=== PATIENT | female | born 1955 | race Caucasian/White ===

== ENCOUNTER 2016-05-15 14:48 | Inpatient (IN) | payer MEDICARE, OTHER ==
[2016-05-15] MEDS: IPRATROPIUM-ALBUTEROL 3 ML NEB INHALATION SCH ×2 (19:14→23:58)
[2016-05-15 19:48] LABS: Basophils # (A) 0.1 k/uL (0-0.2); Basophils % (A) 1 %; CH 28.3; CHCM 32.3; Eosinophils # (A) 0.2 k/uL (0-0.7); Eosinophils % (A) 2 %; HCT 46.6 % (34.0-46.0); HDW 2.41; HGB 15.1 gm/dL (11.4-16.0); Luc # (Auto) 0.16; Luc % (Auto) 2; Lymphocytes # (A) 2.5 k/uL (1.0-4.8); Lymphocytes % (A) 25 %; MCH 28.7 pg (25.0-35.0); MCHC 32.5 g/dL (31.0-37.0); MCV 88.4 fL (80.0-100.0); Mean Platelet Volume 7.7; Monocytes # (A) 0.4 k/uL (0-1.0); Monocytes % (A) 4 %; Neutrophils # (A) 6.9 k/uL (1.3-7.7); Neutrophils % (A) 67 %; RBC 5.28 m/uL (3.80-5.40); RDW 13.5 % (11.5-15.5); WBC 10.2 k/uL (3.8-10.6)
--- NOTE | 2016-05-15 19:48 | XR ---
EXAMINATION TYPE: XR chest 2V DATE OF EXAM: 05/15/2016 7:43 PM COMPARISON: 12/14/2015 HISTORY: Cough and short of breath TECHNIQUE: Frontal and lateral views of the chest are obtained. FINDINGS: There is no heart failure. Coarsening of interstitial markings and more on the right side. There is a mild patchy nodular infiltrate in the right upper lobe. There is no pleural effusion. The re are no hilar masses. Thoracic aorta is atheromatous. There are small calcified granulomata at the pulmonary rosie. IMPRESSION: There is a mild nodular infiltrate in the right lung mainly in the right upper lobe that is increased compared to last exam and could relate to old granulomatous disease. No heart failure.
[2016-05-15] MEDS: HYDROcodone/APAP 5-325MG 1 EACH TAB PO PRN (19:55)
[2016-05-15] MEDS: SENNOSIDES-DOCUSATE SODIUM 1 EACH TAB PO PRN (19:55)
[2016-05-15] MEDS: guaiFENesin-Coden 100-10MG/5ML 10 ML CUP PO SCH (19:56)
[2016-05-15] MEDS: DULoxetine HCL 30 MG CAPSULE.DR PO SCH (19:56)
[2016-05-15] MEDS: BENZONATATE 100 MG CAP PO PRN (19:56)
[2016-05-15] MEDS: methylPREDNISolone SOD SUCCI 125 MG/2 ML VIAL IV SCH (19:57)
[2016-05-15] MEDS: RIFAMPIN 300 MG CAP PO SCH (19:57)
[2016-05-15 20:03] LABS: ALT 22 U/L (9-52); AST 24 U/L (14-36); Alkaline Phosphatase 73 U/L (38-126); Anion Gap 9 mmol/L; Blood Urea Nitrogen 15 mg/dL (7-17); Calcium 9.3 mg/dL (8.4-10.2); Carbon Dioxide 29 mmol/L (22-30); Chloride 103 mmol/L (98-107); Glucose 99 mg/dL (74-99); Non-African American GFR(MDRD) >60 (>60 ml/min/1.73 sqM); Potassium 4.5 mmol/L (3.5-5.1); Sodium 141 mmol/L (137-145); Total Bilirubin 0.7 mg/dL (0.2-1.3); Total Protein 6.6 g/dL (6.3-8.2)
[2016-05-15] MEDS: MELATONIN 5 MG TABLET PO SCH (21:24)
[2016-05-15] MEDS: ALPRAZolam 0.25 MG TAB PO SCH (21:24)
[2016-05-15] MEDS: BACLOFEN 10 MG TAB PO SCH (21:24)
[2016-05-16] MEDS: methylPREDNISolone SOD SUCCI 125 MG/2 ML VIAL IV SCH ×5 (00:39→23:45)
[2016-05-16] MEDS: IPRATROPIUM-ALBUTEROL 3 ML NEB INHALATION SCH ×5 (03:47→20:08)
[2016-05-16] MEDS: BENZONATATE 100 MG CAP PO PRN ×3 (04:01→20:32)
[2016-05-16] MEDS: IBUPROFEN 600 MG TAB PO PRN ×2 (04:02→17:12)
[2016-05-16] MEDS: PROMETHAZ-COD 6.25-10 MG/5 ML 5 ML CUP PO SCH (08:05)
[2016-05-16 08:06] LABS: Basophils % (A) 0 %; CH 28.3; CHCM 31.8; Eosinophils % (A) 0 %; HCT 46.3 % (34.0-46.0); HDW 2.43; HGB 14.8 gm/dL (11.4-16.0); Luc # (Auto) 0.06; Luc % (Auto) 1; Lymphocytes % (A) 15 %; MCH 28.6 pg (25.0-35.0); MCHC 31.9 g/dL (31.0-37.0); MCV 89.5 fL (80.0-100.0); Mean Platelet Volume 7.9; Monocytes # (A) 0.1 k/uL (0-1.0); Monocytes % (A) 2 %; Neutrophils # (A) 5.4 k/uL (1.3-7.7); Neutrophils % (A) 83 %; RBC 5.17 m/uL (3.80-5.40); RDW 13.5 % (11.5-15.5); WBC 6.6 k/uL (3.8-10.6); WBC (Perox) 6.78
[2016-05-16] MEDS: NICOTINE 21MG/24HR PATCH TRANSDERM SCH (08:15)
[2016-05-16] MEDS: BACLOFEN 10 MG TAB PO SCH ×3 (08:15→20:32)
[2016-05-16] MEDS: DULoxetine HCL 30 MG CAPSULE.DR PO SCH ×2 (08:15→20:31)
[2016-05-16] MEDS: MULTIVITAMINS, THERA 1 EACH TAB PO SCH (08:16)
[2016-05-16] MEDS: ASPIRIN 81 MG CHEW PO SCH (08:16)
[2016-05-16] MEDS: CLARITHROMYCIN 500 MG TAB PO SCH (08:16)
[2016-05-16] MEDS: PANTOPRAZOLE 40 MG TABLET PO SCH (08:16)
[2016-05-16] MEDS: RIFAMPIN 300 MG CAP PO SCH ×2 (08:17→20:31)
[2016-05-16] MEDS: ASCORBIC ACID 500 MG TAB PO SCH (08:18)
[2016-05-16 08:19] LABS: ALT 16 U/L (9-52); AST 23 U/L (14-36); Alkaline Phosphatase 72 U/L (38-126); Anion Gap 16 mmol/L; Blood Urea Nitrogen 16 mg/dL (7-17); Calcium 9.4 mg/dL (8.4-10.2); Carbon Dioxide 21 mmol/L (22-30); Chloride 105 mmol/L (98-107); Glucose 206 mg/dL (74-99); Non-African American GFR(MDRD) >60 (>60 ml/min/1.73 sqM); Potassium 4.3 mmol/L (3.5-5.1); Sodium 142 mmol/L (137-145); Total Bilirubin 0.7 mg/dL (0.2-1.3); Total Protein 6.6 g/dL (6.3-8.2)
[2016-05-16] MEDS: ALPRAZolam 0.25 MG TAB PO SCH ×3 (08:23→20:32)
[2016-05-16] MEDS ORDERED: NON-FORMULARY DRUG (Omega-3 Fatty Acids/Fish Oil [Fish Oil 1,000 Mg Softgel] 1 CAP) PO SCH (09:00)
--- NOTE | 2016-05-16 10:10 | CONS ---
DATE OF CONSULTATION: DATE OF SERVICE: 05/15/2016 Ms. Miriam Esparza is seen, evaluation and examined. REASON FOR CONSULTATION: Cough, congestion, shortness of breath of 2 weeks' duration. HISTORY OF PRESENTING ILLNESS: Ms. Miriam Esparza is a 60-year-old female who was seen and evaluated, examined on the fifth floor. This patient has a history of ongoing cough, congestion and wheezing started about 2 weeks ago. Her son has strep throat infection. Her also coming down with respiratory process and eventually she developed respiratory symptoms as well. With those problems, she presented into the emergency department and has been admitted. Her prior chest x-ray revealed some nodular prominence in the right upper lobe. I was asked to evaluate this patient further in that regard as well. Past medical history is significant for chronic persistent asthma, severe COPD. Patient has been on MAC infection therapy from [facility]. Current medications while in the hospital include Tylenol with Codeine, DuoNeb unit dose updraft 4 times a day, Xanax as needed, vitamin C, aspirin, Tessalon Perles, Rocephin, clarithromycin, Cymbalta, guaifenesin, ibuprofen, melatonin, Solu-Medrol 60 q.6 hourly, multivitamin, Protonix, rifampin and Senna. PAST SURGICAL HISTORY: Otherwise unremarkable and noncontributory. REVIEW OF SYSTEMS: Otherwise unremarkable and noncontributory. On examination, her most recent vitals include blood pressure is 110/60, respiratory rate 15, pulse 86, temperature 97, saturating 90% on room air. HEENT EXAMINATION: Atraumatic, normocephalic. Pharynx is clear. NECK: Supple without lymphadenopathy, jugular venous distention or carotid bruit. LUNGS: Bilateral good air entry without any significant rales, rhonchi or rub. HEART: Regular rate and rhythm. S1 and S2 audible. ABDOMEN: Soft. No rebound or rigidity. EXTREMITIES: +1 peripheral pulses. NEUROLOGICAL EXAMINATION: Otherwise, awake and alert. No focal neurological deficit. IMPRESSION: 1. Acute chronic obstructive pulmonary disease exacerbation. 2. Purulent tracheobronchitis. 3. History of Mycobacterium avium complex infection and history of prior gram-negative pneumonia. 4. Severe chronic obstructive pulmonary disease, emphysema. 5. Generalized anxiety disorder. Plan and recommendation is to continue current therapy. Continue steroids, antibiotics. Will send sputum for culture. Follow clinical course closely. Further recommendations pending. Plan of care as per clinical response of the patient.
[2016-05-16] MEDS: ONDANSETRON 4 MG TAB PO PRN ×2 (10:17→21:23)
[2016-05-16 11:20] LABS: Glucose,Whole Blood 182 mg/dL (75-99)
[2016-05-16 12:11] LABS: Hemoglobin A1C 5.4 % (4.2-6.1)
[2016-05-16] MEDS: INSULIN LISPRO (humaLOG) 300 UNIT/3 ML VIAL SQ SCH ×3 (12:14→21:23)
[2016-05-16] MEDS: HYDROcodone/APAP 5-325MG 1 EACH TAB PO PRN (14:16)
[2016-05-16 17:19] LABS: Glucose,Whole Blood 148 mg/dL (75-99)
--- NOTE | 2016-05-16 17:47 | P.HPIM ---
History of Present Illness H&P Date: 05/16/16 Chief Complaint: Shortness of breath and cough Patient is a 60-year-old female well known to my practice who was admitted to [facility] medical floor due to cough and worsening shortness of breath for the last 2 weeks patient was having significant wheezing and difficulty was ambulating and taking care of her daily needs due to shortness of breath she was admitted to medical floor preliminary diagnosis was acute tracheobronchitis and acute exacerbation of chronic obstructive pulmonary disease she was started on IV antibiotic and IV steroids and inhaled bronchodilators pulmonary consultation was requested patient is well known to Dr. Tristan.. Patient has a known history of MAC infection Review of Systems Respiratory: Reports congestion, Reports cough, Reports dyspnea Past Medical History Past Medical History: Asthma, COPD, Fibromyalgia, GERD/Reflux, Hyperlipidemia, Osteoarthritis (OA), Pneumonia, Respiratory Disorder Additional Past Medical History / Comment(s): Chronic neck pain"herniated discs ", arthitis, osteoporosis, fibrocystic breast disease, cataracts, "MAC" tx by dr [place]. History of Any Multi-Drug Resistant Organisms: None Reported Additional Past Surgical History / Comment(s): multiple breast surgeries(needle aspiration bx), tubal ligation, right foot surgery 40 years ago to removed a foreign object, bronchosocpy, inj in neck. Past Anesthesia/Blood Transfusion Reactions: No Reported Reaction Additional Past Anesthesia/Blood Transfusion Reaction / Comment(s): clausterphobia Past Psychological History: Anxiety, Bipolar, Depression, Panic Disorder Additional Psychological History / Comment(s): has depression but denies any thoughts of wanting to harm self. pt lives at home(divided house-sons live on other side).only has i step in the home pt lives with spouse, 2 dogs, 2 cats, 1 bird. is independant, no outside dervice. pt drives. Smoking Status: Current every day smoker Past Alcohol Use History: None Reported Past Drug Use History: None Reported - Past Family History Mother Family Medical History: Cancer Additional Family Medical History / Comment(s): brain, breast cancer Father Family Medical History: Congestive Heart Failure (CHF), CVA/TIA, Renal Disease Medications and Allergies Home Medications Medication Instructions Recorded Confirmed Type ALPRAZolam [Xanax] 0.25 mg PO TID 12/10/15 05/15/16 History Albuterol Inhaler [Ventolin Hfa 1 - 2 puff INHALATION RT-Q6H PRN 12/10/15 History Inhaler] Albuterol Nebulized [Ventolin 2.5 mg INHALATION RT-QID 12/10/15 05/15/16 History Nebulized] Aspirin EC [Ecotrin Low Dose] 81 mg PO DAILY 12/10/15 05/15/16 History Baclofen [Lioresal] 10 mg PO TID 12/10/15 05/15/16 History Benzonatate [Tessalon Perles] 100 mg PO TID PRN 12/10/15 05/15/16 History Clarithromycin [Biaxin] 500 mg PO DAILY 12/10/15 05/15/16 History DULoxetine HCL [Cymbalta] 30 mg PO BID 12/10/15 05/15/16 History Ethambutol [Myambutol] 1,200 mg PO DAILY 12/10/15 05/15/16 History HYDROcodone/APAP 5-325MG [[place] 1 tab PO Q12H PRN 12/10/15 05/15/16 History 5-325] Ibuprofen [Motrin] 600 mg PO Q8HR PRN 12/10/15 05/15/16 History Melatonin 10 mg PO HS 12/10/15 05/15/16 History Multivitamins, Thera [Multivitamin] 1 tab PO DAILY 12/10/15 05/15/16 History Nicotine 21Mg/24Hr Patch [Habitrol] 1 patch TRANSDERM DAILY 12/10/15 05/15/16 History Omeprazole [PriLOSEC] 20 mg PO AC-BID 12/10/15 05/15/16 History Ondansetron [Zofran] 4 mg PO Q8HR PRN 12/10/15 05/15/16 History Promethazine HCl/Codeine 10 ml PO QAM 12/10/15 05/15/16 History [Prometh-Codein 6.25-10 mg/5 ml] Rifampin [Rifadin] 300 mg PO BID 12/10/15 05/15/16 History Sennosides/Docusate Sodium 1 tab PO DAILY PRN 12/10/15 05/15/16 History [Jana-Colace Tablet] guaiFENesin/CODEINE PHOSPHATE 10 ml PO HS 12/10/15 05/15/16 History [Cheratussin AC Syrup] Ascorbic Acid [Vitamin C] 500 mg PO DAILY 05/15/16 05/15/16 History [place]-3 Fatty Acids/Fish Oil [Fish 1 cap PO DAILY 05/15/16 05/15/16 History Oil 1,000 mg Softgel] Allergies Allergy/AdvReac Type Severity Reaction Status Date / Time Iodinated Contrast Media - Allergy Rash/Hives Verified 05/15/16 18:16 Oral and [Iodinated Contrast Media - IV Dye] iodine Allergy Rash/Hives Verified 05/15/16 18:16 shellfish derived Allergy Rash/Hives Verified 05/15/16 18:16 venom-honey bee Allergy Anaphylaxis Verified 05/15/16 18:17 [bee venom (honey bee)] Physical Exam Vitals: Vital Signs Temp Pulse Pulse Resp BP Pulse Ox 05/16/16 16:51 96 05/16/16 16:41 96 05/16/16 16:00 15 05/16/16 15:00 98.1 F 101 H 16 119/57 90 L 05/16/16 12:40 88 05/16/16 12:30 92 05/16/16 09:57 88 05/16/16 09:41 88 05/16/16 07:00 97.5 F L 86 15 111/61 90 L 05/16/16 03:59 80 05/16/16 03:47 76 05/16/16 00:09 88 05/16/16 00:00 83 18 05/15/16 23:59 92 05/15/16 22:18 98.4 F 83 17 129/65 94 L 05/15/16 19:24 84 05/15/16 19:14 84 Intake and Output 05/16/16 05/16/16 05/16/16 06:59 14:59 22:59 Intake Total 540 100 Balance 540 100 Intake: Intake, IV Titration 100 Amount cefTRIAXone 1,000 mg In 100 Sodium Chloride 0.9% 50 ml @ 100 mls/hr IVPB Q24HR [facility] Rx#:[id number] Oral 540 Other: # Voids 1 In general patient is alert and oriented 3 in no apparent distress HEENT head normocephalic and atraumatic Neck is supple no JVD no goiter no lymphadenopathy Chest exam reveals a few scattered crackles no wheezing Cardiac exam reveals regular heart sounds S1 and S2 no gallops no murmurs Abdomen is soft nontender no organomegaly with normal bowel sounds Extremity exam reveals no edema no cyanosis or clubbing Results CBC & Chem 7: 05/16/16 07:23 05/16/16 07:23 Labs: Abnormal Lab Results - Last 24 Hours (Table) 05/15/16 05/16/16 05/16/16 Range/Units 19:19 07:23 07:23 Hct 46.6 H 46.3 H (34.0-46.0) % Carbon Dioxide 21 L (22-30) mmol/L Glucose 206 H (74-99) mg/dL POC Glucose (mg/dL) (75-99) mg/dL 05/16/16 05/16/16 Range/Units 11:18 17:18 Hct (34.0-46.0) % Carbon Dioxide (22-30) mmol/L Glucose (74-99) mg/dL POC Glucose (mg/dL) 182 H 148 H (75-99) mg/dL Thrombosis Risk Factor Assmnt - Choose All That Apply Any of the Below Risk Factors Present?: Yes Each Factor Represents 1 point: Abnormal pulmonary function (COPD), Age 41-60 years Other Risk Factors: No Other congenital or acquired thrombophilia - If yes, enter type in comment: No Thrombosis Risk Factor Assessment Total Risk Factor Score: 2 Thrombosis Risk Factor Assessment Level: Low Risk Assessment and Plan Plan: #1 acute exacerbation of chronic obstructive pulmonary disease, patient was started on IV Solu-Medrol and inhaled bronchodilators #2 acute tracheobronchitis, patient started on IV Rocephin, sputum culture were requested #3 history of Mycobacterium Aviane complex infection patient has been maintained on Biaxin and rifampin and Ethambutol however she has not been taking medications regularly because she could not afford them, Will consult nursing home social worker to assess if she qualified for any help #4 anxiety disorder #5 gastroesophageal reflux disease maintained on Protonix #6 for DVT prophylaxis we will use Lovenox subcu once daily Medication and labs were reviewed please see orders will follow in a.m.
[2016-05-16] MEDS: ENOXAPARIN 40 MG/0.4 ML SYRINGE SQ SCH (18:12)
[2016-05-16 19:58] LABS: Glucose,Whole Blood 210 mg/dL (75-99)
[2016-05-16] MEDS: MELATONIN 5 MG TABLET PO SCH (20:31)
[2016-05-16] MEDS: guaiFENesin-Coden 100-10MG/5ML 10 ML CUP PO SCH (20:31)
[2016-05-17] MEDS: IPRATROPIUM-ALBUTEROL 3 ML NEB INHALATION SCH ×6 (00:25→20:47)
[2016-05-17] MEDS: methylPREDNISolone SOD SUCCI 125 MG/2 ML VIAL IV SCH ×3 (05:58→17:25)
[2016-05-17 07:25] LABS: Glucose,Whole Blood 162 mg/dL (75-99)
[2016-05-17] MEDS: HYDROcodone/APAP 5-325MG 1 EACH TAB PO PRN (07:50)
[2016-05-17] MEDS: NICOTINE 21MG/24HR PATCH TRANSDERM SCH (07:53)
[2016-05-17] MEDS: INSULIN LISPRO (humaLOG) 300 UNIT/3 ML VIAL SQ SCH ×4 (07:53→21:25)
[2016-05-17] MEDS: ASPIRIN 81 MG CHEW PO SCH (07:54)
[2016-05-17] MEDS: BACLOFEN 10 MG TAB PO SCH ×3 (07:54→21:25)
[2016-05-17] MEDS: DULoxetine HCL 30 MG CAPSULE.DR PO SCH ×2 (07:55→20:11)
[2016-05-17] MEDS: ENOXAPARIN 40 MG/0.4 ML SYRINGE SQ SCH (07:55)
[2016-05-17] MEDS: CLARITHROMYCIN 500 MG TAB PO SCH (07:55)
[2016-05-17] MEDS: RIFAMPIN 300 MG CAP PO SCH ×2 (07:56→20:11)
[2016-05-17] MEDS: PANTOPRAZOLE 40 MG TABLET PO SCH (07:56)
[2016-05-17] MEDS: PROMETHAZ-COD 6.25-10 MG/5 ML 5 ML CUP PO SCH (08:03)
[2016-05-17] MEDS: ALPRAZolam 0.25 MG TAB PO SCH ×3 (08:04→21:25)
[2016-05-17 09:15] LABS: Basophils % (A) 0 %; CHCM 32.3; Eosinophils % (A) 0 %; HCT 42.5 % (34.0-46.0); HDW 2.52; HGB 13.8 gm/dL (11.4-16.0); Luc % (Auto) 1; Lymphocytes # (A) 1.5 k/uL (1.0-4.8); Lymphocytes % (A) 8 %; MCH 28.3 pg (25.0-35.0); MCHC 32.4 g/dL (31.0-37.0); MCV 87.3 fL (80.0-100.0); Mean Platelet Volume 8.2; Monocytes # (A) 0.6 k/uL (0-1.0); Monocytes % (A) 3 %; Neutrophils # (A) 16.6 k/uL (1.3-7.7); Neutrophils % (A) 88 %; RBC 4.87 m/uL (3.80-5.40); RDW 13.7 % (11.5-15.5); WBC 18.8 k/uL (3.8-10.6); WBC (Perox) 19.42
[2016-05-17 09:24] LABS: ALT 25 U/L (9-52); AST 18 U/L (14-36); Alkaline Phosphatase 69 U/L (38-126); Anion Gap 11 mmol/L; Blood Urea Nitrogen 23 mg/dL (7-17); Calcium 9.3 mg/dL (8.4-10.2); Carbon Dioxide 24 mmol/L (22-30); Chloride 105 mmol/L (98-107); Glucose 137 mg/dL (74-99); Non-African American GFR(MDRD) >60 (>60 ml/min/1.73 sqM); Potassium 4.2 mmol/L (3.5-5.1); Sodium 140 mmol/L (137-145); Total Bilirubin 0.5 mg/dL (0.2-1.3); Total Protein 6.2 g/dL (6.3-8.2)
--- NOTE | 2016-05-17 10:42 | P.PN ---
Subjective Patient is being evaluated and examined today on the sixth floor. Patient came into the emergency room with a history of ongoing cough congestion and wheezing that started about 2 weeks ago. She has been living in close living quarters with family that have strep throat and respiratory illnesses at this time. Her chest x-ray revealed some nodular prominence on the right upper lobe. This patient has a history for chronic persistent asthma and severe COPD. The patient also is being seen at the [facility] for a Mycobacterium avium complex infection. Currently the patient is resting up in bed on 2 L of oxygen. She does complain of a cough and has some yellow-green sputum cultures are pending. Objective - Vital Signs Vital signs: Vital Signs Temp 97.7 F 05/17/16 07:00 Pulse 88 05/17/16 07:40 Resp 16 05/17/16 07:00 BP 99/56 05/17/16 07:00 Pulse Ox 94 L 05/17/16 07:27 Intake & Output 05/16/16 05/17/16 05/17/16 18:59 06:59 18:59 Intake Total 100 300 Balance 100 300 Intake: Intake, IV Titration 100 Amount cefTRIAXone 1,000 mg In 100 Sodium Chloride 0.9% 50 ml @ 100 mls/hr IVPB Q24HR [facility] Rx#:[id number] Oral 300 Other: Voiding Method Toilet # Voids 1 - Exam GENERAL EXAM: Alert, active, comfortable in no apparent distress. HEAD: Normocephalic. EYES: Normal reaction of pupils, equal size. NOSE: Clear with pink turbinates. THROAT: No erythema or exudates. NECK: No masses, no JVD. CHEST: No chest wall deformity. LUNGS: Equal air entry, with some expiratory wheezes noted CVS: S1 and S2 normal with no audible mumurs, regular rhythm. ABDOMEN: No hepatosplenomegaly, normal bowel sounds, no guarding or rigidity. EXTREMITIES: No edema noted, pedal pulses palpable. SKIN: No rashes CENTRAL NERVOUS SYSTEM: No focal deficits, tone is normal in all 4 extremities. - Labs CBC & Chem 7: 05/17/16 08:32 05/17/16 08:32 Labs: Abnormal Lab Results - Last 24 Hours (Table) 05/16/16 05/16/16 05/16/16 Range/Units 11:18 17:18 19:55 WBC (3.8-10.6) k/uL Neutrophils # (1.3-7.7) k/uL BUN (7-17) mg/dL Glucose (74-99) mg/dL POC Glucose (mg/dL) 182 H 148 H 210 H (75-99) mg/dL Total Protein (6.3-8.2) g/dL 05/17/16 05/17/16 05/17/16 Range/Units 07:23 08:32 08:32 WBC 18.8 H (3.8-10.6) k/uL Neutrophils # 16.6 H (1.3-7.7) k/uL BUN 23 H (7-17) mg/dL Glucose 137 H (74-99) mg/dL POC Glucose (mg/dL) 162 H (75-99) mg/dL Total Protein 6.2 L (6.3-8.2) g/dL Assessment and Plan Plan: Assessment: Acute chronic obstructive pulmonary disease exacerbation Purulent tracheobronchitis History of Mycobacterium avium complex infection and history of prior gram- negative pneumonia Severe chronic obstructive pulmonary disease and emphysema Generalized anxiety disorder Plan We will continue to keep the patient on the current therapy, continue with her steroids, breathing treatments, and antibiotics sputum culture is pending. We will continue to monitor the patient's labs and adjust treatment as clinically necessary.
[2016-05-17 11:46] LABS: Glucose,Whole Blood 123 mg/dL (75-99)
[2016-05-17] MEDS: IBUPROFEN 600 MG TAB PO PRN (12:53)
[2016-05-17] MEDS: ASCORBIC ACID 500 MG TAB PO SCH (12:54)
[2016-05-17] MEDS: MULTIVITAMINS, THERA 1 EACH TAB PO SCH (12:55)
[2016-05-17 17:07] LABS: Glucose,Whole Blood 141 mg/dL (75-99)
--- NOTE | 2016-05-17 18:09 | P.PN ---
Subjective Principal diagnosis: Acute Exacerbation of chronic obstructive pulmonary disease Patient is a 60-year-old female with known history of chronic obstructive pulmonary disease, and history of MAC infection of the lungs, who was admitted to [facility] due to cough and worsening shortness of breath she had evidence of acute purulent bronchitis and acute exacerbation of chronic obstructive pulmonary disease. She was started on IV antibiotic and IV steroids pulmonary consultation was requested. She reports minimal improvement since yesterday Objective - Vital Signs Vital signs: Vital Signs Temp 97.6 F 05/17/16 15:00 Pulse 88 05/17/16 16:18 Resp 16 05/17/16 15:00 BP 129/77 05/17/16 15:00 Pulse Ox 95 05/17/16 15:00 Intake & Output 05/16/16 05/17/16 05/17/16 18:59 06:59 18:59 Intake Total 100 300 360 Balance 100 300 360 Intake: Intake, IV Titration 100 Amount cefTRIAXone 1,000 mg In 100 Sodium Chloride 0.9% 50 ml @ 100 mls/hr IVPB Q24HR [facility] Rx#:[id number] Oral 300 360 Other: Voiding Method Toilet Toilet # Voids 1 - Exam In general patient is alert and oriented 3 in no apparent distress HEENT head normocephalic and atraumatic Neck is supple no JVD no goiter no lymphadenopathy Chest exam reveals diffuse crackles bilaterally with wheezing Cardiac exam reveals regular heart sounds no murmurs Abdomen is soft nontender no organomegaly Extremity exam reveals no edema - Labs CBC & Chem 7: 05/17/16 08:32 05/17/16 08:32 Labs: Abnormal Lab Results - Last 24 Hours (Table) 05/16/16 05/17/16 05/17/16 Range/Units 19:55 07:23 08:32 WBC 18.8 H (3.8-10.6) k/uL Neutrophils # 16.6 H (1.3-7.7) k/uL BUN (7-17) mg/dL Glucose (74-99) mg/dL POC Glucose (mg/dL) 210 H 162 H (75-99) mg/dL Total Protein (6.3-8.2) g/dL 05/17/16 05/17/16 05/17/16 Range/Units 08:32 11:43 17:05 WBC (3.8-10.6) k/uL Neutrophils # (1.3-7.7) k/uL BUN 23 H (7-17) mg/dL Glucose 137 H (74-99) mg/dL POC Glucose (mg/dL) 123 H 141 H (75-99) mg/dL Total Protein 6.2 L (6.3-8.2) g/dL Microbiology - Last 24 Hours (Table) 05/17/16 07:55 Gram Stain - Preliminary Sputum Sputum Culture - Preliminary Assessment and Plan Plan: #1 acute exacerbation of chronic obstructive pulmonary disease, patient was started on IV Solu-Medrol and inhaled bronchodilators #2 acute tracheobronchitis, patient started on IV Rocephin, sputum culture were requested #3 history of Mycobacterium Aviane complex infection patient has been maintained on Biaxin and rifampin and Ethambutol however she has not been taking medications regularly because she could not afford them, Will consult social welfare clerk to assess if she qualified for any help #4 anxiety disorder #5 gastroesophageal reflux disease maintained on Protonix #6 for DVT prophylaxis we will use Lovenox subcu once daily Patient is having minimal improvement continue was current management will discuss case with Dr. Tristan home health care social worker
[2016-05-17] MEDS: BENZONATATE 100 MG CAP PO PRN (18:16)
[2016-05-17] MEDS: ETHAMBUTOL 1200 MG PO SCH (19:36)
[2016-05-17] MEDS: guaiFENesin-Coden 100-10MG/5ML 10 ML CUP PO SCH (20:11)
[2016-05-17] MEDS: MELATONIN 5 MG TABLET PO SCH (20:11)
[2016-05-17 21:09] LABS: Glucose,Whole Blood 143 mg/dL (75-99)
[2016-05-18] MEDS: IPRATROPIUM-ALBUTEROL 3 ML NEB INHALATION SCH ×7 (00:40→20:03)
[2016-05-18] MEDS: methylPREDNISolone SOD SUCCI 125 MG/2 ML VIAL IV SCH ×4 (06:03→18:04)
[2016-05-18 07:47] LABS: Glucose,Whole Blood 121 mg/dL (75-99)
[2016-05-18] MEDS: INSULIN LISPRO (humaLOG) 300 UNIT/3 ML VIAL SQ SCH ×4 (08:02→20:59)
[2016-05-18] MEDS: HYDROcodone/APAP 5-325MG 1 EACH TAB PO PRN (08:02)
[2016-05-18] MEDS: NICOTINE 21MG/24HR PATCH TRANSDERM SCH (08:02)
[2016-05-18] MEDS: ALPRAZolam 0.25 MG TAB PO SCH ×2 (08:03→18:02)
[2016-05-18] MEDS: IBUPROFEN 600 MG TAB PO PRN ×2 (08:03→20:59)
[2016-05-18] MEDS: BACLOFEN 10 MG TAB PO SCH ×3 (08:04→22:11)
[2016-05-18] MEDS: ASPIRIN 81 MG CHEW PO SCH (08:04)
[2016-05-18] MEDS: CLARITHROMYCIN 500 MG TAB PO SCH (08:05)
[2016-05-18] MEDS: DULoxetine HCL 30 MG CAPSULE.DR PO SCH ×2 (08:05→20:58)
[2016-05-18] MEDS: RIFAMPIN 300 MG CAP PO SCH ×2 (08:06→20:58)
[2016-05-18] MEDS: ENOXAPARIN 40 MG/0.4 ML SYRINGE SQ SCH (08:06)
[2016-05-18] MEDS: PROMETHAZ-COD 6.25-10 MG/5 ML 5 ML CUP PO SCH (08:06)
[2016-05-18] MEDS: PANTOPRAZOLE 40 MG TABLET PO SCH (08:06)
[2016-05-18] MEDS: BENZONATATE 100 MG CAP PO PRN ×2 (10:04→20:59)
[2016-05-18] MEDS: SENNOSIDES-DOCUSATE SODIUM 1 EACH TAB PO PRN (10:08)
--- NOTE | 2016-05-18 10:50 | P.PN ---
Subjective Patient is being evaluated and examined today on the sixth floor. Patient came into the emergency room with a history of ongoing cough congestion and wheezing that started about 2 weeks ago. She has been living in close living quarters with family that have strep throat and respiratory illnesses at this time. Her chest x-ray revealed some nodular prominence on the right upper lobe. This patient has a history for chronic persistent asthma and severe COPD. The patient also is being seen at the [facility] for a Mycobacterium avium complex infection. Currently the patient is resting up in bed on 2 L of oxygen. She does complain of a cough and has some yellow-green sputum, nasal turbinates are inflamed she has had some scant nosebleeding. She feels extremely congested Objective - Vital Signs Vital signs: Vital Signs Temp 98.4 F 05/18/16 07:00 Pulse 92 05/18/16 08:04 Resp 16 05/18/16 07:00 BP 133/73 05/18/16 07:00 Pulse Ox 93 L 05/18/16 07:54 Intake & Output 05/17/16 05/18/16 05/18/16 18:59 06:59 18:59 Intake Total 360 300 Balance 360 300 Intake: Oral 360 300 Other: Voiding Method Toilet Toilet # Voids 3 1 - Exam GENERAL EXAM: Alert, active, comfortable in no apparent distress. HEAD: Normocephalic. EYES: Normal reaction of pupils, equal size. NOSE: Clear with inflamed red to pink turbinates. THROAT: Some erythema and clear exudates. NECK: No masses, no JVD. CHEST: No chest wall deformity. LUNGS: Lungs are noted to have inspiratory and expiratory wheezes as well as some rhonchi. Bases diminished CVS: S1 and S2 normal with no audible mumurs, regular rhythm. ABDOMEN: No hepatosplenomegaly, normal bowel sounds, no guarding or rigidity. EXTREMITIES: No edema noted, pedal pulses palpable. SKIN: No rashes CENTRAL NERVOUS SYSTEM: No focal deficits, tone is normal in all 4 extremities. - Labs CBC & Chem 7: 05/17/16 08:32 05/17/16 08:32 Labs: Abnormal Lab Results - Last 24 Hours (Table) 05/17/16 05/17/16 05/17/16 Range/Units 11:43 17:05 21:07 POC Glucose (mg/dL) 123 H 141 H 143 H (75-99) mg/dL 05/18/16 Range/Units 07:45 POC Glucose (mg/dL) 121 H (75-99) mg/dL Microbiology - Last 24 Hours (Table) 05/17/16 07:55 Gram Stain - Preliminary Sputum Sputum Culture - Preliminary Assessment and Plan Plan: Assessment: Acute chronic obstructive pulmonary disease exacerbation Purulent tracheobronchitis History of Mycobacterium avium complex infection and history of prior gram- negative pneumonia Severe chronic obstructive pulmonary disease and emphysema Generalized anxiety disorder Plan We will continue to keep the patient on the current therapy, continue with her steroids, breathing treatments, and antibiotics, sputum culture is pending. We will order Flonase nasal spray and Singulair to help with her congestion. Repeat chest x-ray today. We will continue to monitor the patient's labs and adjust treatment as clinically necessary.
[2016-05-18] MEDS ORDERED: LACTULOSE 20 GM/30 ML CUP PO ONE (11:15)
--- NOTE | 2016-05-18 11:46 | XR ---
EXAMINATION TYPE: XR chest 2V DATE OF EXAM: 05/18/2016 11:42 AM COMPARISON: 05/15/2016 HISTORY: Shortness of breath TECHNIQUE: Frontal and lateral views of the chest are obtained. FINDINGS: Scattered senescent parenchymal changes noted. Hyperinflation compatible with COPD. No evidence for infiltrate. No evidence for atelectasis. Multiple scattered nodules persist within th e upper lobes primarily. Heart size is stable. Mediastinal structures are stable and grossly unremarkable. No evidence for hilar prominence. Degenerative changes dorsal spine. IMPRESSION: 1. No evidence for acute pulmonary disease. Multiple scattered pulmonary nodules.
[2016-05-18 11:47] LABS: Glucose,Whole Blood 119 mg/dL (75-99)
[2016-05-18] MEDS: ASCORBIC ACID 500 MG TAB PO SCH (11:59)
[2016-05-18] MEDS: MULTIVITAMINS, THERA 1 EACH TAB PO SCH (11:59)
--- NOTE | 2016-05-18 13:11 | P.PN ---
Subjective Acute Exacerbation of chronic obstructive pulmonary disease Patient is a 60-year-old female with known history of chronic obstructive pulmonary disease, and history of MAC infection of the lungs, who was admitted to [facility] due to cough and worsening shortness of breath she had evidence of acute purulent bronchitis and acute exacerbation of chronic obstructive pulmonary disease. Patient is reporting still having some shortness of breath and wheezing. Troponins service has ordered a repeat chest x-ray. She is complaining of constipation. Last bowel movement 4 days ago. Denies any abdominal pain. She is passing gas. No nausea or vomiting. No difficulty urinating. Objective - Vital Signs Vital signs: Vital Signs Temp 98.4 F 05/18/16 07:00 Pulse 90 05/18/16 11:26 Resp 16 05/18/16 08:00 BP 133/73 05/18/16 07:00 Pulse Ox 93 L 05/18/16 07:54 Intake & Output 05/17/16 05/18/16 05/18/16 18:59 06:59 18:59 Intake Total 360 300 Balance 360 300 Intake: Oral 360 300 Other: Voiding Method Toilet Toilet Toilet # Voids 3 1 1 - Exam Head normocephalic Neck supple Lungs wheezing bilaterally Heart regular rate and rhythm S1-S2, no rub or gallop Abdomen is soft nontender nondistended positive bowel sounds no hepatosplenomegaly Extremities no edema Neuro alert and orientated to 3 - Labs CBC & Chem 7: 05/17/16 08:32 05/17/16 08:32 Labs: Abnormal Lab Results - Last 24 Hours (Table) 05/17/16 05/17/16 05/18/16 Range/Units 17:05 21:07 07:45 POC Glucose (mg/dL) 141 H 143 H 121 H (75-99) mg/dL 05/18/16 Range/Units 11:46 POC Glucose (mg/dL) 119 H (75-99) mg/dL Microbiology - Last 24 Hours (Table) 05/17/16 07:55 Gram Stain - Preliminary Sputum Sputum Culture - Preliminary Assessment and Plan Plan: #1 acute exacerbation of chronic obstructive pulmonary disease, patient was started on IV Solu-Medrol and inhaled bronchodilators. Awaiting repeat chest x- ray #2 acute tracheobronchitis, patient started on IV Rocephin, sputum culture pending #3 history of Mycobacterium Aviane complex infection patient has been maintained on Biaxin and rifampin and Ethambutol however she has not been taking medications regularly because she could not afford them, Will consult social insurance adviser to assess if she qualified for any help #4 anxiety disorder #5 gastroesophageal reflux disease maintained on Protonix #6 for DVT prophylaxis we will use Lovenox subcu once daily #7 constipation: We'll give Colace and lactulose. Continue to monitor.
[2016-05-18 17:22] LABS: Glucose,Whole Blood 156 mg/dL (75-99)
[2016-05-18] MEDS ORDERED: IPRATROPIUM-ALBUTEROL 3 ML NEB INHALATION PRN (18:44)
[2016-05-18 20:29] LABS: Glucose,Whole Blood 154 mg/dL (75-99)
[2016-05-18] MEDS: MELATONIN 5 MG TABLET PO SCH (20:58)
[2016-05-18] MEDS: MONTELUKAST 10 MG TAB PO SCH (20:58)
[2016-05-18] MEDS: guaiFENesin-Coden 100-10MG/5ML 10 ML CUP PO SCH (20:58)
[2016-05-18] MEDS: DOCUSATE 100 MG CAP PO SCH (20:58)
[2016-05-19] MEDS: methylPREDNISolone SOD SUCCI 125 MG/2 ML VIAL IV SCH ×3 (00:07→12:40)
[2016-05-19] MEDS: ALPRAZolam 0.25 MG TAB PO SCH ×4 (00:10→22:34)
[2016-05-19 07:41] LABS: Glucose,Whole Blood 116 mg/dL (75-99)
[2016-05-19] MEDS: INSULIN LISPRO (humaLOG) 300 UNIT/3 ML VIAL SQ SCH ×4 (07:51→21:42)
[2016-05-19] MEDS: NICOTINE 21MG/24HR PATCH TRANSDERM SCH (08:00)
[2016-05-19] MEDS: ENOXAPARIN 40 MG/0.4 ML SYRINGE SQ SCH (08:01)
[2016-05-19] MEDS: ASPIRIN 81 MG CHEW PO SCH (08:02)
[2016-05-19] MEDS: DULoxetine HCL 30 MG CAPSULE.DR PO SCH ×2 (08:02→21:41)
[2016-05-19] MEDS: BACLOFEN 10 MG TAB PO SCH ×3 (08:02→22:34)
[2016-05-19] MEDS: DOCUSATE 100 MG CAP PO SCH ×2 (08:02→21:41)
[2016-05-19] MEDS: CLARITHROMYCIN 500 MG TAB PO SCH (08:02)
[2016-05-19] MEDS: PROMETHAZ-COD 6.25-10 MG/5 ML 5 ML CUP PO SCH (08:03)
[2016-05-19] MEDS: PANTOPRAZOLE 40 MG TABLET PO SCH (08:03)
[2016-05-19] MEDS: RIFAMPIN 300 MG CAP PO SCH ×2 (08:03→21:41)
[2016-05-19] MEDS: IBUPROFEN 600 MG TAB PO PRN (08:03)
--- NOTE | 2016-05-19 08:06 | P.PN ---
Subjective Patient is being evaluated and examined today on the sixth floor. Patient came into the emergency room with a history of ongoing cough congestion and wheezing that started about 2 weeks ago. She has been living in close living quarters with family that have strep throat and respiratory illnesses at this time. Her chest x-ray revealed some nodular prominence on the right upper lobe. This patient has a history for chronic persistent asthma and severe COPD. The patient also is being seen at the [facility] for a Mycobacterium avium complex infection. Currently the patient is resting up in bed on 2 L of oxygen. She does complain of a cough and has some yellow-green sputum, nasal turbinates are inflamed she has had some no further nosebleeds since yesterday. She feels her congestion has improved somewhat. Objective - Vital Signs Vital signs: Vital Signs Temp 97.7 F 05/18/16 22:00 Pulse 97 05/18/16 22:00 Resp 17 05/18/16 22:00 BP 129/73 05/18/16 22:00 Pulse Ox 92 L 05/18/16 22:00 Intake & Output 05/18/16 05/19/16 05/19/16 18:59 06:59 18:59 Intake Total 360 600 Balance 360 600 Intake: Oral 360 600 Other: Voiding Method Toilet Toilet # Voids 2 - Exam GENERAL EXAM: Alert, active, comfortable in no apparent distress. HEAD: Normocephalic. EYES: Normal reaction of pupils, equal size. NOSE: Clear with inflamed red to pink turbinates. THROAT: Some erythema and clear exudates. NECK: No masses, no JVD. CHEST: No chest wall deformity. LUNGS: Lungs are noted to have inspiratory and expiratory wheezes as well as some rhonchi. Bases diminished CVS: S1 and S2 normal with no audible mumurs, regular rhythm. ABDOMEN: No hepatosplenomegaly, normal bowel sounds, no guarding or rigidity. EXTREMITIES: No edema noted, pedal pulses palpable. SKIN: No rashes CENTRAL NERVOUS SYSTEM: No focal deficits, tone is normal in all 4 extremities. 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 Continue with the Flonase and Singulair as it's helping with her congestion. Repeat chest x-ray today. We will continue to monitor the patient's labs and adjust treatment as clinically necessary.
[2016-05-19] MEDS ORDERED: FLUTICASONE 50MCG/SPRAY NASAL 16GM EA NOSTRIL SCH (09:00)
[2016-05-19] MEDS: IPRATROPIUM-ALBUTEROL 3 ML NEB INHALATION SCH ×4 (09:13→18:57)
[2016-05-19] MEDS: HYDROcodone/APAP 5-325MG 1 EACH TAB PO PRN ×2 (09:21→20:34)
[2016-05-19 11:50] LABS: Glucose,Whole Blood 139 mg/dL (75-99)
[2016-05-19] MEDS: ASCORBIC ACID 500 MG TAB PO SCH (12:40)
[2016-05-19] MEDS: MULTIVITAMINS, THERA 1 EACH TAB PO SCH (12:41)
[2016-05-19] MEDS ORDERED: SODIUM CHLORIDE 0.65% NASAL SPRAY 44 ML BTL NASAL PRN (14:11)
[2016-05-19] MEDS ORDERED: Magnesium Replacement Protocol 1 EACH MISC MISCELLANE PRN (14:41)
[2016-05-19] MEDS ORDERED: Potassium Replacement Protocol 1 EACH MISC MISCELLANE PRN (14:41)
--- NOTE | 2016-05-19 14:42 | P.PN ---
Subjective Patient is feeling better today. No wheezing. Objective - Vital Signs Vital signs: Vital Signs Temp 97.7 F 05/19/16 07:00 Pulse 92 05/19/16 09:27 Resp 16 05/19/16 08:00 BP 135/80 05/19/16 07:00 Pulse Ox 94 L 05/19/16 07:00 Intake & Output 05/18/16 05/19/16 05/19/16 18:59 06:59 18:59 Intake Total 360 600 360 Balance 360 600 360 Intake: Oral 360 600 360 Other: Voiding Method Toilet Toilet Toilet # Voids 2 - Exam General: The patient is awake and alert, in no distress Eye: there is normal conjunctiva bilaterally. Neck: The neck is supple, there is no JVD. Cardiovascular: Normal S1-S2, no S3-S4, no murmurs. Respiratory: Lungs clear to auscultation bilaterally Gastrointestinal: Abdomen is soft, nontender Musculoskeletal: There is no pedal edema. Neurological:. Speech is normal. Skin: Skin is warm and dry - Labs CBC & Chem 7: 05/17/16 08:32 05/17/16 08:32 Labs: Abnormal Lab Results - Last 24 Hours (Table) 05/18/16 05/18/16 05/19/16 Range/Units 17:20 20:22 07:38 POC Glucose (mg/dL) 156 H 154 H 116 H (75-99) mg/dL 05/19/16 Range/Units 11:49 POC Glucose (mg/dL) 139 H (75-99) mg/dL Assessment and Plan Plan: #1 acute exacerbation of chronic obstructive pulmonary disease, patient was started on IV Solu-Medrol and inhaled bronchodilators. #2 acute tracheobronchitis, patient started on IV Rocephin, sputum culture pending #3 history of Mycobacterium Aviane complex infection patient has been maintained on Biaxin and rifampin and Ethambutol however she has not been taking medications regularly because she could not afford them, Will consult professor of social work to assess if she qualified for any help #4 anxiety disorder #5 gastroesophageal reflux disease maintained on Protonix #6 for DVT prophylaxis we will use Lovenox subcu once daily #7 constipation: We'll give Colace and lactulose. Continue to monitor. Wean off IV Solu-Medrol. Anticipate discharge home within the next day or 2.
[2016-05-19] MEDS: FLUTICASONE 50MCG/SPRAY NASAL 16GM EA NOSTRIL PRN (16:57)
[2016-05-19 17:22] LABS: Glucose,Whole Blood 126 mg/dL (75-99)
[2016-05-19 20:25] LABS: Glucose,Whole Blood 148 mg/dL (75-99)
[2016-05-19] MEDS: MONTELUKAST 10 MG TAB PO SCH (21:41)
[2016-05-19] MEDS: guaiFENesin-Coden 100-10MG/5ML 10 ML CUP PO SCH (21:41)
[2016-05-19] MEDS: MELATONIN 5 MG TABLET PO SCH (21:41)
[2016-05-19] MEDS: methylPREDNISolone SOD SUCCI 40 MG/ML 1 ML VIAL IV SCH (21:42)
[2016-05-20] MEDS: IBUPROFEN 600 MG TAB PO PRN ×2 (04:54→19:48)
[2016-05-20 07:25] LABS: Basophils % (A) 0 %; CH 28.4; CHCM 32.3; Eosinophils % (A) 0 %; HCT 42.3 % (34.0-46.0); HDW 2.57; HGB 13.5 gm/dL (11.4-16.0); Luc % (Auto) 2; Lymphocytes % (A) 25 %; MCH 28.2 pg (25.0-35.0); MCHC 31.9 g/dL (31.0-37.0); MCV 88.5 fL (80.0-100.0); Mean Platelet Volume 7.7; Monocytes # (A) 0.6 k/uL (0-1.0); Monocytes % (A) 5 %; Neutrophils % (A) 68 %; RBC 4.78 m/uL (3.80-5.40); RDW 13.9 % (11.5-15.5); WBC 11.8 k/uL (3.8-10.6); WBC (Perox) 12.42
[2016-05-20 07:36] LABS: Anion Gap 7 mmol/L; Blood Urea Nitrogen 22 mg/dL (7-17); Calcium 9.1 mg/dL (8.4-10.2); Carbon Dioxide 31 mmol/L (22-30); Chloride 102 mmol/L (98-107); Glucose 95 mg/dL (74-99); Magnesium 2.3 mg/dL (1.6-2.3); Non-African American GFR(MDRD) >60 (>60 ml/min/1.73 sqM); Potassium 4.9 mmol/L (3.5-5.1); Sodium 140 mmol/L (137-145)
[2016-05-20] MEDS: IPRATROPIUM-ALBUTEROL 3 ML NEB INHALATION SCH ×4 (07:58→20:12)
[2016-05-20] MEDS: ALPRAZolam 0.25 MG TAB PO SCH ×3 (08:17→21:17)
[2016-05-20] MEDS: INSULIN LISPRO (humaLOG) 300 UNIT/3 ML VIAL SQ SCH ×4 (08:17→21:08)
[2016-05-20 08:18] LABS: Glucose,Whole Blood 79 mg/dL (75-99)
[2016-05-20] MEDS: RIFAMPIN 300 MG CAP PO SCH ×2 (08:18→21:16)
[2016-05-20] MEDS: PANTOPRAZOLE 40 MG TABLET PO SCH (08:18)
[2016-05-20] MEDS: NICOTINE 21MG/24HR PATCH TRANSDERM SCH (08:18)
[2016-05-20] MEDS: PROMETHAZ-COD 6.25-10 MG/5 ML 5 ML CUP PO SCH (08:18)
[2016-05-20] MEDS: ASPIRIN 81 MG CHEW PO SCH (08:23)
[2016-05-20] MEDS: CLARITHROMYCIN 500 MG TAB PO SCH (08:23)
[2016-05-20] MEDS: BACLOFEN 10 MG TAB PO SCH ×3 (08:23→21:17)
[2016-05-20] MEDS: DOCUSATE 100 MG CAP PO SCH ×2 (08:24→21:16)
[2016-05-20] MEDS: DULoxetine HCL 30 MG CAPSULE.DR PO SCH ×2 (08:24→21:16)
[2016-05-20] MEDS: ENOXAPARIN 40 MG/0.4 ML SYRINGE SQ SCH (08:24)
--- NOTE | 2016-05-20 10:19 | P.PN ---
Subjective Patient is being evaluated and examined today on the sixth floor. Patient came into the emergency room with a history of ongoing cough congestion and wheezing that started about 2 weeks ago. She has been living in close living quarters with family that have strep throat and respiratory illnesses at this time. Her chest x-ray revealed some nodular prominence on the right upper lobe. This patient has a history for chronic persistent asthma and severe COPD. The patient also is being seen at the [facility] for a Mycobacterium avium complex infection. Currently the patient is resting up in bed on 2 L of oxygen. She does complain of some wheezing however decreased, and states the congestion is getting better, no further nosebleeds. Objective - Vital Signs Vital signs: Vital Signs Temp 97.3 F L 05/20/16 08:19 Pulse 59 L 05/20/16 08:19 Resp 18 05/20/16 08:19 BP 126/57 05/20/16 08:19 Pulse Ox 91 L 05/20/16 08:19 Intake & Output 05/19/16 05/20/16 05/20/16 18:59 06:59 18:59 Intake Total 720 650 Balance 720 650 Intake: Oral 720 650 Other: Voiding Method Toilet Toilet Toilet # Voids 2 1 - Exam GENERAL EXAM: Alert, active, comfortable in no apparent distress. HEAD: Normocephalic. EYES: Normal reaction of pupils, equal size. NOSE: Clear with inflamed red to pink turbinates. THROAT: Some erythema and clear exudates. NECK: No masses, no JVD. CHEST: No chest wall deformity. LUNGS: Lungs are noted to have inspiratory and expiratory wheezes. Bases diminished CVS: S1 and S2 normal with no audible mumurs, regular rhythm. ABDOMEN: No hepatosplenomegaly, normal bowel sounds, no guarding or rigidity. EXTREMITIES: No edema noted, pedal pulses palpable. SKIN: No rashes CENTRAL NERVOUS SYSTEM: No focal deficits, tone is normal in all 4 extremities. - Labs CBC & Chem 7: 05/20/16 06:53 05/20/16 06:53 Labs: Abnormal Lab Results - Last 24 Hours (Table) 05/19/16 05/19/16 05/19/16 Range/Units 11:49 17:20 20:21 WBC (3.8-10.6) k/uL Neutrophils # (1.3-7.7) k/uL Carbon Dioxide (22-30) mmol/L BUN (7-17) mg/dL POC Glucose (mg/dL) 139 H 126 H 148 H (75-99) mg/dL 05/20/16 05/20/16 Range/Units 06:53 06:53 WBC 11.8 H (3.8-10.6) k/uL Neutrophils # 8.0 H (1.3-7.7) k/uL Carbon Dioxide 31 H (22-30) mmol/L BUN 22 H (7-17) mg/dL POC Glucose (mg/dL) (75-99) mg/dL Assessment and Plan Plan: Assessment: Acute chronic obstructive pulmonary disease exacerbation Purulent tracheobronchitis History of Mycobacterium avium complex infection and history of prior gram- negative pneumonia 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 Continue with breathing treatments, and antibiotics. Continue with the nasal spray and Singulair as it's helping with her congestion We will continue to monitor the patient's labs and adjust treatment as clinically necessary. Patient could be discharged in the near future.
[2016-05-20] MEDS: methylPREDNISolone SOD SUCCI 40 MG/ML 1 ML VIAL IV SCH ×2 (10:34→21:53)
[2016-05-20 11:44] LABS: Glucose,Whole Blood 98 mg/dL (75-99)
[2016-05-20] MEDS: HYDROcodone/APAP 5-325MG 1 EACH TAB PO PRN (12:18)
[2016-05-20] MEDS: ASCORBIC ACID 500 MG TAB PO SCH (12:19)
[2016-05-20] MEDS: MULTIVITAMINS, THERA 1 EACH TAB PO SCH (12:19)
[2016-05-20] MEDS: SENNOSIDES-DOCUSATE SODIUM 1 EACH TAB PO PRN (12:23)
[2016-05-20] MEDS ORDERED: LACTULOSE 20 GM/30 ML CUP PO STA (12:35)
--- NOTE | 2016-05-20 13:21 | P.PN ---
Subjective Patient is feeling better today. She is complaining of constipation. She continues to have wheezing and shortness of breath. Objective - Vital Signs Vital signs: Vital Signs Temp 97.3 F L 05/20/16 08:19 Pulse 90 05/20/16 11:29 Resp 18 05/20/16 08:19 BP 126/57 05/20/16 08:19 Pulse Ox 91 L 05/20/16 08:19 Intake & Output 05/19/16 05/20/16 05/20/16 18:59 06:59 18:59 Intake Total 720 650 Balance 720 650 Intake: Oral 720 650 Other: Voiding Method Toilet Toilet Toilet # Voids 2 1 - Exam General: The patient is awake and alert, in no distress Eye: there is normal conjunctiva bilaterally. Neck: The neck is supple, there is no JVD. Cardiovascular: Normal S1-S2, no S3-S4, no murmurs. Respiratory: Lungs are diminished with end-expiratory wheezing Gastrointestinal: Abdomen is soft, nontender Musculoskeletal: There is no pedal edema. Neurological:. Speech is normal. Skin: Skin is warm and dry - Labs CBC & Chem 7: 05/20/16 06:53 05/20/16 06:53 Labs: Abnormal Lab Results - Last 24 Hours (Table) 05/19/16 05/19/16 05/20/16 Range/Units 17:20 20:21 06:53 WBC 11.8 H (3.8-10.6) k/uL Neutrophils # 8.0 H (1.3-7.7) k/uL Carbon Dioxide (22-30) mmol/L BUN (7-17) mg/dL POC Glucose (mg/dL) 126 H 148 H (75-99) mg/dL 05/20/16 Range/Units 06:53 WBC (3.8-10.6) k/uL Neutrophils # (1.3-7.7) k/uL Carbon Dioxide 31 H (22-30) mmol/L BUN 22 H (7-17) mg/dL POC Glucose (mg/dL) (75-99) mg/dL Assessment and Plan Plan: #1 acute exacerbation of chronic obstructive pulmonary disease, patient was started on IV Solu-Medrol and inhaled bronchodilators. #2 acute tracheobronchitis, patient started on IV Rocephin, sputum culture pending #3 history of Mycobacterium Aviane complex infection patient has been maintained on Biaxin and rifampin and Ethambutol however she has not been taking medications regularly because she could not afford them, Will consult social science analyst to assess if she qualified for any help #4 anxiety disorder #5 gastroesophageal reflux disease maintained on Protonix #6 for DVT prophylaxis we will use Lovenox subcu once daily #7 constipation: Will give 1 dose of lactulose a day. Patient continues to have diminished air movement and expiratory wheezing. Continue current regimen. Encouraged ambulation.
[2016-05-20 17:32] LABS: Glucose,Whole Blood 99 mg/dL (75-99)
[2016-05-20] MEDS: BENZONATATE 100 MG CAP PO PRN (20:28)
[2016-05-20 20:59] LABS: Glucose,Whole Blood 90 mg/dL (75-99)
[2016-05-20] MEDS: guaiFENesin-Coden 100-10MG/5ML 10 ML CUP PO SCH (21:14)
[2016-05-20] MEDS: MELATONIN 5 MG TABLET PO SCH (21:15)
[2016-05-20] MEDS: MONTELUKAST 10 MG TAB PO SCH (21:16)
[2016-05-21] MEDS: HYDROcodone/APAP 5-325MG 1 EACH TAB PO PRN ×2 (03:47→17:10)
[2016-05-21] MEDS: IPRATROPIUM-ALBUTEROL 3 ML NEB INHALATION SCH ×4 (07:21→20:37)
[2016-05-21 07:26] LABS: Glucose,Whole Blood 111 mg/dL (75-99)
[2016-05-21] MEDS: NICOTINE 21MG/24HR PATCH TRANSDERM SCH (07:37)
[2016-05-21] MEDS: ALPRAZolam 0.25 MG TAB PO SCH ×3 (07:38→21:30)
[2016-05-21] MEDS: INSULIN LISPRO (humaLOG) 300 UNIT/3 ML VIAL SQ SCH ×4 (07:38→21:32)
[2016-05-21] MEDS: DOCUSATE 100 MG CAP PO SCH ×2 (07:39→21:31)
[2016-05-21] MEDS: CLARITHROMYCIN 500 MG TAB PO SCH (07:39)
[2016-05-21] MEDS: methylPREDNISolone SOD SUCCI 40 MG/ML 1 ML VIAL IV SCH ×2 (07:39→21:32)
[2016-05-21] MEDS: BACLOFEN 10 MG TAB PO SCH ×3 (07:39→21:33)
[2016-05-21] MEDS: DULoxetine HCL 30 MG CAPSULE.DR PO SCH ×2 (07:40→21:33)
[2016-05-21] MEDS: ENOXAPARIN 40 MG/0.4 ML SYRINGE SQ SCH (07:40)
[2016-05-21] MEDS: ASPIRIN 81 MG CHEW PO SCH (07:41)
[2016-05-21] MEDS: PANTOPRAZOLE 40 MG TABLET PO SCH (07:41)
[2016-05-21] MEDS: RIFAMPIN 300 MG CAP PO SCH ×2 (07:42→21:31)
[2016-05-21] MEDS: PROMETHAZ-COD 6.25-10 MG/5 ML 5 ML CUP PO SCH (07:42)
[2016-05-21] MEDS: SENNOSIDES-DOCUSATE SODIUM 1 EACH TAB PO PRN (07:47)
[2016-05-21 08:03] LABS: Basophils # (A) 0.1 k/uL (0-0.2); Basophils % (A) 0 %; CH 28.1; CHCM 32.1; Eosinophils # (A) 0.1 k/uL (0-0.7); Eosinophils % (A) 1 %; HCT 44.1 % (34.0-46.0); HDW 2.45; HGB 14.1 gm/dL (11.4-16.0); Luc # (Auto) 0.16; Luc % (Auto) 1; Lymphocytes # (A) 2.6 k/uL (1.0-4.8); Lymphocytes % (A) 22 %; MCH 28.2 pg (25.0-35.0); MCV 88.2 fL (80.0-100.0); Mean Platelet Volume 7.9; Monocytes # (A) 0.6 k/uL (0-1.0); Monocytes % (A) 5 %; Neutrophils % (A) 70 %; RDW 13.9 % (11.5-15.5); WBC 11.4 k/uL (3.8-10.6); WBC (Perox) 11.54
[2016-05-21 08:37] LABS: Anion Gap 9 mmol/L; Blood Urea Nitrogen 23 mg/dL (7-17); Calcium 8.9 mg/dL (8.4-10.2); Carbon Dioxide 28 mmol/L (22-30); Chloride 103 mmol/L (98-107); Glucose 99 mg/dL (74-99); Magnesium 2.4 mg/dL (1.6-2.3); Non-African American GFR(MDRD) >60 (>60 ml/min/1.73 sqM); Sodium 140 mmol/L (137-145)
--- NOTE | 2016-05-21 10:42 | P.PN ---
Subjective Patient is being evaluated and examined today on the sixth floor. Patient came into the emergency room with a history of ongoing cough congestion and wheezing that started about 2 weeks ago. She has been living in close living quarters with family that have strep throat and respiratory illnesses at this time. Her chest x-ray revealed some nodular prominence on the right upper lobe. This patient has a history for chronic persistent asthma and severe COPD. The patient also is being seen at the [facility] for a Mycobacterium avium complex infection. Currently the patient is resting up in bed on 2 L of oxygen. She denies any further nosebleeds, states her congestion is better as well as her breathing. Patient states she feels like she is close to her baseline breathing, and feels she could go home today. Objective - Vital Signs Vital signs: Vital Signs Temp 97.9 F 05/21/16 07:00 Pulse 68 05/21/16 07:30 Resp 16 05/21/16 07:00 BP 109/66 05/21/16 07:00 Pulse Ox 97 05/21/16 07:21 Intake & Output 05/20/16 05/21/16 05/21/16 18:59 06:59 18:59 Intake Total 500 Balance 500 Intake: Oral 500 Other: Voiding Method Toilet Toilet # Voids 2 1 - Exam GENERAL EXAM: Alert, active, comfortable in no apparent distress. HEAD: Normocephalic. EYES: Normal reaction of pupils, equal size. NOSE: Clear with inflamed red to pink turbinates. THROAT: Some erythema and clear exudates. NECK: No masses, no JVD. CHEST: No chest wall deformity. LUNGS: Lungs are noted to have expiratory wheezes. Bases diminished CVS: S1 and S2 normal with no audible mumurs, regular rhythm. ABDOMEN: No hepatosplenomegaly, normal bowel sounds, no guarding or rigidity. EXTREMITIES: No edema noted, pedal pulses palpable. SKIN: No rashes CENTRAL NERVOUS SYSTEM: No focal deficits, tone is normal in all 4 extremities. 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 Continue with breathing treatments, and antibiotics. Continue with the nasal spray and Singulair as it's helping with her congestion We will continue to monitor the patient's labs and adjust treatment as clinically necessary. Patient could be cleared from a pulmonary standpoint to be discharged today, we will have patient follow-up in our office within one week.
[2016-05-21] MEDS: IBUPROFEN 600 MG TAB PO PRN ×2 (11:02→20:15)
[2016-05-21] MEDS: MULTIVITAMINS, THERA 1 EACH TAB PO SCH (11:05)
[2016-05-21] MEDS: ASCORBIC ACID 500 MG TAB PO SCH (11:05)
[2016-05-21 12:05] LABS: Glucose,Whole Blood 75 mg/dL (75-99)
--- NOTE | 2016-05-21 14:00 | P.PN ---
Subjective Acute Exacerbation of chronic obstructive pulmonary disease Patient is a 60-year-old female with known history of chronic obstructive pulmonary disease, and history of MAC infection of the lungs, who was admitted to [facility] due to cough and worsening shortness of breath she had evidence of acute purulent bronchitis and acute exacerbation of chronic obstructive pulmonary disease. Patient had a small bowel movement yesterday. Denies abdominal pain. Does admit to some cramping. Is passing gas. Denies any chest pain. Still having a congested cough with some shortness of breath. She doesn't feel ready for discharge yet. Objective - Vital Signs Vital signs: Vital Signs Temp 97.9 F 05/21/16 07:00 Pulse 68 05/21/16 11:16 Resp 16 05/21/16 07:00 BP 109/66 05/21/16 07:00 Pulse Ox 93 L 05/21/16 11:55 Intake & Output 05/20/16 05/21/16 05/21/16 18:59 06:59 18:59 Intake Total 500 Balance 500 Intake: Oral 500 Other: Voiding Method Toilet Toilet # Voids 2 1 - Exam Head normocephalic Neck supple Lungs improvement in air movement. Still some mild expiratory wheeze Heart regular rate and rhythm S1-S2, no rub or gallop Abdomen is soft nontender nondistended positive bowel sounds no hepatosplenomegaly Extremities no edema Neuro alert and orientated to 3 - Labs CBC & Chem 7: 05/21/16 07:27 05/21/16 07:27 Labs: Abnormal Lab Results - Last 24 Hours (Table) 05/21/16 05/21/16 05/21/16 Range/Units 07:09 07:27 07:27 WBC 11.4 H (3.8-10.6) k/uL Neutrophils # 8.0 H (1.3-7.7) k/uL BUN 23 H (7-17) mg/dL POC Glucose (mg/dL) 111 H (75-99) mg/dL Magnesium 2.4 H (1.6-2.3) mg/dL Assessment and Plan Plan: #1 acute exacerbation of chronic obstructive pulmonary disease, patient was started on IV Solu-Medrol and inhaled bronchodilators. #2 acute tracheobronchitis, patient started on IV Rocephin #3 history of Mycobacterium Aviane complex infection patient has been maintained on Biaxin and rifampin and Ethambutol however she has not been taking medications regularly because she could not afford them, Will consult clinical social work therapist to assess if she qualified for any help #4 generalized anxiety disorder #5 gastroesophageal reflux disease maintained on Protonix #6 for DVT prophylaxis we will use Lovenox subcu once daily #7 constipation: Had small bowel movement with Colace and a couple doses of lactulose. We'll also add MiraLAX to her regimen Patient will be evaluated for home oxygen. She does not feel ready for discharge yet. Still having some shortness of breath and congested cough. Anticipate discharge within the next 1-2 days
[2016-05-21] MEDS: POLYETHYLENE GLYCOL 3350 17 GM POWD.PACK PO SCH (14:40)
[2016-05-21 17:15] LABS: Glucose,Whole Blood 94 mg/dL (75-99)
[2016-05-21 21:13] LABS: Glucose,Whole Blood 116 mg/dL (75-99)
[2016-05-21] MEDS: guaiFENesin-Coden 100-10MG/5ML 10 ML CUP PO SCH (21:30)
[2016-05-21] MEDS: MONTELUKAST 10 MG TAB PO SCH (21:32)
[2016-05-21] MEDS: MELATONIN 5 MG TABLET PO SCH (21:32)
[2016-05-22] MEDS: SENNOSIDES-DOCUSATE SODIUM 1 EACH TAB PO PRN ×2 (00:14→20:12)
[2016-05-22 07:15] LABS: Glucose,Whole Blood 81 mg/dL (75-99)
[2016-05-22 07:25] LABS: Basophils % (A) 0 %; CH 27.9; CHCM 31.6; Eosinophils # (A) 0.2 k/uL (0-0.7); Eosinophils % (A) 2 %; HDW 2.31; HGB 14.3 gm/dL (11.4-16.0); Luc # (Auto) 0.14; Luc % (Auto) 1; Lymphocytes # (A) 2.9 k/uL (1.0-4.8); Lymphocytes % (A) 27 %; MCH 27.6 pg (25.0-35.0); MCHC 31.1 g/dL (31.0-37.0); MCV 88.7 fL (80.0-100.0); Mean Platelet Volume 6.8; Monocytes # (A) 0.5 k/uL (0-1.0); Monocytes % (A) 4 %; Neutrophils % (A) 65 %; RBC 5.19 m/uL (3.80-5.40); RDW 13.9 % (11.5-15.5); WBC 10.7 k/uL (3.8-10.6); WBC (Perox) 10.86
[2016-05-22] MEDS: IPRATROPIUM-ALBUTEROL 3 ML NEB INHALATION SCH ×4 (07:31→20:01)
[2016-05-22 07:43] LABS: Anion Gap 8 mmol/L; Blood Urea Nitrogen 26 mg/dL (7-17); Calcium 9.2 mg/dL (8.4-10.2); Carbon Dioxide 31 mmol/L (22-30); Chloride 101 mmol/L (98-107); Glucose 91 mg/dL (74-99); Magnesium 2.4 mg/dL (1.6-2.3); Non-African American GFR(MDRD) 55 (>60 ml/min/1.73 sqM); Potassium 4.7 mmol/L (3.5-5.1); Sodium 140 mmol/L (137-145)
[2016-05-22] MEDS: ALPRAZolam 0.25 MG TAB PO SCH ×3 (08:35→22:00)
[2016-05-22] MEDS: NICOTINE 21MG/24HR PATCH TRANSDERM SCH (08:35)
[2016-05-22] MEDS: INSULIN LISPRO (humaLOG) 300 UNIT/3 ML VIAL SQ SCH ×4 (08:35→21:40)
[2016-05-22] MEDS: BACLOFEN 10 MG TAB PO SCH ×3 (08:36→22:00)
[2016-05-22] MEDS: ASPIRIN 81 MG CHEW PO SCH (08:36)
[2016-05-22] MEDS: CLARITHROMYCIN 500 MG TAB PO SCH (08:36)
[2016-05-22] MEDS: ENOXAPARIN 40 MG/0.4 ML SYRINGE SQ SCH (08:37)
[2016-05-22] MEDS: DULoxetine HCL 30 MG CAPSULE.DR PO SCH ×2 (08:37→20:09)
[2016-05-22] MEDS: DOCUSATE 100 MG CAP PO SCH ×2 (08:37→20:10)
[2016-05-22] MEDS: PROMETHAZ-COD 6.25-10 MG/5 ML 5 ML CUP PO SCH (08:38)
[2016-05-22] MEDS: PANTOPRAZOLE 40 MG TABLET PO SCH (08:38)
[2016-05-22] MEDS: RIFAMPIN 300 MG CAP PO SCH ×2 (08:38→20:09)
[2016-05-22] MEDS: methylPREDNISolone SOD SUCCI 40 MG/ML 1 ML VIAL IV SCH ×2 (08:38→20:09)
[2016-05-22] MEDS: POLYETHYLENE GLYCOL 3350 17 GM POWD.PACK PO SCH (08:38)
--- NOTE | 2016-05-22 11:12 | P.PN ---
Subjective Patient is being evaluated and examined today on the sixth floor. Patient came into the emergency room with a history of ongoing cough congestion and wheezing that started about 2 weeks ago. She has been living in close living quarters with family that have strep throat and respiratory illnesses at this time. Her chest x-ray revealed some nodular prominence on the right upper lobe. This patient has a history for chronic persistent asthma and severe COPD. The patient also is being seen at the [facility] for a Mycobacterium avium complex infection. Currently the patient is resting up in bed on room air She denies any further nosebleeds, states her congestion is better as well as her breathing, she has been using her incentive spirometer and pulling volumes of 500. Patient initially felt like she could be discharged yesterday, however she stated she got extremely nervous about discharge and decided she wasn't ready. Objective - Vital Signs Vital signs: Vital Signs Temp 97.6 F 05/22/16 07:00 Pulse 59 L 05/22/16 08:00 Resp 16 05/22/16 08:00 BP 114/65 05/22/16 07:00 Pulse Ox 94 L 05/22/16 07:31 Intake & Output 05/21/16 05/22/16 05/22/16 18:59 06:59 18:59 Intake Total 222 222 Balance 222 222 Intake: Oral 222 222 Other: Voiding Method Toilet Toilet Toilet # Voids 2 2 - Exam GENERAL EXAM: Alert, active, comfortable in no apparent distress. HEAD: Normocephalic. EYES: Normal reaction of pupils, equal size. NOSE: Clear with inflamed red to pink turbinates. THROAT: Some erythema and clear exudates. NECK: No masses, no JVD. CHEST: No chest wall deformity. LUNGS: Lungs are noted to have expiratory wheezes. Bases diminished CVS: S1 and S2 normal with no audible mumurs, regular rhythm. ABDOMEN: No hepatosplenomegaly, normal bowel sounds, no guarding or rigidity. EXTREMITIES: No edema noted, pedal pulses palpable. SKIN: No rashes CENTRAL NERVOUS SYSTEM: No focal deficits, tone is normal in all 4 extremities. 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 Continue with breathing treatments, and antibiotics. Continue with the nasal spray and Singulair as it's helping with her congestion We will continue to monitor the patient's labs and adjust treatment as clinically necessary. Patient could be cleared from a pulmonary standpoint to be discharged today, we will have patient follow-up in our office within one week.
[2016-05-22 11:21] VITALS: BMI 24.0
[2016-05-22] MEDS ORDERED: LACTULOSE 20 GM/30 ML CUP PO STA (11:35)
[2016-05-22 12:05] LABS: Glucose,Whole Blood 80 mg/dL (75-99)
--- NOTE | 2016-05-22 12:28 | XR ---
EXAMINATION TYPE: XR abdomen 1V DATE OF EXAM: 05/22/2016 12:19 PM CLINICAL HISTORY: Constipation for days. Possible bowel obstruction. Pain. TECHNIQUE: 2 supine KUB images of the abdomen are obtained. COMPARISON: None. FINDINGS: There is some paucity of small bowel gas. Visualized gas is noted in nondistended small bow el loops Gas and fecal material is seen in non-distended colon. Moderate fecal material is somewhat p rominent throughout right and left and transverse colon. Some vascular calcification and phleboliths are seen in the pelvis. Visualized osseous structures are intact. IMPRESSION: Overall nonspecific favor nonobstructive bowel gas pattern. Moderate proximal to mid colonic fecal st asis noted up to sigmoid colonic origin.
[2016-05-22] MEDS: ASCORBIC ACID 500 MG TAB PO SCH (12:56)
[2016-05-22] MEDS: MULTIVITAMINS, THERA 1 EACH TAB PO SCH (12:56)
--- NOTE | 2016-05-22 16:28 | P.PN ---
Subjective Patient is complaining of constipation today. She did not have a bowel movement for the past couple of days. Her abdomen is soft but slightly distended. Objective - Vital Signs Vital signs: Vital Signs Temp 97.9 F 05/22/16 15:00 Pulse 88 05/22/16 15:38 Resp 16 05/22/16 15:00 BP 122/74 05/22/16 15:00 Pulse Ox 92 L 05/22/16 15:00 Intake & Output 05/21/16 05/22/16 05/22/16 18:59 06:59 18:59 Intake Total 222 222 Balance 222 222 Weight 63.503 kg Intake: Oral 222 222 Other: Voiding Method Toilet Toilet Toilet # Voids 2 2 2 - Exam General: The patient is awake and alert, in no distress Eye: there is normal conjunctiva bilaterally. Neck: The neck is supple, there is no JVD. Cardiovascular: Normal S1-S2, no S3-S4, no murmurs. Respiratory: Lungs are diminished with end-expiratory wheezing Gastrointestinal: Abdomen is soft, nontender Musculoskeletal: There is no pedal edema. Neurological:. Speech is normal. Skin: Skin is warm and dry - Labs CBC & Chem 7: 05/22/16 06:48 05/22/16 06:48 Labs: Abnormal Lab Results - Last 24 Hours (Table) 05/21/16 05/22/16 05/22/16 Range/Units 21:02 06:48 06:48 WBC 10.7 H (3.8-10.6) k/uL Carbon Dioxide 31 H (22-30) mmol/L BUN 26 H (7-17) mg/dL POC Glucose (mg/dL) 116 H (75-99) mg/dL Magnesium 2.4 H (1.6-2.3) mg/dL Assessment and Plan Plan: #1 acute exacerbation of chronic obstructive pulmonary disease, patient was started on IV Solu-Medrol and inhaled bronchodilators. #2 acute tracheobronchitis, patient started on IV Rocephin. Today last day of antibiotics 7/7 days #3 history of Mycobacterium Aviane complex infection patient has been maintained on Biaxin and rifampin and Ethambutol however she has not been taking medications regularly because she could not afford them, Will consult social worker clinical to assess if she qualified for any help #4 generalized anxiety disorder #5 gastroesophageal reflux disease maintained on Protonix #6 for DVT prophylaxis we will use Lovenox subcu once daily #7 constipation: Abdominal x-ray showed nonspecific nonobstructive bowel gas pattern. Some proximal fecal stasis noted. Patient bowel regimen was adjusted. She will also receive an enema today. Anticipate discharge home tomorrow.
[2016-05-22 17:13] LABS: Glucose,Whole Blood 96 mg/dL (75-99)
[2016-05-22] MEDS: guaiFENesin-Coden 100-10MG/5ML 10 ML CUP PO SCH (20:08)
[2016-05-22] MEDS: MELATONIN 5 MG TABLET PO SCH (20:09)
[2016-05-22] MEDS: MONTELUKAST 10 MG TAB PO SCH (20:10)
[2016-05-22 20:58] LABS: Glucose,Whole Blood 127 mg/dL (75-99)
[2016-05-23] MEDS: IBUPROFEN 600 MG TAB PO PRN ×2 (01:30→12:30)
[2016-05-23] MEDS: IPRATROPIUM-ALBUTEROL 3 ML NEB INHALATION SCH ×4 (07:08→20:29)
[2016-05-23 07:11] LABS: Glucose,Whole Blood 71 mg/dL (75-99)
[2016-05-23 08:02] LABS: Basophils # (A) 0.1 k/uL (0-0.2); Basophils % (A) 0 %; CHCM 32.2; Eosinophils # (A) 0.2 k/uL (0-0.7); Eosinophils % (A) 2 %; HCT 45.2 % (34.0-46.0); HDW 2.32; HGB 14.9 gm/dL (11.4-16.0); Luc # (Auto) 0.15; Luc % (Auto) 1; Lymphocytes # (A) 3.4 k/uL (1.0-4.8); Lymphocytes % (A) 27 %; MCV 87.7 fL (80.0-100.0); Mean Platelet Volume 7.8; Monocytes # (A) 0.5 k/uL (0-1.0); Monocytes % (A) 4 %; Neutrophils # (A) 8.1 k/uL (1.3-7.7); Neutrophils % (A) 66 %; RBC 5.16 m/uL (3.80-5.40); RDW 13.9 % (11.5-15.5); WBC 12.3 k/uL (3.8-10.6)
[2016-05-23 08:20] LABS: Anion Gap 9 mmol/L; Blood Urea Nitrogen 27 mg/dL (7-17); Calcium 9.5 mg/dL (8.4-10.2); Carbon Dioxide 30 mmol/L (22-30); Chloride 101 mmol/L (98-107); Glucose 70 mg/dL (74-99); Magnesium 2.4 mg/dL (1.6-2.3); Non-African American GFR(MDRD) >60 (>60 ml/min/1.73 sqM); Potassium 4.8 mmol/L (3.5-5.1); Sodium 140 mmol/L (137-145)
[2016-05-23] MEDS: INSULIN LISPRO (humaLOG) 300 UNIT/3 ML VIAL SQ SCH ×4 (09:20→20:25)
[2016-05-23] MEDS: NICOTINE 21MG/24HR PATCH TRANSDERM SCH (09:23)
[2016-05-23] MEDS: ENOXAPARIN 40 MG/0.4 ML SYRINGE SQ SCH ×2 (09:24→09:29)
[2016-05-23] MEDS: DOCUSATE 100 MG CAP PO SCH ×2 (09:24→20:24)
[2016-05-23] MEDS: BACLOFEN 10 MG TAB PO SCH ×3 (09:24→22:32)
[2016-05-23] MEDS: DULoxetine HCL 30 MG CAPSULE.DR PO SCH ×2 (09:25→20:24)
[2016-05-23] MEDS: ASPIRIN 81 MG CHEW PO SCH (09:25)
[2016-05-23] MEDS: CLARITHROMYCIN 500 MG TAB PO SCH (09:25)
[2016-05-23] MEDS: FLUTICASONE 50MCG/SPRAY NASAL 16GM EA NOSTRIL PRN (09:25)
[2016-05-23] MEDS: PANTOPRAZOLE 40 MG TABLET PO SCH (09:26)
[2016-05-23] MEDS: methylPREDNISolone SOD SUCCI 40 MG/ML 1 ML VIAL IV SCH ×2 (09:26→20:25)
[2016-05-23] MEDS: RIFAMPIN 300 MG CAP PO SCH ×2 (09:26→20:24)
[2016-05-23] MEDS: POLYETHYLENE GLYCOL 3350 17 GM POWD.PACK PO SCH (09:26)
[2016-05-23] MEDS: PROMETHAZ-COD 6.25-10 MG/5 ML 5 ML CUP PO SCH (09:27)
[2016-05-23] MEDS: ALPRAZolam 0.25 MG TAB PO SCH ×3 (09:33→22:32)
[2016-05-23 11:43] LABS: Glucose,Whole Blood 104 mg/dL (75-99)
[2016-05-23] MEDS: MULTIVITAMINS, THERA 1 EACH TAB PO SCH (12:23)
[2016-05-23] MEDS: ASCORBIC ACID 500 MG TAB PO SCH (12:23)
--- NOTE | 2016-05-23 13:57 | P.PN ---
Subjective Patient is being evaluated and examined today on the sixth floor. Patient came into the emergency room with a history of ongoing cough congestion and wheezing that started about 2 weeks ago. She has been living in close living quarters with family that have strep throat and respiratory illnesses at this time. Her chest x-ray revealed some nodular prominence on the right upper lobe. This patient has a history for chronic persistent asthma and severe COPD. The patient also is being seen at the [facility] for a Mycobacterium avium complex infection. Currently the patient is resting up in bed on room air She denies any further nosebleeds, states her congestion is better as well as her breathing, she has been using her incentive spirometer and pulling volumes of 500. She is on room air. The patient complains of some constipation, abdominal x-ray has been negative, she did have some small bowel movements after an enema yesterday. Objective - Vital Signs Vital signs: Vital Signs Temp 97.8 F 05/23/16 07:00 Pulse 80 05/23/16 07:20 Resp 17 05/23/16 07:00 BP 109/64 05/23/16 07:00 Pulse Ox 92 L 05/23/16 07:00 Intake & Output 05/22/16 05/23/16 05/23/16 18:59 06:59 18:59 Intake Total 222 708 Balance 222 708 Weight 63.503 kg Intake: Oral 222 708 Other: Voiding Method Toilet Toilet Toilet # Voids 2 - Exam GENERAL EXAM: Alert, active, comfortable in no apparent distress. HEAD: Normocephalic. EYES: Normal reaction of pupils, equal size. NOSE: Clear with inflamed red to pink turbinates. THROAT: Some erythema and clear exudates. NECK: No masses, no JVD. CHEST: No chest wall deformity. LUNGS: Lungs are noted to have expiratory wheezes. Bases diminished CVS: S1 and S2 normal with no audible mumurs, regular rhythm. ABDOMEN: No hepatosplenomegaly, normal bowel sounds, no guarding or rigidity. EXTREMITIES: No edema noted, pedal pulses palpable. SKIN: No rashes CENTRAL NERVOUS SYSTEM: No focal deficits, tone is normal in all 4 extremities. - Labs CBC & Chem 7: 05/23/16 07:26 05/23/16 07:26 Labs: Abnormal Lab Results - Last 24 Hours (Table) 05/22/16 05/23/16 05/23/16 Range/Units 20:51 07:09 07:26 WBC 12.3 H (3.8-10.6) k/uL Neutrophils # 8.1 H (1.3-7.7) k/uL BUN (7-17) mg/dL Glucose (74-99) mg/dL POC Glucose (mg/dL) 127 H 71 L (75-99) mg/dL Magnesium (1.6-2.3) mg/dL 05/23/16 Range/Units 07:26 WBC (3.8-10.6) k/uL Neutrophils # (1.3-7.7) k/uL BUN 27 H (7-17) mg/dL Glucose 70 L (74-99) mg/dL POC Glucose (mg/dL) (75-99) mg/dL Magnesium 2.4 H (1.6-2.3) mg/dL Assessment and Plan Plan: Assessment: Acute chronic obstructive pulmonary disease exacerbation Purulent tracheobronchitis History of Mycobacterium avium complex infection and history of prior gram- negative pneumonia 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 Continue with breathing treatments, and antibiotics. Continue with the nasal spray and Singulair as it's helping with her congestion We will continue to monitor the patient's labs and adjust treatment as clinically necessary. Discharge was held yesterday due to constipation, and abdominal discomfort. X-rays have been negative, she had small bowel movement yesterday after an enema. Patient could be cleared from a pulmonary standpoint to be discharged today, we will have patient follow-up in our office within one week.
[2016-05-23 17:19] LABS: Glucose,Whole Blood 125 mg/dL (75-99)
[2016-05-23] MEDS: SENNOSIDES-DOCUSATE SODIUM 1 EACH TAB PO PRN (18:25)
[2016-05-23] MEDS ORDERED: MAGNESIUM HYDROXIDE 2,400 MG/10 ML CUP PO PRN (19:09)
[2016-05-23] MEDS ORDERED: LACTULOSE 20 GM/30 ML CUP PO ONE (19:09)
--- NOTE | 2016-05-23 19:09 | P.PN ---
Subjective Principal diagnosis: Acute Exacerbation of chronic obstructive pulmonary disease Patient is a 60-year-old female with known history of chronic obstructive pulmonary disease, and history of MAC infection of the lungs, who was admitted to [facility] due to cough and worsening shortness of breath she had evidence of acute purulent bronchitis and acute exacerbation of chronic obstructive pulmonary disease. She was started on IV antibiotic and IV steroids pulmonary consultation was requested. Patient is also complaining of constipation was abdominal discomfort and abdominal distention, she received an enema yesterday without a bowel movement. Objective - Vital Signs Vital signs: Vital Signs Temp 97.7 F 05/23/16 15:00 Pulse 88 05/23/16 16:27 Resp 16 05/23/16 15:00 BP 110/69 05/23/16 15:00 Pulse Ox 92 L 05/23/16 15:00 Intake & Output 05/23/16 05/23/16 05/24/16 06:59 18:59 06:59 Intake Total 708 50 Balance 708 50 Weight 63.503 kg Intake: Intake, IV Titration 50 Amount cefTRIAXone 1,000 mg In 50 Sodium Chloride 0.9% 50 ml @ 100 mls/hr IVPB Q24HR [facility] Rx#:[id number] Oral 708 Other: Voiding Method Toilet Toilet # Voids 1 - Exam In general patient is alert and oriented 3 in no apparent distress HEENT head normocephalic and atraumatic Neck is supple no JVD no goiter no lymphadenopathy Chest exam reveals diffuse crackles bilaterally with wheezing Cardiac exam reveals regular heart sounds no murmurs Abdomen is soft nontender no organomegaly Extremity exam reveals no edema - Labs CBC & Chem 7: 05/23/16 07:26 05/23/16 07:26 Labs: Abnormal Lab Results - Last 24 Hours (Table) 05/22/16 05/23/16 05/23/16 Range/Units 20:51 07:09 07:26 WBC 12.3 H (3.8-10.6) k/uL Neutrophils # 8.1 H (1.3-7.7) k/uL BUN (7-17) mg/dL Glucose (74-99) mg/dL POC Glucose (mg/dL) 127 H 71 L (75-99) mg/dL Magnesium (1.6-2.3) mg/dL 05/23/16 05/23/16 05/23/16 Range/Units 07:26 11:39 17:17 WBC (3.8-10.6) k/uL Neutrophils # (1.3-7.7) k/uL BUN 27 H (7-17) mg/dL Glucose 70 L (74-99) mg/dL POC Glucose (mg/dL) 104 H 125 H (75-99) mg/dL Magnesium 2.4 H (1.6-2.3) mg/dL Assessment and Plan Plan: #1 acute exacerbation of chronic obstructive pulmonary disease, patient was started on IV Solu-Medrol and inhaled bronchodilators #2 acute tracheobronchitis, patient started on IV Rocephin, sputum culture were requested #3 history of Mycobacterium Aviane complex infection patient has been maintained on Biaxin and rifampin and Ethambutol however she has not been taking medications regularly because she could not afford them, Will consult social service manager to assess if she qualified for any help #4 anxiety disorder #5 gastroesophageal reflux disease maintained on Protonix #6 for DVT prophylaxis we will use Lovenox subcu once daily #7 constipation with abdominal discomfort and distention patient given lactulose today Will follow in a.m. Patient is having minimal improvement continue was current management will discuss case with Dr. Tristan transfusion nurse,, possible discharge to home tomorrow
[2016-05-23 20:13] LABS: Glucose,Whole Blood 102 mg/dL (75-99)
[2016-05-23] MEDS: MELATONIN 5 MG TABLET PO SCH (20:24)
[2016-05-23] MEDS: guaiFENesin-Coden 100-10MG/5ML 10 ML CUP PO SCH (20:25)
[2016-05-23] MEDS: MONTELUKAST 10 MG TAB PO SCH (20:25)
[2016-05-24] MEDS: IBUPROFEN 600 MG TAB PO PRN (03:29)
[2016-05-24 07:20] LABS: Glucose,Whole Blood 75 mg/dL (75-99)
[2016-05-24 07:26] LABS: Basophils % (A) 0 %; CHCM 31.5; Eosinophils # (A) 0.1 k/uL (0-0.7); Eosinophils % (A) 1 %; HCT 45.2 % (34.0-46.0); HDW 2.24; HGB 13.8 gm/dL (11.4-16.0); Luc # (Auto) 0.16; Luc % (Auto) 2; Lymphocytes # (A) 3.2 k/uL (1.0-4.8); Lymphocytes % (A) 31 %; MCH 27.3 pg (25.0-35.0); MCHC 30.5 g/dL (31.0-37.0); MCV 89.6 fL (80.0-100.0); Mean Platelet Volume 6.8; Monocytes # (A) 0.5 k/uL (0-1.0); Monocytes % (A) 4 %; Neutrophils # (A) 6.5 k/uL (1.3-7.7); Neutrophils % (A) 62 %; RBC 5.05 m/uL (3.80-5.40); RDW 14.1 % (11.5-15.5); WBC 10.5 k/uL (3.8-10.6); WBC (Perox) 10.86
[2016-05-24] MEDS: IPRATROPIUM-ALBUTEROL 3 ML NEB INHALATION SCH ×4 (07:31→19:43)
[2016-05-24 07:38] LABS: ALT 53 U/L (9-52); AST 25 U/L (14-36); Alkaline Phosphatase 47 U/L (38-126); Anion Gap 7 mmol/L; Blood Urea Nitrogen 20 mg/dL (7-17); Calcium 9.1 mg/dL (8.4-10.2); Carbon Dioxide 30 mmol/L (22-30); Chloride 104 mmol/L (98-107); Glucose 81 mg/dL (74-99); Magnesium 2.3 mg/dL (1.6-2.3); Non-African American GFR(MDRD) >60 (>60 ml/min/1.73 sqM); Potassium 4.8 mmol/L (3.5-5.1); Sodium 141 mmol/L (137-145); Total Bilirubin 0.6 mg/dL (0.2-1.3); Total Protein 5.5 g/dL (6.3-8.2)
[2016-05-24] MEDS: INSULIN LISPRO (humaLOG) 300 UNIT/3 ML VIAL SQ SCH ×4 (08:56→21:09)
[2016-05-24] MEDS: ALPRAZolam 0.25 MG TAB PO SCH ×3 (08:57→21:16)
[2016-05-24] MEDS: NICOTINE 21MG/24HR PATCH TRANSDERM SCH (08:57)
[2016-05-24] MEDS: RIFAMPIN 300 MG CAP PO SCH ×2 (09:01→21:08)
[2016-05-24] MEDS: DOCUSATE 100 MG CAP PO SCH ×2 (09:01→17:08)
[2016-05-24] MEDS: BACLOFEN 10 MG TAB PO SCH ×3 (09:01→21:08)
[2016-05-24] MEDS: CLARITHROMYCIN 500 MG TAB PO SCH (09:01)
[2016-05-24] MEDS: ENOXAPARIN 40 MG/0.4 ML SYRINGE SQ SCH ×2 (09:02→09:10)
[2016-05-24] MEDS: methylPREDNISolone SOD SUCCI 40 MG/ML 1 ML VIAL IV SCH ×2 (09:03→21:09)
[2016-05-24] MEDS: ASPIRIN 81 MG CHEW PO SCH (09:03)
[2016-05-24] MEDS: PANTOPRAZOLE 40 MG TABLET PO SCH (09:03)
[2016-05-24] MEDS: DULoxetine HCL 30 MG CAPSULE.DR PO SCH ×2 (09:03→21:08)
[2016-05-24] MEDS: PROMETHAZ-COD 6.25-10 MG/5 ML 5 ML CUP PO SCH (09:04)
[2016-05-24] MEDS: POLYETHYLENE GLYCOL 3350 17 GM POWD.PACK PO SCH (09:04)
--- NOTE | 2016-05-24 11:14 | P.PN ---
Subjective Patient is being evaluated and examined today on the sixth floor. Patient came into the emergency room with a history of ongoing cough congestion and wheezing that started about 2 weeks ago. She has been living in close living quarters with family that have strep throat and respiratory illnesses at this time. Her chest x-ray revealed some nodular prominence on the right upper lobe. This patient has a history for chronic persistent asthma and severe COPD. The patient also is being seen at the [facility] for a Mycobacterium avium complex infection. Currently the patient is resting up in bed. She denies any further nosebleeds, states her congestion is better as well as her breathing, she has been using her incentive spirometer and pulling volumes of 500. She is on room air. The patient complains of continued constipation, abdominal x-ray has been negative, she did have some small bowel movements after an enema 2 days ago. Plan is to give her another enema today and possibly with added lactulose. Objective - Vital Signs Vital signs: Vital Signs Temp 97.9 F 05/24/16 07:00 Pulse 92 05/24/16 07:41 Resp 16 05/24/16 07:00 BP 114/55 05/24/16 07:00 Pulse Ox 95 05/24/16 07:00 Intake & Output 05/23/16 05/24/16 05/24/16 18:59 06:59 18:59 Intake Total 50 500 Balance 50 500 Weight 63.503 kg 63.503 kg Intake: Intake, IV Titration 50 Amount cefTRIAXone 1,000 mg In 50 Sodium Chloride 0.9% 50 ml @ 100 mls/hr IVPB Q24HR [facility] Rx#:[id number] Oral 500 Other: Voiding Method Toilet Toilet Toilet # Voids 1 1 1 - Exam GENERAL EXAM: Alert, active, comfortable in no apparent distress. HEAD: Normocephalic. EYES: Normal reaction of pupils, equal size. NOSE: Clear with inflamed red to pink turbinates. THROAT: Some erythema and clear exudates. NECK: No masses, no JVD. CHEST: No chest wall deformity. LUNGS: Lungs are noted to have faint expiratory wheezes. Bases diminished CVS: S1 and S2 normal with no audible mumurs, regular rhythm. ABDOMEN: No hepatosplenomegaly, normal bowel sounds, no guarding or rigidity. EXTREMITIES: No edema noted, pedal pulses palpable. SKIN: No rashes CENTRAL NERVOUS SYSTEM: No focal deficits, tone is normal in all 4 extremities. - Labs CBC & Chem 7: 05/24/16 07:09 05/24/16 07:09 Labs: Abnormal Lab Results - Last 24 Hours (Table) 05/23/16 05/23/16 05/23/16 Range/Units 11:39 17:17 20:12 MCHC (31.0-37.0) g/dL BUN (7-17) mg/dL POC Glucose (mg/dL) 104 H 125 H 102 H (75-99) mg/dL ALT (9-52) U/L Total Protein (6.3-8.2) g/dL Albumin (3.5-5.0) g/dL 05/24/16 05/24/16 Range/Units 07:09 07:09 MCHC 30.5 L (31.0-37.0) g/dL BUN 20 H (7-17) mg/dL POC Glucose (mg/dL) (75-99) mg/dL ALT 53 H (9-52) U/L Total Protein 5.5 L (6.3-8.2) g/dL Albumin 3.2 L (3.5-5.0) g/dL Assessment and Plan Plan: Assessment: Acute chronic obstructive pulmonary disease exacerbation Purulent tracheobronchitis History of Mycobacterium avium complex infection and history of prior gram- negative pneumonia 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 Continue with breathing treatments, and antibiotics. Continue with the nasal spray and Singulair as it's helping with her congestion We will continue to monitor the patient's labs and adjust treatment as clinically necessary. Discharge was held yesterday due to constipation, and abdominal discomfort, which continues today. Abdominal X-rays have been negative. Plan is to give the patient another enema and lactulose today.
[2016-05-24 12:00] LABS: Glucose,Whole Blood 92 mg/dL (75-99)
[2016-05-24] MEDS: MULTIVITAMINS, THERA 1 EACH TAB PO SCH (12:35)
[2016-05-24] MEDS: ASCORBIC ACID 500 MG TAB PO SCH (12:35)
--- NOTE | 2016-05-24 15:33 | P.PN ---
Subjective Acute Exacerbation of chronic obstructive pulmonary disease Patient is a 60-year-old female with known history of chronic obstructive pulmonary disease, and history of MAC infection of the lungs, who was admitted to [facility] due to cough and worsening shortness of breath she had evidence of acute purulent bronchitis and acute exacerbation of chronic obstructive pulmonary disease. Patient still complaining of constipation and abdominal cramping with some mild distention. She is passing gas. She had a small BM on Saturday Objective - Vital Signs Vital signs: Vital Signs Temp 97.9 F 05/24/16 07:00 Pulse 80 05/24/16 11:06 Resp 16 05/24/16 07:00 BP 114/55 05/24/16 07:00 Pulse Ox 95 05/24/16 07:00 Intake & Output 05/23/16 05/24/16 05/24/16 18:59 06:59 18:59 Intake Total 50 500 Balance 50 500 Weight 63.503 kg 63.503 kg Intake: Intake, IV Titration 50 Amount cefTRIAXone 1,000 mg In 50 Sodium Chloride 0.9% 50 ml @ 100 mls/hr IVPB Q24HR [facility] Rx#:[id number] Oral 500 Other: Voiding Method Toilet Toilet Toilet # Voids 1 1 1 - Exam Head normocephalic Neck supple Lungs improvement in air movement. Still some mild expiratory wheeze Heart regular rate and rhythm S1-S2, no rub or gallop Abdomen is soft mild tenderness with palpation. Positive bowel sounds. Extremities no edema Neuro alert and orientated to 3 - Labs CBC & Chem 7: 05/24/16 07:09 05/24/16 07:09 Labs: Abnormal Lab Results - Last 24 Hours (Table) 05/23/16 05/23/16 05/24/16 Range/Units 17:17 20:12 07:09 MCHC 30.5 L (31.0-37.0) g/dL BUN (7-17) mg/dL POC Glucose (mg/dL) 125 H 102 H (75-99) mg/dL ALT (9-52) U/L Total Protein (6.3-8.2) g/dL Albumin (3.5-5.0) g/dL 05/24/16 Range/Units 07:09 MCHC (31.0-37.0) g/dL BUN 20 H (7-17) mg/dL POC Glucose (mg/dL) (75-99) mg/dL ALT 53 H (9-52) U/L Total Protein 5.5 L (6.3-8.2) g/dL Albumin 3.2 L (3.5-5.0) g/dL Assessment and Plan Plan: #1 acute exacerbation of chronic obstructive pulmonary disease, patient was started on IV Solu-Medrol and inhaled bronchodilators. #2 acute tracheobronchitis, patient started on IV Rocephin #3 history of Mycobacterium Aviane complex infection patient has been maintained on Biaxin and rifampin and Ethambutol however she has not been taking medications regularly because she could not afford them, Will consult social media content manager to assess if she qualified for any help #4 generalized anxiety disorder #5 gastroesophageal reflux disease maintained on Protonix #6 for DVT prophylaxis we will use Lovenox subcu once daily #7 constipation: We'll give patient another soapsuds enema
[2016-05-24 17:04] LABS: Glucose,Whole Blood 72 mg/dL (75-99)
[2016-05-24 20:25] LABS: Glucose,Whole Blood 106 mg/dL (75-99)
[2016-05-24] MEDS: guaiFENesin-Coden 100-10MG/5ML 10 ML CUP PO SCH (21:08)
[2016-05-24] MEDS: MELATONIN 5 MG TABLET PO SCH (21:08)
[2016-05-24] MEDS: MONTELUKAST 10 MG TAB PO SCH (21:08)
[2016-05-25] MEDS: IBUPROFEN 600 MG TAB PO PRN (04:03)
[2016-05-25 07:34] LABS: Glucose,Whole Blood 79 mg/dL (75-99)
[2016-05-25 07:51] VITALS: BP 105/58; RESP 16; TEMP 97.4
[2016-05-25] MEDS: IPRATROPIUM-ALBUTEROL 3 ML NEB INHALATION SCH ×3 (08:33→14:57)
[2016-05-25] MEDS: INSULIN LISPRO (humaLOG) 300 UNIT/3 ML VIAL SQ SCH ×2 (08:43→12:46)
[2016-05-25] MEDS: NICOTINE 21MG/24HR PATCH TRANSDERM SCH (08:50)
[2016-05-25] MEDS: methylPREDNISolone SOD SUCCI 40 MG/ML 1 ML VIAL IV SCH (08:50)
[2016-05-25] MEDS: DOCUSATE 100 MG CAP PO SCH (08:51)
[2016-05-25] MEDS: POLYETHYLENE GLYCOL 3350 17 GM POWD.PACK PO SCH (08:51)
[2016-05-25] MEDS: MULTIVITAMINS, THERA 1 EACH TAB PO SCH (08:51)
[2016-05-25] MEDS: RIFAMPIN 300 MG CAP PO SCH (08:51)
[2016-05-25] MEDS: CLARITHROMYCIN 500 MG TAB PO SCH (08:51)
[2016-05-25] MEDS: ASCORBIC ACID 500 MG TAB PO SCH (08:51)
[2016-05-25] MEDS: DULoxetine HCL 30 MG CAPSULE.DR PO SCH (08:51)
[2016-05-25] MEDS: ASPIRIN 81 MG CHEW PO SCH (08:52)
[2016-05-25] MEDS: ALPRAZolam 0.25 MG TAB PO SCH ×2 (08:52→16:37)
[2016-05-25] MEDS: PANTOPRAZOLE 40 MG TABLET PO SCH (08:52)
[2016-05-25] MEDS: BACLOFEN 10 MG TAB PO SCH ×2 (08:52→16:37)
[2016-05-25] MEDS: ENOXAPARIN 40 MG/0.4 ML SYRINGE SQ SCH (08:57)
[2016-05-25] MEDS: PROMETHAZ-COD 6.25-10 MG/5 ML 5 ML CUP PO SCH (08:57)
[2016-05-25 10:06] VITALS: PULSE 86
[2016-05-25 11:54] LABS: Glucose,Whole Blood 112 mg/dL (75-99)
--- NOTE | 2016-05-25 12:31 | P.PN ---
Subjective Patient is being evaluated and examined today on the sixth floor. Patient came into the emergency room with a history of ongoing cough congestion and wheezing that started about 2 weeks ago. She has been living in close living quarters with family that have strep throat and respiratory illnesses at this time. Her chest x-ray revealed some nodular prominence on the right upper lobe. This patient has a history for chronic persistent asthma and severe COPD. The patient also is being seen at the [facility] for a Mycobacterium avium complex infection. Currently the patient is resting up in bed. She denies any further nosebleeds, states her congestion is better as well as her breathing, she has been using her incentive spirometer and pulling volumes of 500. She is on room air. The patient was able to have a bowel movement yesterday and is passing flatus. Her discharge was held the past few days pending a bowel movement. Objective - Vital Signs Vital signs: Vital Signs Temp 97.4 F L 05/25/16 07:00 Pulse 86 05/25/16 12:06 Resp 16 05/25/16 08:00 BP 105/58 05/25/16 07:00 Pulse Ox 92 L 05/25/16 08:33 Intake & Output 05/24/16 05/25/16 05/25/16 18:59 06:59 18:59 Intake Total 50 360 Balance 50 360 Weight 63.503 kg Intake: Intake, IV Titration 50 Amount cefTRIAXone 1,000 mg In 50 Sodium Chloride 0.9% 50 ml @ 100 mls/hr IVPB Q24HR [facility] Rx#:[id number] Oral 360 Other: Voiding Method Toilet Toilet Toilet # Voids 1 1 1 # Bowel Movements 1 1 - Exam GENERAL EXAM: Alert, active, comfortable in no apparent distress. HEAD: Normocephalic. EYES: Normal reaction of pupils, equal size. NOSE: Clear with inflamed red to pink turbinates. THROAT: Some erythema and clear exudates. NECK: No masses, no JVD. CHEST: No chest wall deformity. LUNGS: Lungs are noted to have faint expiratory wheezes. Bases diminished CVS: S1 and S2 normal with no audible mumurs, regular rhythm. ABDOMEN: No hepatosplenomegaly, normal bowel sounds, no guarding or rigidity. EXTREMITIES: No edema noted, pedal pulses palpable. SKIN: No rashes CENTRAL NERVOUS SYSTEM: No focal deficits, tone is normal in all 4 extremities. 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 We will continue to keep the patient on the current therapy. Continue with breathing treatments, and antibiotics. Continue with the nasal spray and Singulair as it' s helping with her congestion. We will follow-up with the patient in the outpatient setting within 1 week of discharge.
--- NOTE | 2016-05-25 13:34 | P.DS ---
Providers Date of admission: 05/15/16 16:37 Expected date of discharge: 05/25/16 Attending physician: Dionna Curran Consults: 05/15/16 19:04 Consult Physician Routine Consulting Provider: Paulo Tristan Consult Reason/Comments: bronchitis, history of MAC patient known to him Do you want consulting provider notified?: Yes Primary care physician: Dionna Bina [facility] Course: discharge diagnosis #1 acute exacerbation of chronic obstructive pulmonary disease, patient was started on IV Solu-Medrol and inhaled bronchodilators. #2 acute tracheobronchitis, patient started on IV Rocephin. Patient completed antibiotic treatment during her hospitalization #3 history of Mycobacterium Aviane complex infection patient has been maintained on Biaxin and rifampin and Ethambutol however she has not been taking medications regularly because she could not afford them, Will consult nursing home social worker to assess if she qualified for any help #4 generalized anxiety disorder #5 gastroesophageal reflux disease maintained on Protonix #6 for DVT prophylaxis we will use Lovenox subcu once daily #7 constipation: Patient was able to have a bowel movement movement. She'll resume her home bowel regimen. Which includes stool softener and the Metamucil Hospital course Patient is a 60-year-old female with known history of chronic obstructive pulmonary disease, and history of MAC infection of the lungs, who was admitted to [facility] due to cough and worsening shortness of breath she had evidence of acute purulent bronchitis and acute exacerbation of chronic obstructive pulmonary disease. patient was followed by pulmonary service. Her breathing symptoms did show improvement. They had cleared her for discharge couple a days ago. She'll continue prednisone taper first OPD exacerbation. And she completed antibiotic treatment for her bronchitis during her hospitalization. Discharge was held last 2 days due to constipation. Patient had multiple soapsuds enemas and lactulose. She was able to have a small bowel movement yesterday. Constipation has shown improvement. And she'll continue with her bowel regimen that she takes at home. Patient is eating and no abdominal pain. She is stable for discharge home. Please refer to chart for any further details. Patient Condition at Discharge: Stable Plan - Discharge Summary New Discharge Prescriptions: Clarithromycin [Biaxin] 500 mg PO DAILY #30 tab Ethambutol [Myambutol] 1,200 mg PO DAILY #30 tab Montelukast [Singulair] 10 mg PO HS #30 tab Rifampin [Rifadin] 300 mg PO BID #60 cap Discharge Medication List ALPRAZolam [Xanax] 0.25 mg PO TID 12/10/15 [History] Albuterol Inhaler [Ventolin Hfa Inhaler] 1 - 2 puff INHALATION RT-Q6H PRN [History] Albuterol Nebulized [Ventolin Nebulized] 2.5 mg INHALATION RT-QID 12/10/15 [ History] Aspirin EC [Ecotrin Low Dose] 81 mg PO DAILY 12/10/15 [History] Baclofen [Lioresal] 10 mg PO TID 12/10/15 [History] Benzonatate [Tessalon Perles] 100 mg PO TID PRN 12/10/15 [History] DULoxetine HCL [Cymbalta] 30 mg PO BID 12/10/15 [History] HYDROcodone/APAP 5-325MG [[place] 5-325] 1 tab PO Q12H PRN 12/10/15 [History] Ibuprofen [Motrin] 600 mg PO Q8HR PRN 12/10/15 [History] Melatonin 10 mg PO HS 12/10/15 [History] Multivitamins, Thera [Multivitamin] 1 tab PO DAILY 12/10/15 [History] Nicotine 21Mg/24Hr Patch [Habitrol] 1 patch TRANSDERM DAILY 12/10/15 [History] Omeprazole [PriLOSEC] 20 mg PO AC-BID 12/10/15 [History] Ondansetron [Zofran] 4 mg PO Q8HR PRN 12/10/15 [History] Promethazine HCl/Codeine [Prometh-Codein 6.25-10 mg/5 ml] 10 ml PO QAM 12/10/15 [History] Sennosides/Docusate Sodium [Jana-Colace Tablet] 1 tab PO DAILY PRN 12/10/15 [ History] guaiFENesin/CODEINE PHOSPHATE [Cheratussin AC Syrup] 10 ml PO HS 12/10/15 [ History] Ascorbic Acid [Vitamin C] 500 mg PO DAILY 05/15/16 [History] [place]-3 Fatty Acids/Fish Oil [Fish Oil 1,000 mg Softgel] 1 cap PO DAILY [History] Clarithromycin [Biaxin] 500 mg PO DAILY #30 tab 05/25/16 [Rx] Ethambutol [Myambutol] 1,200 mg PO DAILY #30 tab 05/25/16 [Rx] Montelukast [Singulair] 10 mg PO HS #30 tab 05/25/16 [Rx] Rifampin [Rifadin] 300 mg PO BID #60 cap 05/25/16 [Rx] Follow up Appointment(s)/Referral(s): Paulo Tristan MD [STAFF PHYSICIAN] - 1 Week Dionna Curran MD [Primary Care Provider] - 1 Week Activity/Diet/Wound Care/Special Instructions: Diet: regular Activity: as tolerated Discharge Disposition: HOME SELF-CARE
[2016-05-25] MEDS: BENZONATATE 100 MG CAP PO PRN (16:42)
[2016-05-25] MEDS: guaiFENesin-Coden 100-10MG/5ML 10 ML CUP PO SCH (17:00)
== END 2016-05-25 17:12 | disposition home or self-care (01) | DRG 191 ==
LOC: 5MS5E 16:37
PROVIDERS: ADMIT Internal Medicine; ATTEND Internal Medicine
DX: J44.0 Chronic obstructive pulmonary disease with (acute) lower respiratory infection (principal); E87.1 Hypo-osmolality and hyponatremia; E78.5 Hyperlipidemia, unspecified; J20.9 Acute bronchitis, unspecified; J45.909 Unspecified asthma, uncomplicated; J44.1 Chronic obstructive pulmonary disease with (acute) exacerbation; E86.0 Dehydration; F17.200 Nicotine dependence, unspecified, uncomplicated; F32.9 Major depressive disorder, single episode, unspecified; F41.0 Panic disorder [episodic paroxysmal anxiety]; F41.1 Generalized anxiety disorder; Z79.82 Long term (current) use of aspirin; Z79.899 Other long term (current) drug therapy; K21.9 Gastro-esophageal reflux disease without esophagitis; K59.00 Constipation, unspecified; M79.7 Fibromyalgia; M81.0 Age-related osteoporosis without current pathological fracture; Z80.3 Family history of malignant neoplasm of breast; Z82.49 Family history of ischemic heart disease and other diseases of the circulatory system; Z91.041 Radiographic dye allergy status; Z91.013 Allergy to seafood
CPT/HCPCS: 71020; 74000; 80048; 80053; 83036; 83735; 85025; 87070; 87205; 94640; 94760

== ENCOUNTER → 2016-12-20 | Outpatient (CLI) | payer MEDICARE, OTHER ==
--- NOTE | 2016-12-21 07:11 | XR ---
EXAMINATION TYPE: XR chest 2V DATE OF EXAM: 12/20/2016 COMPARISON: 05/18/2016 HISTORY: Shortness of breath TECHNIQUE: Frontal and lateral views of the chest are obtained. FINDINGS: Scattered senescent parenchymal changes noted. Hyperinflation compatible with COPD. No evidence for infiltrate. No evidence for atelectasis. Scattered pulmonary nodules again noted. Heart size is stable. Mediastinal structures are stable and grossly unremarkable. No evidence for hilar prominence. Degenerative changes dorsal spine. IMPRESSION: 1. No evidence for acute pulmonary disease. Nonspecific Scattered pulmonary nodules.
== END | disposition home or self-care (01) ==
LOC: RADXRMAIN 15:54
PROVIDERS: ATTEND Internal Medicine
DX: R91.8 Other nonspecific abnormal finding of lung field (principal); R06.02 Shortness of breath; R05 Cough
CPT/HCPCS: 71020

== ENCOUNTER 2017-03-15 13:48 | Emergency (ER) | payer MEDICARE ==
[2017-03-15] MEDS ORDERED: MORPHINE SULFATE 5 MG/ML SYRINGE IVP STA (14:16)
[2017-03-15] MEDS ORDERED: SODIUM CHLORIDE 0.9% 1,000 ML IV ONE (14:16)
[2017-03-15] MEDS ORDERED: ONDANSETRON 4 MG/2 ML VIAL IVP STA (14:16)
--- NOTE | 2017-03-15 14:20 | ED ---
Abdominal Pain HPI - General Chief Complaint: Abdominal Pain Stated Complaint: Abd pain Time Seen by Provider: 03/15/17 14:09 Source: patient Mode of arrival: ambulatory Limitations: no limitations - History of Present Illness Initial Comments: This is a 61-year-old female with a history of COPD who presents emergency department for right flank and right lower quadrant pain. She states it started in the right lower back about 1 week ago. Over the last 3 days she noticed some pain in the right lower quadrant. She does have some associated nausea however states that she is chronically nauseated because of the medications that she takes. She states that she has not noticed any constipation or diarrhea. No dysuria or gross hematuria. She states that she went to her primary doctor today who did a urinalysis and showed blood in it. She was directed emergency department for fear of appendicitis. The patient denies any fevers or chills. Has not had any pain like this previously. No other acute complaints at this time. - Related Data Home Medications Medication Instructions Recorded Confirmed ALPRAZolam [Xanax] 0.25 mg PO TID 12/10/15 03/15/17 Albuterol Inhaler [Ventolin Hfa 1 - 2 puff INHALATION RT-Q6H PRN 12/10/15 Inhaler] Albuterol Nebulized [Ventolin 2.5 mg INHALATION RT-QID 12/10/15 03/15/17 Nebulized] Aspirin EC [Ecotrin Low Dose] 81 mg PO DAILY 12/10/15 03/15/17 Baclofen [Lioresal] 10 mg PO TID 12/10/15 03/15/17 Benzonatate [Tessalon Perles] 100 mg PO TID PRN 12/10/15 03/15/17 DULoxetine HCL [Cymbalta] 30 mg PO BID 12/10/15 03/15/17 Ibuprofen [Motrin] 600 mg PO Q8HR PRN 12/10/15 03/15/17 Melatonin 10 mg PO HS 12/10/15 03/15/17 Multivitamins, Thera [Multivitamin 1 tab PO DAILY 12/10/15 03/15/17 (formulary)] Omeprazole [PriLOSEC] 20 mg PO AC-BID 12/10/15 03/15/17 Ascorbic Acid [Vitamin C] 500 mg PO DAILY 05/15/16 03/15/17 [place]-3 Fatty Acids/Fish Oil [Fish 1 cap PO DAILY 05/15/16 03/15/17 Oil 1,000 mg Softgel] Ethambutol [Myambutol] 400 mg PO DAILY 03/15/17 03/15/17 Previous Rx's Medication Instructions Recorded Clarithromycin [Biaxin] 500 mg PO DAILY #30 tab 05/25/16 Montelukast [Singulair] 10 mg PO HS #30 tab 05/25/16 Rifampin [Rifadin] 300 mg PO BID #60 cap 05/25/16 Tamsulosin HCl [Flomax] 0.4 mg PO DAILY #14 cap 03/15/17 oxyCODONE HCL/ACETAMINOPHEN 1 tab PO Q6HR PRN #10 tab 03/15/17 [Percocet 5-325 mg] Allergies Allergy/AdvReac Type Severity Reaction Status Date / Time Iodinated Contrast- Oral and Allergy Rash/Hives Verified 03/15/17 14:28 IV Dye [Iodinated Contrast Media - IV Dye] iodine Allergy Rash/Hives Verified 03/15/17 14:28 shellfish derived Allergy Rash/Hives Verified 03/15/17 14:28 venom-honey bee Allergy Anaphylaxis Verified 03/15/17 14:28 [bee venom (honey bee)] Review of Systems ROS Statement: Those systems with pertinent positive or pertinent negative responses have been documented in the HPI. ROS Other: All systems not noted in ROS Statement are negative. Past Medical History Past Medical History: Asthma, COPD, Fibromyalgia, GERD/Reflux, Hyperlipidemia, Osteoarthritis (OA), Pneumonia, Respiratory Disorder Additional Past Medical History / Comment(s): Chronic neck pain"herniated discs ", arthitis, osteoporosis, fibrocystic breast disease, cataracts, "MAC" tx by dr [place]. History of Any Multi-Drug Resistant Organisms: None Reported Additional Past Surgical History / Comment(s): multiple breast surgeries(needle aspiration bx), tubal ligation, right foot surgery 40 years ago to removed a foreign object, bronchosocpy, inj in neck. Past Anesthesia/Blood Transfusion Reactions: No Reported Reaction Additional Past Anesthesia/Blood Transfusion Reaction / Comment(s): clausterphobia Past Psychological History: Anxiety, Bipolar, Depression, Panic Disorder Smoking Status: Current every day smoker Past Alcohol Use History: None Reported Past Drug Use History: None Reported - Past Family History Mother Family Medical History: Cancer Additional Family Medical History / Comment(s): brain, breast cancer Father Family Medical History: Congestive Heart Failure (CHF), CVA/TIA, Renal Disease General Exam - General Exam Comments Initial Comments: Constitutional: Awake alert Appears comfortable Head: Normocephalic atraumatic Eyes: no conjunctival injection No scleral icterus EOMI Neck: No JVD Supple Heart: Regular rate rhythm normal S1-S2 no murmurs Lungs: Clear to auscultation bilaterally No wheezing No rales Abdomen: Soft nondistended harness in the right lower quadrant without rebound or guarding Extremities: Non edematous DP pulses intact Radial pulses intact there is some tenderness in the right lower lumbar paraspinal musculature Neuro: A&Ox3 No focal neurologic deficits Psych: Appropriate mood and affect Limitations: no limitations Course Vital Signs 03/15/17 03/15/17 03/15/17 13:57 16:07 16:53 Temperature 97.6 F 97.8 F 97.5 F L Pulse Rate 88 62 65 Respiratory 18 16 16 Rate Blood Pressure 138/69 141/61 141/65 O2 Sat by Pulse 98 97 96 Oximetry Medical Decision Making - Medical Decision Making Is a 61-year-old female who presents emergency department for right flank plain. The CT did show evidence of what appears to be a ureteral stone on the right. This is just with her pain and symptoms. She does have some blood in her urine as well. Patient was given Percocet for THAT she is chronically on [place]. She is also given Flomax and neurology follow-up with. Told to return emergency Department should worsening or changing symptoms. All questions were answered. - Lab Data Result diagrams: 03/15/17 14:46 03/15/17 14:46 Lab Results 03/15/17 03/15/17 03/15/17 Range/Units 14:46 14:46 14:46 WBC 9.3 (3.8-10.6) k/uL RBC 5.64 H (3.80-5.40) m/uL Hgb 15.8 (11.4-16.0) gm/dL Hct 48.5 H (34.0-46.0) % MCV 86.0 (80.0-100.0) fL MCH 28.1 (25.0-35.0) pg MCHC 32.6 (31.0-37.0) g/dL RDW 14.5 (11.5-15.5) % Plt Count 194 (150-450) k/uL Neutrophils % 72 % Lymphocytes % 20 % Monocytes % 5 % Eosinophils % 2 % Basophils % 0 % Neutrophils # 6.7 (1.3-7.7) k/uL Lymphocytes # 1.8 (1.0-4.8) k/uL Monocytes # 0.5 (0-1.0) k/uL Eosinophils # 0.2 (0-0.7) k/uL Basophils # 0.0 (0-0.2) k/uL PT (9.0-12.0) sec INR (<1.2) APTT (22.0-30.0) sec Sodium 140 (137-145) mmol/L Potassium 4.4 (3.5-5.1) mmol/L Chloride 104 (98-107) mmol/L Carbon Dioxide 28 (22-30) mmol/L Anion Gap 8 mmol/L BUN 15 (7-17) mg/dL Creatinine 0.90 (0.52-1.04) mg/dL Est GFR (MDRD) Af Amer >60 (>60 ml/min/1.73 sqM) Est GFR (MDRD) Non-Af >60 (>60 ml/min/1.73 sqM) Glucose 89 (74-99) mg/dL Plasma Lactic Acid Jose 0.8 (0.7-2.0) mmol/L Calcium 9.7 (8.4-10.2) mg/dL Total Bilirubin 0.4 (0.2-1.3) mg/dL AST 23 (14-36) U/L ALT 36 (9-52) U/L Alkaline Phosphatase 64 (38-126) U/L Total Protein 6.5 (6.3-8.2) g/dL Albumin 4.0 (3.5-5.0) g/dL Lipase 205 (23-300) U/L Urine Color Urine Appearance (Clear) Urine pH (5.0-8.0) Ur Specific [place] (1.001-1.035) Urine Protein (Negative) Urine Glucose (UA) (Negative) Urine Ketones (Negative) Urine Blood (Negative) Urine Nitrite (Negative) Urine Bilirubin (Negative) Urine Urobilinogen (<2.0) mg/dL Ur Leukocyte Esterase (Negative) Urine RBC (0-5) /hpf Urine WBC (0-5) /hpf Ur Squamous Epith Cells (0-4) /hpf Amorphous Sediment (None) /hpf Urine Bacteria (None) /hpf Urine Mucus (None) /hpf 03/15/17 03/15/17 Range/Units 14:46 14:46 WBC (3.8-10.6) k/uL RBC (3.80-5.40) m/uL Hgb (11.4-16.0) gm/dL Hct (34.0-46.0) % MCV (80.0-100.0) fL MCH (25.0-35.0) pg MCHC (31.0-37.0) g/dL RDW (11.5-15.5) % Plt Count (150-450) k/uL Neutrophils % % Lymphocytes % % Monocytes % % Eosinophils % % Basophils % % Neutrophils # (1.3-7.7) k/uL Lymphocytes # (1.0-4.8) k/uL Monocytes # (0-1.0) k/uL Eosinophils # (0-0.7) k/uL Basophils # (0-0.2) k/uL PT 9.9 (9.0-12.0) sec INR 1.0 (<1.2) APTT 22.2 (22.0-30.0) sec Sodium (137-145) mmol/L Potassium (3.5-5.1) mmol/L Chloride (98-107) mmol/L Carbon Dioxide (22-30) mmol/L Anion Gap mmol/L BUN (7-17) mg/dL Creatinine (0.52-1.04) mg/dL Est GFR (MDRD) Af Amer (>60 ml/min/1.73 sqM) Est GFR (MDRD) Non-Af (>60 ml/min/1.73 sqM) Glucose (74-99) mg/dL Plasma Lactic Acid Jose (0.7-2.0) mmol/L Calcium (8.4-10.2) mg/dL Total Bilirubin (0.2-1.3) mg/dL AST (14-36) U/L ALT (9-52) U/L Alkaline Phosphatase (38-126) U/L Total Protein (6.3-8.2) g/dL Albumin (3.5-5.0) g/dL Lipase (23-300) U/L Urine Color Dark Yellow Urine Appearance Clear (Clear) Urine pH 6.0 (5.0-8.0) Ur Specific [place] 1.021 (1.001-1.035) Urine Protein Trace H (Negative) Urine Glucose (UA) Negative (Negative) Urine Ketones Negative (Negative) Urine Blood Small H (Negative) Urine Nitrite Negative (Negative) Urine Bilirubin Negative (Negative) Urine Urobilinogen 2.0 (<2.0) mg/dL Ur Leukocyte Esterase Moderate H (Negative) Urine RBC 24 H (0-5) /hpf Urine WBC 8 H (0-5) /hpf Ur Squamous Epith Cells 10 H (0-4) /hpf Amorphous Sediment Occasional H (None) /hpf Urine Bacteria Occasional H (None) /hpf Urine Mucus Occasional H (None) /hpf Disposition Clinical Impression: Ureterolithiasis Disposition: HOME SELF-CARE Condition: Stable Instructions: Kidney Stones (ED) Prescriptions: oxyCODONE HCL/ACETAMINOPHEN [Percocet 5-325 mg] 1 tab PO Q6HR PRN #10 tab PRN Reason: Pain Tamsulosin HCl [Flomax] 0.4 mg PO DAILY #14 cap Referrals: Dionna Curran MD [Primary Care Provider] - 1-2 days Deangelo Medina MD [STAFF PHYSICIAN] - 1-2 days
[2017-03-15 14:58] LABS: Basophils % (A) 0 %; Eosinophils # (A) 0.2 k/uL (0-0.7); Eosinophils % (A) 2 %; HCT 48.5 % (34.0-46.0); HGB 15.8 gm/dL (11.4-16.0); Lymphocytes # (A) 1.8 k/uL (1.0-4.8); Lymphocytes % (A) 20 %; MCH 28.1 pg (25.0-35.0); MCHC 32.6 g/dL (31.0-37.0); Monocytes # (A) 0.5 k/uL (0-1.0); Monocytes % (A) 5 %; Neutrophils # (A) 6.7 k/uL (1.3-7.7); Neutrophils % (A) 72 %; Platelet Count 194 k/uL (150-450); RBC 5.64 m/uL (3.80-5.40); RDW 14.5 % (11.5-15.5); WBC 9.3 k/uL (3.8-10.6)
[2017-03-15 15:06] LABS: Partial Thromboplastin Time 22.2 sec (22.0-30.0); Prothrombin Time 9.9 sec (9.0-12.0)
[2017-03-15 15:09] LABS: ALT 36 U/L (9-52); AST 23 U/L (14-36); Alkaline Phosphatase 64 U/L (38-126); Amorphous Sediment,Urine Occasional /hpf; Anion Gap 8 mmol/L; Appearance,Urine Clear (Clear); Bacteria,Urine Occasional /hpf; Bilirubin,Urine Negative (Negative); Blood Urea Nitrogen 15 mg/dL (7-17); Blood,Urine Small (Negative); Calcium 9.7 mg/dL (8.4-10.2); Carbon Dioxide 28 mmol/L (22-30); Chloride 104 mmol/L (98-107); Color,Urine Dark Yellow; Glucose 89 mg/dL (74-99); Glucose,Urine (UA) Negative (Negative); Ketones,Urine Negative (Negative); Leukocyte Esterase,Urine Moderate (Negative); Lipase 205 U/L (23-300); Mucus,Urine Occasional /hpf; Nitrite,Urine Negative (Negative); Potassium 4.4 mmol/L (3.5-5.1); Protein,Urine Trace (Negative); RBC,Urine 24 /hpf (0-5); Sodium 140 mmol/L (137-145); Specific Gravity,Urine 1.021 (1.001-1.035); Squamous Epithelial Cell,Urine 10 /hpf (0-4); Total Bilirubin 0.4 mg/dL (0.2-1.3); Total Protein 6.5 g/dL (6.3-8.2); WBC,Urine 8 /hpf (0-5)
--- NOTE | 2017-03-15 15:29 | CT ---
EXAMINATION TYPE: CT abdomen pelvis wo con DATE OF EXAM: 03/15/2017 COMPARISON: NONE HISTORY: Right lower quadrant and right flank pain x [address] DLP: 624.00 mGycm Automated exposure control for dose reduction was used. TECHNIQUE: Helical acquisition of images from the lung bases through the pelvis. FINDINGS: Lack of contrast could compromise sensitivity. There is no pericardial effusion. Calcificat ion present at the level of the distal esophagus to the right of midline shows a nonaggressive appear ance and measures 1 cm in greatest dimension likely a calcified node. LUNG BASES: No significant abnormality is appreciated. AORTA: No significant abnormality is appreciataed. LIVER/GB: No significant abnormality is appreciated. PANCREAS: No significant abnormality is seen. SPLEEN: No significant abnormality is seen. ADRENALS: No significant abnormality is seen. KIDNEYS: Right kidney is malrotated. No evident renal calcifications bilaterally. Distal right ureter is not well seen. There are phleboliths in the pelvis. REPRODUCTIVE ORGANS: No significant abnormality is seen. URINARY BLADDER: There is a mildly thickened wall possibly due to lack of distention, correlate to e xclude cystitis. BOWEL: No evident bowel obstruction. There is retained fecal debris present throughout the distribut ion of the colon. The appendix is normal. FREE AIR: No Free Air is visible. ASCITES: None visible. PELVIC ADENOPATHY: None visualized. RETROPERITONEAL ADENOPATHY: No Retroperitoneal Adenopathy visible. OSSEOUS STRUCTURES: Facet arthropathy changes are noted at the lower lumbar spine. Degenerative disc change present at L5-S1. IMPRESSION: NONCONTRAST EXAM. MALROTATED RIGHT KIDNEY. DIFFICULT TO EXCLUDE URETERAL CALCULUS ON THE BASIS OF THI S EXAM DESCRIBED. THERE IS NO HYDRONEPHROSIS. CORRELATE FOR POSSIBLE FECAL STASIS. FOLLOW-UP IN DICATED.
[2017-03-15] MEDS ORDERED: KETOROLAC 30 MG/ML 1 ML VIAL IVP STA (15:49)
[2017-03-15] MEDS ORDERED: HYDROmorphone 1 MG/ML 1 ML SYRINGE IVP STA (15:49)
[2017-03-15 16:08] VITALS: RESP 16
[2017-03-15 16:54] VITALS: BP 141/65; PULSE 65; TEMP 97.5
== END 2017-03-15 17:00 | disposition home or self-care (01) ==
LOC: EC 13:48
DX: N20.1 Calculus of ureter (principal); K21.9 Gastro-esophageal reflux disease without esophagitis; J44.9 Chronic obstructive pulmonary disease, unspecified; M19.90 Unspecified osteoarthritis, unspecified site; F41.0 Panic disorder [episodic paroxysmal anxiety]; F32.9 Major depressive disorder, single episode, unspecified; F17.200 Nicotine dependence, unspecified, uncomplicated; Z79.51 Long term (current) use of inhaled steroids; Z79.82 Long term (current) use of aspirin; Z79.899 Other long term (current) drug therapy; Z91.013 Allergy to seafood; Z91.030 Bee allergy status; Z91.041 Radiographic dye allergy status; Z91.048 Other nonmedicinal substance allergy status; Z84.1 Family history of disorders of kidney and ureter
CPT/HCPCS: 36415; 80053; 83605; 83690; 85025; 85610; 85730; 81001; 74176; 99284; 96374; 96375 ×3; 96361 ×2; J2405; J1885; J1170; J2274

== ENCOUNTER 2017-04-28 12:26 | Inpatient (IN) | payer MEDICARE ==
[2017-04-28] MEDS ORDERED: IPRATROPIUM-ALBUTEROL 3 ML NEB INHALATION STA (12:48)
[2017-04-28] MEDS ORDERED: SODIUM CHLORIDE 0.9% 1,000 ML IV STA (12:48)
[2017-04-28] MEDS ORDERED: methylPREDNISolone SOD SUCCI 125 MG/2 ML VIAL IV STA (12:48)
[2017-04-28] MEDS ORDERED: ONDANSETRON 4 MG/2 ML VIAL IVP STA (13:03)
--- NOTE | 2017-04-28 13:03 | ED ---
General Adult HPI - General Source: patient, RN notes reviewed Mode of arrival: ambulatory Limitations: no limitations <Apollo Carolina - Last Filed: 04/28/17 14:39> <Olegario Givens - Last Filed: 04/28/17 14:57> - General Chief complaint: Shortness of Breath Stated complaint: Chest Congestion/Headache Time Seen by Provider: 04/28/17 12:39 - History of Present Illness Initial comments: This a 61-year-old female presents emergency Department chief complaint cough, chest congestion, shortness breath, nausea vomiting diarrhea. Patient states symptoms have been present for 1 week. Patient states that her granddaughter lives with her was tested positive for influenza. She states her has some her symptoms. Patient states that her cough is mostly dry but occasionally productive. She states that she does have some underlying lung disease and she is a daily smoker. She does admit to increased shortness breath , wheezing. Patient states she's had fevers at home has occasionally taken Tylenol. Patient states that she has not vomited or had an episode of diarrhea today though she still nauseated. Denies any specific abdominal pain. Patient states she's been doing breathing treatments at home with some relief or shortness of breath. (Apollo Carolina) - Related Data Home Medications Medication Instructions Recorded Confirmed Albuterol Inhaler [Ventolin Hfa 1 - 2 puff INHALATION RT-Q6H PRN 12/10/15 Inhaler] Albuterol Nebulized [Ventolin 2.5 mg INHALATION RT-QID 12/10/15 04/28/17 Nebulized] Aspirin EC [Ecotrin Low Dose] 81 mg PO DAILY 12/10/15 04/28/17 Baclofen [Lioresal] 10 mg PO TID 12/10/15 04/28/17 Benzonatate [Tessalon Perles] 100 mg PO TID PRN 12/10/15 04/28/17 DULoxetine HCL [Cymbalta] 30 mg PO BID 12/10/15 04/28/17 Ibuprofen [Motrin] 600 mg PO Q8HR PRN 12/10/15 04/28/17 Multivitamins, Thera [Multivitamin 1 tab PO DAILY 12/10/15 04/28/17 (formulary)] Omeprazole [PriLOSEC] 20 mg PO AC-BID 12/10/15 04/28/17 Ascorbic Acid [Vitamin C] 500 mg PO DAILY 05/15/16 04/28/17 [place]-3 Fatty Acids/Fish Oil [Fish 1 cap PO DAILY 05/15/16 04/28/17 Oil 1,000 mg Softgel] Ethambutol [Myambutol] 1,200 mg PO DAILY 03/15/17 04/28/17 Calcium Polycarbophil [F[place]] 625 mg PO DAILY 04/28/17 04/28/17 Docusate [Colace] 100 mg PO BID PRN 04/28/17 04/28/17 HYDROcodone/APAP 10-325MG [[place] 1 tab PO BID 04/28/17 04/28/17 10-325] Previous Rx's Medication Instructions Recorded Clarithromycin [Biaxin] 500 mg PO DAILY #30 tab 05/25/16 Rifampin [Rifadin] 300 mg PO BID #60 cap 05/25/16 Allergies Allergy/AdvReac Type Severity Reaction Status Date / Time Iodinated Contrast- Oral and Allergy Rash/Hives Verified 04/28/17 14:06 IV Dye [Iodinated Contrast Media - IV Dye] iodine Allergy Rash/Hives Verified 04/28/17 14:06 shellfish derived Allergy Rash/Hives Verified 04/28/17 14:06 venom-honey bee Allergy Anaphylaxis Verified 04/28/17 14:06 [bee venom (honey bee)] Review of Systems ROS Other: All systems not noted in ROS Statement are negative. <Apollo Carolina - Last Filed: 04/28/17 14:39> ROS Other: All systems not noted in ROS Statement are negative. <Olegario Givens - Last Filed: 04/28/17 14:57> ROS Statement: Those systems with pertinent positive or pertinent negative responses have been documented in the HPI. Past Medical History Past Medical History: Asthma, COPD, Fibromyalgia, GERD/Reflux, Hyperlipidemia, Osteoarthritis (OA), Pneumonia, Respiratory Disorder Additional Past Medical History / Comment(s): Chronic neck pain"herniated discs ", arthitis, osteoporosis, fibrocystic breast disease, cataracts, "MAC" tx by dr [place]. History of Any Multi-Drug Resistant Organisms: None Reported Additional Past Surgical History / Comment(s): multiple breast surgeries(needle aspiration bx), tubal ligation, right foot surgery 40 years ago to removed a foreign object, bronchosocpy, inj in neck. Past Anesthesia/Blood Transfusion Reactions: No Reported Reaction Additional Past Anesthesia/Blood Transfusion Reaction / Comment(s): clausterphobia Past Psychological History: Anxiety, Bipolar, Depression, Panic Disorder Smoking Status: Current every day smoker Past Alcohol Use History: None Reported Past Drug Use History: None Reported - Past Family History Mother Family Medical History: Cancer Additional Family Medical History / Comment(s): brain, breast cancer Father Family Medical History: Congestive Heart Failure (CHF), CVA/TIA, Renal Disease <Apollo Carolina - Last Filed: 04/28/17 14:39> General Exam Limitations: no limitations General appearance: alert, in no apparent distress Head exam: Present: atraumatic, normocephalic, normal inspection Eye exam: Present: normal appearance, PERRL, EOMI. Absent: scleral icterus, conjunctival injection, periorbital swelling ENT exam: Present: normal exam, normal oropharynx, mucous membranes moist, TM's normal bilaterally, normal external ear exam Neck exam: Present: normal inspection, full ROM. Absent: tenderness, meningismus, lymphadenopathy Respiratory exam: Present: respiratory distress (Mild), wheezes. Absent: normal lung sounds bilaterally, rales, rhonchi, stridor Cardiovascular Exam: Present: regular rate, normal rhythm, normal heart sounds. Absent: systolic murmur, diastolic murmur, rubs, gallop, clicks GI/Abdominal exam: Present: soft, normal bowel sounds. Absent: distended, tenderness, guarding, rebound, rigid Neurological exam: Present: alert, oriented X3, CN II-XII intact Skin exam: Present: warm, dry, intact, normal color. Absent: rash <Apollo Carolina - Last Filed: 04/28/17 14:39> Course <Apollo Carolina - Last Filed: 04/28/17 14:39> <Olegario Givens - Last Filed: 04/28/17 14:57> Vital Signs 04/28/17 04/28/17 04/28/17 12:31 13:20 13:36 Temperature 98.8 F Pulse Rate 95 98 96 Respiratory 22 Rate Blood Pressure 124/66 O2 Sat by Pulse 91 L Oximetry 04/28/17 14:45 Temperature 100.5 F H Pulse Rate 96 Respiratory 20 Rate Blood Pressure 165/72 O2 Sat by Pulse 95 Oximetry - Reevaluation(s) Reevaluation #1: 04/28/17 14:57 Patient reevaluated by myself, Dr. Givens. Patient resting comfortably in bed. Lung sounds are coarse with wheezing. Case was discussed in detail with Dr. Curran who is familiar with this patient and will admit. Consult for Dr. Tristan was previously seen the patient. Tamiflu will be started. (Olegario Givens) EKG Findings - EKG Comments: EKG Findings:: EKG performed at 13:11 normal sinus rhythm with a rate of 88 HI 144 QRS 76 QT/QTC 362/417 <Apollo Carolina - Last Filed: 04/28/17 14:39> Medical Decision Making - Lab Data Result diagrams: 04/28/17 13:20 04/28/17 13:20 <Apollo Carolina - Last Filed: 04/28/17 14:39> - Lab Data Result diagrams: 04/28/17 13:20 04/28/17 13:20 <Olegario Givens - Last Filed: 04/28/17 14:57> - Medical Decision Making 61-year-old female presented for cough congestion shortness of breath and multiple other symptoms. Patient is influenza B-positive. She is out of the range for treatment for Tamiflu. Patient had no improvement after double DuoNeb treatment. Patient also given IV steroids. Patient be admitted for further IV steroids, DuoNeb treatments for her COPD. Patient be admitted to Dr. Miller (Apollo Carolina) - Lab Data Lab Results 04/28/17 04/28/17 04/28/17 Range/Units 13:20 13:20 13:20 WBC 9.0 (3.8-10.6) k/uL RBC 5.38 (3.80-5.40) m/uL Hgb 14.8 (11.4-16.0) gm/dL Hct 47.6 H (34.0-46.0) % MCV 88.4 (80.0-100.0) fL MCH 27.6 (25.0-35.0) pg MCHC 31.2 (31.0-37.0) g/dL RDW 13.4 (11.5-15.5) % Plt Count 175 (150-450) k/uL Neutrophils % 67 % Lymphocytes % 25 % Monocytes % 5 % Eosinophils % 2 % Basophils % 0 % Neutrophils # 6.1 (1.3-7.7) k/uL Lymphocytes # 2.3 (1.0-4.8) k/uL Monocytes # 0.4 (0-1.0) k/uL Eosinophils # 0.2 (0-0.7) k/uL Basophils # 0.0 (0-0.2) k/uL PT (9.0-12.0) sec INR (<1.2) APTT (22.0-30.0) sec Sodium 141 (137-145) mmol/L Potassium 4.4 (3.5-5.1) mmol/L Chloride 105 (98-107) mmol/L Carbon Dioxide 27 (22-30) mmol/L Anion Gap 9 mmol/L BUN 10 (7-17) mg/dL Creatinine 0.70 (0.52-1.04) mg/dL Est GFR (MDRD) Af Amer >60 (>60 ml/min/1.73 sqM) Est GFR (MDRD) Non-Af >60 (>60 ml/min/1.73 sqM) Glucose 81 (74-99) mg/dL Plasma Lactic Acid Jose (0.7-2.0) mmol/L Calcium 9.2 (8.4-10.2) mg/dL Magnesium 2.0 (1.6-2.3) mg/dL Total Bilirubin 0.8 (0.2-1.3) mg/dL AST 25 (14-36) U/L ALT 34 (9-52) U/L Alkaline Phosphatase 74 (38-126) U/L Total Creatine Kinase 93 (30-135) U/L CK-MB (CK-2) 0.5 (0.0-2.4) ng/mL CK-MB (CK-2) Rel Index 0.5 Troponin I <0.012 (0.000-0.034) ng/mL Total Protein 6.1 L (6.3-8.2) g/dL Albumin 3.6 (3.5-5.0) g/dL Lipase 112 (23-300) U/L Influenza Type A RNA (Not Detectd) Influenza Type B (PCR) (Not Detectd) 04/28/17 04/28/17 04/28/17 Range/Units 13:20 13:20 13:55 WBC (3.8-10.6) k/uL RBC (3.80-5.40) m/uL Hgb (11.4-16.0) gm/dL Hct (34.0-46.0) % MCV (80.0-100.0) fL MCH (25.0-35.0) pg MCHC (31.0-37.0) g/dL RDW (11.5-15.5) % Plt Count (150-450) k/uL Neutrophils % % Lymphocytes % % Monocytes % % Eosinophils % % Basophils % % Neutrophils # (1.3-7.7) k/uL Lymphocytes # (1.0-4.8) k/uL Monocytes # (0-1.0) k/uL Eosinophils # (0-0.7) k/uL Basophils # (0-0.2) k/uL PT 9.9 (9.0-12.0) sec INR 1.0 (<1.2) APTT 22.5 (22.0-30.0) sec Sodium (137-145) mmol/L Potassium (3.5-5.1) mmol/L Chloride (98-107) mmol/L Carbon Dioxide (22-30) mmol/L Anion Gap mmol/L BUN (7-17) mg/dL Creatinine (0.52-1.04) mg/dL Est GFR (MDRD) Af Amer (>60 ml/min/1.73 sqM) Est GFR (MDRD) Non-Af (>60 ml/min/1.73 sqM) Glucose (74-99) mg/dL Plasma Lactic Acid Jose 0.9 (0.7-2.0) mmol/L Calcium (8.4-10.2) mg/dL Magnesium (1.6-2.3) mg/dL Total Bilirubin (0.2-1.3) mg/dL AST (14-36) U/L ALT (9-52) U/L Alkaline Phosphatase (38-126) U/L Total Creatine Kinase (30-135) U/L CK-MB (CK-2) (0.0-2.4) ng/mL CK-MB (CK-2) Rel Index Troponin I (0.000-0.034) ng/mL Total Protein (6.3-8.2) g/dL Albumin (3.5-5.0) g/dL Lipase (23-300) U/L Influenza Type A RNA Not Detected (Not Detectd) Influenza Type B (PCR) Detected H (Not Detectd) Disposition <Apollo Carolina - Last Filed: 04/28/17 14:39> <Olegario Givens - Last Filed: 04/28/17 14:57> Clinical Impression: COPD exacerbation, Influenza B Disposition: ADMITTED IP TO THIS HOSP Condition: Fair Referrals: Dionna Curran MD [Primary Care Provider] - 1-2 days
[2017-04-28 13:33] LABS: Basophils % (A) 0 %; Eosinophils # (A) 0.2 k/uL (0-0.7); Eosinophils % (A) 2 %; HCT 47.6 % (34.0-46.0); HGB 14.8 gm/dL (11.4-16.0); Lymphocytes # (A) 2.3 k/uL (1.0-4.8); Lymphocytes % (A) 25 %; MCH 27.6 pg (25.0-35.0); MCHC 31.2 g/dL (31.0-37.0); MCV 88.4 fL (80.0-100.0); Mean Platelet Volume 7.5; Monocytes # (A) 0.4 k/uL (0-1.0); Monocytes % (A) 5 %; Neutrophils # (A) 6.1 k/uL (1.3-7.7); Neutrophils % (A) 67 %; Platelet Count 175 k/uL (150-450); RBC 5.38 m/uL (3.80-5.40); RDW 13.4 % (11.5-15.5)
[2017-04-28 13:45] LABS: Partial Thromboplastin Time 22.5 sec (22.0-30.0); Prothrombin Time 9.9 sec (9.0-12.0)
[2017-04-28 13:47] LABS: ALT 34 U/L (9-52); AST 25 U/L (14-36); Albumin 3.6 g/dL (3.5-5.0); Alkaline Phosphatase 74 U/L (38-126); Anion Gap 9 mmol/L; Blood Urea Nitrogen 10 mg/dL (7-17); Calcium 9.2 mg/dL (8.4-10.2); Carbon Dioxide 27 mmol/L (22-30); Chloride 105 mmol/L (98-107); Glucose 81 mg/dL (74-99); Lipase 112 U/L (23-300); Potassium 4.4 mmol/L (3.5-5.1); Sodium 141 mmol/L (137-145); Total Bilirubin 0.8 mg/dL (0.2-1.3); Total Protein 6.1 g/dL (6.3-8.2)
[2017-04-28 14:00] LABS: Creatine Kinase 93 U/L (30-135)
[2017-04-28 14:11] LABS: Creatine Kinase MB 0.5 ng/mL (0.0-2.4); Troponin I <0.012 ng/mL (0.000-0.034)
--- NOTE | 2017-04-28 14:25 | XR ---
EXAMINATION TYPE: XR chest 2V DATE OF EXAM: 04/28/2017 COMPARISON: 12/20/2016, 12/07/2015, CT chest 12/10/2015 INDICATION: Difficulty breathing history of lung infection cough congestion TECHNIQUE: Frontal and lateral views of the chest are obtained. FINDINGS: The heart size is normal. The pulmonary vasculature is normal. There are patchy densities within the right upper lung field. This appears to be chronic present 2016.. No suspicious focal consolidation is evident. IMPRESSION: 1. No acute pulmonary process. Findings of an present previously. 2. Nodular densities appear better visualize from 2016 chest x-ray, consider reevaluation with CT.
[2017-04-28] MEDS ORDERED: IPRATROPIUM-ALBUTEROL 3 ML NEB INHALATION PRN (14:41)
[2017-04-28] MEDS ORDERED: ALBUTEROL NEBULIZED 2.5 MG/3 ML INHALATION PRN (14:42)
[2017-04-28] MEDS ORDERED: ACETAMINOPHEN TAB 325 MG TAB PO STA (14:44)
[2017-04-28] MEDS ORDERED: OSELTAMIVIR 75 MG CAP PO STA (14:57)
[2017-04-28 16:25] VITALS: BMI 23.6
[2017-04-28] MEDS ORDERED: DOCUSATE 100 MG CAP PO PRN (17:23)
[2017-04-28] MEDS: SODIUM CHLORIDE 0.9% 1,000 ML IV SCH (18:44)
[2017-04-28] MEDS: methylPREDNISolone SOD SUCCI 125 MG/2 ML VIAL IV SCH (18:45)
[2017-04-28] MEDS: guaiFENesin-Coden 100-10MG/5ML 10 ML CUP PO PRN (19:08)
[2017-04-28] MEDS: IPRATROPIUM-ALBUTEROL 3 ML NEB INHALATION SCH (20:18)
[2017-04-28] MEDS: RIFAMPIN 300 MG CAP PO SCH (20:55)
[2017-04-28] MEDS: NICOTINE 21MG/24HR PATCH TRANSDERM SCH (20:55)
[2017-04-28] MEDS: DULoxetine HCL 30 MG CAPSULE.DR PO SCH (20:55)
[2017-04-28] MEDS: OSELTAMIVIR 75 MG CAP PO SCH (20:55)
[2017-04-28] MEDS: BACLOFEN 10 MG TAB PO SCH (20:55)
[2017-04-28] MEDS: BENZONATATE 100 MG CAP PO PRN (21:48)
[2017-04-28] MEDS: MELATONIN 5 MG TABLET PO SCH (21:48)
[2017-04-28] MEDS: DOCUSATE 100 MG CAP PO SCH (21:48)
[2017-04-29] MEDS: IBUPROFEN 600 MG TAB PO PRN ×4 (00:24→23:13)
[2017-04-29] MEDS: methylPREDNISolone SOD SUCCI 125 MG/2 ML VIAL IV SCH ×5 (00:24→23:07)
[2017-04-29] MEDS: PANTOPRAZOLE 40 MG TABLET PO SCH (07:25)
[2017-04-29] MEDS: HYDROcodone/APAP 10-325MG 1 EACH TAB PO PRN (07:33)
[2017-04-29] MEDS: DULoxetine HCL 30 MG CAPSULE.DR PO SCH ×2 (08:35→20:46)
[2017-04-29] MEDS: OSELTAMIVIR 75 MG CAP PO SCH ×2 (08:35→20:47)
[2017-04-29] MEDS: CALCIUM POLYCARBOPHIL 625 MG TAB PO SCH (08:35)
[2017-04-29] MEDS: NICOTINE 21MG/24HR PATCH TRANSDERM SCH (08:35)
[2017-04-29] MEDS: RIFAMPIN 300 MG CAP PO SCH ×2 (08:35→20:47)
[2017-04-29] MEDS: ASPIRIN 81 MG PO SCH (08:35)
[2017-04-29] MEDS: ASCORBIC ACID 500 MG TAB PO SCH (08:35)
[2017-04-29] MEDS: DOCUSATE 100 MG CAP PO SCH ×2 (08:35→20:46)
[2017-04-29] MEDS: BACLOFEN 10 MG TAB PO SCH ×3 (08:35→20:47)
[2017-04-29] MEDS ORDERED: ONDANSETRON 4 MG/2 ML VIAL IVP PRN (08:41)
[2017-04-29] MEDS ORDERED: ETHAMBUTOL 1200 MG PO SCH (09:00)
[2017-04-29] MEDS: IPRATROPIUM-ALBUTEROL 3 ML NEB INHALATION SCH ×4 (09:41→20:55)
[2017-04-29] MEDS: CLARITHROMYCIN 500 MG TAB PO SCH (10:15)
[2017-04-29] MEDS: NON-FORMULARY DRUG (Omega-3 Fatty Acids/Fish Oil [Fish Oil 1,000 Mg Softgel] 1 CAP) PO SCH (10:56)
--- NOTE | 2017-04-29 10:58 | P.HPIM ---
History of Present Illness H&P Date: 04/29/17 Chief Complaint: Cough and shortness of breath This is a 61-year-old female with a known past medical history of COPD, nicotine dependence, Mycobacterium nevaeh complex infection, hyperlipidemia, fibromyalgia and osteoarthritis. Patient presents to the emergency room with complaints of cough and chest congestion shortness of breath, nausea, muscle aches and fever. Patient also reports having one episode of vomiting and a couple episodes of diarrhea. The vomiting diarrhea has now resolved. It is been over 24 hours since her last episode of vomiting and diarrhea. Her symptoms have been present for about one week. Her cough was initially productive and is now nonproductive. Complains of some pleuritic chest pain. Reports that her urine is feeling hotter than usual. Also reports that she'll start to urinate and then if she continue seeing they're more irritable past. She did report some burning with urination a week ago. Urinalysis has been ordered. Patient was found to be in 1 to be positive and started on Tamiflu. Also started on IV steroids for COPD exacerbation and nebulizer treatments. Pulmonary service consulted. Temperature is high the 100.5. Chest x-ray shows no acute changes but does show nodular densities appear better visualize from 2016 chest x-ray. Review of Systems Please refer to HPI otherwise unremarkable Past Medical History Past Medical History: Asthma, COPD, Fibromyalgia, GERD/Reflux, Hyperlipidemia, Osteoarthritis (OA), Pneumonia, Respiratory Disorder Additional Past Medical History / Comment(s): Chronic neck pain"herniated discs ", arthitis, osteoporosis, fibrocystic breast disease, cataracts, "MAC" tx by dr [place]. History of Any Multi-Drug Resistant Organisms: None Reported Additional Past Surgical History / Comment(s): multiple breast surgeries(needle aspiration bx), tubal ligation, right foot surgery 40 years ago to removed a foreign object, bronchosocpy, inj in neck. Past Anesthesia/Blood Transfusion Reactions: No Reported Reaction Additional Past Anesthesia/Blood Transfusion Reaction / Comment(s): clausterphobia Past Psychological History: Anxiety, Bipolar, Depression, Panic Disorder Smoking Status: Current every day smoker Past Alcohol Use History: None Reported Past Drug Use History: None Reported - Past Family History Mother Family Medical History: Cancer Additional Family Medical History / Comment(s): brain, breast cancer Father Family Medical History: Congestive Heart Failure (CHF), CVA/TIA, Renal Disease Medications and Allergies Home Medications Medication Instructions Recorded Confirmed Type Albuterol Inhaler [Ventolin Hfa 1 - 2 puff INHALATION RT-Q6H PRN 12/10/15 History Inhaler] Albuterol Nebulized [Ventolin 2.5 mg INHALATION RT-QID 12/10/15 04/28/17 History Nebulized] Aspirin EC [Ecotrin Low Dose] 81 mg PO DAILY 12/10/15 04/28/17 History Baclofen [Lioresal] 10 mg PO TID 12/10/15 04/28/17 History Benzonatate [Tessalon Perles] 100 mg PO TID PRN 12/10/15 04/28/17 History DULoxetine HCL [Cymbalta] 30 mg PO BID 12/10/15 04/28/17 History Ibuprofen [Motrin] 600 mg PO Q8HR PRN 12/10/15 04/28/17 History Multivitamins, Thera [Multivitamin 1 tab PO DAILY 12/10/15 04/28/17 History (formulary)] Omeprazole [PriLOSEC] 20 mg PO AC-BID 12/10/15 04/28/17 History Ascorbic Acid [Vitamin C] 500 mg PO DAILY 05/15/16 04/28/17 History [place]-3 Fatty Acids/Fish Oil [Fish 1 cap PO DAILY 05/15/16 04/28/17 History Oil 1,000 mg Softgel] Clarithromycin [Biaxin] 500 mg PO DAILY #30 tab 05/25/16 04/28/17 Rx Rifampin [Rifadin] 300 mg PO BID #60 cap 05/25/16 04/28/17 Rx Ethambutol [Myambutol] 1,200 mg PO DAILY 03/15/17 04/28/17 History Calcium Polycarbophil [Fibercon] 625 mg PO DAILY 04/28/17 04/28/17 History Docusate [Colace] 100 mg PO BID PRN 04/28/17 04/28/17 History HYDROcodone/APAP 10-325MG [[place] 1 tab PO BID 04/28/17 04/28/17 History 10-325] Melatonin 10 mg PO 04/28/17 History Allergies Allergy/AdvReac Type Severity Reaction Status Date / Time Iodinated Contrast- Oral and Allergy Rash/Hives Verified 04/28/17 16:17 IV Dye [Iodinated Contrast Media - IV Dye] shellfish derived Allergy Rash/Hives Verified 04/28/17 16:17 venom-honey bee Allergy Anaphylaxis Verified 04/28/17 16:17 [bee venom (honey bee)] Physical Exam Vitals: Vital Signs Temp Pulse Pulse Resp BP BP Pulse Ox 04/29/17 09:52 88 04/29/17 09:36 80 95 04/29/17 08:00 97.9 F 55 L 17 115/73 95 04/28/17 23:00 97.5 F L 75 20 123/74 97 04/28/17 20:25 78 04/28/17 20:18 88 04/28/17 15:50 99 F 83 20 113/66 94 L 04/28/17 14:45 100.5 F H 96 20 165/72 95 04/28/17 13:36 96 04/28/17 13:20 98 04/28/17 12:31 98.8 F 95 22 124/66 91 L Intake and Output 04/28/17 04/29/17 04/29/17 22:59 06:59 14:59 Intake Total 600 Balance 600 Intake: Oral 600 Other: # Voids 2 Weight 62.596 kg Head normocephalic Neck supple Lungs diminished bilaterally Heart regular rate and rhythm S1-S2, no rub or gallop Abdomen is soft nontender nondistended positive bowel sounds no hepatosplenomegaly Extremities no edema Neuro alert and orientated to 3 Results CBC & Chem 7: 04/28/17 13:20 04/28/17 13:20 Labs: Abnormal Lab Results - Last 24 Hours (Table) 04/28/17 04/28/17 04/28/17 Range/Units 13:20 13:20 13:55 Hct 47.6 H (34.0-46.0) % Total Protein 6.1 L (6.3-8.2) g/dL Influenza Type B (PCR) Detected H (Not Detectd) Thrombosis Risk Factor Assmnt - Choose All That Apply Any of the Below Risk Factors Present?: Yes Each Factor Represents 1 point: Abnormal pulmonary function (COPD) Other Risk Factors: Yes Each Risk Factor Represents 2 Points: Age 61-74 years Thrombosis Risk Factor Assessment Total Risk Factor Score: 3 Thrombosis Risk Factor Assessment Level: Moderate Risk Assessment and Plan Assessment: 1. Influenza B+ patient started on Tamiflu 2. Acute COPD exacerbation: Continue IV Solu-Medrol and bronchodilators. Pulmonary service consulted. Chest x-ray shows no evidence of pneumonia 3. Vomiting and diarrhea now resolved. 4. Nausea and Zofran added 5. History of Mycobacterium nevaeh complex infection: Maintained on Rifadin, Ethambutol, Biaxin 6. Nicotine dependence: Discussed smoking cessation. Continue nicotine patch 7. History of fibromyalgia 8. Depression continue Cymbalta GI prophylaxis Protonix and DVT prophylaxis Lovenox Time with Patient: Greater than 30 (Greater than 50% of the total time spent in counseling and coordination of care.I performed an examination of the patient and discussed their management with the physician Wedding Day Coordinator. I have reviewed the Physician Wedding Day Coordinator's notes and agree with the documented findings and plan of care)
[2017-04-29] MEDS: MULTIVITAMINS, THERA 1 EACH TAB PO SCH (12:04)
[2017-04-29 12:11] LABS: Glucose,Whole Blood 122 mg/dL (75-99)
[2017-04-29] MEDS: SODIUM CHLORIDE 0.9% 1,000 ML IV SCH ×2 (14:29→20:48)
[2017-04-29 15:44] LABS: Hemoglobin A1C 5.6 % (4.0-6.0)
[2017-04-29] MEDS: INSULIN ASPART 100 UNIT/ML 1 ML 10 ML VIAL SQ SCH ×3 (16:23→20:44)
[2017-04-29 16:44] LABS: Appearance,Urine Clear (Clear); Bilirubin,Urine Negative (Negative); Blood,Urine Negative (Negative); Color,Urine Dark Yellow; Glucose,Urine (UA) Negative (Negative); Ketones,Urine Negative (Negative); Leukocyte Esterase,Urine Negative (Negative); Nitrite,Urine Negative (Negative); Protein,Urine Negative (Negative); Specific Gravity,Urine 1.012 (1.001-1.035); Urobilinogen,Urine <2.0 mg/dL (<2.0)
[2017-04-29 17:13] LABS: Glucose,Whole Blood 178 mg/dL (75-99)
[2017-04-29] MEDS: guaiFENesin-Coden 100-10MG/5ML 10 ML CUP PO PRN ×2 (18:27→23:07)
--- NOTE | 2017-04-29 20:32 | P.CNPUL ---
History of Present Illness Consult date: 04/29/17 Reason for consult: dyspnea, cough, COPD, pneumonia Chief complaint: Cough shortness of breath with generalized weakness and malaise for 1 week History of present illness: Patient seen eval reexamined well-known to me for a extensive Mycobacterium avium complex infection she gets the follow-up at in [facility], known past medical history of COPD, nicotine dependence, Mycobacterium nevaeh complex infection, hyperlipidemia, fibromyalgia and osteoarthritis. Patient presents to the emergency room with complaints of cough and chest congestion shortness of breath, nausea, muscle aches and fever. Patient also reports having one episode of vomiting and a couple episodes of diarrhea. The vomiting diarrhea has now resolved. It is been over 24 hours since her last episode of vomiting and diarrhea. Her symptoms have been present for about one week. Her cough was initially productive and is now nonproductive. Complains of some pleuritic chest pain. Reports that her urine is feeling hotter than usual. Also reports that she'll start to urinate and then if she continue seeing they're more irritable past. She did report some burning with urination a week ago. Urinalysis has been ordered. Patient was found to be in 1 to be positive and started on Tamiflu. Also started on IV steroids for COPD exacerbation and nebulizer treatments. I was, consulted. Temperature is high the 100.5. Chest x-ray shows no acute changes but does show bilateral nodular densities appear better visualize from 2016 chest x-ray. Review of Systems All systems: negative Past Medical History Past Medical History: Asthma, COPD, Fibromyalgia, GERD/Reflux, Hyperlipidemia, Osteoarthritis (OA), Pneumonia, Respiratory Disorder Additional Past Medical History / Comment(s): Chronic neck pain"herniated discs ", arthitis, osteoporosis, fibrocystic breast disease, cataracts, "MAC" tx by dr [place]. History of Any Multi-Drug Resistant Organisms: None Reported Additional Past Surgical History / Comment(s): multiple breast surgeries(needle aspiration bx), tubal ligation, right foot surgery 40 years ago to removed a foreign object, bronchosocpy, inj in neck. Past Anesthesia/Blood Transfusion Reactions: No Reported Reaction Additional Past Anesthesia/Blood Transfusion Reaction / Comment(s): clausterphobia Past Psychological History: Anxiety, Bipolar, Depression, Panic Disorder Smoking Status: Current every day smoker Past Alcohol Use History: None Reported Past Drug Use History: None Reported - Past Family History Mother Family Medical History: Cancer Additional Family Medical History / Comment(s): brain, breast cancer Father Family Medical History: Congestive Heart Failure (CHF), CVA/TIA, Renal Disease Medications and Allergies Home Medications Medication Instructions Recorded Confirmed Type Albuterol Inhaler [Ventolin Hfa 1 - 2 puff INHALATION RT-Q6H PRN 12/10/15 History Inhaler] Albuterol Nebulized [Ventolin 2.5 mg INHALATION RT-QID 12/10/15 04/28/17 History Nebulized] Aspirin EC [Ecotrin Low Dose] 81 mg PO DAILY 12/10/15 04/28/17 History Baclofen [Lioresal] 10 mg PO TID 12/10/15 04/28/17 History Benzonatate [Tessalon Perles] 100 mg PO TID PRN 12/10/15 04/28/17 History DULoxetine HCL [Cymbalta] 30 mg PO BID 12/10/15 04/28/17 History Ibuprofen [Motrin] 600 mg PO Q8HR PRN 12/10/15 04/28/17 History Multivitamins, Thera [Multivitamin 1 tab PO DAILY 12/10/15 04/28/17 History (formulary)] Omeprazole [PriLOSEC] 20 mg PO AC-BID 12/10/15 04/28/17 History Ascorbic Acid [Vitamin C] 500 mg PO DAILY 05/15/16 04/28/17 History [place]-3 Fatty Acids/Fish Oil [Fish 1 cap PO DAILY 05/15/16 04/28/17 History Oil 1,000 mg Softgel] Clarithromycin [Biaxin] 500 mg PO DAILY #30 tab 05/25/16 04/28/17 Rx Rifampin [Rifadin] 300 mg PO BID #60 cap 05/25/16 04/28/17 Rx Ethambutol [Myambutol] 1,200 mg PO DAILY 03/15/17 04/28/17 History Calcium Polycarbophil [Fibercon] 625 mg PO DAILY 04/28/17 04/28/17 History Docusate [Colace] 100 mg PO BID PRN 04/28/17 04/28/17 History HYDROcodone/APAP 10-325MG [[place] 1 tab PO BID 04/28/17 04/28/17 History 10-325] Melatonin 10 mg PO 04/28/17 History Allergies Allergy/AdvReac Type Severity Reaction Status Date / Time Iodinated Contrast- Oral and Allergy Rash/Hives Verified 04/28/17 16:17 IV Dye [Iodinated Contrast Media - IV Dye] shellfish derived Allergy Rash/Hives Verified 04/28/17 16:17 venom-honey bee Allergy Anaphylaxis Verified 04/28/17 16:17 [bee venom (honey bee)] Physical Exam Vitals: Vital Signs Temp Pulse Pulse Resp BP Pulse Ox 04/29/17 17:16 90 04/29/17 17:00 90 93 L 04/29/17 16:11 79 20 119/68 93 L 04/29/17 13:41 88 04/29/17 13:28 80 04/29/17 09:52 88 04/29/17 09:36 80 95 04/29/17 08:00 97.9 F 55 L 17 115/73 95 04/28/17 23:00 97.5 F L 75 20 123/74 97 04/28/17 20:25 78 Intake and Output 04/29/17 04/29/17 04/29/17 06:59 14:59 22:59 Intake Total 560 Balance 560 Intake: Oral 560 Other: # Voids 2 Limitations: no limitations General appearance: alert, in mild to moderate respiratory distress with conversation Head exam: Present: atraumatic, normocephalic, normal inspection Eye exam: Present: normal appearance, PERRL, EOMI. Absent: scleral icterus, conjunctival injection, periorbital swelling ENT exam: Present: normal exam, normal oropharynx, mucous membranes moist, TM's normal bilaterally, normal external ear exam Neck exam: Present: normal inspection, full ROM. Absent: tenderness, meningismus, lymphadenopathy Respiratory exam: Present: respiratory distress (Mild), wheezes. Absent: normal lung sounds bilaterally, rales, rhonchi, stridor Cardiovascular Exam: Present: regular rate, normal rhythm, normal heart sounds. Absent: systolic murmur, diastolic murmur, rubs, gallop, clicks GI/Abdominal exam: Present: soft, normal bowel sounds. Absent: distended, tenderness, guarding, rebound, rigid Neurological exam: Present: alert, oriented X3, CN II-XII intact Skin exam: Present: warm, dry, intact, normal color. Absent: rash Results - Laboratory Findings CBC and BMP: 04/28/17 13:20 04/28/17 13:20 PT/INR, D-dimer PT 9.9 sec (9.0-12.0) 04/28/17 13:20 INR 1.0 (<1.2) 04/28/17 13:20 Abnormal lab findings: Abnormal Labs 04/28/17 04/28/17 04/28/17 13:20 13:20 13:55 Hct 47.6 H POC Glucose (mg/dL) Total Protein 6.1 L Influenza Type B (PCR) Detected H 04/29/17 04/29/17 11:47 17:07 Hct POC Glucose (mg/dL) 122 H 178 H Total Protein Influenza Type B (PCR) - Diagnostic Findings Chest x-ray: report reviewed, image reviewed (Bilateral reticulonodular densities seen and noted consistent with history of MAC present since 2015) Additional studies: EKG revealed normal sinus rhythm Assessment and Plan Assessment: Acute on chronic hypoxic respirator failure Influenza B pneumonia Possible secondary bacterial pneumonia less likely but cannot be excluded, Mycobacterium avium complex patient is on therapy with Rifadin, Ethambutol, Biaxin Severe COPD emphysema Fibromyalgia depression Extensive history of smoking and nicotine use Plan: Continue IV steroids breathing treatments and therapy for MAC infection Continue gentle hydration continue home medication send a sputum for culture and repeat chest x-ray noted blood cultures no growth so far will follow closely further recommendations pending Time with Patient: Greater than 30
[2017-04-29] MEDS: MELATONIN 5 MG TABLET PO SCH (20:46)
[2017-04-29 20:54] LABS: Glucose,Whole Blood 141 mg/dL (75-99)
[2017-04-30] MEDS: methylPREDNISolone SOD SUCCI 125 MG/2 ML VIAL IV SCH ×4 (06:19→23:26)
[2017-04-30] MEDS: PANTOPRAZOLE 40 MG TABLET PO SCH (06:20)
[2017-04-30] MEDS: INSULIN ASPART 100 UNIT/ML 1 ML 10 ML VIAL SQ SCH ×4 (06:32→20:36)
[2017-04-30 06:37] LABS: Glucose,Whole Blood 128 mg/dL (75-99)
[2017-04-30 07:20] LABS: Basophils % (A) 0 %; Eosinophils % (A) 0 %; HCT 41.5 % (34.0-46.0); HGB 12.6 gm/dL (11.4-16.0); Lymphocytes # (A) 1.6 k/uL (1.0-4.8); Lymphocytes % (A) 14 %; MCH 27.2 pg (25.0-35.0); MCHC 30.5 g/dL (31.0-37.0); MCV 89.3 fL (80.0-100.0); Mean Platelet Volume 7.4; Monocytes # (A) 0.5 k/uL (0-1.0); Monocytes % (A) 4 %; Neutrophils % (A) 81 %; Platelet Count 220 k/uL (150-450); RBC 4.64 m/uL (3.80-5.40); RDW 13.5 % (11.5-15.5); WBC 11.2 k/uL (3.8-10.6)
[2017-04-30 07:42] LABS: ALT 26 U/L (9-52); AST 17 U/L (14-36); Albumin 2.9 g/dL (3.5-5.0); Alkaline Phosphatase 56 U/L (38-126); Anion Gap 9 mmol/L; Blood Urea Nitrogen 16 mg/dL (7-17); Calcium 8.9 mg/dL (8.4-10.2); Carbon Dioxide 24 mmol/L (22-30); Chloride 109 mmol/L (98-107); Glucose 124 mg/dL (74-99); Potassium 4.5 mmol/L (3.5-5.1); Sodium 142 mmol/L (137-145); Total Bilirubin 0.2 mg/dL (0.2-1.3); Total Protein 5.2 g/dL (6.3-8.2)
[2017-04-30] MEDS: IPRATROPIUM-ALBUTEROL 3 ML NEB INHALATION SCH ×4 (08:11→21:12)
[2017-04-30] MEDS: DULoxetine HCL 30 MG CAPSULE.DR PO SCH ×2 (09:02→20:37)
[2017-04-30] MEDS: ENOXAPARIN 40 MG/0.4 ML SYRINGE SQ SCH (09:02)
[2017-04-30] MEDS: BACLOFEN 10 MG TAB PO SCH ×3 (09:02→20:37)
[2017-04-30] MEDS: guaiFENesin-Coden 100-10MG/5ML 10 ML CUP PO PRN ×2 (09:02→20:36)
[2017-04-30] MEDS: HYDROcodone/APAP 10-325MG 1 EACH TAB PO PRN (09:02)
[2017-04-30] MEDS: OSELTAMIVIR 75 MG CAP PO SCH ×2 (09:02→20:37)
[2017-04-30] MEDS: CLARITHROMYCIN 500 MG TAB PO SCH (09:02)
[2017-04-30] MEDS: ASPIRIN 81 MG PO SCH (09:02)
[2017-04-30] MEDS: DOCUSATE 100 MG CAP PO SCH ×2 (09:02→20:37)
[2017-04-30] MEDS: RIFAMPIN 300 MG CAP PO SCH ×2 (09:02→20:37)
[2017-04-30] MEDS: CALCIUM POLYCARBOPHIL 625 MG TAB PO SCH (09:02)
[2017-04-30] MEDS: ASCORBIC ACID 500 MG TAB PO SCH (09:02)
[2017-04-30] MEDS: NICOTINE 21MG/24HR PATCH TRANSDERM SCH (09:03)
[2017-04-30] MEDS: NON-FORMULARY DRUG (Omega-3 Fatty Acids/Fish Oil [Fish Oil 1,000 Mg Softgel] 1 CAP) PO SCH (09:03)
[2017-04-30] MEDS: ETHAMBUTOL 1200 MG PO SCH (09:03)
--- NOTE | 2017-04-30 09:52 | XR ---
EXAMINATION TYPE: XR chest 2V DATE OF EXAM: 04/30/2017 COMPARISON: Chest x-ray from [address] chest December 10, 2015. HISTORY: Prolonged cough. TECHNIQUE: Frontal and lateral views of the chest are obtained. FINDINGS: There is chronic emphysematous change with scattered areas of nodularity and nodular infil trate redemonstrated more prominent in the upper lungs. There is patchy bibasilar atelectasis The car diac silhouette size is within normal limits. The osseous structures are intact. IMPRESSION: Chronic changes with persistent upper lung nodularity and nodular infiltrate and scatter ed areas of atelectasis and/or scarring all redemonstrated. Difficult to exclude acute infectious pro cess. Correlate clinically especially with history of persistent bilateral nodularity.
--- NOTE | 2017-04-30 10:54 | P.PN ---
Subjective Progress Note Date: 04/30/17 This is a 61-year-old female with a known past medical history of COPD, nicotine dependence, Mycobacterium nevaeh complex infection, hyperlipidemia, fibromyalgia and osteoarthritis. Patient presents to the emergency room with complaints of cough and chest congestion shortness of breath, nausea, muscle aches and fever. Patient also reports having one episode of vomiting and a couple episodes of diarrhea. The vomiting diarrhea has now resolved. It is been over 24 hours since her last episode of vomiting and diarrhea. Her symptoms have been present for about one week. Her cough was initially productive and is now nonproductive. Complains of some pleuritic chest pain. Reports that her urine is feeling hotter than usual. Also reports that she'll start to urinate and then if she continue seeing they're more irritable past. She did report some burning with urination a week ago. Urinalysis has been ordered. Patient was found to be in 1 to be positive and started on Tamiflu. Also started on IV steroids for COPD exacerbation and nebulizer treatments. Pulmonary service consulted. Temperature is high the 100.5. Chest x-ray shows no acute changes but does show nodular densities appear better visualize from 2016 chest x-ray. Patient's granddaughter was diagnosed with the flu. Patient had been taking care of her. 04/30/2017 patient more wheezy and short of breath today. Still has a harsh cough. Pulmonary service following. She is being treated for the flu and is on IV steroids and Tamiflu. Patient denies chest pain. She denies nausea or vomiting. Reports bowel movements. Denies difficulty urinating. Chest x-ray ordered. Results show chronic changes with persistent upper lung nodularity and nodular infiltrate and scattered areas of atelectasis and/or scarring demonstrated. Difficult to exclude acute infectious process. Objective - Vital Signs Vital signs: Vital Signs Temp 97.0 F L 04/30/17 08:05 Pulse 80 04/30/17 08:21 Resp 17 04/30/17 08:05 BP 133/70 04/30/17 08:05 Pulse Ox 97 04/30/17 08:05 Intake & Output 04/29/17 04/30/17 04/30/17 18:59 06:59 18:59 Intake Total 560 1640 Balance 560 1640 Intake: Oral 560 1640 Other: # Voids 2 - Exam Head normocephalic Neck supple Lungs wheezing bilaterally with coarse breath sounds Heart regular rate and rhythm S1-S2, no rub or gallop Abdomen is soft nontender nondistended positive bowel sounds no hepatosplenomegaly Extremities no edema Neuro alert and orientated to 3 - Labs CBC & Chem 7: 04/30/17 06:54 04/30/17 06:54 Labs: Abnormal Lab Results - Last 24 Hours (Table) 04/29/17 04/29/17 04/29/17 Range/Units 11:47 17:07 20:39 WBC (3.8-10.6) k/uL MCHC (31.0-37.0) g/dL Neutrophils # (1.3-7.7) k/uL Chloride (98-107) mmol/L Glucose (74-99) mg/dL POC Glucose (mg/dL) 122 H 178 H 141 H (75-99) mg/dL Total Protein (6.3-8.2) g/dL Albumin (3.5-5.0) g/dL 04/30/17 04/30/17 04/30/17 Range/Units 06:18 06:54 06:54 WBC 11.2 H (3.8-10.6) k/uL MCHC 30.5 L (31.0-37.0) g/dL Neutrophils # 9.0 H (1.3-7.7) k/uL Chloride 109 H (98-107) mmol/L Glucose 124 H (74-99) mg/dL POC Glucose (mg/dL) 128 H (75-99) mg/dL Total Protein 5.2 L (6.3-8.2) g/dL Albumin 2.9 L (3.5-5.0) g/dL Microbiology - Last 24 Hours (Table) 04/29/17 15:50 Urine Culture - Preliminary Urine,Clean Catch 04/28/17 13:20 Blood Culture - Preliminary Blood No Growth after 24 hours Assessment and Plan Assessment: 1. Influenza B+ patient started on Tamiflu 2. Acute COPD exacerbation: Continue IV Solu-Medrol and bronchodilators. Pulmonary following 3. Vomiting and diarrhea now resolved. 4. Nausea and Zofran added 5. History of Mycobacterium nevaeh complex infection: Maintained on Rifadin, Ethambutol, Biaxin 6. Nicotine dependence: Discussed smoking cessation. Continue nicotine patch 7. History of fibromyalgia 8. Depression continue Cymbalta 9. Possible developing pneumonia: Will await further pulmonary recommendations 10. Acute hypoxic respiratory failure: Patient had a desaturation in her oxygen level through the night and required to be placed on 2 L nasal cannula. Likely secondary to patient's COPD exacerbation and flu GI prophylaxis Protonix and DVT prophylaxis Lovenox
[2017-04-30] MEDS: SODIUM CHLORIDE 0.9% 1,000 ML IV SCH (12:25)
[2017-04-30] MEDS: MULTIVITAMINS, THERA 1 EACH TAB PO SCH (12:29)
[2017-04-30 12:35] LABS: Glucose,Whole Blood 113 mg/dL (75-99)
[2017-04-30] MEDS ORDERED: LACTULOSE 20 GM/30 ML CUP PO ONE (15:05)
[2017-04-30 17:57] LABS: Glucose,Whole Blood 151 mg/dL (75-99)
--- NOTE | 2017-04-30 18:35 | P.PN ---
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, lens a bee pneumonia, severe COPD emphysema 04/30/2017, patient seen brandee examined during the rounds is still short of breath but however CVAT is slightly better patient is being treated with maintenance of therapy for Mycobacterium avium complex infection breathing treatments steroids, labs reviewed medications reviewed as well Patient seen brandee reexamined well-known to me for a extensive Mycobacterium avium complex infection she gets the follow-up at in [facility], known past medical history of COPD, nicotine dependence, Mycobacterium nevaeh complex infection, hyperlipidemia, fibromyalgia and osteoarthritis. Patient presents to the emergency room with complaints of cough and chest congestion shortness of breath, nausea, muscle aches and fever. Patient also reports having one episode of vomiting and a couple episodes of diarrhea. The vomiting diarrhea has now resolved. It is been over 24 hours since her last episode of vomiting and diarrhea. Her symptoms have been present for about one week. Her cough was initially productive and is now nonproductive. Complains of some pleuritic chest pain. Reports that her urine is feeling hotter than usual. Also reports that she'll start to urinate and then if she continue seeing they're more irritable past. She did report some burning with urination a week ago. Urinalysis has been ordered. Patient was found to be in 1 to be positive and started on Tamiflu. Also started on IV steroids for COPD exacerbation and nebulizer treatments. I was, consulted. Temperature is high the 100.5. Chest x-ray shows no acute changes but does show bilateral nodular densities appear better visualize from 2016 chest x-ray. Objective - Vital Signs Vital signs: Vital Signs Temp 98.3 F 04/30/17 16:00 Pulse 84 04/30/17 16:50 Resp 16 04/30/17 16:00 BP 126/70 04/30/17 16:00 Pulse Ox 95 04/30/17 16:00 Intake & Output 04/29/17 04/30/17 04/30/17 18:59 06:59 18:59 Intake Total 560 1640 480 Balance 560 1640 480 Intake: Oral 560 1640 480 Other: # Voids 2 2 - Exam Limitations: no limitations General appearance: alert, in mild to moderate respiratory distress with conversation Head exam: Present: atraumatic, normocephalic, normal inspection Eye exam: Present: normal appearance, PERRL, EOMI. Absent: scleral icterus, conjunctival injection, periorbital swelling ENT exam: Present: normal exam, normal oropharynx, mucous membranes moist, TM's normal bilaterally, normal external ear exam Neck exam: Present: normal inspection, full ROM. Absent: tenderness, meningismus, lymphadenopathy Respiratory exam: Present: respiratory distress (Mild), wheezes. Absent: normal lung sounds bilaterally, rales, rhonchi, stridor Cardiovascular Exam: Present: regular rate, normal rhythm, normal heart sounds. Absent: systolic murmur, diastolic murmur, rubs, gallop, clicks GI/Abdominal exam: Present: soft, normal bowel sounds. Absent: distended, tenderness, guarding, rebound, rigid Neurological exam: Present: alert, oriented X3, CN II-XII intact Skin exam: Present: warm, dry, intact, normal color. Absent: rash - Labs CBC & Chem 7: 04/30/17 06:54 04/30/17 06:54 Labs: Abnormal Lab Results - Last 24 Hours (Table) 04/29/17 04/30/17 04/30/17 Range/Units 20:39 06:18 06:54 WBC 11.2 H (3.8-10.6) k/uL MCHC 30.5 L (31.0-37.0) g/dL Neutrophils # 9.0 H (1.3-7.7) k/uL Chloride (98-107) mmol/L Glucose (74-99) mg/dL POC Glucose (mg/dL) 141 H 128 H (75-99) mg/dL Total Protein (6.3-8.2) g/dL Albumin (3.5-5.0) g/dL 04/30/17 04/30/17 04/30/17 Range/Units 06:54 12:12 17:53 WBC (3.8-10.6) k/uL MCHC (31.0-37.0) g/dL Neutrophils # (1.3-7.7) k/uL Chloride 109 H (98-107) mmol/L Glucose 124 H (74-99) mg/dL POC Glucose (mg/dL) 113 H 151 H (75-99) mg/dL Total Protein 5.2 L (6.3-8.2) g/dL Albumin 2.9 L (3.5-5.0) g/dL Microbiology - Last 24 Hours (Table) 04/28/17 13:20 Blood Culture - Preliminary Blood No Growth after 48 hours 04/29/17 15:50 Urine Culture - Preliminary Urine,Clean Catch Assessment and Plan Assessment: Acute on chronic hypoxic respirator failure Bilateral radicular nodular infiltrate chronic in nature related to Mycobacterium avium complex infection Acute Influenza B pneumonia Possible secondary bacterial pneumonia less likely but cannot be excluded, Mycobacterium avium complex patient is on therapy with Rifadin, Ethambutol, Biaxin Severe COPD emphysema Fibromyalgia depression Extensive history of smoking and nicotine use Plan: Continue IV steroids breathing treatments and therapy for MAC infection Continue gentle hydration continue home medication send a sputum for culture and repeat chest x-ray findings reviewed and noted blood cultures no growth so far will follow closely further recommendations pending Time with Patient: Greater than 30
[2017-04-30] MEDS: MELATONIN 5 MG TABLET PO SCH (20:37)
[2017-04-30 20:42] LABS: Glucose,Whole Blood 143 mg/dL (75-99)
[2017-05-01] MEDS: guaiFENesin-Coden 100-10MG/5ML 10 ML CUP PO PRN ×2 (04:50→21:21)
[2017-05-01] MEDS: IBUPROFEN 600 MG TAB PO PRN ×2 (05:29→17:40)
[2017-05-01] MEDS: PANTOPRAZOLE 40 MG TABLET PO SCH (06:29)
[2017-05-01] MEDS: methylPREDNISolone SOD SUCCI 125 MG/2 ML VIAL IV SCH ×3 (06:29→18:44)
[2017-05-01 06:31] LABS: Glucose,Whole Blood 106 mg/dL (75-99)
[2017-05-01] MEDS: INSULIN ASPART 100 UNIT/ML 1 ML 10 ML VIAL SQ SCH ×3 (06:31→21:07)
[2017-05-01 06:46] LABS: Basophils % (A) 0 %; Eosinophils % (A) 0 %; HCT 41.1 % (34.0-46.0); HGB 12.7 gm/dL (11.4-16.0); Lymphocytes # (A) 1.5 k/uL (1.0-4.8); Lymphocytes % (A) 16 %; MCH 27.2 pg (25.0-35.0); MCHC 30.8 g/dL (31.0-37.0); MCV 88.4 fL (80.0-100.0); Mean Platelet Volume 7.2; Monocytes # (A) 0.4 k/uL (0-1.0); Monocytes % (A) 4 %; Neutrophils # (A) 7.5 k/uL (1.3-7.7); Neutrophils % (A) 79 %; Platelet Count 237 k/uL (150-450); RBC 4.65 m/uL (3.80-5.40); RDW 13.6 % (11.5-15.5); WBC 9.5 k/uL (3.8-10.6)
[2017-05-01 07:01] LABS: ALT 38 U/L (9-52); AST 24 U/L (14-36); Alkaline Phosphatase 56 U/L (38-126); Anion Gap 7 mmol/L; Blood Urea Nitrogen 12 mg/dL (7-17); Calcium 9.1 mg/dL (8.4-10.2); Carbon Dioxide 28 mmol/L (22-30); Chloride 107 mmol/L (98-107); Glucose 118 mg/dL (74-99); Potassium 4.4 mmol/L (3.5-5.1); Sodium 142 mmol/L (137-145); Total Bilirubin 0.2 mg/dL (0.2-1.3); Total Protein 5.2 g/dL (6.3-8.2)
[2017-05-01] MEDS: IPRATROPIUM-ALBUTEROL 3 ML NEB INHALATION SCH ×4 (08:17→19:30)
[2017-05-01] MEDS: NICOTINE 21MG/24HR PATCH TRANSDERM SCH (09:22)
[2017-05-01] MEDS: ASCORBIC ACID 500 MG TAB PO SCH (09:22)
[2017-05-01] MEDS: ENOXAPARIN 40 MG/0.4 ML SYRINGE SQ SCH (09:22)
[2017-05-01] MEDS: ASPIRIN 81 MG PO SCH (09:22)
[2017-05-01] MEDS: BACLOFEN 10 MG TAB PO SCH ×3 (09:22→21:09)
[2017-05-01] MEDS: ETHAMBUTOL 1200 MG PO SCH (09:23)
[2017-05-01] MEDS: CLARITHROMYCIN 500 MG TAB PO SCH (09:23)
[2017-05-01] MEDS: DULoxetine HCL 30 MG CAPSULE.DR PO SCH ×2 (09:23→21:10)
[2017-05-01] MEDS: CALCIUM POLYCARBOPHIL 625 MG TAB PO SCH (09:23)
[2017-05-01] MEDS: DOCUSATE 100 MG CAP PO SCH ×2 (09:23→21:09)
[2017-05-01] MEDS: OSELTAMIVIR 75 MG CAP PO SCH ×2 (09:24→21:09)
[2017-05-01] MEDS: RIFAMPIN 300 MG CAP PO SCH ×2 (09:24→21:10)
[2017-05-01] MEDS: SODIUM CHLORIDE 0.9% 1,000 ML IV SCH (11:01)
[2017-05-01] MEDS: NON-FORMULARY DRUG (Omega-3 Fatty Acids/Fish Oil [Fish Oil 1,000 Mg Softgel] 1 CAP) PO SCH (11:22)
--- NOTE | 2017-05-01 11:38 | P.PN ---
Subjective Progress Note Date: 05/01/17 This is a 61-year-old female with a known past medical history of COPD, nicotine dependence, Mycobacterium nevaeh complex infection, hyperlipidemia, fibromyalgia and osteoarthritis. Patient presents to the emergency room with complaints of cough and chest congestion shortness of breath, nausea, muscle aches and fever. Patient also reports having one episode of vomiting and a couple episodes of diarrhea. The vomiting diarrhea has now resolved. It is been over 24 hours since her last episode of vomiting and diarrhea. Her symptoms have been present for about one week. Her cough was initially productive and is now nonproductive. Complains of some pleuritic chest pain. Reports that her urine is feeling hotter than usual. Also reports that she'll start to urinate and then if she continue seeing they're more irritable past. She did report some burning with urination a week ago. Urinalysis has been ordered. Patient was found to be in 1 to be positive and started on Tamiflu. Also started on IV steroids for COPD exacerbation and nebulizer treatments. Pulmonary service consulted. Temperature is high the 100.5. Chest x-ray shows no acute changes but does show nodular densities appear better visualize from 2016 chest x-ray. Patient's granddaughter was diagnosed with the flu. Patient had been taking care of her. 04/30/2017 patient more wheezy and short of breath today. Still has a harsh cough. Pulmonary service following. She is being treated for the flu and is on IV steroids and Tamiflu. Patient denies chest pain. She denies nausea or vomiting. Reports bowel movements. Denies difficulty urinating. Chest x-ray ordered. Results show chronic changes with persistent upper lung nodularity and nodular infiltrate and scattered areas of atelectasis and/or scarring demonstrated. Difficult to exclude acute infectious process. On 05/01/2017 patient is alert and oriented 3 still complaining of severe cough complaining of chest tightness wheezing and shortness of breath with any activity she is maintained on IV steroids and Tamiflu she was evaluated by pulmonary Dr. Tristan patient is well known to his service she has known history of chronic Mycobacterium avium complex infection Objective - Vital Signs Vital signs: Vital Signs Temp 98 F 05/01/17 08:05 Pulse 69 05/01/17 08:05 Resp 17 05/01/17 08:05 BP 143/77 05/01/17 08:05 Pulse Ox 97 05/01/17 08:05 Intake & Output 04/30/17 05/01/17 05/01/17 18:59 06:59 18:59 Intake Total 480 720 Balance 480 720 Intake: Oral 480 720 Other: # Voids 2 2 - Exam Head normocephalic and atraumatic Neck supple no JVD no goiter no lymphadenopathy Lungs wheezing bilaterally with coarse breath sounds Heart regular rate and rhythm S1-S2, no rub or gallop Abdomen is soft nontender nondistended positive bowel sounds no hepatosplenomegaly Extremities no edema no cyanosis or clubbing Neuro alert and orientated to 3 - Labs CBC & Chem 7: 05/01/17 06:04 05/01/17 06:04 Labs: Abnormal Lab Results - Last 24 Hours (Table) 04/30/17 04/30/17 04/30/17 Range/Units 12:12 17:53 20:30 MCHC (31.0-37.0) g/dL Glucose (74-99) mg/dL POC Glucose (mg/dL) 113 H 151 H 143 H (75-99) mg/dL Total Protein (6.3-8.2) g/dL Albumin (3.5-5.0) g/dL 05/01/17 05/01/17 05/01/17 Range/Units 06:04 06:04 06:28 MCHC 30.8 L (31.0-37.0) g/dL Glucose 118 H (74-99) mg/dL POC Glucose (mg/dL) 106 H (75-99) mg/dL Total Protein 5.2 L (6.3-8.2) g/dL Albumin 3.0 L (3.5-5.0) g/dL Microbiology - Last 24 Hours (Table) 04/29/17 15:50 Urine Culture - Final Urine,Clean Catch 04/28/17 13:20 Blood Culture - Preliminary Blood No Growth after 48 hours Assessment and Plan Plan: 1. Influenza B+ patient started on Tamiflu 2. Acute COPD exacerbation: Continue IV Solu-Medrol and bronchodilators. Pulmonary following 3. Vomiting and diarrhea now resolved. 4. Nausea and Zofran added 5. History of Mycobacterium nevaeh complex infection: Maintained on Rifadin, Ethambutol, Biaxin 6. Nicotine dependence: Discussed smoking cessation. Continue nicotine patch 7. History of fibromyalgia 8. Depression continue Cymbalta 9. Possible developing pneumonia: Will await further pulmonary recommendations 10. Acute hypoxic respiratory failure: Patient had a desaturation in her oxygen level through the night and required to be placed on 2 L nasal cannula. Likely secondary to patient's COPD exacerbation and flu GI prophylaxis Protonix and DVT prophylaxis Lovenox At this time will continue with current management patient is improving gradually
[2017-05-01 11:59] LABS: Glucose,Whole Blood 137 mg/dL (75-99)
[2017-05-01] MEDS: HYDROcodone/APAP 10-325MG 1 EACH TAB PO PRN (12:35)
[2017-05-01] MEDS: MULTIVITAMINS, THERA 1 EACH TAB PO SCH (12:35)
--- NOTE | 2017-05-01 13:44 | P.PN ---
Subjective Progress Note Date: 05/01/17 Principal diagnosis: Acute on chronic hypoxic respiratory failure, bilateral radicular nodular infiltrate and pulmonary fibrosis related to chronic Mycobacterium avium complex infection, lens a bee pneumonia, severe COPD emphysema 05/01/2017, patient seen and evaluated examined from Estrace standpoint doing well cuff congestion shortness of breath and wheezing still there but severity slightly better patient is not producing any significant sputum chest x-ray performed reviewed and compared with prior x-ray continued to have significant radicular nodular appearance, no new active infiltrate identified, patient is complaining of constipation for which lactulose has been initiated patient will get another dose later on today 04/30/2017, patient seen evrodrigue examined during the rounds is still short of breath but however CVAT is slightly better patient is being treated with maintenance of therapy for Mycobacterium avium complex infection breathing treatments steroids, labs reviewed medications reviewed as well Patient seen brandee reexamined well-known to me for a extensive Mycobacterium avium complex infection she gets the follow-up at in [facility], known past medical history of COPD, nicotine dependence, Mycobacterium nevaeh complex infection, hyperlipidemia, fibromyalgia and osteoarthritis. Patient presents to the emergency room with complaints of cough and chest congestion shortness of breath, nausea, muscle aches and fever. Patient also reports having one episode of vomiting and a couple episodes of diarrhea. The vomiting diarrhea has now resolved. It is been over 24 hours since her last episode of vomiting and diarrhea. Her symptoms have been present for about one week. Her cough was initially productive and is now nonproductive. Complains of some pleuritic chest pain. Reports that her urine is feeling hotter than usual. Also reports that she'll start to urinate and then if she continue seeing they're more irritable past. She did report some burning with urination a week ago. Urinalysis has been ordered. Patient was found to be in 1 to be positive and started on Tamiflu. Also started on IV steroids for COPD exacerbation and nebulizer treatments. I was, consulted. Temperature is high the 100.5. Chest x-ray shows no acute changes but does show bilateral nodular densities appear better visualize from 2016 chest x-ray. Objective - Vital Signs Vital signs: Vital Signs Temp 97.8 F 05/01/17 11:37 Pulse 70 05/01/17 11:37 Resp 20 05/01/17 11:37 BP 138/75 05/01/17 11:37 Pulse Ox 95 05/01/17 11:37 Intake & Output 04/30/17 05/01/17 05/01/17 18:59 06:59 18:59 Intake Total 480 720 Balance 480 720 Intake: Oral 480 720 Other: # Voids 2 2 - Exam Limitations: no limitations General appearance: alert, in mild to moderate respiratory distress with conversation Head exam: Present: atraumatic, normocephalic, normal inspection Eye exam: Present: normal appearance, PERRL, EOMI. Absent: scleral icterus, conjunctival injection, periorbital swelling ENT exam: Present: normal exam, normal oropharynx, mucous membranes moist, TM's normal bilaterally, normal external ear exam Neck exam: Present: normal inspection, full ROM. Absent: tenderness, meningismus, lymphadenopathy Respiratory exam: Present: respiratory distress (Mild), wheezes. Absent: normal lung sounds bilaterally, rales, rhonchi, stridor Cardiovascular Exam: Present: regular rate, normal rhythm, normal heart sounds. Absent: systolic murmur, diastolic murmur, rubs, gallop, clicks GI/Abdominal exam: Present: soft, normal bowel sounds. Absent: distended, tenderness, guarding, rebound, rigid Neurological exam: Present: alert, oriented X3, CN II-XII intact Skin exam: Present: warm, dry, intact, normal color. Absent: rash - Labs CBC & Chem 7: 05/01/17 06:04 05/01/17 06:04 Labs: Abnormal Lab Results - Last 24 Hours (Table) 04/30/17 04/30/17 05/01/17 Range/Units 17:53 20:30 06:04 MCHC 30.8 L (31.0-37.0) g/dL Glucose (74-99) mg/dL POC Glucose (mg/dL) 151 H 143 H (75-99) mg/dL Total Protein (6.3-8.2) g/dL Albumin (3.5-5.0) g/dL 05/01/17 05/01/17 05/01/17 Range/Units 06:04 06:28 11:40 MCHC (31.0-37.0) g/dL Glucose 118 H (74-99) mg/dL POC Glucose (mg/dL) 106 H 137 H (75-99) mg/dL Total Protein 5.2 L (6.3-8.2) g/dL Albumin 3.0 L (3.5-5.0) g/dL Microbiology - Last 24 Hours (Table) 04/29/17 15:50 Urine Culture - Final Urine,Clean Catch 04/28/17 13:20 Blood Culture - Preliminary Blood No Growth after 48 hours Assessment and Plan Assessment: Acute on chronic hypoxic respirator failure Bilateral radicular nodular infiltrate chronic in nature related to Mycobacterium avium complex infection Acute Influenza B pneumonia Possible secondary bacterial pneumonia less likely but cannot be excluded, Mycobacterium avium complex patient is on therapy with Rifadin, Ethambutol, Biaxin Severe COPD emphysema Fibromyalgia depression Extensive history of smoking and nicotine use Plan: Continue IV steroids breathing treatments and therapy for MAC infection Continue gentle hydration continue home medication send a sputum for culture and repeat chest x-ray findings reviewed and noted blood cultures no growth so far will follow closely further recommendations pending Time with Patient: Greater than 30
[2017-05-01] MEDS: LACTULOSE 20 GM/30 ML CUP PO SCH (16:30)
[2017-05-01 17:16] LABS: Glucose,Whole Blood 126 mg/dL (75-99)
[2017-05-01 21:05] LABS: Glucose,Whole Blood 159 mg/dL (75-99)
[2017-05-01] MEDS: MELATONIN 5 MG TABLET PO SCH (21:09)
[2017-05-02] MEDS: methylPREDNISolone SOD SUCCI 125 MG/2 ML VIAL IV SCH ×5 (00:35→23:30)
[2017-05-02] MEDS: HYDROcodone/APAP 10-325MG 1 EACH TAB PO PRN ×2 (03:44→15:32)
[2017-05-02] MEDS: guaiFENesin-Coden 100-10MG/5ML 10 ML CUP PO PRN ×2 (03:46→15:33)
[2017-05-02] MEDS: SODIUM CHLORIDE 0.9% 1,000 ML IV SCH (03:47)
[2017-05-02 06:54] LABS: Appearance,Urine Clear (Clear); Bilirubin,Urine Negative (Negative); Blood,Urine Negative (Negative); Color,Urine Yellow; Glucose,Urine (UA) Negative (Negative); Ketones,Urine Negative (Negative); Leukocyte Esterase,Urine Negative (Negative); Nitrite,Urine Negative (Negative); PH, Urine 5.5 (5.0-8.0); Protein,Urine Negative (Negative); Specific Gravity,Urine 1.009 (1.001-1.035); Urobilinogen,Urine <2.0 mg/dL (<2.0)
[2017-05-02 07:07] LABS: Basophils % (A) 0 %; Eosinophils % (A) 0 %; HCT 41.4 % (34.0-46.0); HGB 13.1 gm/dL (11.4-16.0); Lymphocytes # (A) 1.4 k/uL (1.0-4.8); Lymphocytes % (A) 17 %; MCH 28.1 pg (25.0-35.0); MCHC 31.6 g/dL (31.0-37.0); MCV 88.9 fL (80.0-100.0); Mean Platelet Volume 7.4; Monocytes # (A) 0.4 k/uL (0-1.0); Monocytes % (A) 5 %; Neutrophils # (A) 6.3 k/uL (1.3-7.7); Neutrophils % (A) 77 %; Platelet Count 220 k/uL (150-450); RBC 4.66 m/uL (3.80-5.40); RDW 13.7 % (11.5-15.5); WBC 8.2 k/uL (3.8-10.6)
[2017-05-02 07:17] LABS: Glucose,Whole Blood 125 mg/dL (75-99)
[2017-05-02 07:40] LABS: ALT 60 U/L (9-52); AST 35 U/L (14-36); Albumin 2.8 g/dL (3.5-5.0); Alkaline Phosphatase 55 U/L (38-126); Anion Gap 6 mmol/L; Blood Urea Nitrogen 12 mg/dL (7-17); Calcium 8.7 mg/dL (8.4-10.2); Carbon Dioxide 28 mmol/L (22-30); Chloride 106 mmol/L (98-107); Glucose 118 mg/dL (74-99); Potassium 5.4 mmol/L (3.5-5.1); Sodium 140 mmol/L (137-145); Total Bilirubin 0.2 mg/dL (0.2-1.3); Total Protein 5.1 g/dL (6.3-8.2)
[2017-05-02] MEDS: INSULIN ASPART 100 UNIT/ML 1 ML 10 ML VIAL SQ SCH ×4 (07:46→21:12)
[2017-05-02] MEDS: ENOXAPARIN 40 MG/0.4 ML SYRINGE SQ SCH (07:47)
[2017-05-02] MEDS: ETHAMBUTOL 1200 MG PO SCH (07:47)
[2017-05-02] MEDS: RIFAMPIN 300 MG CAP PO SCH ×2 (07:48→20:41)
[2017-05-02] MEDS: CALCIUM POLYCARBOPHIL 625 MG TAB PO SCH (07:48)
[2017-05-02] MEDS: PANTOPRAZOLE 40 MG TABLET PO SCH (07:49)
[2017-05-02] MEDS: ASPIRIN 81 MG PO SCH (07:49)
[2017-05-02] MEDS: ASCORBIC ACID 500 MG TAB PO SCH (07:49)
[2017-05-02] MEDS: DOCUSATE 100 MG CAP PO SCH ×2 (07:49→20:41)
[2017-05-02] MEDS: BACLOFEN 10 MG TAB PO SCH ×3 (07:50→20:41)
[2017-05-02] MEDS: LACTULOSE 20 GM/30 ML CUP PO SCH (07:50)
[2017-05-02] MEDS: OSELTAMIVIR 75 MG CAP PO SCH ×2 (07:50→20:41)
[2017-05-02] MEDS: NICOTINE 21MG/24HR PATCH TRANSDERM SCH (07:51)
[2017-05-02] MEDS: CLARITHROMYCIN 500 MG TAB PO SCH (07:51)
[2017-05-02] MEDS: DULoxetine HCL 30 MG CAPSULE.DR PO SCH ×2 (07:52→20:41)
[2017-05-02] MEDS: IBUPROFEN 600 MG TAB PO PRN (07:57)
[2017-05-02] MEDS: NON-FORMULARY DRUG (Omega-3 Fatty Acids/Fish Oil [Fish Oil 1,000 Mg Softgel] 1 CAP) PO SCH (09:00)
[2017-05-02] MEDS: IPRATROPIUM-ALBUTEROL 3 ML NEB INHALATION SCH ×4 (09:49→21:13)
[2017-05-02] MEDS ORDERED: SODIUM POLYSTYRENE SULFONATE 15 GM/60 ML BOTTLE PO STA (11:25)
[2017-05-02] MEDS: MULTIVITAMINS, THERA 1 EACH TAB PO SCH (11:36)
--- NOTE | 2017-05-02 12:23 | P.PN ---
Subjective Progress Note Date: 05/02/17 This is a 61-year-old female with a known past medical history of COPD, nicotine dependence, Mycobacterium nevaeh complex infection, hyperlipidemia, fibromyalgia and osteoarthritis. Patient presents to the emergency room with complaints of cough and chest congestion shortness of breath, nausea, muscle aches and fever. Patient also reports having one episode of vomiting and a couple episodes of diarrhea. The vomiting diarrhea has now resolved. It is been over 24 hours since her last episode of vomiting and diarrhea. Her symptoms have been present for about one week. Her cough was initially productive and is now nonproductive. Complains of some pleuritic chest pain. Reports that her urine is feeling hotter than usual. Also reports that she'll start to urinate and then if she continue seeing they're more irritable past. She did report some burning with urination a week ago. Urinalysis has been ordered. Patient was found to be in 1 to be positive and started on Tamiflu. Also started on IV steroids for COPD exacerbation and nebulizer treatments. Pulmonary service consulted. Temperature is high the 100.5. Chest x-ray shows no acute changes but does show nodular densities appear better visualize from 2016 chest x-ray. Patient's granddaughter was diagnosed with the flu. Patient had been taking care of her. 04/30/2017 patient more wheezy and short of breath today. Still has a harsh cough. Pulmonary service following. She is being treated for the flu and is on IV steroids and Tamiflu. Patient denies chest pain. She denies nausea or vomiting. Reports bowel movements. Denies difficulty urinating. Chest x-ray ordered. Results show chronic changes with persistent upper lung nodularity and nodular infiltrate and scattered areas of atelectasis and/or scarring demonstrated. Difficult to exclude acute infectious process. 05/02/2017 patient is still coughing and wheezing with shortness of breath. However, she is off of oxygen on room air. Has chest pain with coughing. Had small, hard bowel movement this morning. Denies nausea or vomiting. Denies burning with urination. Objective - Vital Signs Vital signs: Vital Signs Temp 97.8 F 05/02/17 11:08 Pulse 67 05/02/17 11:08 Resp 20 05/02/17 11:08 BP 135/70 05/02/17 11:08 Pulse Ox 93 L 05/02/17 11:08 Intake & Output 05/01/17 05/02/17 05/02/17 18:59 06:59 18:59 Intake Total 480 1200 200 Balance 480 1200 200 Intake: Oral 480 1200 200 Other: Voiding Method Toilet Toilet # Voids 2 - Exam Head normocephalic Neck supple Lungs wheezing bilaterally with coarse breath sounds Heart regular rate and rhythm S1-S2, no rub or gallop Abdomen is soft nontender nondistended positive bowel sounds no hepatosplenomegaly Extremities no edema Neuro alert and orientated to 3 - Labs CBC & Chem 7: 05/02/17 06:12 05/02/17 06:12 Labs: Abnormal Lab Results - Last 24 Hours (Table) 05/01/17 05/01/17 05/02/17 Range/Units 17:14 20:55 06:12 Potassium 5.4 H (3.5-5.1) mmol/L Glucose 118 H (74-99) mg/dL POC Glucose (mg/dL) 126 H 159 H (75-99) mg/dL ALT 60 H (9-52) U/L Total Protein 5.1 L (6.3-8.2) g/dL Albumin 2.8 L (3.5-5.0) g/dL 05/02/17 Range/Units 07:10 Potassium (3.5-5.1) mmol/L Glucose (74-99) mg/dL POC Glucose (mg/dL) 125 H (75-99) mg/dL ALT (9-52) U/L Total Protein (6.3-8.2) g/dL Albumin (3.5-5.0) g/dL Microbiology - Last 24 Hours (Table) 05/02/17 06:45 Urine Culture - Preliminary Urine,Clean Catch 04/28/17 13:20 Blood Culture - Preliminary Blood No Growth after 72 hours Assessment and Plan Assessment: 1. Influenza B+ patient started on Tamiflu 2. Acute COPD exacerbation: Continue IV Solu-Medrol and bronchodilators. Pulmonary following 3. Vomiting and diarrhea now resolved. 4. Nausea and Zofran added 5. History of Mycobacterium nevaeh complex infection: Maintained on Rifadin, Ethambutol, Biaxin 6. Nicotine dependence: Discussed smoking cessation. Continue nicotine patch 7. History of fibromyalgia 8. Depression continue Cymbalta 9. Possible developing pneumonia: Pulmonary following 10. Acute hypoxic respiratory failure: Patient had a desaturation in her oxygen level through the night and required to be placed on 2 L nasal cannula. Likely secondary to patient's COPD exacerbation and flu. Currently off of oxygen 11. Hyperkalemia. Potassium 5.4. We'll give 1 dose of Kayexalate. Repeat labs in a.m. and this should help with patient's constipation is well GI prophylaxis Protonix and DVT prophylaxis Lovenox
[2017-05-02 12:44] LABS: Glucose,Whole Blood 134 mg/dL (75-99)
[2017-05-02 16:44] LABS: Glucose,Whole Blood 116 mg/dL (75-99)
[2017-05-02 20:08] LABS: Glucose,Whole Blood 130 mg/dL (75-99)
[2017-05-02] MEDS: MELATONIN 5 MG TABLET PO SCH (20:41)
[2017-05-03] MEDS: HYDROcodone/APAP 10-325MG 1 EACH TAB PO PRN ×2 (02:05→19:09)
[2017-05-03] MEDS: guaiFENesin-Coden 100-10MG/5ML 10 ML CUP PO PRN ×3 (02:05→21:13)
[2017-05-03] MEDS: PANTOPRAZOLE 40 MG TABLET PO SCH (06:29)
[2017-05-03] MEDS: methylPREDNISolone SOD SUCCI 125 MG/2 ML VIAL IV SCH ×3 (06:29→18:34)
[2017-05-03] MEDS: INSULIN ASPART 100 UNIT/ML 1 ML 10 ML VIAL SQ SCH ×4 (06:45→21:18)
[2017-05-03 06:49] LABS: Glucose,Whole Blood 118 mg/dL (75-99)
[2017-05-03 07:16] LABS: Basophils % (A) 0 %; Eosinophils % (A) 0 %; HCT 41.9 % (34.0-46.0); HGB 13.1 gm/dL (11.4-16.0); Hypochromasia Slight; Lymphocytes # (A) 1.7 k/uL (1.0-4.8); Lymphocytes % (A) 18 %; MCH 28.4 pg (25.0-35.0); MCHC 31.2 g/dL (31.0-37.0); MCV 91.1 fL (80.0-100.0); Monocytes # (A) 0.5 k/uL (0-1.0); Monocytes % (A) 5 %; Neutrophils # (A) 7.4 k/uL (1.3-7.7); Neutrophils % (A) 76 %; Platelet Count 219 k/uL (150-450); RDW 13.7 % (11.5-15.5); WBC 9.8 k/uL (3.8-10.6)
[2017-05-03 07:28] LABS: ALT 67 U/L (9-52); AST 29 U/L (14-36); Albumin 2.6 g/dL (3.5-5.0); Alkaline Phosphatase 51 U/L (38-126); Anion Gap 6 mmol/L; Blood Urea Nitrogen 20 mg/dL (7-17); Calcium 8.7 mg/dL (8.4-10.2); Carbon Dioxide 27 mmol/L (22-30); Chloride 105 mmol/L (98-107); Glucose 113 mg/dL (74-99); Potassium 4.6 mmol/L (3.5-5.1); Sodium 138 mmol/L (137-145); Total Bilirubin 0.1 mg/dL (0.2-1.3); Total Protein 4.8 g/dL (6.3-8.2)
[2017-05-03] MEDS: LACTULOSE 20 GM/30 ML CUP PO SCH (08:17)
[2017-05-03] MEDS: ETHAMBUTOL 1200 MG PO SCH (08:17)
[2017-05-03] MEDS: DULoxetine HCL 30 MG CAPSULE.DR PO SCH ×2 (08:18→21:01)
[2017-05-03] MEDS: DOCUSATE 100 MG CAP PO SCH ×2 (08:18→21:01)
[2017-05-03] MEDS: BACLOFEN 10 MG TAB PO SCH ×3 (08:18→21:13)
[2017-05-03] MEDS: RIFAMPIN 300 MG CAP PO SCH ×2 (08:19→21:01)
[2017-05-03] MEDS: NICOTINE 21MG/24HR PATCH TRANSDERM SCH (08:19)
[2017-05-03] MEDS: ASCORBIC ACID 500 MG TAB PO SCH (08:19)
[2017-05-03] MEDS: CLARITHROMYCIN 500 MG TAB PO SCH (08:19)
[2017-05-03] MEDS: CALCIUM POLYCARBOPHIL 625 MG TAB PO SCH (08:19)
[2017-05-03] MEDS: ENOXAPARIN 40 MG/0.4 ML SYRINGE SQ SCH (08:19)
--- NOTE | 2017-05-03 08:43 | P.PN ---
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, lens a bee pneumonia, severe COPD emphysema 05/02/2017, patient seen and evaluated examined during the rounds breathing is still marginal get short of breath on minimal activity and exertion does have dry nonproductive cough does feel some congestion in the chest prior radiographic studies x-rays and labs reviewed, care plan discussed with the patient and staff 05/01/2017, patient seen and evaluated examined from Estrace standpoint doing well cuff congestion shortness of breath and wheezing still there but severity slightly better patient is not producing any significant sputum chest x-ray performed reviewed and compared with prior x-ray continued to have significant radicular nodular appearance, no new active infiltrate identified, patient is complaining of constipation for which lactulose has been initiated patient will get another dose later on today 04/30/2017, patient seen eval examined during the rounds is still short of breath but however CVAT is slightly better patient is being treated with maintenance of therapy for Mycobacterium avium complex infection breathing treatments steroids, labs reviewed medications reviewed as well Patient seen eval reexamined well-known to me for a extensive Mycobacterium avium complex infection she gets the follow-up at in [facility], known past medical history of COPD, nicotine dependence, Mycobacterium nevaeh complex infection, hyperlipidemia, fibromyalgia and osteoarthritis. Patient presents to the emergency room with complaints of cough and chest congestion shortness of breath, nausea, muscle aches and fever. Patient also reports having one episode of vomiting and a couple episodes of diarrhea. The vomiting diarrhea has now resolved. It is been over 24 hours since her last episode of vomiting and diarrhea. Her symptoms have been present for about one week. Her cough was initially productive and is now nonproductive. Complains of some pleuritic chest pain. Reports that her urine is feeling hotter than usual. Also reports that she'll start to urinate and then if she continue seeing they're more irritable past. She did report some burning with urination a week ago. Urinalysis has been ordered. Patient was found to be in 1 to be positive and started on Tamiflu. Also started on IV steroids for COPD exacerbation and nebulizer treatments. I was, consulted. Temperature is high the 100.5. Chest x-ray shows no acute changes but does show bilateral nodular densities appear better visualize from 2016 chest x-ray. Objective - Vital Signs Vital signs: Vital Signs Temp 98.8 F 05/02/17 19:59 Pulse 67 05/02/17 19:59 Resp 16 05/02/17 19:59 BP 121/74 05/02/17 19:59 Pulse Ox 94 L 05/02/17 19:59 Intake & Output 05/02/17 05/03/17 05/03/17 18:59 06:59 18:59 Intake Total 600 2120 Balance 600 2120 Intake: Oral 600 2120 Other: # Voids 1 2 - Exam Limitations: no limitations General appearance: alert, in mild to moderate respiratory distress with conversation Head exam: Present: atraumatic, normocephalic, normal inspection Eye exam: Present: normal appearance, PERRL, EOMI. Absent: scleral icterus, conjunctival injection, periorbital swelling ENT exam: Present: normal exam, normal oropharynx, mucous membranes moist, TM's normal bilaterally, normal external ear exam Neck exam: Present: normal inspection, full ROM. Absent: tenderness, meningismus, lymphadenopathy Respiratory exam: Present: respiratory distress (Mild), wheezes. Absent: normal lung sounds bilaterally, rales, rhonchi, stridor, coughing and wheezing gets worse when she tries to talk Cardiovascular Exam: Present: regular rate, normal rhythm, normal heart sounds. Absent: systolic murmur, diastolic murmur, rubs, gallop, clicks GI/Abdominal exam: Present: soft, normal bowel sounds. Absent: distended, tenderness, guarding, rebound, rigid Neurological exam: Present: alert, oriented X3, CN II-XII intact Skin exam: Present: warm, dry, intact, normal color. Absent: rash - Labs CBC & Chem 7: 05/03/17 06:46 05/03/17 06:46 Labs: Abnormal Lab Results - Last 24 Hours (Table) 05/02/17 05/02/17 05/02/17 Range/Units 12:07 16:39 20:03 BUN (7-17) mg/dL Glucose (74-99) mg/dL POC Glucose (mg/dL) 134 H 116 H 130 H (75-99) mg/dL Total Bilirubin (0.2-1.3) mg/dL ALT (9-52) U/L Total Protein (6.3-8.2) g/dL Albumin (3.5-5.0) g/dL 05/03/17 05/03/17 Range/Units 06:28 06:46 BUN 20 H (7-17) mg/dL Glucose 113 H (74-99) mg/dL POC Glucose (mg/dL) 118 H (75-99) mg/dL Total Bilirubin 0.1 L (0.2-1.3) mg/dL ALT 67 H (9-52) U/L Total Protein 4.8 L (6.3-8.2) g/dL Albumin 2.6 L (3.5-5.0) g/dL Microbiology - Last 24 Hours (Table) 04/28/17 13:20 Blood Culture - Preliminary Blood No Growth after 96 hours 05/02/17 06:45 Urine Culture - Preliminary Urine,Clean Catch Assessment and Plan Assessment: Intractable cough and dyspnea on minimal exertion Acute on chronic hypoxic respirator failure Bilateral radicular nodular infiltrate chronic in nature related to Mycobacterium avium complex infection Acute Influenza B pneumonia Possible secondary bacterial pneumonia less likely but cannot be excluded, Mycobacterium avium complex patient is on therapy with Rifadin, Ethambutol, Biaxin Severe COPD emphysema Fibromyalgia depression Extensive history of smoking and nicotine use Plan: Continue IV steroids breathing treatments and therapy for MAC infection Continue gentle hydration continue home medication send a sputum for culture and repeat chest x-ray findings reviewed and noted blood cultures no growth so far will follow closely further recommendations pending Time with Patient: Greater than 30
--- NOTE | 2017-05-03 08:45 | P.PN ---
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, lens a bee pneumonia, severe COPD emphysema May 03 2017, patient seen eval examined during the rounds her constipation is improved cuff congestion is still there but severity is better she is more comfortable when sleeping however during exertion and activity she becomes short of breath and goes into bouts of coughing, symptoms of the abdominal distention and constipation improved after bowel movement, patient has been getting lactulose as well 05/02/2017, patient seen and evaluated examined during the rounds breathing is still marginal get short of breath on minimal activity and exertion does have dry nonproductive cough does feel some congestion in the chest prior radiographic studies x-rays and labs reviewed, care plan discussed with the patient and staff 05/01/2017, patient seen and evaluated examined from Estrace standpoint doing well cuff congestion shortness of breath and wheezing still there but severity slightly better patient is not producing any significant sputum chest x-ray performed reviewed and compared with prior x-ray continued to have significant radicular nodular appearance, no new active infiltrate identified, patient is complaining of constipation for which lactulose has been initiated patient will get another dose later on today 04/30/2017, patient seen brandee examined during the rounds is still short of breath but however CVAT is slightly better patient is being treated with maintenance of therapy for Mycobacterium avium complex infection breathing treatments steroids, labs reviewed medications reviewed as well Patient seen evrodrigue reexamined well-known to me for a extensive Mycobacterium avium complex infection she gets the follow-up at in [facility], known past medical history of COPD, nicotine dependence, Mycobacterium nevaeh complex infection, hyperlipidemia, fibromyalgia and osteoarthritis. Patient presents to the emergency room with complaints of cough and chest congestion shortness of breath, nausea, muscle aches and fever. Patient also reports having one episode of vomiting and a couple episodes of diarrhea. The vomiting diarrhea has now resolved. It is been over 24 hours since her last episode of vomiting and diarrhea. Her symptoms have been present for about one week. Her cough was initially productive and is now nonproductive. Complains of some pleuritic chest pain. Reports that her urine is feeling hotter than usual. Also reports that she'll start to urinate and then if she continue seeing they're more irritable past. She did report some burning with urination a week ago. Urinalysis has been ordered. Patient was found to be in 1 to be positive and started on Tamiflu. Also started on IV steroids for COPD exacerbation and nebulizer treatments. I was, consulted. Temperature is high the 100.5. Chest x-ray shows no acute changes but does show bilateral nodular densities appear better visualize from 2016 chest x-ray. Objective - Vital Signs Vital signs: Vital Signs Temp 98.8 F 05/02/17 19:59 Pulse 67 05/02/17 19:59 Resp 16 05/02/17 19:59 BP 121/74 05/02/17 19:59 Pulse Ox 94 L 05/02/17 19:59 Intake & Output 05/02/17 05/03/17 05/03/17 18:59 06:59 18:59 Intake Total 600 2120 Balance 600 2120 Intake: Oral 600 2120 Other: # Voids 1 2 - Labs CBC & Chem 7: 05/03/17 06:46 05/03/17 06:46 Labs: Abnormal Lab Results - Last 24 Hours (Table) 05/02/17 05/02/17 05/02/17 Range/Units 12:07 16:39 20:03 BUN (7-17) mg/dL Glucose (74-99) mg/dL POC Glucose (mg/dL) 134 H 116 H 130 H (75-99) mg/dL Total Bilirubin (0.2-1.3) mg/dL ALT (9-52) U/L Total Protein (6.3-8.2) g/dL Albumin (3.5-5.0) g/dL 05/03/17 05/03/17 Range/Units 06:28 06:46 BUN 20 H (7-17) mg/dL Glucose 113 H (74-99) mg/dL POC Glucose (mg/dL) 118 H (75-99) mg/dL Total Bilirubin 0.1 L (0.2-1.3) mg/dL ALT 67 H (9-52) U/L Total Protein 4.8 L (6.3-8.2) g/dL Albumin 2.6 L (3.5-5.0) g/dL Microbiology - Last 24 Hours (Table) 04/28/17 13:20 Blood Culture - Preliminary Blood No Growth after 96 hours 05/02/17 06:45 Urine Culture - Preliminary Urine,Clean Catch Assessment and Plan Assessment: Intractable cough and dyspnea on minimal exertion Acute on chronic hypoxic respirator failure Bilateral radicular nodular infiltrate chronic in nature related to Mycobacterium avium complex infection Acute Influenza B pneumonia Possible secondary bacterial pneumonia less likely but cannot be excluded, Mycobacterium avium complex patient is on therapy with Rifadin, Ethambutol, Biaxin Severe COPD emphysema Fibromyalgia depression Extensive history of smoking and nicotine use Severe constipation on lactulose slightly better now Plan: Continue IV steroids breathing treatments and therapy for MAC infection Continue gentle hydration continue home medication send a sputum for culture and repeat chest x-ray findings reviewed and noted blood cultures no growth so far will follow closely further recommendations pending Time with Patient: Greater than 30
[2017-05-03] MEDS: ASPIRIN 81 MG PO SCH (09:42)
[2017-05-03] MEDS: NON-FORMULARY DRUG (Omega-3 Fatty Acids/Fish Oil [Fish Oil 1,000 Mg Softgel] 1 CAP) PO SCH (09:50)
[2017-05-03] MEDS: IPRATROPIUM-ALBUTEROL 3 ML NEB INHALATION SCH ×4 (10:10→21:22)
--- NOTE | 2017-05-03 10:19 | P.PN ---
Subjective Progress Note Date: 05/03/17 This is a 61-year-old female with a known past medical history of COPD, nicotine dependence, Mycobacterium nevaeh complex infection, hyperlipidemia, fibromyalgia and osteoarthritis. Patient presents to the emergency room with complaints of cough and chest congestion shortness of breath, nausea, muscle aches and fever. Patient also reports having one episode of vomiting and a couple episodes of diarrhea. The vomiting diarrhea has now resolved. It is been over 24 hours since her last episode of vomiting and diarrhea. Her symptoms have been present for about one week. Her cough was initially productive and is now nonproductive. Complains of some pleuritic chest pain. Reports that her urine is feeling hotter than usual. Also reports that she'll start to urinate and then if she continue seeing they're more irritable past. She did report some burning with urination a week ago. Urinalysis has been ordered. Patient was found to be in 1 to be positive and started on Tamiflu. Also started on IV steroids for COPD exacerbation and nebulizer treatments. Pulmonary service consulted. Temperature is high the 100.5. Chest x-ray shows no acute changes but does show nodular densities appear better visualize from 2016 chest x-ray. Patient's granddaughter was diagnosed with the flu. Patient had been taking care of her. 04/30/2017 patient more wheezy and short of breath today. Still has a harsh cough. Pulmonary service following. She is being treated for the flu and is on IV steroids and Tamiflu. Patient denies chest pain. She denies nausea or vomiting. Reports bowel movements. Denies difficulty urinating. Chest x-ray ordered. Results show chronic changes with persistent upper lung nodularity and nodular infiltrate and scattered areas of atelectasis and/or scarring demonstrated. Difficult to exclude acute infectious process. 05/02/2017 patient is still coughing and wheezing with shortness of breath. However, she is off of oxygen on room air. Has chest pain with coughing. Had small, hard bowel movement this morning. Denies nausea or vomiting. Denies burning with urination. 05/03/2017 patient reports she still not feeling well. Has difficulty taking in a deep breath. Still having some wheezing. Denies any nausea or vomiting. Reports a small bowel movement. Denies any burning with urination. She did complete the Tamiflu treatment. Does not feel ready for discharge. Still having significant cough. Objective - Vital Signs Vital signs: Vital Signs Temp 98.1 F 05/03/17 08:50 Pulse 68 05/03/17 08:50 Resp 20 05/03/17 08:50 BP 140/84 05/03/17 08:50 Pulse Ox 92 L 05/03/17 08:50 Intake & Output 05/02/17 05/03/17 05/03/17 18:59 06:59 18:59 Intake Total 600 2120 Balance 600 2120 Weight 62.596 kg Intake: Oral 600 2120 Other: # Voids 1 2 - Exam Head normocephalic Neck supple Lungs wheezing bilaterally with coarse breath sounds Heart regular rate and rhythm S1-S2, no rub or gallop Abdomen is soft nontender nondistended positive bowel sounds no hepatosplenomegaly Extremities no edema Neuro alert and orientated to 3 - Labs CBC & Chem 7: 05/03/17 06:46 05/03/17 06:46 Labs: Abnormal Lab Results - Last 24 Hours (Table) 05/02/17 05/02/17 05/02/17 Range/Units 12:07 16:39 20:03 BUN (7-17) mg/dL Glucose (74-99) mg/dL POC Glucose (mg/dL) 134 H 116 H 130 H (75-99) mg/dL Total Bilirubin (0.2-1.3) mg/dL ALT (9-52) U/L Total Protein (6.3-8.2) g/dL Albumin (3.5-5.0) g/dL 05/03/17 05/03/17 Range/Units 06:28 06:46 BUN 20 H (7-17) mg/dL Glucose 113 H (74-99) mg/dL POC Glucose (mg/dL) 118 H (75-99) mg/dL Total Bilirubin 0.1 L (0.2-1.3) mg/dL ALT 67 H (9-52) U/L Total Protein 4.8 L (6.3-8.2) g/dL Albumin 2.6 L (3.5-5.0) g/dL Microbiology - Last 24 Hours (Table) 04/28/17 13:20 Blood Culture - Preliminary Blood No Growth after 96 hours 05/02/17 06:45 Urine Culture - Preliminary Urine,Clean Catch Assessment and Plan Assessment: 1. Influenza B+ patient completed Tamiflu treatment 2. Acute COPD exacerbation: Continue IV Solu-Medrol and bronchodilators. Pulmonary following. Patient still having wheezing 3. Vomiting and diarrhea now resolved. 4. Nausea and Zofran added 5. History of Mycobacterium nevaeh complex infection: Maintained on Rifadin, Ethambutol, Biaxin 6. Nicotine dependence: Discussed smoking cessation. Continue nicotine patch 7. History of fibromyalgia 8. Depression continue Cymbalta 9. Possible developing pneumonia: Patient evaluated by pulmonary service 10. Acute hypoxic respiratory failure: Likely secondary to patient's COPD exacerbation and flu. Currently off of oxygen 11. Hyperkalemia. Resolved with Kayexalate Encouraged patient to increase activity. Take meals at bedside chair. Anticipate discharge possibly Saturday or Saturday GI prophylaxis Protonix and DVT prophylaxis Lovenox I performed an examination of the patient and discussed their management with the physician Plumbing Engineering Draftsperson. I have reviewed the Physician Plumbing Engineering Draftsperson's notes and agree with the documented findings and plan of care
[2017-05-03 12:36] LABS: Glucose,Whole Blood 93 mg/dL (75-99)
[2017-05-03] MEDS: MULTIVITAMINS, THERA 1 EACH TAB PO SCH (12:55)
[2017-05-03] MEDS: IBUPROFEN 600 MG TAB PO PRN ×2 (12:56→21:11)
[2017-05-03 16:25] LABS: Glucose,Whole Blood 100 mg/dL (75-99)
[2017-05-03 20:41] LABS: Glucose,Whole Blood 126 mg/dL (75-99)
[2017-05-03] MEDS: MELATONIN 5 MG TABLET PO SCH (21:01)
[2017-05-04] MEDS: methylPREDNISolone SOD SUCCI 125 MG/2 ML VIAL IV SCH ×2 (00:06→06:27)
[2017-05-04] MEDS: IBUPROFEN 600 MG TAB PO PRN (05:16)
[2017-05-04] MEDS: BENZONATATE 100 MG CAP PO PRN (05:17)
[2017-05-04 06:50] LABS: Basophils % (A) 0 %; Eosinophils % (A) 0 %; HCT 43.8 % (34.0-46.0); HGB 13.4 gm/dL (11.4-16.0); Hypochromasia Slight; Lymphocytes # (A) 1.8 k/uL (1.0-4.8); Lymphocytes % (A) 18 %; MCH 27.6 pg (25.0-35.0); MCHC 30.6 g/dL (31.0-37.0); MCV 90.2 fL (80.0-100.0); Mean Platelet Volume 7.2; Monocytes # (A) 0.6 k/uL (0-1.0); Monocytes % (A) 5 %; Neutrophils # (A) 7.6 k/uL (1.3-7.7); Neutrophils % (A) 75 %; Platelet Count 246 k/uL (150-450); RBC 4.85 m/uL (3.80-5.40); RDW 13.7 % (11.5-15.5); WBC 10.1 k/uL (3.8-10.6)
[2017-05-04 07:02] LABS: ALT 64 U/L (9-52); AST 27 U/L (14-36); Albumin 2.6 g/dL (3.5-5.0); Alkaline Phosphatase 52 U/L (38-126); Anion Gap 5 mmol/L; Blood Urea Nitrogen 24 mg/dL (7-17); Calcium 8.8 mg/dL (8.4-10.2); Carbon Dioxide 31 mmol/L (22-30); Chloride 103 mmol/L (98-107); Glucose 105 mg/dL (74-99); Potassium 4.6 mmol/L (3.5-5.1); Sodium 139 mmol/L (137-145); Total Bilirubin 0.1 mg/dL (0.2-1.3); Total Protein 4.7 g/dL (6.3-8.2)
[2017-05-04 07:21] LABS: Glucose,Whole Blood 102 mg/dL (75-99)
[2017-05-04] MEDS: IPRATROPIUM-ALBUTEROL 3 ML NEB INHALATION SCH ×4 (08:58→20:57)
[2017-05-04] MEDS: INSULIN ASPART 100 UNIT/ML 1 ML 10 ML VIAL SQ SCH ×4 (09:06→22:47)
[2017-05-04] MEDS: PANTOPRAZOLE 40 MG TABLET PO SCH (09:14)
[2017-05-04] MEDS: ASCORBIC ACID 500 MG TAB PO SCH (09:14)
[2017-05-04] MEDS: DOCUSATE 100 MG CAP PO SCH ×2 (09:15→20:28)
[2017-05-04] MEDS: CALCIUM POLYCARBOPHIL 625 MG TAB PO SCH (09:15)
[2017-05-04] MEDS: CLARITHROMYCIN 500 MG TAB PO SCH (09:16)
[2017-05-04] MEDS: RIFAMPIN 300 MG CAP PO SCH ×2 (09:16→20:28)
[2017-05-04] MEDS: ETHAMBUTOL 1200 MG PO SCH (09:16)
[2017-05-04] MEDS: DULoxetine HCL 30 MG CAPSULE.DR PO SCH ×2 (09:17→20:27)
[2017-05-04] MEDS: ASPIRIN 81 MG PO SCH (09:17)
[2017-05-04] MEDS: BACLOFEN 10 MG TAB PO SCH ×3 (09:17→22:47)
[2017-05-04] MEDS: NICOTINE 21MG/24HR PATCH TRANSDERM SCH (09:17)
[2017-05-04] MEDS: ENOXAPARIN 40 MG/0.4 ML SYRINGE SQ SCH (09:17)
[2017-05-04] MEDS: NON-FORMULARY DRUG (Omega-3 Fatty Acids/Fish Oil [Fish Oil 1,000 Mg Softgel] 1 CAP) PO SCH (11:15)
[2017-05-04] MEDS: LACTULOSE 20 GM/30 ML CUP PO SCH (11:15)
[2017-05-04] MEDS: HYDROcodone/APAP 10-325MG 1 EACH TAB PO PRN ×2 (11:16→20:27)
[2017-05-04] MEDS: guaiFENesin-Coden 100-10MG/5ML 10 ML CUP PO PRN ×2 (11:17→20:26)
--- NOTE | 2017-05-04 11:56 | P.PN ---
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, lens a bee pneumonia, severe COPD emphysema 05/04/2017, patient seen and evaluated examined during the rounds she is awake breathing comfortably at rest however minimal activity that left severe cough congestion and coughing episodes she does have soreness in the chest readout in the subcostal area and lower part bilaterally due to excessive coughing patient lately has been producing purulent secretions which is thick tenacious, she would benefit from Mucinex will start, we'll send sputum for Gram stain and culture, will initiate antibiotics like doxycycline until results and reports are available May 03 2017, patient seen brandee examined during the rounds her constipation is improved cuff congestion is still there but severity is better she is more comfortable when sleeping however during exertion and activity she becomes short of breath and goes into bouts of coughing, symptoms of the abdominal distention and constipation improved after bowel movement, patient has been getting lactulose as well 05/02/2017, patient seen and evaluated examined during the rounds breathing is still marginal get short of breath on minimal activity and exertion does have dry nonproductive cough does feel some congestion in the chest prior radiographic studies x-rays and labs reviewed, care plan discussed with the patient and staff 05/01/2017, patient seen and evaluated examined from Estrace standpoint doing well cuff congestion shortness of breath and wheezing still there but severity slightly better patient is not producing any significant sputum chest x-ray performed reviewed and compared with prior x-ray continued to have significant radicular nodular appearance, no new active infiltrate identified, patient is complaining of constipation for which lactulose has been initiated patient will get another dose later on today 04/30/2017, patient seen brandee examined during the rounds is still short of breath but however CVAT is slightly better patient is being treated with maintenance of therapy for Mycobacterium avium complex infection breathing treatments steroids, labs reviewed medications reviewed as well Patient seen brandee reexamined well-known to me for a extensive Mycobacterium avium complex infection she gets the follow-up at in [facility], known past medical history of COPD, nicotine dependence, Mycobacterium nevaeh complex infection, hyperlipidemia, fibromyalgia and osteoarthritis. Patient presents to the emergency room with complaints of cough and chest congestion shortness of breath, nausea, muscle aches and fever. Patient also reports having one episode of vomiting and a couple episodes of diarrhea. The vomiting diarrhea has now resolved. It is been over 24 hours since her last episode of vomiting and diarrhea. Her symptoms have been present for about one week. Her cough was initially productive and is now nonproductive. Complains of some pleuritic chest pain. Reports that her urine is feeling hotter than usual. Also reports that she'll start to urinate and then if she continue seeing they're more irritable past. She did report some burning with urination a week ago. Urinalysis has been ordered. Patient was found to be in 1 to be positive and started on Tamiflu. Also started on IV steroids for COPD exacerbation and nebulizer treatments. I was, consulted. Temperature is high the 100.5. Chest x-ray shows no acute changes but does show bilateral nodular densities appear better visualize from 2016 chest x-ray. Objective - Vital Signs Vital signs: Vital Signs Temp 98 F 05/04/17 11:46 Pulse 70 05/04/17 07:00 Resp 18 05/04/17 11:46 BP 138/77 05/04/17 11:46 Pulse Ox 93 L 05/04/17 11:46 Intake & Output 05/03/17 05/04/17 05/04/17 18:59 06:59 18:59 Intake Total 240 Balance 240 Weight 62.596 kg Intake: Oral 240 Other: Voiding Method Toilet # Voids 1 - Exam Limitations: no limitations General appearance: alert, in mild to moderate respiratory distress with conversation Head exam: Present: atraumatic, normocephalic, normal inspection Eye exam: Present: normal appearance, PERRL, EOMI. Absent: scleral icterus, conjunctival injection, periorbital swelling ENT exam: Present: normal exam, normal oropharynx, mucous membranes moist, TM's normal bilaterally, normal external ear exam Neck exam: Present: normal inspection, full ROM. Absent: tenderness, meningismus, lymphadenopathy Respiratory exam: Present: respiratory distress (Mild), wheezes. coughing and wheezing gets worse when she tries to talk Cardiovascular Exam: Present: regular rate, normal rhythm, normal heart sounds. Absent: systolic murmur, diastolic murmur, rubs, gallop, clicks GI/Abdominal exam: Present: soft, normal bowel sounds. Absent: distended, tenderness, guarding, rebound, rigid Neurological exam: Present: alert, oriented X3, CN II-XII intact Skin exam: Present: warm, dry, intact, normal color. Absent: rash - Labs CBC & Chem 7: 05/04/17 06:37 05/04/17 06:37 Labs: Abnormal Lab Results - Last 24 Hours (Table) 05/03/17 05/03/17 05/04/17 Range/Units 16:15 20:31 06:37 MCHC 30.6 L (31.0-37.0) g/dL Carbon Dioxide (22-30) mmol/L BUN (7-17) mg/dL Glucose (74-99) mg/dL POC Glucose (mg/dL) 100 H 126 H (75-99) mg/dL Total Bilirubin (0.2-1.3) mg/dL ALT (9-52) U/L Total Protein (6.3-8.2) g/dL Albumin (3.5-5.0) g/dL 05/04/17 05/04/17 Range/Units 06:37 07:03 MCHC (31.0-37.0) g/dL Carbon Dioxide 31 H (22-30) mmol/L BUN 24 H (7-17) mg/dL Glucose 105 H (74-99) mg/dL POC Glucose (mg/dL) 102 H (75-99) mg/dL Total Bilirubin 0.1 L (0.2-1.3) mg/dL ALT 64 H (9-52) U/L Total Protein 4.7 L (6.3-8.2) g/dL Albumin 2.6 L (3.5-5.0) g/dL Microbiology - Last 24 Hours (Table) 05/03/17 17:03 Gram Stain - Preliminary Sputum 04/28/17 13:20 Blood Culture - Preliminary Blood No Growth after 120 hours 05/02/17 06:45 Urine Culture - Final Urine,Clean Catch Assessment and Plan Assessment: Intractable cough and dyspnea on minimal exertion Acute on chronic hypoxic respirator failure Evaluated for secondary bacterial pneumonia, send sputum for culture now sputum is more productive Bilateral radicular nodular infiltrate chronic in nature related to Mycobacterium avium complex infection Acute Influenza B pneumonia Possible secondary bacterial pneumonia less likely but cannot be excluded, Mycobacterium avium complex patient is on therapy with Rifadin, Ethambutol, Biaxin Severe COPD emphysema Fibromyalgia depression Extensive history of smoking and nicotine use Severe constipation on lactulose slightly better now Plan: Continue IV steroids breathing treatments and therapy for MAC infection Continue gentle hydration continue home medication send a sputum for culture and repeat chest x-ray findings reviewed and noted blood cultures no growth so far will follow closely further recommendations pending Time with Patient: Greater than 30
[2017-05-04 12:02] LABS: Glucose,Whole Blood 65 mg/dL (75-99)
--- NOTE | 2017-05-04 12:39 | P.PN ---
Subjective Patient is doing about the same today. She continues to have a lot of cough. She reported being short of breath. Objective - Vital Signs Vital signs: Vital Signs Temp 98 F 05/04/17 11:46 Pulse 70 05/04/17 07:00 Resp 18 05/04/17 11:46 BP 138/77 05/04/17 11:46 Pulse Ox 93 L 05/04/17 11:46 Intake & Output 05/03/17 05/04/17 05/04/17 18:59 06:59 18:59 Intake Total 240 Balance 240 Weight 62.596 kg Intake: Oral 240 Other: Voiding Method Toilet # Voids 1 - Exam General: The patient is awake and alert, in no distress Eye: there is normal conjunctiva bilaterally. Neck: The neck is supple, there is no JVD. Cardiovascular: Normal S1-S2, no S3-S4, no murmurs. Respiratory: Lungs with diffuse wheezing all over the chest Gastrointestinal: Abdomen is soft, nontender Musculoskeletal: There is no pedal edema. Neurological:. Speech is normal. Skin: Skin is warm and dry - Labs CBC & Chem 7: 05/04/17 06:37 05/04/17 06:37 Labs: Abnormal Lab Results - Last 24 Hours (Table) 05/03/17 05/03/17 05/04/17 Range/Units 16:15 20:31 06:37 MCHC 30.6 L (31.0-37.0) g/dL Carbon Dioxide (22-30) mmol/L BUN (7-17) mg/dL Glucose (74-99) mg/dL POC Glucose (mg/dL) 100 H 126 H (75-99) mg/dL Total Bilirubin (0.2-1.3) mg/dL ALT (9-52) U/L Total Protein (6.3-8.2) g/dL Albumin (3.5-5.0) g/dL 05/04/17 05/04/17 05/04/17 Range/Units 06:37 07:03 11:57 MCHC (31.0-37.0) g/dL Carbon Dioxide 31 H (22-30) mmol/L BUN 24 H (7-17) mg/dL Glucose 105 H (74-99) mg/dL POC Glucose (mg/dL) 102 H 65 L (75-99) mg/dL Total Bilirubin 0.1 L (0.2-1.3) mg/dL ALT 64 H (9-52) U/L Total Protein 4.7 L (6.3-8.2) g/dL Albumin 2.6 L (3.5-5.0) g/dL Microbiology - Last 24 Hours (Table) 05/03/17 17:03 Gram Stain - Preliminary Sputum 04/28/17 13:20 Blood Culture - Preliminary Blood No Growth after 120 hours 05/02/17 06:45 Urine Culture - Final Urine,Clean Catch Assessment and Plan Assessment: 1. Influenza B+ patient completed Tamiflu treatment 2. Acute COPD exacerbation: Continue steroid and bronchodilators. Pulmonary following. Patient still having wheezing 3. History of Mycobacterium nevaeh complex infection: Maintained on Rifadin, Ethambutol, Biaxin 4. Nicotine dependence: Discussed smoking cessation. Continue nicotine patch 5. History of fibromyalgia 6. Depression continue Cymbalta 7. Acute hypoxic respiratory failure: Likely secondary to patient's COPD exacerbation and flu. Currently off of oxygen Encouraged patient to increase activity. Take meals at bedside chair. Anticipate discharge possibly Saturday GI prophylaxis Protonix and DVT prophylaxis Lovenox
[2017-05-04 16:53] LABS: Glucose,Whole Blood 102 mg/dL (75-99)
[2017-05-04] MEDS: MELATONIN 5 MG TABLET PO SCH (20:27)
[2017-05-04] MEDS: guaiFENesin 600 MG TABLET.ER PO SCH (20:28)
[2017-05-04] MEDS: DOXYCYCLINE 50 MG CAP PO SCH (20:29)
[2017-05-04 20:44] LABS: Glucose,Whole Blood 109 mg/dL (75-99)
[2017-05-04] MEDS: MULTIVITAMINS, THERA 1 EACH TAB PO SCH (22:47)
[2017-05-05 07:35] LABS: Basophils # (A) 0.1 k/uL (0-0.2); Basophils % (A) 1 %; Eosinophils # (A) 0.2 k/uL (0-0.7); Eosinophils % (A) 2 %; HCT 45.9 % (34.0-46.0); HGB 14.2 gm/dL (11.4-16.0); Lymphocytes # (A) 4.3 k/uL (1.0-4.8); Lymphocytes % (A) 38 %; MCH 27.6 pg (25.0-35.0); MCHC 30.9 g/dL (31.0-37.0); MCV 89.4 fL (80.0-100.0); Monocytes # (A) 0.7 k/uL (0-1.0); Monocytes % (A) 6 %; Neutrophils % (A) 52 %; Platelet Count 282 k/uL (150-450); RBC 5.13 m/uL (3.80-5.40); RDW 13.8 % (11.5-15.5); WBC 11.5 k/uL (3.8-10.6)
[2017-05-05 07:50] LABS: ALT 114 U/L (9-52); AST 82 U/L (14-36); Albumin 2.9 g/dL (3.5-5.0); Alkaline Phosphatase 48 U/L (38-126); Anion Gap 7 mmol/L; Blood Urea Nitrogen 26 mg/dL (7-17); Calcium 8.9 mg/dL (8.4-10.2); Carbon Dioxide 32 mmol/L (22-30); Chloride 102 mmol/L (98-107); Glucose 80 mg/dL (74-99); Sodium 141 mmol/L (137-145); Total Bilirubin 0.2 mg/dL (0.2-1.3); Total Protein 5.1 g/dL (6.3-8.2)
[2017-05-05] MEDS: NON-FORMULARY DRUG (Omega-3 Fatty Acids/Fish Oil [Fish Oil 1,000 Mg Softgel] 1 CAP) PO SCH (09:40)
[2017-05-05] MEDS: PANTOPRAZOLE 40 MG TABLET PO SCH (09:43)
[2017-05-05] MEDS: CLARITHROMYCIN 500 MG TAB PO SCH (09:43)
[2017-05-05] MEDS: ASPIRIN 81 MG PO SCH (09:43)
[2017-05-05] MEDS: ASCORBIC ACID 500 MG TAB PO SCH (09:43)
[2017-05-05] MEDS: CALCIUM POLYCARBOPHIL 625 MG TAB PO SCH (09:43)
[2017-05-05] MEDS: BACLOFEN 10 MG TAB PO SCH ×3 (09:43→21:39)
[2017-05-05] MEDS: ETHAMBUTOL 1200 MG PO SCH (09:45)
[2017-05-05] MEDS: DOXYCYCLINE 50 MG CAP PO SCH ×2 (09:46→20:46)
[2017-05-05] MEDS: DOCUSATE 100 MG CAP PO SCH ×2 (09:46→20:46)
[2017-05-05] MEDS: DULoxetine HCL 30 MG CAPSULE.DR PO SCH ×2 (09:47→20:46)
[2017-05-05] MEDS: guaiFENesin 600 MG TABLET.ER PO SCH ×2 (09:47→20:46)
[2017-05-05] MEDS: guaiFENesin-Coden 100-10MG/5ML 10 ML CUP PO PRN ×2 (09:50→20:58)
[2017-05-05] MEDS: ENOXAPARIN 40 MG/0.4 ML SYRINGE SQ SCH (09:51)
[2017-05-05] MEDS: predniSONE 20 MG TAB PO SCH (09:51)
[2017-05-05] MEDS: NICOTINE 21MG/24HR PATCH TRANSDERM SCH (09:51)
[2017-05-05] MEDS: IPRATROPIUM-ALBUTEROL 3 ML NEB INHALATION SCH ×4 (09:51→20:01)
[2017-05-05] MEDS: RIFAMPIN 300 MG CAP PO SCH ×2 (10:29→20:46)
--- NOTE | 2017-05-05 13:16 | P.PN ---
Subjective Patient is doing slightly better today Objective - Vital Signs Vital signs: Vital Signs Temp 97.8 F 05/05/17 11:20 Pulse 74 05/05/17 11:20 Resp 18 05/05/17 11:20 BP 91/58 05/05/17 11:20 Pulse Ox 93 L 05/05/17 11:20 Intake & Output 05/04/17 05/05/17 05/05/17 18:59 06:59 18:59 Intake Total 200 1880 Balance 200 1880 Intake: Oral 200 1880 Other: # Voids 2 2 - Exam General: The patient is awake and alert, in no distress Eye: there is normal conjunctiva bilaterally. Neck: The neck is supple, there is no JVD. Cardiovascular: Normal S1-S2, no S3-S4, no murmurs. Respiratory: Lungs with diffuse wheezing all over the chest Gastrointestinal: Abdomen is soft, nontender Musculoskeletal: There is no pedal edema. Neurological:. Speech is normal. Skin: Skin is warm and dry - Labs CBC & Chem 7: 05/05/17 07:15 05/05/17 07:15 Labs: Abnormal Lab Results - Last 24 Hours (Table) 05/04/17 05/04/17 05/05/17 Range/Units 16:48 20:33 07:15 WBC 11.5 H (3.8-10.6) k/uL MCHC 30.9 L (31.0-37.0) g/dL Carbon Dioxide (22-30) mmol/L BUN (7-17) mg/dL POC Glucose (mg/dL) 102 H 109 H (75-99) mg/dL AST (14-36) U/L ALT (9-52) U/L Total Protein (6.3-8.2) g/dL Albumin (3.5-5.0) g/dL 05/05/17 Range/Units 07:15 WBC (3.8-10.6) k/uL MCHC (31.0-37.0) g/dL Carbon Dioxide 32 H (22-30) mmol/L BUN 26 H (7-17) mg/dL POC Glucose (mg/dL) (75-99) mg/dL AST 82 H (14-36) U/L ALT 114 H (9-52) U/L Total Protein 5.1 L (6.3-8.2) g/dL Albumin 2.9 L (3.5-5.0) g/dL Microbiology - Last 24 Hours (Table) 05/03/17 17:03 Gram Stain - Preliminary Sputum Sputum Culture - Preliminary Ariadne albicans Aspergillus species 05/04/17 20:20 Sputum Culture - Preliminary Sputum 04/28/17 13:20 Blood Culture - Final Blood No Growth after 144 hours Assessment and Plan Assessment: 1. Influenza B+ patient completed Tamiflu treatment 2. Acute COPD exacerbation: Continue steroid and bronchodilators. Pulmonary following. Patient still having wheezing 3. History of Mycobacterium nevaeh complex infection: Maintained on Rifadin, Ethambutol, Biaxin 4. Nicotine dependence: Discussed smoking cessation. Continue nicotine patch 5. History of fibromyalgia 6. Depression continue Cymbalta 7. Acute hypoxic respiratory failure: Likely secondary to patient's COPD exacerbation and flu. Currently off of oxygen Encouraged patient to increase activity. Take meals at bedside chair. Anticipate discharge possibly Saturday GI prophylaxis Protonix and DVT prophylaxis Lovenox
[2017-05-05] MEDS: HYDROcodone/APAP 10-325MG 1 EACH TAB PO PRN (14:25)
[2017-05-05] MEDS: MELATONIN 5 MG TABLET PO SCH (20:46)
[2017-05-05] MEDS: MULTIVITAMINS, THERA 1 EACH TAB PO SCH (20:46)
[2017-05-05] MEDS: IBUPROFEN 600 MG TAB PO PRN (20:58)
[2017-05-06 06:22] LABS: Basophils # (A) 0.1 k/uL (0-0.2); Basophils % (A) 1 %; Eosinophils # (A) 0.2 k/uL (0-0.7); Eosinophils % (A) 2 %; HCT 43.6 % (34.0-46.0); HGB 13.5 gm/dL (11.4-16.0); Lymphocytes # (A) 3.6 k/uL (1.0-4.8); Lymphocytes % (A) 34 %; MCH 27.6 pg (25.0-35.0); MCHC 30.8 g/dL (31.0-37.0); MCV 89.5 fL (80.0-100.0); Mean Platelet Volume 6.8; Monocytes # (A) 0.6 k/uL (0-1.0); Monocytes % (A) 6 %; Neutrophils # (A) 5.9 k/uL (1.3-7.7); Neutrophils % (A) 56 %; Platelet Count 258 k/uL (150-450); RBC 4.87 m/uL (3.80-5.40); WBC 10.5 k/uL (3.8-10.6)
[2017-05-06 06:30] LABS: ALT 102 U/L (9-52); AST 51 U/L (14-36); Albumin 2.6 g/dL (3.5-5.0); Alkaline Phosphatase 41 U/L (38-126); Anion Gap 4 mmol/L; Blood Urea Nitrogen 24 mg/dL (7-17); Calcium 8.5 mg/dL (8.4-10.2); Carbon Dioxide 33 mmol/L (22-30); Chloride 101 mmol/L (98-107); Glucose 81 mg/dL (74-99); Potassium 4.6 mmol/L (3.5-5.1); Sodium 138 mmol/L (137-145); Total Bilirubin 0.2 mg/dL (0.2-1.3); Total Protein 4.6 g/dL (6.3-8.2)
[2017-05-06] MEDS: PANTOPRAZOLE 40 MG TABLET PO SCH (06:50)
[2017-05-06 08:02] VITALS: RESP 20
[2017-05-06] MEDS: ETHAMBUTOL 1200 MG PO SCH (08:27)
[2017-05-06] MEDS: NICOTINE 21MG/24HR PATCH TRANSDERM SCH (08:28)
[2017-05-06] MEDS: ASCORBIC ACID 500 MG TAB PO SCH (08:28)
[2017-05-06] MEDS: BACLOFEN 10 MG TAB PO SCH (08:29)
[2017-05-06] MEDS: ASPIRIN 81 MG PO SCH (08:29)
[2017-05-06] MEDS: CALCIUM POLYCARBOPHIL 625 MG TAB PO SCH (08:30)
[2017-05-06] MEDS: CLARITHROMYCIN 500 MG TAB PO SCH (08:30)
[2017-05-06] MEDS: DOCUSATE 100 MG CAP PO SCH (08:31)
[2017-05-06] MEDS: DOXYCYCLINE 50 MG CAP PO SCH (08:31)
[2017-05-06] MEDS: predniSONE 20 MG TAB PO SCH (08:32)
[2017-05-06] MEDS: NON-FORMULARY DRUG (Omega-3 Fatty Acids/Fish Oil [Fish Oil 1,000 Mg Softgel] 1 CAP) PO SCH (08:32)
[2017-05-06] MEDS: DULoxetine HCL 30 MG CAPSULE.DR PO SCH (08:32)
[2017-05-06] MEDS: guaiFENesin 600 MG TABLET.ER PO SCH (08:32)
[2017-05-06] MEDS: RIFAMPIN 300 MG CAP PO SCH (08:33)
[2017-05-06] MEDS: ENOXAPARIN 40 MG/0.4 ML SYRINGE SQ SCH (08:34)
[2017-05-06] MEDS: IPRATROPIUM-ALBUTEROL 3 ML NEB INHALATION SCH ×2 (10:05→13:25)
[2017-05-06] MEDS: guaiFENesin-Coden 100-10MG/5ML 10 ML CUP PO PRN (11:16)
[2017-05-06] MEDS: MULTIVITAMINS, THERA 1 EACH TAB PO SCH (11:16)
[2017-05-06] MEDS: HYDROcodone/APAP 10-325MG 1 EACH TAB PO PRN (11:19)
[2017-05-06 11:39] VITALS: BP 107/68; PULSE 82; TEMP 98.1
--- NOTE | 2017-05-06 12:32 | P.DS ---
Providers Date of admission: 04/28/17 14:57 Expected date of discharge: 05/06/17 Attending physician: Dionna Curran Consults: 04/28/17 14:57 Consult Physician Stat Consulting Provider: Paulo Tristan Consult Reason/Comments: COPD exacerbation Do you want consulting provider notified?: Yes Primary care physician: Dionna Curran [facility] Course: Discharge diagnosis 1. Influenza B+ patient completed Tamiflu treatment 2. Acute COPD exacerbation: 3. History of Mycobacterium nevaeh complex infection: Maintained on Rifadin, Ethambutol, Biaxin 4. Nicotine dependence: Discussed smoking cessation. Continue nicotine patch 5. History of fibromyalgia 6. Depression continue Cymbalta 7. Acute hypoxic respiratory failure: Likely secondary to patient's COPD exacerbation and flu. Currently off of oxygen 8. Severe protein calorie malnutrition 9. Mildly elevated LFTs with no abdominal pain. Possibly related to fluid congestion. Did improve with this considering IV fluids. Hospital course This is a 61-year-old female with a known past medical history of COPD, nicotine dependence, Mycobacterium nevaeh complex infection, hyperlipidemia, fibromyalgia and osteoarthritis. Patient presents to the emergency room with complaints of cough and chest congestion shortness of breath, nausea, muscle aches and fever. Patient also reports having one episode of vomiting and a couple episodes of diarrhea. The vomiting diarrhea has now resolved. It is been over 24 hours since her last episode of vomiting and diarrhea. Her symptoms have been present for about one week. Her cough was initially productive and is now nonproductive. Complains of some pleuritic chest pain. Reports that her urine is feeling hotter than usual. Also reports that she'll start to urinate and then if she continue seeing they're more irritable past. She did report some burning with urination a week ago. Urinalysis has been ordered. Patient was found to be in 1 to be positive and started on Tamiflu. Also started on IV steroids for COPD exacerbation and nebulizer treatments. Pulmonary service consulted. Temperature is high the 100.5. Chest x-ray shows no acute changes but does show nodular densities appear better visualize from 2016 chest x-ray. Patient's granddaughter was diagnosed with the flu. Patient had been taking care of her. Patient was found to be influenza B positive and started on Tamiflu. She completed her Tamiflu treatment during this hospitalization. She also had evidence of an acute COPD exacerbation started on IV steroids and bronchodilators. Patient's symptoms have shown improvement. She is now off of the oxygen she is ambulating without shortness of breath. Sputum culture did grow Ariadne albicans and aspergillosis. Per pulmonary service patient needs no further antibiotic treatment. She's to continue with her current Mycobacterium avium complex medications. She also be on a prednisone taper. She is requesting a prescription for cough syrup Mucinex and nicotine patch. These have been given to patient. She also wants a refill on her Motrin. And she can follow up with Dr. Curran for the refill on her [place]. She had mildly elevated LFTs during the admission. Showed improvement after IV fluids discontinued. Recommend a repeat CMP in 1 week to follow-up on LFTs. AST 51 and ALT 102 at discharge I performed an examination of the patient and discussed their management with the physician Trim Setter. I have reviewed the Physician Trim Setter's notes and agree with the documented findings and plan of care Patient Condition at Discharge: Stable Plan - Discharge Summary New Discharge Prescriptions: New guaiFENesin [Mucinex] 600 mg PO Q12HR #10 tablet.er guaiFENesin-Coden 100-10MG/5ML [Robitussin AC] 5 ml PO TID PRN #25 cup PRN Reason: Cough Nicotine 21Mg/24Hr Patch [Habitrol] 1 patch TRANSDERM DAILY #30 patch predniSONE 10 mg PO DIRECTED #30 tab Continue Omeprazole [PriLOSEC] 20 mg PO AC-BID Albuterol Nebulized [Ventolin Nebulized] 2.5 mg INHALATION RT-QID Albuterol Inhaler [Ventolin Hfa Inhaler] 1 - 2 puff INHALATION RT-Q6H PRN PRN Reason: Shortness Of Breath Aspirin EC [Ecotrin Low Dose] 81 mg PO DAILY Benzonatate [Tessalon Perles] 100 mg PO TID PRN PRN Reason: Cough Baclofen [Lioresal] 10 mg PO TID Multivitamins, Thera [Multivitamin (formulary)] 1 tab PO DAILY DULoxetine HCL [Cymbalta] 30 mg PO BID Ascorbic Acid [Vitamin C] 500 mg PO DAILY Elmont-3 Fatty Acids/Fish Oil [Fish Oil 1,000 mg Softgel] 1 cap PO DAILY Clarithromycin [Biaxin] 500 mg PO DAILY #30 tab Rifampin [Rifadin] 300 mg PO BID #60 cap Ethambutol [Myambutol] 1,200 mg PO DAILY HYDROcodone/APAP 10-325MG [Greenwood 10-325] 1 tab PO BID Docusate [Colace] 100 mg PO BID PRN PRN Reason: Constipation Calcium Polycarbophil [Fibercon] 625 mg PO DAILY Melatonin 10 mg PO Ibuprofen [Motrin] 600 mg PO Q8HR PRN #21 tab PRN Reason: Pain Discharge Medication List Albuterol Inhaler [Ventolin Hfa Inhaler] 1 - 2 puff INHALATION RT-Q6H PRN [History] Albuterol Nebulized [Ventolin Nebulized] 2.5 mg INHALATION RT-QID 12/10/15 [ History] Aspirin EC [Ecotrin Low Dose] 81 mg PO DAILY 12/10/15 [History] Baclofen [Lioresal] 10 mg PO TID 12/10/15 [History] Benzonatate [Tessalon Perles] 100 mg PO TID PRN 12/10/15 [History] DULoxetine HCL [Cymbalta] 30 mg PO BID 12/10/15 [History] Multivitamins, Thera [Multivitamin (formulary)] 1 tab PO DAILY 12/10/15 [History ] Omeprazole [PriLOSEC] 20 mg PO AC-BID 12/10/15 [History] Ascorbic Acid [Vitamin C] 500 mg PO DAILY 05/15/16 [History] Elmont-3 Fatty Acids/Fish Oil [Fish Oil 1,000 mg Softgel] 1 cap PO DAILY [History] Clarithromycin [Biaxin] 500 mg PO DAILY #30 tab 05/25/16 [Rx] Rifampin [Rifadin] 300 mg PO BID #60 cap 05/25/16 [Rx] Ethambutol [Myambutol] 1,200 mg PO DAILY 03/15/17 [History] Calcium Polycarbophil [Fibercon] 625 mg PO DAILY 04/28/17 [History] Docusate [Colace] 100 mg PO BID PRN 04/28/17 [History] HYDROcodone/APAP 10-325MG [Greenwood 10-325] 1 tab PO BID 04/28/17 [History] Melatonin 10 mg PO 04/28/17 [History] Ibuprofen [Motrin] 600 mg PO Q8HR PRN #21 tab 05/06/17 [Rx] Nicotine 21Mg/24Hr Patch [Habitrol] 1 patch TRANSDERM DAILY #30 patch 05/06/17 [ Rx] guaiFENesin [Mucinex] 600 mg PO Q12HR #10 tablet.er 05/06/17 [Rx] guaiFENesin-Coden 100-10MG/5ML [Robitussin AC] 5 ml PO TID PRN #25 cup 05/06/17 [Rx] predniSONE 10 mg PO DIRECTED #30 tab 05/06/17 [Rx] Follow up Appointment(s)/Referral(s): Paulo Tristan MD [STAFF PHYSICIAN] - 1 Week Dionna Curran MD [Primary Care Provider] - 1 Week Activity/Diet/Wound Care/Special Instructions: Diet: regular and ENSURE 1 can tid with meals Activity: as tolerated Discharge Disposition: HOME SELF-CARE
--- NOTE | 2017-05-06 13:03 | P.PN ---
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, lens a bee pneumonia, severe COPD emphysema 05/05/2017, patient seen eval examined during the rounds respiratory standpoint doing well cuff congestion is improved wheezing has improved as well her constipation has improved not having so much subcostal pain now breathing more comfortably 05/04/2017, patient seen and evaluated examined during the rounds she is awake breathing comfortably at rest however minimal activity that left severe cough congestion and coughing episodes she does have soreness in the chest readout in the subcostal area and lower part bilaterally due to excessive coughing patient lately has been producing purulent secretions which is thick tenacious, she would benefit from Mucinex will start, we'll send sputum for Gram stain and culture, will initiate antibiotics like doxycycline until results and reports are available May 03 2017, patient seen eval examined during the rounds her constipation is improved cuff congestion is still there but severity is better she is more comfortable when sleeping however during exertion and activity she becomes short of breath and goes into bouts of coughing, symptoms of the abdominal distention and constipation improved after bowel movement, patient has been getting lactulose as well 05/02/2017, patient seen and evaluated examined during the rounds breathing is still marginal get short of breath on minimal activity and exertion does have dry nonproductive cough does feel some congestion in the chest prior radiographic studies x-rays and labs reviewed, care plan discussed with the patient and staff 05/01/2017, patient seen and evaluated examined from Estrace standpoint doing well cuff congestion shortness of breath and wheezing still there but severity slightly better patient is not producing any significant sputum chest x-ray performed reviewed and compared with prior x-ray continued to have significant radicular nodular appearance, no new active infiltrate identified, patient is complaining of constipation for which lactulose has been initiated patient will get another dose later on today 04/30/2017, patient seen evrodrigue examined during the rounds is still short of breath but however CVAT is slightly better patient is being treated with maintenance of therapy for Mycobacterium avium complex infection breathing treatments steroids, labs reviewed medications reviewed as well Patient seen eval reexamined well-known to me for a extensive Mycobacterium avium complex infection she gets the follow-up at in [facility], known past medical history of COPD, nicotine dependence, Mycobacterium nevaeh complex infection, hyperlipidemia, fibromyalgia and osteoarthritis. Patient presents to the emergency room with complaints of cough and chest congestion shortness of breath, nausea, muscle aches and fever. Patient also reports having one episode of vomiting and a couple episodes of diarrhea. The vomiting diarrhea has now resolved. It is been over 24 hours since her last episode of vomiting and diarrhea. Her symptoms have been present for about one week. Her cough was initially productive and is now nonproductive. Complains of some pleuritic chest pain. Reports that her urine is feeling hotter than usual. Also reports that she'll start to urinate and then if she continue seeing they're more irritable past. She did report some burning with urination a week ago. Urinalysis has been ordered. Patient was found to be in 1 to be positive and started on Tamiflu. Also started on IV steroids for COPD exacerbation and nebulizer treatments. I was, consulted. Temperature is high the 100.5. Chest x-ray shows no acute changes but does show bilateral nodular densities appear better visualize from 2016 chest x-ray. Objective - Vital Signs Vital signs: Vital Signs Temp 98.1 F 05/06/17 11:30 Pulse 82 05/06/17 11:30 Resp 20 05/06/17 11:30 BP 107/68 05/06/17 11:30 Pulse Ox 93 L 05/06/17 11:30 Intake & Output 05/05/17 05/06/17 05/06/17 18:59 06:59 18:59 Intake Total 600 1400 Balance 600 1400 Intake: Oral 600 1400 Other: # Voids 1 2 - Exam Limitations: no limitations General appearance: alert, in mild to moderate respiratory distress with conversation Head exam: Present: atraumatic, normocephalic, normal inspection Eye exam: Present: normal appearance, PERRL, EOMI. Absent: scleral icterus, conjunctival injection, periorbital swelling ENT exam: Present: normal exam, normal oropharynx, mucous membranes moist, TM's normal bilaterally, normal external ear exam Neck exam: Present: normal inspection, full ROM. Absent: tenderness, meningismus, lymphadenopathy Respiratory exam: Present: respiratory distress (Mild), wheezes. coughing and wheezing gets worse when she tries to talk Cardiovascular Exam: Present: regular rate, normal rhythm, normal heart sounds. Absent: systolic murmur, diastolic murmur, rubs, gallop, clicks GI/Abdominal exam: Present: soft, normal bowel sounds. Absent: distended, tenderness, guarding, rebound, rigid Neurological exam: Present: alert, oriented X3, CN II-XII intact Skin exam: Present: warm, dry, intact, normal color. Absent: rash - Labs CBC & Chem 7: 05/06/17 05:46 05/06/17 05:46 Labs: Abnormal Lab Results - Last 24 Hours (Table) 05/06/17 05/06/17 Range/Units 05:46 05:46 MCHC 30.8 L (31.0-37.0) g/dL Carbon Dioxide 33 H (22-30) mmol/L BUN 24 H (7-17) mg/dL AST 51 H (14-36) U/L ALT 102 H (9-52) U/L Total Protein 4.6 L (6.3-8.2) g/dL Albumin 2.6 L (3.5-5.0) g/dL Microbiology - Last 24 Hours (Table) 05/03/17 17:03 Gram Stain - Final Sputum Sputum Culture - Final Ariadne albicans Aspergillus fumigatus 05/04/17 20:20 Gram Stain - Preliminary Sputum Sputum Culture - Preliminary Assessment and Plan Assessment: Intractable cough and dyspnea on minimal exertion Acute on chronic hypoxic respirator failure Evaluated for secondary bacterial pneumonia, send sputum for culture now sputum is more productive Bilateral radicular nodular infiltrate chronic in nature related to Mycobacterium avium complex infection Acute Influenza B pneumonia Possible secondary bacterial pneumonia less likely but cannot be excluded, Mycobacterium avium complex patient is on therapy with Rifadin, Ethambutol, Biaxin Severe COPD emphysema Fibromyalgia depression Extensive history of smoking and nicotine use Severe constipation on lactulose slightly better now Plan: Continue IV steroids breathing treatments and therapy for MAC infection Continue gentle hydration continue home medication send a sputum for culture and repeat chest x-ray findings reviewed and noted blood cultures no growth so far will follow closely further recommendations pending Time with Patient: Less than 30
--- NOTE | 2017-05-06 13:06 | P.PN ---
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 05/06/2017, patient seen eval reexamined during the round respirator standpoint doing relatively better breathing is improved wheezing has improved patient is likely will be discharged home and follow-up in outpatient setting, patient noted to have a Aspergillus in the sputum likely colonization as the patient seems to be responding without it's more definitive therapy however we'll monitor observe patient being evaluated outpatient setting 05/05/2017, patient seen eval examined during the rounds respiratory standpoint doing well cuff congestion is improved wheezing has improved as well her constipation has improved not having so much subcostal pain now breathing more comfortably 05/04/2017, patient seen and evaluated examined during the rounds she is awake breathing comfortably at rest however minimal activity that left severe cough congestion and coughing episodes she does have soreness in the chest readout in the subcostal area and lower part bilaterally due to excessive coughing patient lately has been producing purulent secretions which is thick tenacious, she would benefit from Mucinex will start, we'll send sputum for Gram stain and culture, will initiate antibiotics like doxycycline until results and reports are available May 03 2017, patient seen eval examined during the rounds her constipation is improved cuff congestion is still there but severity is better she is more comfortable when sleeping however during exertion and activity she becomes short of breath and goes into bouts of coughing, symptoms of the abdominal distention and constipation improved after bowel movement, patient has been getting lactulose as well 05/02/2017, patient seen and evaluated examined during the rounds breathing is still marginal get short of breath on minimal activity and exertion does have dry nonproductive cough does feel some congestion in the chest prior radiographic studies x-rays and labs reviewed, care plan discussed with the patient and staff 05/01/2017, patient seen and evaluated examined from Estrace standpoint doing well cuff congestion shortness of breath and wheezing still there but severity slightly better patient is not producing any significant sputum chest x-ray performed reviewed and compared with prior x-ray continued to have significant radicular nodular appearance, no new active infiltrate identified, patient is complaining of constipation for which lactulose has been initiated patient will get another dose later on today 04/30/2017, patient seen eval examined during the rounds is still short of breath but however CVAT is slightly better patient is being treated with maintenance of therapy for Mycobacterium avium complex infection breathing treatments steroids, labs reviewed medications reviewed as well Patient seen brandee reexamined well-known to me for a extensive Mycobacterium avium complex infection she gets the follow-up at in [facility], known past medical history of COPD, nicotine dependence, Mycobacterium nevaeh complex infection, hyperlipidemia, fibromyalgia and osteoarthritis. Patient presents to the emergency room with complaints of cough and chest congestion shortness of breath, nausea, muscle aches and fever. Patient also reports having one episode of vomiting and a couple episodes of diarrhea. The vomiting diarrhea has now resolved. It is been over 24 hours since her last episode of vomiting and diarrhea. Her symptoms have been present for about one week. Her cough was initially productive and is now nonproductive. Complains of some pleuritic chest pain. Reports that her urine is feeling hotter than usual. Also reports that she'll start to urinate and then if she continue seeing they're more irritable past. She did report some burning with urination a week ago. Urinalysis has been ordered. Patient was found to be in 1 to be positive and started on Tamiflu. Also started on IV steroids for COPD exacerbation and nebulizer treatments. I was, consulted. Temperature is high the 100.5. Chest x-ray shows no acute changes but does show bilateral nodular densities appear better visualize from 2016 chest x-ray. Objective - Vital Signs Vital signs: Vital Signs Temp 98.1 F 05/06/17 11:30 Pulse 82 05/06/17 11:30 Resp 20 05/06/17 11:30 BP 107/68 05/06/17 11:30 Pulse Ox 93 L 05/06/17 11:30 Intake & Output 05/05/17 05/06/17 05/06/17 18:59 06:59 18:59 Intake Total 600 1400 Balance 600 1400 Intake: Oral 600 1400 Other: # Voids 1 2 - Exam Limitations: no limitations General appearance: alert, in mild to moderate respiratory distress with conversation Head exam: Present: atraumatic, normocephalic, normal inspection Eye exam: Present: normal appearance, PERRL, EOMI. Absent: scleral icterus, conjunctival injection, periorbital swelling ENT exam: Present: normal exam, normal oropharynx, mucous membranes moist, TM's normal bilaterally, normal external ear exam Neck exam: Present: normal inspection, full ROM. Absent: tenderness, meningismus, lymphadenopathy Respiratory exam: Present: respiratory distress (Mild), wheezes. coughing and wheezing not noted anymore when she tries to talk Cardiovascular Exam: Present: regular rate, normal rhythm, normal heart sounds. Absent: systolic murmur, diastolic murmur, rubs, gallop, clicks GI/Abdominal exam: Present: soft, normal bowel sounds. Absent: distended, tenderness, guarding, rebound, rigid Neurological exam: Present: alert, oriented X3, CN II-XII intact Skin exam: Present: warm, dry, intact, normal color. Absent: rash - Labs CBC & Chem 7: 05/06/17 05:46 05/06/17 05:46 Labs: Abnormal Lab Results - Last 24 Hours (Table) 05/06/17 05/06/17 Range/Units 05:46 05:46 MCHC 30.8 L (31.0-37.0) g/dL Carbon Dioxide 33 H (22-30) mmol/L BUN 24 H (7-17) mg/dL AST 51 H (14-36) U/L ALT 102 H (9-52) U/L Total Protein 4.6 L (6.3-8.2) g/dL Albumin 2.6 L (3.5-5.0) g/dL Microbiology - Last 24 Hours (Table) 05/03/17 17:03 Gram Stain - Final Sputum Sputum Culture - Final Ariadne albicans Aspergillus fumigatus 05/04/17 20:20 Gram Stain - Preliminary Sputum Sputum Culture - Preliminary Assessment and Plan Assessment: Intractable cough and dyspnea on minimal exertion Aspergillus in the sputum, likely colonization Acute on chronic hypoxic respirator failure Evaluated for secondary bacterial pneumonia, send sputum for culture now sputum is more productive Bilateral radicular nodular infiltrate chronic in nature related to Mycobacterium avium complex infection Acute Influenza B pneumonia Possible secondary bacterial pneumonia less likely but cannot be excluded, Mycobacterium avium complex patient is on therapy with Rifadin, Ethambutol, Biaxin Severe COPD emphysema Fibromyalgia depression Extensive history of smoking and nicotine use Severe constipation on lactulose slightly better now Plan: Continue oral steroids steroids breathing treatments and therapy for MAC infection Continue gentle hydration continue home medication send a sputum for culture and repeat chest x-ray findings reviewed and noted blood cultures no growth so far will follow closely further recommendations pending Monitor observe for Aspergillus in the sputum patient to be reevaluated next week in the office Time with Patient: Greater than 30
== END 2017-05-06 16:00 | disposition home or self-care (01) | DRG 193 ==
LOC: EC 12:26 → 6PED 14:57
PROVIDERS: ADMIT Internal Medicine; ATTEND Internal Medicine
DX: J10.1 Influenza due to other identified influenza virus with other respiratory manifestations (principal); E43 Unspecified severe protein-calorie malnutrition; J96.21 Acute and chronic respiratory failure with hypoxia; J44.1 Chronic obstructive pulmonary disease with (acute) exacerbation; J98.11 Atelectasis; J84.10 Pulmonary fibrosis, unspecified; E87.5 Hyperkalemia; A31.0 Pulmonary mycobacterial infection; F32.9 Major depressive disorder, single episode, unspecified; M79.7 Fibromyalgia; K21.9 Gastro-esophageal reflux disease without esophagitis; E78.5 Hyperlipidemia, unspecified; M19.91 Primary osteoarthritis, unspecified site; M81.0 Age-related osteoporosis without current pathological fracture; K59.00 Constipation, unspecified; M54.2 Cervicalgia; G89.29 Other chronic pain; F41.0 Panic disorder [episodic paroxysmal anxiety]; F17.200 Nicotine dependence, unspecified, uncomplicated; H26.9 Unspecified cataract; N60.19 Diffuse cystic mastopathy of unspecified breast; Z79.2 Long term (current) use of antibiotics; Z79.82 Long term (current) use of aspirin; Z79.891 Long term (current) use of opiate analgesic; Z79.899 Other long term (current) drug therapy; Z91.030 Bee allergy status; Z91.041 Radiographic dye allergy status; Z91.013 Allergy to seafood
CPT/HCPCS: 36415; 71046; 80053; 81003; 82550; 82553; 83036; 83605; 83690; 83735; 84484; 85025; 85610; 85730; 87040; 87070; 87086; 87205; 87502; 93005; 94640; 94760; 96361; 96374; 96375; 99285

== ENCOUNTER 2017-05-20 13:07 | Emergency (ER) | payer MEDICARE ==
--- NOTE | 2017-05-20 14:07 | XR ---
EXAMINATION TYPE: XR KUB DATE OF EXAM: 05/20/2017 2:01 PM CLINICAL HISTORY: History of kidney stones with right flank pain TECHNIQUE: Two Upright KUB images of the abdomen are obtained. COMPARISON: CT abdomen and pelvis March 15, 2017 FINDINGS: Scattered gas is seen in non-distended small bowel loops. Gas and fecal material is seen in non-distended colon. Scattered pelvic phleboliths are present. No pneumoperitoneum is identified. Coco ng bases are clear. Osseous structures are intact IMPRESSION: Overall nonobstructive bowel gas pattern. No definite nephrolithiasis.
[2017-05-20 14:29] LABS: Basophils % (A) 0 %; Eosinophils # (A) 0.1 k/uL (0-0.7); Eosinophils % (A) 1 %; HCT 48.1 % (34.0-46.0); HGB 15.9 gm/dL (11.4-16.0); Lymphocytes # (A) 0.8 k/uL (1.0-4.8); Lymphocytes % (A) 7 %; MCHC 33.1 g/dL (31.0-37.0); MCV 87.6 fL (80.0-100.0); Mean Platelet Volume 7.1; Monocytes # (A) 0.3 k/uL (0-1.0); Monocytes % (A) 2 %; Neutrophils # (A) 10.6 k/uL (1.3-7.7); Neutrophils % (A) 90 %; Platelet Count 217 k/uL (150-450); RBC 5.48 m/uL (3.80-5.40); RDW 14.4 % (11.5-15.5); WBC 11.8 k/uL (3.8-10.6)
[2017-05-20 14:30] LABS: Appearance,Urine Clear (Clear); Bilirubin,Urine Negative (Negative); Blood,Urine Negative (Negative); Color,Urine Yellow; Glucose,Urine (UA) Negative (Negative); Ketones,Urine Negative (Negative); Leukocyte Esterase,Urine Negative (Negative); PH, Urine 7.5 (5.0-8.0); Protein,Urine Negative (Negative); Specific Gravity,Urine 1.013 (1.001-1.035); Urobilinogen,Urine <2.0 mg/dL (<2.0)
[2017-05-20 14:40] LABS: ALT 40 U/L (9-52); AST 26 U/L (14-36); Albumin 4.2 g/dL (3.5-5.0); Alkaline Phosphatase 52 U/L (38-126); Amylase 78 U/L (30-110); Anion Gap 8 mmol/L; Blood Urea Nitrogen 21 mg/dL (7-17); Carbon Dioxide 30 mmol/L (22-30); Chloride 101 mmol/L (98-107); Glucose 127 mg/dL (74-99); Lipase 189 U/L (23-300); Potassium 4.9 mmol/L (3.5-5.1); Sodium 139 mmol/L (137-145); Total Bilirubin 0.5 mg/dL (0.2-1.3); Total Protein 6.8 g/dL (6.3-8.2)
[2017-05-20] MEDS ORDERED: ONDANSETRON 4 MG/2 ML VIAL IVP STA (15:05)
[2017-05-20] MEDS ORDERED: MORPHINE SULFATE 4 MG/ML SYRINGE IV STA (15:05)
[2017-05-20] MEDS ORDERED: SODIUM CHLORIDE 0.9% 1,000 ML IV STA (15:05)
--- NOTE | 2017-05-20 15:26 | ED ---
General Adult HPI - General Chief complaint: Abdominal Pain Stated complaint: Flank pain Time Seen by Provider: 05/20/17 15:00 Source: patient, RN notes reviewed Mode of arrival: ambulatory Limitations: no limitations - History of Present Illness Initial comments: 61-year-old female presents to the emergency department with a chief complaint of right-sided flank pain that radiates into the right lower quadrant. She's had this starting last night. She states she was recently diagnosed with pneumonia and admitted and then discharged week ago. She states that she is not noticing a burning or stinging with urination. having bowel movements with no change She did not know if she has any blood in her urine. She states she has had some nausea. She was concerned due to her continued pain and the fact that it was seeming to present much like the pain that she's had in the past with kidney stones she thought that she should be evaluated. Patient states she is not currently having any other current Patient denies any recent fever, chills, shortness of breath, chest pain, back pain, vomiting, numbness or tingling, dysuria or hematuria, constipation or diarrhea, headaches or visual changes, or any other current symptoms. - Related Data Home Medications Medication Instructions Recorded Confirmed Albuterol Inhaler [Ventolin Hfa 1 - 2 puff INHALATION RT-Q6H PRN 12/10/15 Inhaler] Albuterol Nebulized [Ventolin 2.5 mg INHALATION RT-QID 12/10/15 04/28/17 Nebulized] Aspirin EC [Ecotrin Low Dose] 81 mg PO DAILY 12/10/15 04/28/17 Baclofen [Lioresal] 10 mg PO TID 12/10/15 04/28/17 Benzonatate [Tessalon Perles] 100 mg PO TID PRN 12/10/15 04/28/17 DULoxetine HCL [Cymbalta] 30 mg PO BID 12/10/15 04/28/17 Multivitamins, Thera [Multivitamin 1 tab PO DAILY 12/10/15 04/28/17 (formulary)] Omeprazole [PriLOSEC] 20 mg PO AC-BID 12/10/15 04/28/17 Ascorbic Acid [Vitamin C] 500 mg PO DAILY 05/15/16 04/28/17 [place]-3 Fatty Acids/Fish Oil [Fish 1 cap PO DAILY 05/15/16 04/28/17 Oil 1,000 mg Softgel] Ethambutol [Myambutol] 1,200 mg PO DAILY 03/15/17 04/28/17 Calcium Polycarbophil [[place]] 625 mg PO DAILY 04/28/17 04/28/17 Docusate [Colace] 100 mg PO BID PRN 04/28/17 04/28/17 HYDROcodone/APAP 10-325MG [[place] 1 tab PO BID 04/28/17 04/28/17 10-325] Melatonin 10 mg PO 04/28/17 Previous Rx's Medication Instructions Recorded Clarithromycin [Biaxin] 500 mg PO DAILY #30 tab 05/25/16 Rifampin [Rifadin] 300 mg PO BID #60 cap 05/25/16 Ibuprofen [Motrin] 600 mg PO Q8HR PRN #21 tab 05/06/17 Nicotine 21Mg/24Hr Patch [Habitrol] 1 patch TRANSDERM DAILY #30 patch 05/06/17 guaiFENesin [Mucinex] 600 mg PO Q12HR #10 tablet.er 05/06/17 guaiFENesin-Coden 100-10MG/5ML 5 ml PO TID PRN #25 cup 05/06/17 [Robitussin AC] predniSONE 10 mg PO DIRECTED #30 tab 05/06/17 Allergies Allergy/AdvReac Type Severity Reaction Status Date / Time Iodinated Contrast- Oral and Allergy Rash/Hives Verified 05/20/17 16:17 IV Dye [Iodinated Contrast Media - IV Dye] shellfish derived Allergy Rash/Hives Verified 05/20/17 16:17 venom-honey bee Allergy Anaphylaxis Verified 05/20/17 16:17 [bee venom (honey bee)] Review of Systems ROS Statement: Those systems with pertinent positive or pertinent negative responses have been documented in the HPI. ROS Other: All systems not noted in ROS Statement are negative. Past Medical History Past Medical History: Asthma, COPD, Fibromyalgia, GERD/Reflux, Hyperlipidemia, Osteoarthritis (OA), Pneumonia, Respiratory Disorder Additional Past Medical History / Comment(s): Chronic neck pain"herniated discs ", arthitis, osteoporosis, fibrocystic breast disease, cataracts, "MAC" tx by dr [place]. History of Any Multi-Drug Resistant Organisms: None Reported Additional Past Surgical History / Comment(s): multiple breast surgeries(needle aspiration bx), tubal ligation, right foot surgery 40 years ago to removed a foreign object, bronchosocpy, inj in neck. Past Anesthesia/Blood Transfusion Reactions: No Reported Reaction Additional Past Anesthesia/Blood Transfusion Reaction / Comment(s): clausterphobia Past Psychological History: Anxiety, Bipolar, Depression, Panic Disorder Smoking Status: Current every day smoker Past Alcohol Use History: None Reported Past Drug Use History: None Reported - Past Family History Mother Family Medical History: Cancer Additional Family Medical History / Comment(s): brain, breast cancer Father Family Medical History: Congestive Heart Failure (CHF), CVA/TIA, Renal Disease General Exam - General Exam Comments Initial Comments: General: The patient is awake and alert, in no distress, and does not appear acutely ill. Eye: Pupils are equal, round and reactive to light, extra-ocular movements are intact; there is normal conjunctiva bilaterally. No signs of icterus. Ears, nose, mouth and throat: There are moist mucous membranes. Neck: The neck is supple, there is no tenderness. Cardiovascular: There is a regular rate and rhythm. No murmur, rub or gallop is appreciated. Respiratory: Lungs are clear to auscultation, respirations are non-labored, breath sounds are equal. No wheezes, stridor, rales, or rhonchi. Gastrointestinal: Soft, non-distended, right lower quadrant tenderness of the abdomen without masses or organomegaly noted. There is no rebound or guarding present. No CVA tenderness. Bowel sounds are unremarkable. Back: There is no tenderness to palpation in the midline. There is no obvious deformity. No rashes noted. Musculoskeletal: Normal ROM, no tenderness, There is no pedal edema. There is no calf tenderness or swelling. Sensation intact. Pulses equal bilaterally 2+. Neurological: CN II-XII intact, There are no obvious motor or sensory deficits. Coordination appears grossly intact. Speech is normal. Skin: Skin is warm and dry and no rashes or lesions are noted. Psychiatric: Cooperative, appropriate mood & affect, normal judgment. Limitations: no limitations Course Vital Signs 05/20/17 05/20/17 05/20/17 13:35 15:33 16:00 Temperature 99.7 F H 97.7 F Pulse Rate 94 82 Respiratory 20 16 Rate Blood Pressure 150/65 118/53 O2 Sat by Pulse 94 L 93 L Oximetry Medical Decision Making - Medical Decision Making 61-year-old female presents for nausea vomiting with abdominal pain. At this time patient's lab work is been reviewed and previous admission has been reviewed. This time CAT scan does show some colonic feces. She is passing gas so she still having bowel movements. This time we will give her magnesium citrate. We did discuss the signs of obstruction we did discuss return parameters and follow-up and all questions. Patient stated that she understood and she is in agreement this plan. All questions have been answered. This time the patient will be discharged. - Lab Data Result diagrams: 05/20/17 14:09 05/20/17 14:09 Lab Results 05/20/17 05/20/17 05/20/17 Range/Units 14:09 14:09 14:09 WBC 11.8 H (3.8-10.6) k/uL RBC 5.48 H (3.80-5.40) m/uL Hgb 15.9 (11.4-16.0) gm/dL Hct 48.1 H (34.0-46.0) % MCV 87.6 (80.0-100.0) fL MCH 29.0 (25.0-35.0) pg MCHC 33.1 (31.0-37.0) g/dL RDW 14.4 (11.5-15.5) % Plt Count 217 (150-450) k/uL Neutrophils % 90 % Lymphocytes % 7 % Monocytes % 2 % Eosinophils % 1 % Basophils % 0 % Neutrophils # 10.6 H (1.3-7.7) k/uL Lymphocytes # 0.8 L (1.0-4.8) k/uL Monocytes # 0.3 (0-1.0) k/uL Eosinophils # 0.1 (0-0.7) k/uL Basophils # 0.0 (0-0.2) k/uL Sodium 139 (137-145) mmol/L Potassium 4.9 (3.5-5.1) mmol/L Chloride 101 (98-107) mmol/L Carbon Dioxide 30 (22-30) mmol/L Anion Gap 8 mmol/L BUN 21 H (7-17) mg/dL Creatinine 0.70 (0.52-1.04) mg/dL Est GFR (MDRD) Af Amer >60 (>60 ml/min/1.73 sqM) Est GFR (MDRD) Non-Af >60 (>60 ml/min/1.73 sqM) Glucose 127 H (74-99) mg/dL Calcium 10.0 (8.4-10.2) mg/dL Total Bilirubin 0.5 (0.2-1.3) mg/dL AST 26 (14-36) U/L ALT 40 (9-52) U/L Alkaline Phosphatase 52 (38-126) U/L Total Protein 6.8 (6.3-8.2) g/dL Albumin 4.2 (3.5-5.0) g/dL Amylase 78 (30-110) U/L Lipase 189 (23-300) U/L Urine Color Yellow Urine Appearance Clear (Clear) Urine pH 7.5 (5.0-8.0) Ur Specific [place] 1.013 (1.001-1.035) Urine Protein Negative (Negative) Urine Glucose (UA) Negative (Negative) Urine Ketones Negative (Negative) Urine Blood Negative (Negative) Urine Nitrite Negative (Negative) Urine Bilirubin Negative (Negative) Urine Urobilinogen <2.0 (<2.0) mg/dL Ur Leukocyte Esterase Negative (Negative) - Radiology Data Radiology results: report reviewed, image reviewed Disposition Clinical Impression: Pulmonary nodule, Constipation, Right flank pain Disposition: HOME SELF-CARE Condition: Stable Instructions: Constipation (ED) Additional Instructions: Please use medication as discussed. Please follow up with family doctor if symptoms have not improved over the next two days. Please return to the emergency room if your symptoms increase or worsen or for any other concerns. Referrals: Dionna Curran MD [Primary Care Provider] - 1-2 days Time of Disposition: 16:19
--- NOTE | 2017-05-20 15:35 | CT ---
EXAMINATION TYPE: CT abdomen pelvis wo con DATE OF EXAM: 05/20/2017 COMPARISON: 03/15/2017 HISTORY: Right side flank pain. CT DLP: 277.5 mGycm Automated exposure control for dose reduction was used. TECHNIQUE: Helical acquisition of images was performed from the lung bases through the pelvis. FINDINGS: LUNG BASES: 2 mm left basilar subcentimeter pulmonary nodule is seen on series 4 image 8. LIVER/GB: No significant abnormality is appreciated. No evidence of cholelithiasis. PANCREAS: No ductal dilatation. SPLEEN: No significant abnormality is seen. ADRENALS: No nodularity. KIDNEYS: No hydronephrosis or nephrolithiasis. FREE AIR: No free air is visualized multiple probable phleboliths are unchanged in position from the exam of 03/15/2017. There is no evidence of hydronephrosis or nephrolithiasis of either kidney nor w as there nephrolithiasis at the time of the prior exam of 03/15/2017. Again the right kidney is malro tated with its axis oriented slightly medially and posteriorly. REPRODUCTIVE ORGANS: No significant abnormality is seen URINARY BLADDER: Incompletely distended and incompletely evaluated ADENOPATHY: Exam is limited for evaluation of adenopathy without intravenous contrast. No gross evid ence of greater than 1 cm short axis lymph nodes are seen within the abdomen or pelvis. OSSEOUS STRUCTURES: Mild multilevel degenerative changes of the lumbar spine are noted. BOWEL: Moderate amount retained colonic stool is noted as seen on the prior exam. No evidence of pro ximal bowel dilatation to suggest obstruction. Findings indicative of fecal stasis are seen as there is small bowel feces sign within the terminal ileum. Appendix is retrocecal, air-filled and within no rmal limits.. IMPRESSION: 1. NO EVIDENCE OF HYDRONEPHROSIS OR NEPHROLITHIASIS. PELVIC PHLEBOLITHS ARE SIMILAR IN POSITION TO TH E PRIOR EXAM. NO NEPHROLITHIASIS WAS SEEN ON THE EXAM OF 03/15/2017. 2. MODERATE AMOUNT RETAINED COLONIC STOOL AND FINDINGS INDICATIVE OF INCREASED TRANSIT TIME/COLONIC S TASIS WITH SMALL BOWEL FECES SIGN IN THE TERMINAL ILEUM. 3. 2 MM LEFT BASILAR SUBCENTIMETER PULMONARY NODULE.
--- NOTE | 2017-05-20 15:53 | XR ---
EXAMINATION TYPE: XR chest 2V DATE OF EXAM: 05/20/2017 COMPARISON: Chest x-ray April 30, [address] chest December 10, 2015 HISTORY: Right-sided chest and flank pain. TECHNIQUE: Frontal and lateral views of the chest are obtained. FINDINGS: There is chronic parenchymal change with stable right greater than left upper lung nodular ity or nodular scarring. No new suspicious focal airspace opacity, pleural effusion, or pneumothorax is seen. The cardiac silhouette size is within normal limits. The osseous structures are intact. IMPRESSION: No suspicious acute cardiopulmonary process. No significant change from prior studies.
[2017-05-20 16:01] VITALS: TEMP 97.7
[2017-05-20] MEDS ORDERED: MAGNESIUM CITRATE 296 ML BOTTLE PO ONE (16:10)
[2017-05-20 16:54] VITALS: BP 118/63; PULSE 68; RESP 20
== END 2017-05-20 16:54 | disposition home or self-care (01) ==
LOC: EC 13:07
DX: K59.00 Constipation, unspecified (principal); R10.31 Right lower quadrant pain; R91.1 Solitary pulmonary nodule; R11.2 Nausea with vomiting, unspecified; J44.9 Chronic obstructive pulmonary disease, unspecified; M79.7 Fibromyalgia; K21.9 Gastro-esophageal reflux disease without esophagitis; E78.5 Hyperlipidemia, unspecified; M19.90 Unspecified osteoarthritis, unspecified site; F31.9 Bipolar disorder, unspecified; F41.0 Panic disorder [episodic paroxysmal anxiety]; F17.200 Nicotine dependence, unspecified, uncomplicated; Z79.891 Long term (current) use of opiate analgesic; Z79.899 Other long term (current) drug therapy; Z79.82 Long term (current) use of aspirin; Z91.013 Allergy to seafood; Z91.030 Bee allergy status; Z91.041 Radiographic dye allergy status
CPT/HCPCS: 36415; 80053; 82150; 83690; 85025; 81003; 71046; 74018; 74176; 99284; 96374; 96375; 96361; J2270; J2405

== ENCOUNTER 2017-07-16 21:09 | Emergency (ER) | payer MEDICARE ==
--- NOTE | 2017-07-16 22:26 | XR ---
EXAMINATION TYPE: XR foot complete LT DATE OF EXAM: 07/16/2017 COMPARISON: NONE HISTORY: Foot pain TECHNIQUE: 3 views FINDINGS: Metatarsals appear intact. I see no fracture nor dislocation. There are no erosions. There are small rounded calcifications adjacent to the fifth metatarsal head consistent with nonspecific de generative phenomenon. IMPRESSION: No fracture. No specific sign of inflammatory arthritis.
--- NOTE | 2017-07-16 23:03 | ED ---
General Adult HPI - General Chief complaint: Extremity Injury, Lower Stated complaint: ankle pain Time Seen by Provider: 07/16/17 21:50 Source: patient, RN notes reviewed Mode of arrival: wheelchair Limitations: no limitations - History of Present Illness Initial comments: 62-year-old female presents to the emergency department for chief complaint of left foot pain times one day. Patient states that earlier today she was at the vet when her dog started to attack other dogs and she attempted to stop it. Patient states she injured her her foot at that time. Patient states it is painful to walk on. She states it was painful to drive her car home from the that. Patient did not fall. She denies any dog bites or hitting her head. She denies any pain in her ankle or knee. She denies any pain in the back of her calf. No pain in her neck or back. Patient has no other including shortness of breath, chest pain, abdominal pain, nausea or vomiting. - Related Data Home Medications Medication Instructions Recorded Confirmed Albuterol Inhaler [Ventolin Hfa 1 - 2 puff INHALATION RT-Q6H PRN 12/10/15 Inhaler] Albuterol Nebulized [Ventolin 2.5 mg INHALATION RT-QID 12/10/15 07/16/17 Nebulized] Aspirin EC [Ecotrin Low Dose] 81 mg PO DAILY 12/10/15 07/16/17 Baclofen [Lioresal] 10 mg PO TID 12/10/15 07/16/17 DULoxetine HCL [Cymbalta] 30 mg PO BID 12/10/15 07/16/17 Multivitamins, Thera [Multivitamin 1 tab PO DAILY 12/10/15 07/16/17 (formulary)] Omeprazole [PriLOSEC] 20 mg PO AC-BID 12/10/15 07/16/17 Ascorbic Acid [Vitamin C] 500 mg PO DAILY 05/15/16 07/16/17 Ethambutol [Myambutol] 1,200 mg PO DAILY 03/15/17 07/16/17 Docusate [Colace] 100 mg PO BID PRN 04/28/17 07/16/17 HYDROcodone/APAP 10-325MG [[place] 1 tab PO BID PRN 04/28/17 07/16/17 10-325] Melatonin 10 mg PO HS 04/28/17 07/16/17 Ibuprofen [Motrin Ib] 800 mg PO TID PRN 07/16/17 07/16/17 Previous Rx's Medication Instructions Recorded Rifampin [Rifadin] 300 mg PO BID #60 cap 05/25/16 guaiFENesin-Coden 100-10MG/5ML 5 ml PO TID PRN #25 cup 05/06/17 [Robitussin AC] Allergies Allergy/AdvReac Type Severity Reaction Status Date / Time Iodinated Contrast- Oral and Allergy Rash/Hives Verified 07/16/17 21:45 IV Dye [Iodinated Contrast Media - IV Dye] shellfish derived Allergy Rash/Hives Verified 07/16/17 21:45 venom-honey bee Allergy Anaphylaxis Verified 07/16/17 21:45 [bee venom (honey bee)] Review of Systems ROS Statement: Those systems with pertinent positive or pertinent negative responses have been documented in the HPI. ROS Other: All systems not noted in ROS Statement are negative. Past Medical History Past Medical History: Asthma, COPD, Fibromyalgia, GERD/Reflux, Hyperlipidemia, Osteoarthritis (OA), Pneumonia, Respiratory Disorder Additional Past Medical History / Comment(s): Chronic neck pain"herniated discs ", arthitis, osteoporosis, fibrocystic breast disease, cataracts, "MAC" tx by dr [place]. History of Any Multi-Drug Resistant Organisms: None Reported Additional Past Surgical History / Comment(s): multiple breast surgeries(needle aspiration bx), tubal ligation, right foot surgery 40 years ago to removed a foreign object, bronchosocpy, inj in neck. Past Anesthesia/Blood Transfusion Reactions: No Reported Reaction Additional Past Anesthesia/Blood Transfusion Reaction / Comment(s): clausterphobia Past Psychological History: Anxiety, Bipolar, Depression, Panic Disorder Smoking Status: Current every day smoker Past Alcohol Use History: None Reported Past Drug Use History: None Reported - Past Family History Mother Family Medical History: Cancer Additional Family Medical History / Comment(s): brain, breast cancer Father Family Medical History: Congestive Heart Failure (CHF), CVA/TIA, Renal Disease General Exam Limitations: no limitations General appearance: alert, in no apparent distress Neck exam: Present: normal inspection, full ROM. Absent: tenderness, meningismus, lymphadenopathy Respiratory exam: Present: normal lung sounds bilaterally. Absent: respiratory distress, wheezes, rales, rhonchi, stridor Cardiovascular Exam: Present: regular rate, normal rhythm, normal heart sounds. Absent: systolic murmur, diastolic murmur, rubs, gallop, clicks Extremities exam: Present: full ROM (Patient is able to move the left ankle although ranges limited somewhat), tenderness (Tenderness in the dorsal left foot. No tenderness in the lateral or medial malleoli. No tenderness in the tib-fib or knee.), normal capillary refill (Refill less than 2 seconds. Pedal pulse 2+.), other (There is mild ecchymosis noted on the dorsal foot. No swelling noted patient has full sensation in the left lower foot.). Absent: calf tenderness (tenderness, swelling, redness, or warmth to the calf. Negative Homans sign. No pain behind the knee.) Course Vital Signs 07/16/17 07/16/17 21:22 23:28 Temperature 97.7 F 97.9 F Pulse Rate 73 70 Respiratory 20 18 Rate Blood Pressure 116/65 113/74 O2 Sat by Pulse 96 98 Oximetry Medical Decision Making - Medical Decision Making 62-year-old female presents to the emergency department for a chief complaint of left foot pain times one day. Patient was at the vet when her dog started to attack other dogs and she had to hold her off. She injured her foot during this time and stated it hurt to drive home. Patient denies head trauma or any other injuries. Patient denies pain in her ankle and calf and knee. On exam there is tenderness to the dorsal foot on some limited range of motion of the left ankle due to a pulling pain in the foot. Neurovascular intact in the left lower extremity. There is mild ecchymosis on the dorsal foot, no swelling. No tenderness behind the calf. No warmth, redness, or swelling of the calf. Negative Homans sign. X-ray demonstrates no acute fractures or dislocations. However, patient refused to try to walk on it and states that she cannot bear weight due to the pain. Therefore a short leg posterior splint was applied. Foot was flexed in 90. She will follow-up with orthopedics in one to 2 days. She will return to the emergency Department if she has any worsening symptoms. Disposition Clinical Impression: Foot pain, left Disposition: HOME SELF-CARE Condition: Good Instructions: Foot Sprain (ED) Additional Instructions: Please follow up with orthopedics in one to 2 days. You may need repeat x-rays in 7-10 days if symptoms do not resolve, as discussed. Please take Motrin or Tylenol for pain relief. Please return to the emergency department if you have any worsening symptoms. Is patient prescribed a controlled substance at d/c from ED?: No Referrals: Dionna Curran MD [Primary Care Provider] - 1-2 days Apollo Guevara DO [Doctor of Osteopathic Medicine] - 1-2 days Time of Disposition: 23:03
[2017-07-16 23:29] VITALS: BP 113/74; PULSE 70; RESP 18; TEMP 97.9
== END 2017-07-16 23:29 | disposition home or self-care (01) ==
LOC: EC 21:09
DX: S90.32XA Contusion of left foot, initial encounter (principal); J44.9 Chronic obstructive pulmonary disease, unspecified; K21.9 Gastro-esophageal reflux disease without esophagitis; M19.90 Unspecified osteoarthritis, unspecified site; F31.9 Bipolar disorder, unspecified; F41.0 Panic disorder [episodic paroxysmal anxiety]; F17.200 Nicotine dependence, unspecified, uncomplicated; Z79.82 Long term (current) use of aspirin; Z79.899 Other long term (current) drug therapy; Z91.013 Allergy to seafood; Z91.030 Bee allergy status; Z91.041 Radiographic dye allergy status; X58.XXXA Exposure to other specified factors, initial encounter; Y93.89 Activity, other specified; Y92.89 Other specified places as the place of occurrence of the external cause
CPT/HCPCS: 29515; 99283

== ENCOUNTER → 2017-07-23 | Outpatient (CLI) | payer MEDICARE ==
--- NOTE | 2017-07-24 08:21 | MM ---
Reason for exam: additional evaluation requested from prior study. Last mammogram was performed 19 years and 1 month ago. History: Patient is postmenopausal. Family history of breast cancer in mother. 2 excisional biopsies of the left breast. 2 excisional biopsies of the right breast. Physical Findings: Nurse did not find any significant physical abnormalities on exam. MG 3D Diag Mammo W/Cad SEE Bilateral CC, MLO, and LM view(s) were taken. Prior study comparison: August 12, 2015, mammogram, performed at [facility]. May 28, 2013, mammogram, performed at [facility]. The breast tissue is heterogeneously dense. This may lower the sensitivity of mammography. Stable scattered bilateral calcifications. Chronic asymmetric density superior left breast. No significant new findings when compared with previous films. These results were verbally communicated with the patient and result sheet given to the patient on 07/23/17. ASSESSMENT: Incomplete: need additional imaging evaluation, BI-RAD 0 RECOMMENDATION: Ultrasound of both breasts. (as ordered by clinician)
--- NOTE | 2017-07-24 08:23 | USB ---
Reason for exam: additional evaluation requested from abnormal screening. History: Patient is postmenopausal. Family history of breast cancer in mother. 2 excisional biopsies of the left breast. 2 excisional biopsies of the right breast. US Breast BILAT Right complete breast ultrasound includes all four quadrants, the retroareolar region and axilla. Finding demonstrates no cystic or solid lesion seen. Left complete breast ultrasound includes all four quadrants, the retroareolar region and axilla. Finding demonstrates no cystic or solid lesion seen. These results were verbally communicated with the patient and result sheet given to the patient on 07/23/17. ASSESSMENT: Negative, BI-RAD 1 RECOMMENDATION: Routine screening mammogram of both breasts in 1 year.
== END | disposition home or self-care (01) ==
LOC: RADMAMWWP 13:58
PROVIDERS: ATTEND Surgery
DX: R92.8 Other abnormal and inconclusive findings on diagnostic imaging of breast (principal)
CPT/HCPCS: 77066; 76641; G0279; 77062

== ENCOUNTER 2017-09-06 23:27 | Emergency (ER) | payer MEDICARE ==
[2017-09-06 23:34] VITALS: BP 115/75; PULSE 82; RESP 20; TEMP 97.9
[2017-09-06] MEDS ORDERED: FAMOTIDINE 20 MG TAB PO STA (23:53)
[2017-09-06] MEDS ORDERED: methylPREDNISolone SOD SUCCI 125 MG/2 ML VIAL IM STA (23:53)
--- NOTE | 2017-09-06 23:59 | ED ---
Allergic Reaction HPI - General Chief complaint: Allergic Reaction Stated complaint: hives Time Seen by Provider: 09/06/17 23:47 Source: patient, family, RN notes reviewed Mode of arrival: ambulatory Limitations: no limitations - History of Present Illness Initial Comments: This is a 62-year-old female who presents to the emergency department with chief complaint of hives. Patient states that she developed hives on her abdomen, genital region and legs yesterday. She denies any new medications or foods. Denies new soaps, lotions or laundry detergents. She does state she has an allergy to bees but has not been recently stung by a bee. Denies any chest pain or shortness of breath. Denies abdominal pain, nausea or vomiting, dizziness or headache. Does state that she has been taking Benadryl and complains of severe itching. - Related Data Home Medications Medication Instructions Recorded Confirmed Albuterol Inhaler [Ventolin Hfa 1 - 2 puff INHALATION RT-Q6H PRN 12/10/15 Inhaler] Albuterol Nebulized [Ventolin 2.5 mg INHALATION RT-QID 12/10/15 09/06/17 Nebulized] Aspirin EC [Ecotrin Low Dose] 81 mg PO DAILY 12/10/15 09/06/17 Baclofen [Lioresal] 10 mg PO TID 12/10/15 09/06/17 DULoxetine HCL [Cymbalta] 30 mg PO BID 12/10/15 09/06/17 Multivitamins, Thera [Multivitamin 1 tab PO DAILY 12/10/15 09/06/17 (formulary)] Omeprazole [PriLOSEC] 20 mg PO AC-BID 12/10/15 09/06/17 Ascorbic Acid [Vitamin C] 500 mg PO DAILY 05/15/16 09/06/17 Ethambutol [Myambutol] 1,200 mg PO DAILY 03/15/17 09/06/17 Docusate [Colace] 100 mg PO BID PRN 04/28/17 09/06/17 HYDROcodone/APAP 10-325MG [[place] 1 tab PO BID PRN 04/28/17 09/06/17 10-325] Melatonin 10 mg PO HS 04/28/17 09/06/17 Ibuprofen [Motrin Ib] 800 mg PO TID PRN 07/16/17 09/06/17 Previous Rx's Medication Instructions Recorded Rifampin [Rifadin] 300 mg PO BID #60 cap 05/25/16 guaiFENesin-Coden 100-10MG/5ML 5 ml PO TID PRN #25 cup 05/06/17 [Robitussin AC] Famotidine [Pepcid] 20 mg PO BID #8 tablet 09/06/17 diphenhydrAMINE [Benadryl] 50 mg PO TID #12 capsule 09/06/17 predniSONE 20 mg PO BID #8 tab 09/06/17 Allergies Allergy/AdvReac Type Severity Reaction Status Date / Time Iodinated Contrast- Oral and Allergy Rash/Hives Verified 09/06/17 23:34 IV Dye [Iodinated Contrast Media - IV Dye] shellfish derived Allergy Rash/Hives Verified 09/06/17 23:34 venom-honey bee Allergy Anaphylaxis Verified 09/06/17 23:34 [bee venom (honey bee)] Review of Systems ROS Statement: Those systems with pertinent positive or pertinent negative responses have been documented in the HPI. ROS Other: All systems not noted in ROS Statement are negative. Past Medical History Past Medical History: Asthma, COPD, Fibromyalgia, GERD/Reflux, Hyperlipidemia, Osteoarthritis (OA), Pneumonia, Respiratory Disorder Additional Past Medical History / Comment(s): Chronic neck pain"herniated discs ", arthitis, osteoporosis, fibrocystic breast disease, cataracts, "MAC" tx by dr [place]. History of Any Multi-Drug Resistant Organisms: None Reported Additional Past Surgical History / Comment(s): multiple breast surgeries(needle aspiration bx), tubal ligation, right foot surgery 40 years ago to removed a foreign object, bronchosocpy, inj in neck. Past Anesthesia/Blood Transfusion Reactions: No Reported Reaction Additional Past Anesthesia/Blood Transfusion Reaction / Comment(s): clausterphobia Past Psychological History: Anxiety, Bipolar, Depression, Panic Disorder Smoking Status: Current every day smoker Past Alcohol Use History: None Reported Past Drug Use History: None Reported - Past Family History Mother Family Medical History: Cancer Additional Family Medical History / Comment(s): brain, breast cancer Father Family Medical History: Congestive Heart Failure (CHF), CVA/TIA, Renal Disease General Exam - General Exam Comments Initial Comments: General: Awake and alert, well-developed; in no apparent distress. HEENT: Head atraumatic, normocephalic. Pupils are equal, round and reactive to light. Extraocular movements intact. Oropharynx moist without erythema or exudate. Neck: Supple. Normal ROM. Cardiovascular: Regular rate and rhythm. No murmurs, rubs or gallops. Chest symmetrical. Respiratory: Lungs clear to auscultation bilaterally. No wheezes, rales or rhonchi. Normal respiratory effort with no use of accessory muscles. Musculoskeletal: Normal ROM, no tenderness bilateral upper and lower extremities. Ambulating normally. Skin: [place], warm and dry with uriticarial lesions at bra line, pubis and bilateral inner thighs. Neurological: Alert and oriented x3. CN II-XII grossly intact. Speech is fluent and answers are appropriate. No focal neuro deficits. Psychiatric: Normal mood and affect. No overt signs of depression or anxiety noted. Limitations: no limitations Course Vital Signs 09/06/17 23:30 Temperature 97.9 F Pulse Rate 82 Respiratory 20 Rate Blood Pressure 115/75 O2 Sat by Pulse 97 Oximetry Medical Decision Making - Medical Decision Making This is a 62-year-old female who presents to the emergency department with chief complaint of hives. Patient states she developed a pruritic rash yesterday. On physical examination, there are urticarial lesions at the bra line, pubis and bilateral inner thighs. Patient given an injection of Solu- Medrol as well as a dose of Pepcid. She states that she did take Benadryl this evening prior to arrival. Patient will be started on at home course of steroids , Pepcid and Benadryl. Vital signs are stable and patient is in no acute distress. She'll be discharged home at this time. All questions answered. Disposition Clinical Impression: Urticaria Disposition: HOME SELF-CARE Condition: Good Instructions: Urticaria (ED) Additional Instructions: Please take medications as prescribed. Please follow up with primary care provider within 1-2 days. Return to emergency department if symptoms should worsen or any concerns arise. Prescriptions: diphenhydrAMINE [Benadryl] 50 mg PO TID #12 capsule Famotidine [Pepcid] 20 mg PO BID #8 tablet predniSONE 20 mg PO BID #8 tab Is patient prescribed a controlled substance at d/c from ED?: No Referrals: Dionna Curran MD [Primary Care Provider] - 1-2 days Time of Disposition: 23:58
== END 2017-09-07 00:26 | disposition home or self-care (01) ==
LOC: EC 23:27
DX: L50.9 Urticaria, unspecified (principal); J44.9 Chronic obstructive pulmonary disease, unspecified; M79.7 Fibromyalgia; K21.9 Gastro-esophageal reflux disease without esophagitis; F41.9 Anxiety disorder, unspecified; F32.9 Major depressive disorder, single episode, unspecified; F17.200 Nicotine dependence, unspecified, uncomplicated; Z79.82 Long term (current) use of aspirin; Z79.899 Other long term (current) drug therapy; Z91.041 Radiographic dye allergy status; Z91.013 Allergy to seafood; Z91.030 Bee allergy status
CPT/HCPCS: 99283 ×2; 96372 ×2; 96374; 96375; 99284; 93005; 71045; J2060; J1610; J2930

== ENCOUNTER 2017-09-07 20:55 | Emergency (ER) | payer MEDICARE ==
[2017-09-07] MEDS ORDERED: GLUCAGON 1 MG/ML VIAL IVP STA (21:27)
[2017-09-07] MEDS ORDERED: LORazepam 2 MG/ML INJ IV STA (21:27)
[2017-09-07 22:12] VITALS: BP 118/60; PULSE 83; RESP 18; TEMP 98.2
--- NOTE | 2017-09-07 22:18 | XR ---
EXAMINATION TYPE: XR chest 1V portable DATE OF EXAM: 09/07/2017 COMPARISON: 05/20/2017 HISTORY: Something stuck in the throat. Chest pain. TECHNIQUE: Single frontal view of the chest is obtained. FINDINGS: There is no heart failure. There is a mild infiltrate at the right cardiac border that is probably in the right lower lobe. Thoracic aorta is atheromatous. Heart size is normal. There is no p leural effusion. IMPRESSION: New right lower lobe or right middle lobe infiltrate compared to old exam. Normal heart.
--- NOTE | 2017-09-07 22:23 | ED ---
General Adult HPI - General Chief complaint: Skin/Abscess/Foreign Body Stated complaint: feels like something stuck in throat Time Seen by Provider: 09/07/17 21:10 Source: patient, RN notes reviewed, old records reviewed Mode of arrival: ambulatory Limitations: no limitations - History of Present Illness Initial comments: 62-year-old female presents with concern for esophageal foreign body. Patient was eating hamburger. She felt tightness in the middle of her chest. She was unable to swallow completely. She was able to take small sips of water but the pain persisted. She has had no previous esophageal issues. Denies any radiating pain. Denies worsening dyspnea, she does have baseline of dyspnea secondary to COPD. This is unchanged from normal. No abdominal pain or vomiting. - Related Data Home Medications Medication Instructions Recorded Confirmed Albuterol Inhaler [Ventolin Hfa 1 - 2 puff INHALATION RT-Q6H PRN 12/10/15 Inhaler] Albuterol Nebulized [Ventolin 2.5 mg INHALATION RT-QID 12/10/15 09/06/17 Nebulized] Aspirin EC [Ecotrin Low Dose] 81 mg PO DAILY 12/10/15 09/06/17 Baclofen [Lioresal] 10 mg PO TID 12/10/15 09/06/17 DULoxetine HCL [Cymbalta] 30 mg PO BID 12/10/15 09/06/17 Multivitamins, Thera [Multivitamin 1 tab PO DAILY 12/10/15 09/06/17 (formulary)] Omeprazole [PriLOSEC] 20 mg PO AC-BID 12/10/15 09/06/17 Ascorbic Acid [Vitamin C] 500 mg PO DAILY 05/15/16 09/06/17 Ethambutol [Myambutol] 1,200 mg PO DAILY 03/15/17 09/06/17 Docusate [Colace] 100 mg PO BID PRN 04/28/17 09/06/17 HYDROcodone/APAP 10-325MG [[place] 1 tab PO BID PRN 04/28/17 09/06/17 10-325] Melatonin 10 mg PO HS 04/28/17 09/06/17 Ibuprofen [Motrin Ib] 800 mg PO TID PRN 07/16/17 09/06/17 Previous Rx's Medication Instructions Recorded Rifampin [Rifadin] 300 mg PO BID #60 cap 05/25/16 guaiFENesin-Coden 100-10MG/5ML 5 ml PO TID PRN #25 cup 05/06/17 [Robitussin AC] Famotidine [Pepcid] 20 mg PO BID #8 tablet 09/06/17 diphenhydrAMINE [Benadryl] 50 mg PO TID #12 capsule 09/06/17 predniSONE 20 mg PO BID #8 tab 09/06/17 Levofloxacin [Levaquin] 500 mg PO DAILY 3 Days #5 tab 09/07/17 Allergies Allergy/AdvReac Type Severity Reaction Status Date / Time Iodinated Contrast- Oral and Allergy Rash/Hives Verified 09/07/17 21:03 IV Dye [Iodinated Contrast Media - IV Dye] shellfish derived Allergy Rash/Hives Verified 09/07/17 21:03 venom-honey bee Allergy Anaphylaxis Verified 09/07/17 21:03 [bee venom (honey bee)] Review of Systems ROS Statement: Those systems with pertinent positive or pertinent negative responses have been documented in the HPI. ROS Other: All systems not noted in ROS Statement are negative. Past Medical History Past Medical History: Asthma, COPD, Fibromyalgia, GERD/Reflux, Hyperlipidemia, Osteoarthritis (OA), Pneumonia, Respiratory Disorder Additional Past Medical History / Comment(s): Chronic neck pain"herniated discs ", arthitis, osteoporosis, fibrocystic breast disease, cataracts, "MAC" tx by dr [place]. History of Any Multi-Drug Resistant Organisms: None Reported Additional Past Surgical History / Comment(s): multiple breast surgeries(needle aspiration bx), tubal ligation, right foot surgery 40 years ago to removed a foreign object, bronchosocpy, inj in neck. Past Anesthesia/Blood Transfusion Reactions: No Reported Reaction Additional Past Anesthesia/Blood Transfusion Reaction / Comment(s): clausterphobia Past Psychological History: Anxiety, Bipolar, Depression, Panic Disorder Smoking Status: Current every day smoker Past Alcohol Use History: None Reported Past Drug Use History: None Reported - Past Family History Mother Family Medical History: Cancer Additional Family Medical History / Comment(s): brain, breast cancer Father Family Medical History: Congestive Heart Failure (CHF), CVA/TIA, Renal Disease General Exam Limitations: no limitations General appearance: alert, in no apparent distress Head exam: Present: atraumatic, normocephalic Eye exam: Present: normal appearance, PERRL ENT exam: Present: normal exam Neck exam: Present: normal inspection. Absent: tenderness, meningismus Respiratory exam: Present: wheezes. Absent: respiratory distress, stridor Cardiovascular Exam: Present: regular rate, normal rhythm GI/Abdominal exam: Present: soft. Absent: distended, tenderness Extremities exam: Present: normal inspection, normal capillary refill. Absent: pedal edema Neurological exam: Present: alert, oriented X3, CN II-XII intact. Absent: motor sensory deficit Psychiatric exam: Present: normal affect, normal mood Skin exam: Present: warm, dry, intact. Absent: cyanosis, diaphoretic Course Vital Signs 09/07/17 09/07/17 20:58 22:11 Temperature 98.8 F 98.2 F Pulse Rate 101 H 83 Respiratory 24 18 Rate Blood Pressure 144/85 118/60 O2 Sat by Pulse 96 96 Oximetry EKG Findings - EKG Comments: EKG Findings:: EKG: Normal sinus rhythm, rate of 79, MT interval 140, QRS duration 82, QTC 428, no ST segment elevation or depression, upright T waves. Medical Decision Making - Medical Decision Making 62-year-old female with concern for esophageal foreign body. Patient is given Ativan and glucagon. Chest x-rays obtained as the patient is wheezing bilaterally, she states this is her baseline. The x-ray does show worsening right lower lobe pneumonia, she will be treated for this. EKG is also obtained and this is nonischemic, normal sinus rhythm. After IV Ativan and glucagon patient states her symptoms have completely resolved. She has no pain. She is able to drink an entire glass of water. She will be given outpatient GI follow- up. She will return with worsening or changing symptoms. Disposition Clinical Impression: COPD (chronic obstructive pulmonary disease), Pneumonia, Esophageal foreign body Disposition: HOME SELF-CARE Condition: Good Instructions: COPD (Chronic Obstructive Pulmonary Disease) (ED), Esophageal Foreign Body (ED), Bacterial Pneumonia (ED) Prescriptions: Levofloxacin [Levaquin] 500 mg PO DAILY 3 Days #5 tab Is patient prescribed a controlled substance at d/c from ED?: No Referrals: Dionna Curran MD [Primary Care Provider] - 1-2 days Zeb Gilmore MD [STAFF PHYSICIAN] - 1-2 days Time of Disposition: :25
== END 2017-09-07 22:39 | disposition home or self-care (01) ==
LOC: EC 20:55
DX: T18.128A Food in esophagus causing other injury, initial encounter (principal); J44.0 Chronic obstructive pulmonary disease with (acute) lower respiratory infection; J18.9 Pneumonia, unspecified organism; K21.9 Gastro-esophageal reflux disease without esophagitis; M19.90 Unspecified osteoarthritis, unspecified site; M81.0 Age-related osteoporosis without current pathological fracture; F31.9 Bipolar disorder, unspecified; F41.9 Anxiety disorder, unspecified; F17.200 Nicotine dependence, unspecified, uncomplicated; Z79.82 Long term (current) use of aspirin; Z79.899 Other long term (current) drug therapy; Z91.013 Allergy to seafood; Z91.030 Bee allergy status; Z91.041 Radiographic dye allergy status
CPT/HCPCS: 93005; 71045; 99284; 96374; 96375; J2060; J1610

== ENCOUNTER 2017-09-08 11:02 | Emergency (ER) | payer MEDICARE ==
--- NOTE | 2017-09-08 11:13 | ED ---
Allergic Reaction HPI - General Chief complaint: Allergic Reaction Stated complaint: allergic reaction Time Seen by Provider: 09/08/17 11:12 Source: patient Mode of arrival: ambulatory Limitations: no limitations - History of Present Illness Initial Comments: Patient presents for ALLERGIC reaction. Patient states she woke up this morning with hives on her abdomen and inner thighs, along with mild lip swelling. Patient was seen for the same symptoms 2 days ago in the ER, discharged with steroids, Benadryl prescription. Patient states she took first dose of steroids yesterday. Patient states she has not taken any medications today. Patient was also seen in the ER yesterday for food bolus from a hamburger, symptoms resolved following glucagon, patient incidentally had pneumonia found on x-ray, was given prescription for levofloxacin, patient states she has not yet taken the first dose of levofloxacin. Patient states her symptoms of hives resolved after Benadryl, Solu-Medrol, Pepcid in the ER 2 days ago, but returned today. Patient has ALLERGY to shellfish, bees, however disc denies any exposure to these things. Patient states she was seen by an excavating contractor in the past who told her she had a dairy ALLERGY, however that was many years ago and she has since had dairy regularly without any reaction. 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 Denies any new foods, new laundry detergents, any other new exposures. Denies SOB, CP, Palpitations. MD Complaint: allergic reaction, hives - Related Data Home Medications Medication Instructions Recorded Confirmed Albuterol Inhaler [Ventolin Hfa 1 - 2 puff INHALATION RT-Q6H PRN 12/10/15 Inhaler] Albuterol Nebulized [Ventolin 2.5 mg INHALATION RT-QID 12/10/15 09/08/17 Nebulized] Aspirin EC [Ecotrin Low Dose] 81 mg PO DAILY 12/10/15 09/08/17 Baclofen [Lioresal] 10 mg PO TID 12/10/15 09/08/17 DULoxetine HCL [Cymbalta] 30 mg PO BID 12/10/15 09/08/17 Multivitamins, Thera [Multivitamin 1 tab PO DAILY 12/10/15 09/08/17 (formulary)] Omeprazole [PriLOSEC] 20 mg PO AC-BID 12/10/15 09/08/17 Ascorbic Acid [Vitamin C] 500 mg PO DAILY 05/15/16 09/08/17 Ethambutol [Myambutol] 1,200 mg PO DAILY 03/15/17 09/08/17 Docusate [Colace] 100 mg PO BID PRN 04/28/17 09/08/17 HYDROcodone/APAP 10-325MG [[place] 1 tab PO BID PRN 04/28/17 09/08/17 10-325] Melatonin 10 mg PO HS 04/28/17 09/08/17 Ibuprofen [Motrin Ib] 800 mg PO TID PRN 07/16/17 09/08/17 Previous Rx's Medication Instructions Recorded Rifampin [Rifadin] 300 mg PO BID #60 cap 05/25/16 guaiFENesin-Coden 100-10MG/5ML 5 ml PO TID PRN #25 cup 05/06/17 [Robitussin AC] Famotidine [Pepcid] 20 mg PO BID #8 tablet 09/06/17 diphenhydrAMINE [Benadryl] 50 mg PO TID #12 capsule 09/06/17 predniSONE 20 mg PO BID #8 tab 09/06/17 Levofloxacin [Levaquin] 500 mg PO DAILY 3 Days #5 tab 09/07/17 Ranitidine HCl [Zantac] 150 mg PO BID 5 Days #10 tab 09/08/17 diphenhydrAMINE [Benadryl] 50 mg PO Q6HR PRN #10 capsule 09/08/17 predniSONE 40 mg PO DAILY 5 Days #10 tab 09/08/17 Allergies Allergy/AdvReac Type Severity Reaction Status Date / Time Iodinated Contrast- Oral and Allergy Rash/Hives Verified 09/08/17 11:08 IV Dye [Iodinated Contrast Media - IV Dye] shellfish derived Allergy Rash/Hives Verified 09/08/17 11:08 venom-honey bee Allergy Anaphylaxis Verified 09/08/17 11:08 [bee venom (honey bee)] Review of Systems ROS Statement: Those systems with pertinent positive or pertinent negative responses have been documented in the HPI. ROS Other: All systems not noted in ROS Statement are negative. Constitutional: Denies: fever, chills, weakness Eyes: Denies: eye pain, eye discharge ENT: Reports: other (mild lip swelling). Denies: throat pain, congestion Respiratory: Denies: cough, dyspnea Cardiovascular: Denies: chest pain, palpitations Endocrine: Denies: fatigue Gastrointestinal: Denies: abdominal pain, nausea, vomiting Musculoskeletal: Denies: joint swelling, arthralgia, myalgia Skin: Reports: rash, change in color, pruritus Neurological: Denies: headache, weakness, numbness, confusion Past Medical History Past Medical History: Asthma, COPD, Fibromyalgia, GERD/Reflux, Hyperlipidemia, Osteoarthritis (OA), Pneumonia, Respiratory Disorder Additional Past Medical History / Comment(s): Chronic neck pain"herniated discs ", arthitis, osteoporosis, fibrocystic breast disease, cataracts, "MAC" tx by dr [place]. History of Any Multi-Drug Resistant Organisms: None Reported Additional Past Surgical History / Comment(s): multiple breast surgeries(needle aspiration bx), tubal ligation, right foot surgery 40 years ago to removed a foreign object, bronchosocpy, inj in neck. Past Anesthesia/Blood Transfusion Reactions: No Reported Reaction Additional Past Anesthesia/Blood Transfusion Reaction / Comment(s): clausterphobia Past Psychological History: Anxiety, Bipolar, Depression, Panic Disorder Smoking Status: Current every day smoker Past Alcohol Use History: None Reported Past Drug Use History: None Reported - Past Family History Mother Family Medical History: Cancer Additional Family Medical History / Comment(s): brain, breast cancer Father Family Medical History: Congestive Heart Failure (CHF), CVA/TIA, Renal Disease General Exam - General Exam Comments Initial Comments: Sitting up in bed. No acute distress. Conversing normally. Calm, pleasant. Limitations: no limitations Head exam: Present: atraumatic, normocephalic Eye exam: Present: normal appearance, PERRL, EOMI. Absent: scleral icterus, conjunctival injection, periorbital swelling, periorbital tenderness Pupils: Absent: irregular, unequal, miosis, mydriatic ENT exam: Present: normal exam, normal oropharynx, mucous membranes moist, other (Minimal lip swelling, no tongue swelling, oropharynx clear, no erythema or swelling of the oropharynx. No stridor.) Neck exam: Present: normal inspection, other (No edema of the neck.). Absent: tenderness, meningismus Respiratory exam: Present: normal lung sounds bilaterally. Absent: respiratory distress, wheezes, rales, rhonchi, stridor Cardiovascular Exam: Present: regular rate, normal rhythm GI/Abdominal exam: Present: soft. Absent: distended, tenderness, guarding, rebound Back exam: Present: normal inspection. 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 She has not yet taken any medications today, Benadryl, prednisone, Pepcid given. 12:32 live swelling resolved. Patient states pruritus calm, urticaria improving. Discussed need for steroids, Zantac, Benadryl use at home. Patient agrees to use these medications as prescribed. We'll give referral to excavating contractor given patient's repeat symptoms, history of previous ALLERGIES. Patient given strict instructions to return to ER immediately if difficulty breathing, tongue swelling, throat swelling, any other new or worsening symptoms. Patient understands and agrees, feels comfortable being discharged home. Disposition Clinical Impression: Allergic reaction Disposition: HOME SELF-CARE Condition: Good Instructions: Urticaria (ED) Prescriptions: diphenhydrAMINE [Benadryl] 50 mg PO Q6HR PRN #10 capsule PRN Reason: Allergic Reaction predniSONE 40 mg PO DAILY 5 Days #10 tab Ranitidine HCl [Zantac] 150 mg PO BID 5 Days #10 tab Is patient prescribed a controlled substance at d/c from ED?: No Referrals: Dionna Curran MD [Primary Care Provider] - 1-2 days Marce Lee MD [STAFF PHYSICIAN] - 1-2 days
[2017-09-08] MEDS ORDERED: diphenhydrAMINE 50 MG/ML 1 ML VIAL IVP STA (11:26)
[2017-09-08] MEDS ORDERED: FAMOTIDINE 20 MG/2 ML VIAL IV STA (11:26)
[2017-09-08] MEDS ORDERED: methylPREDNISolone SOD SUCCI 125 MG/2 ML VIAL IV STA (11:26)
[2017-09-08 13:00] VITALS: BP 122/58; PULSE 79; RESP 18; TEMP 98.3
== END 2017-09-08 12:59 | disposition home or self-care (01) ==
LOC: EC 11:02
DX: T78.40XA Allergy, unspecified, initial encounter (principal); J44.9 Chronic obstructive pulmonary disease, unspecified; K21.9 Gastro-esophageal reflux disease without esophagitis; M19.90 Unspecified osteoarthritis, unspecified site; F31.9 Bipolar disorder, unspecified; F41.0 Panic disorder [episodic paroxysmal anxiety]; F17.200 Nicotine dependence, unspecified, uncomplicated; Z79.82 Long term (current) use of aspirin; Z79.899 Other long term (current) drug therapy; Z91.013 Allergy to seafood; Z91.030 Bee allergy status; Z91.041 Radiographic dye allergy status; Z87.01 Personal history of pneumonia (recurrent)
CPT/HCPCS: 99283; 96374; 96375 ×2; J1200; J2930

== ENCOUNTER → 2017-10-09 | Outpatient (CLI) | payer MEDICARE ==
--- NOTE | 2017-10-09 11:41 | XR ---
EXAMINATION TYPE: XR chest 2V DATE OF EXAM: 10/09/2017 COMPARISON: 09/07/2017 INDICATION: Pneumonia TECHNIQUE: Frontal and lateral views of the chest are obtained. FINDINGS: The heart size is normal. The pulmonary vasculature is normal. There is some mild increased lung markings in the right upper lobe appears stable. Right lower lobe i nfiltrate appears resolved. IMPRESSION: 1. Resolution previous right lower lobe infiltrate. 2. Stable lung markings right upper lobe
== END | disposition home or self-care (01) ==
LOC: RADXRMAIN 11:20
PROVIDERS: ATTEND Internal Medicine
DX: J18.9 Pneumonia, unspecified organism (principal)
CPT/HCPCS: 71046

== ENCOUNTER 2018-04-18 16:45 | Inpatient (IN) | payer MEDICARE ==
[2018-04-18] MEDS ORDERED: ACETAMINOPHEN IV (For NPO) 1,000 MG in EMPTY BAG 1 BAG IVPB STA (17:31)
[2018-04-18] MEDS ORDERED: IPRATROPIUM-ALBUTEROL 3 ML NEB INHALATION STA (17:33)
--- NOTE | 2018-04-18 17:43 | ED ---
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 Patient states respiratory symptoms have been worsening over the last 3-4 days. States she is out of her home nebulizer treatment medication. States that she is coughing up green sputum with this. States she has felt feverish. Patient is also reporting nausea, vomiting, and diarrhea. Patient states symptoms started around midnight last night. States she has had several episodes of vomiting since its onset. States she did have several episodes of diarrhea as well with the last few episodes being here bright red blood. Patient states the diarrhea seems to have stopped and she is no longer passing gas. States she is having significant lower abdominal pain with this. Denies any history of GI bleed. Patient denies any recent rash, shortness breath, chest pain, back pain, numbness, tingling, dizziness, weakness, hematuria, dysuria, urinary urgency, urinary frequency, headache, visual changes, or any other complaints. - Related Data Home Medications Medication Instructions Recorded Confirmed Aspirin EC [Ecotrin Low Dose] 81 mg PO DAILY 12/10/15 04/18/18 Baclofen [Lioresal] 10 mg PO BID 12/10/15 04/18/18 DULoxetine HCL [Cymbalta] 30 mg PO BID 12/10/15 04/18/18 Multivitamins, Thera [Multivitamin 1 tab PO DAILY 12/10/15 04/18/18 (formulary)] Omeprazole [PriLOSEC] 20 mg PO AC-BID 12/10/15 04/18/18 Docusate [Colace] 100 mg PO BID PRN 04/28/17 04/18/18 HYDROcodone/APAP 10-325MG [[place] 1 tab PO BID PRN 04/28/17 04/18/18 10-325] Melatonin 10 mg PO HS 04/28/17 04/18/18 ALPRAZolam [Xanax] 0.25 mg PO Q8H 04/18/18 04/18/18 Ergocalciferol [Vitamin D2] 50,000 unit PO WE 04/18/18 04/18/18 Ibuprofen [Motrin] 600 mg PO Q8HR PRN 04/18/18 04/18/18 Montelukast [Singulair] 10 mg PO DAILY 04/18/18 04/18/18 guaiFENesin [Mucinex] 600 mg PO BID PRN 04/18/18 04/18/18 Allergies Allergy/AdvReac Type Severity Reaction Status Date / Time Iodinated Contrast- Oral and Allergy Rash/Hives Verified 04/18/18 17:31 IV Dye [Iodinated Contrast Media - IV Dye] shellfish derived Allergy Rash/Hives Verified 04/18/18 17:31 venom-honey bee Allergy Anaphylaxis Verified 04/18/18 17:31 [bee venom (honey bee)] Review of Systems ROS Statement: Those systems with pertinent positive or pertinent negative responses have been documented in the HPI. ROS Other: All systems not noted in ROS Statement are negative. Past Medical History Past Medical History: Asthma, COPD, Fibromyalgia, GERD/Reflux, Hyperlipidemia, Osteoarthritis (OA), Pneumonia, Respiratory Disorder Additional Past Medical History / Comment(s): Chronic neck pain"herniated discs ", arthitis, osteoporosis, fibrocystic breast disease, cataracts, "MAC" tx by dr [place]. History of Any Multi-Drug Resistant Organisms: None Reported Additional Past Surgical History / Comment(s): multiple breast surgeries(needle aspiration bx), tubal ligation, right foot surgery 40 years ago to removed a foreign object, bronchosocpy, inj in neck. Past Anesthesia/Blood Transfusion Reactions: No Reported Reaction Additional Past Anesthesia/Blood Transfusion Reaction / Comment(s): clausterphobia Past Psychological History: Anxiety, Bipolar, Depression, Panic Disorder Smoking Status: Current every day smoker Past Alcohol Use History: None Reported Past Drug Use History: None Reported - Past Family History Mother Family Medical History: Cancer Additional Family Medical History / Comment(s): brain, breast cancer Father Family Medical History: Congestive Heart Failure (CHF), CVA/TIA, Renal Disease General Exam Limitations: no limitations General appearance: alert, in no apparent distress, other (Physical well- developed, well-nourished adult female patient in no acute distress. Vital signs upon presentation To 100.5F oral, pulse 101, respirations 20, blood pressure 129/79, pulse ox 99% on room air.) Eye exam: Present: normal appearance, PERRL, EOMI. Absent: scleral icterus, conjunctival injection, periorbital swelling ENT exam: Present: normal exam, normal oropharynx, mucous membranes moist Respiratory exam: Present: wheezes (Expiratory wheezing to all posterior lung cartwright). Absent: normal lung sounds bilaterally, respiratory distress, rales, rhonchi, stridor Cardiovascular Exam: Present: normal rhythm, tachycardia, normal heart sounds. Absent: systolic murmur, diastolic murmur, rubs, gallop, clicks GI/Abdominal exam: Present: soft, tenderness (Left lower quadrant tenderness), normal bowel sounds. Absent: distended, guarding, rebound, rigid Neurological exam: Present: alert, oriented X3, CN II-XII intact Psychiatric exam: Present: normal affect, normal mood Skin exam: Present: warm, dry, intact, normal color. Absent: rash Course Vital Signs 04/18/18 04/18/18 04/18/18 17:03 18:28 18:35 Temperature 99.0 F 100.5 F H Pulse Rate 101 H 100 Respiratory 20 Rate Blood Pressure 129/79 O2 Sat by Pulse 99 Oximetry 04/18/18 18:39 Temperature Pulse Rate 100 Respiratory Rate Blood Pressure O2 Sat by Pulse Oximetry Medical Decision Making - Medical Decision Making 62-year-old female patient presented to the emergency department today for evaluation of worsening shortness of breath and cough as well as lower abdominal pain, bloody diarrhea, and vomiting. Physical examination did reveal lower abdominal tenderness especially over the left lower quadrant. Lungs sounds reveal expiratory wheezing in the posterior lung cartwright bilaterally. Patient was febrile with a temperature 100.5, mildly tachycardic at 101. Labs reviewed and did reveal elevated white blood cell count of 15.8. Patient's computed tomography scan did reveal severe colitis. Chest x-ray showed no acute abnormalities. Patient be admitted to the hospital for treatment of the colitis and COPD exacerbation. She'll be admitted to [facility] on consult for hx of MAC. - Lab Data Result diagrams: 04/18/18 18:13 04/18/18 18:13 Lab Results 04/18/18 04/18/18 04/18/18 Range/Units 18:13 18:13 18:13 WBC 15.8 H (3.8-10.6) k/uL RBC 5.44 H (3.80-5.40) m/uL Hgb 14.7 (11.4-16.0) gm/dL Hct 46.6 H (34.0-46.0) % MCV 85.7 (80.0-100.0) fL MCH 27.1 (25.0-35.0) pg MCHC 31.6 (31.0-37.0) g/dL RDW 14.2 (11.5-15.5) % Plt Count 218 (150-450) k/uL Neutrophils % 82 % Lymphocytes % 11 % Monocytes % 5 % Eosinophils % 1 % Basophils % 0 % Neutrophils # 12.9 H (1.3-7.7) k/uL Lymphocytes # 1.8 (1.0-4.8) k/uL Monocytes # 0.8 (0-1.0) k/uL Eosinophils # 0.2 (0-0.7) k/uL Basophils # 0.0 (0-0.2) k/uL PT (9.0-12.0) sec INR (<1.2) APTT (22.0-30.0) sec Sodium 139 (137-145) mmol/L Potassium 4.2 (3.5-5.1) mmol/L Chloride 107 (98-107) mmol/L Carbon Dioxide 24 (22-30) mmol/L Anion Gap 8 mmol/L BUN 15 (7-17) mg/dL Creatinine 0.73 (0.52-1.04) mg/dL Est GFR (CKD-EPI)AfAm >90 (>60 ml/min/1.73 sqM) Est GFR (CKD-EPI)NonAf 89 (>60 ml/min/1.73 sqM) Glucose 124 H (74-99) mg/dL Plasma Lactic Acid Jose 1.7 (0.7-2.0) mmol/L Calcium 9.4 (8.4-10.2) mg/dL Total Bilirubin 0.6 (0.2-1.3) mg/dL AST 28 (14-36) U/L ALT 28 (9-52) U/L Alkaline Phosphatase 51 (38-126) U/L Total Protein 6.5 (6.3-8.2) g/dL Albumin 3.9 (3.5-5.0) g/dL Lipase 91 (23-300) U/L Urine Color Urine Appearance (Clear) Urine pH (5.0-8.0) Ur Specific [place] (1.001-1.035) Urine Protein (Negative) Urine Glucose (UA) (Negative) Urine Ketones (Negative) Urine Blood (Negative) Urine Nitrite (Negative) Urine Bilirubin (Negative) Urine Urobilinogen (<2.0) mg/dL Ur Leukocyte Esterase (Negative) Urine RBC (0-5) /hpf Ur Squamous Epith Cells (0-4) /hpf Urine Mucus (None) /hpf Influenza Type A RNA (Not Detectd) Influenza Type B (PCR) (Not Detectd) 04/18/18 04/18/18 04/18/18 Range/Units 18:13 18:13 18:13 WBC (3.8-10.6) k/uL RBC (3.80-5.40) m/uL Hgb (11.4-16.0) gm/dL Hct (34.0-46.0) % MCV (80.0-100.0) fL MCH (25.0-35.0) pg MCHC (31.0-37.0) g/dL RDW (11.5-15.5) % Plt Count (150-450) k/uL Neutrophils % % Lymphocytes % % Monocytes % % Eosinophils % % Basophils % % Neutrophils # (1.3-7.7) k/uL Lymphocytes # (1.0-4.8) k/uL Monocytes # (0-1.0) k/uL Eosinophils # (0-0.7) k/uL Basophils # (0-0.2) k/uL PT 10.1 (9.0-12.0) sec INR 0.9 (<1.2) APTT 23.9 (22.0-30.0) sec Sodium (137-145) mmol/L Potassium (3.5-5.1) mmol/L Chloride (98-107) mmol/L Carbon Dioxide (22-30) mmol/L Anion Gap mmol/L BUN (7-17) mg/dL Creatinine (0.52-1.04) mg/dL Est GFR (CKD-EPI)AfAm (>60 ml/min/1.73 sqM) Est GFR (CKD-EPI)NonAf (>60 ml/min/1.73 sqM) Glucose (74-99) mg/dL Plasma Lactic Acid Jose (0.7-2.0) mmol/L Calcium (8.4-10.2) mg/dL Total Bilirubin (0.2-1.3) mg/dL AST (14-36) U/L ALT (9-52) U/L Alkaline Phosphatase (38-126) U/L Total Protein (6.3-8.2) g/dL Albumin (3.5-5.0) g/dL Lipase (23-300) U/L Urine Color Light Yellow Urine Appearance Clear (Clear) Urine pH 6.0 (5.0-8.0) Ur Specific [place] 1.004 (1.001-1.035) Urine Protein Negative (Negative) Urine Glucose (UA) Negative (Negative) Urine Ketones Negative (Negative) Urine Blood Small H (Negative) Urine Nitrite Negative (Negative) Urine Bilirubin Negative (Negative) Urine Urobilinogen <2.0 (<2.0) mg/dL Ur Leukocyte Esterase Negative (Negative) Urine RBC 4 (0-5) /hpf Ur Squamous Epith Cells 1 (0-4) /hpf Urine Mucus Rare H (None) /hpf Influenza Type A RNA Not Detected (Not Detectd) Influenza Type B (PCR) Not Detected (Not Detectd) - EKG Data -: EKG Interpreted by Sc EKG Comments: EKG obtained at 1826 shows normal sinus rhythm with possible left atrial enlargement, ventricular rate is 73, CO interval 152, QRS duration 80, QT 376, QTC 414. No evidence of ST elevation or depression - Radiology Data Radiology results: report reviewed, image reviewed Two-view x-ray of the chest is obtained. Report was reviewed in its entirety. Impression by Dr. Wells shows bilateral upper lobe nodular densities could relate to old granulomatous disease and appears unchanged compared to old exam. Normal heart. CT abdomen and pelvis without contrast was obtained. Report reviewed in its entirety. Impression by Dr. Wells shows long segment of large bowel wall thickening involving the splenic flexure and descending colon consistent with a severe nonspecific colitis. This is a change. Disposition Clinical Impression: Colitis, Sepsis, COPD exacerbation Disposition: ADMITTED IP TO THIS [facility] Condition: Serious Referrals: Dionna Curran MD [Primary Care Provider] - 1-2 days Decision to Admit Reason: Admit from EC Decision Date: 04/18/18 Decision Time: 21:24
[2018-04-18] MEDS: SODIUM CHLORIDE 0.9% 500 ML 500 ML IV SCH ×2 (18:08→18:09)
[2018-04-18] MEDS ORDERED: ONDANSETRON 4 MG/2 ML VIAL IVP STA (18:25)
[2018-04-18 18:27] LABS: Basophils % (A) 0 %; Eosinophils # (A) 0.2 k/uL (0-0.7); Eosinophils % (A) 1 %; HCT 46.6 % (34.0-46.0); HGB 14.7 gm/dL (11.4-16.0); Lymphocytes # (A) 1.8 k/uL (1.0-4.8); Lymphocytes % (A) 11 %; MCH 27.1 pg (25.0-35.0); MCHC 31.6 g/dL (31.0-37.0); MCV 85.7 fL (80.0-100.0); Mean Platelet Volume 6.9; Monocytes # (A) 0.8 k/uL (0-1.0); Monocytes % (A) 5 %; Neutrophils # (A) 12.9 k/uL (1.3-7.7); Neutrophils % (A) 82 %; Platelet Count 218 k/uL (150-450); RBC 5.44 m/uL (3.80-5.40); RDW 14.2 % (11.5-15.5); WBC 15.8 k/uL (3.8-10.6)
[2018-04-18 18:39] LABS: ALT 28 U/L (9-52); AST 28 U/L (14-36); Albumin 3.9 g/dL (3.5-5.0); Alkaline Phosphatase 51 U/L (38-126); Anion Gap 8 mmol/L; Blood Urea Nitrogen 15 mg/dL (7-17); Calcium 9.4 mg/dL (8.4-10.2); Carbon Dioxide 24 mmol/L (22-30); Chloride 107 mmol/L (98-107); Glucose 124 mg/dL (74-99); Lipase 91 U/L (23-300); Potassium 4.2 mmol/L (3.5-5.1); Sodium 139 mmol/L (137-145); Total Bilirubin 0.6 mg/dL (0.2-1.3); Total Protein 6.5 g/dL (6.3-8.2)
[2018-04-18] MEDS ORDERED: methylPREDNISolone SOD SUCCI 125 MG/2 ML VIAL IV STA (18:46)
[2018-04-18] MEDS ORDERED: diphenhydrAMINE 50 MG/ML 1 ML VIAL IVP STA (18:46)
[2018-04-18] MEDS ORDERED: FAMOTIDINE 20 MG/2 ML VIAL IV STA (18:46)
[2018-04-18 19:06] LABS: INR 0.9 (<1.2); Partial Thromboplastin Time 23.9 sec (22.0-30.0); Prothrombin Time 10.1 sec (9.0-12.0)
[2018-04-18 19:39] LABS: Appearance,Urine Clear (Clear); Bilirubin,Urine Negative (Negative); Blood,Urine Small (Negative); Color,Urine Light Yellow; Glucose,Urine (UA) Negative (Negative); Ketones,Urine Negative (Negative); Leukocyte Esterase,Urine Negative (Negative); Mucus,Urine Rare /hpf; Nitrite,Urine Negative (Negative); Protein,Urine Negative (Negative); RBC,Urine 4 /hpf (0-5); Specific Gravity,Urine 1.004 (1.001-1.035); Squamous Epithelial Cell,Urine 1 /hpf (0-4); Urobilinogen,Urine <2.0 mg/dL (<2.0)
--- NOTE | 2018-04-18 19:42 | XR ---
EXAMINATION TYPE: XR chest 2V DATE OF EXAM: 04/18/2018 COMPARISON: 10/09/2017 HISTORY: Fever and congestion TECHNIQUE: Frontal and lateral views of the chest are obtained. FINDINGS: Heart and mediastinum are normal. Lungs are clear of consolidation. There is a nodular inf iltrate in the upper lung cartwright. There are multiple densities that measure up to 1.5 cm. This could relate to old granulomatous disease. There is no pleural effusion. There are chest leads. There is no heart failure. Bony thorax is intact. IMPRESSION: Bilateral upper lobe nodular densities could relate to old granulomatous disease and michelle ears unchanged compared to old exam. Normal heart.
--- NOTE | 2018-04-18 19:48 | CT ---
EXAMINATION TYPE: CT abdomen pelvis wo con DATE OF EXAM: 04/18/2018 COMPARISON: 05/20/2017 HISTORY: abdominal pain, bleeding..pt said bright red/ CT DLP: 390.4 mGycm Automated exposure control for dose reduction was used. TECHNIQUE: Helical acquisition of images was performed from the lung bases through the pelvis. FINDINGS: Lung bases are clear. There is no pleural effusion. Heart size is normal. Liver spleen pancreas gallbladder appear normal. Bile ducts are not dilated. There is no adrenal mass . The kidneys show normal size and contour. There is no hydronephrosis. Bladder distends smoothly. Th ere is no inguinal hernia. There is no free fluid in the pelvis. There is significant thickening of the wall of the descending colon and the splenic flexure with. Per icolic edema. The transverse colon appears fairly normal. I see no evidence of a bowel obstruction. T he lumbar spine is intact. Bony pelvis is intact. Uterus is anteverted. There is no retroperitoneal a denopathy. There is no sign of free air. IMPRESSION: THERE IS A LONG SEGMENT OF LARGE BOWEL WALL THICKENING INVOLVING THE SPLENIC FLEXURE AND THE DESCENDI NG COLON CONSISTENT WITH A SEVERE NONSPECIFIC COLITIS. THIS IS A CHANGE COMPARED TO OLD EXAM.
[2018-04-18] MEDS ORDERED: metroNIDAZOLE-NS PMX 500 MG in SALINE 1 100ML.BAG IVPB STA (20:54)
[2018-04-18] MEDS ORDERED: NALOXONE 0.4 MG/ML 1 ML VIAL IV PRN (21:16)
[2018-04-18] MEDS ORDERED: IPRATROPIUM-ALBUTEROL 3 ML NEB INHALATION PRN (21:24)
[2018-04-18] MEDS: SODIUM CHLORIDE 0.9% 1,000 ML IV SCH (21:45)
[2018-04-19 00:37] LABS: HCT 42.8 % (34.0-46.0); HGB 13.2 gm/dL (11.4-16.0); MCH 27.3 pg (25.0-35.0); MCHC 30.9 g/dL (31.0-37.0); MCV 88.4 fL (80.0-100.0); Mean Platelet Volume 6.5; Platelet Count 200 k/uL (150-450); RBC 4.85 m/uL (3.80-5.40); RDW 14.1 % (11.5-15.5); WBC 13.1 k/uL (3.8-10.6)
[2018-04-19] MEDS: IPRATROPIUM-ALBUTEROL 3 ML NEB INHALATION SCH ×7 (00:48→23:34)
[2018-04-19 02:33] VITALS: BMI 24.5
[2018-04-19] MEDS: methylPREDNISolone SOD SUCCI 125 MG/2 ML VIAL IV SCH ×4 (03:38→17:32)
[2018-04-19] MEDS: HYDROmorphone 0.5 MG/0.5 ML SYRINGE IVP PRN ×4 (03:38→21:56)
[2018-04-19] MEDS ORDERED: guaiFENesin 600 MG TABLET.ER PO PRN (06:33)
[2018-04-19] MEDS ORDERED: IBUPROFEN 600 MG TAB PO PRN (06:33)
[2018-04-19] MEDS: metroNIDAZOLE-NS PMX 500 MG in SALINE 1 100ML.BAG IVPB SCH ×3 (06:48→17:32)
[2018-04-19 07:02] LABS: Glucose,Whole Blood 119 mg/dL (75-99)
[2018-04-19] MEDS: ALPRAZolam 0.25 MG TAB PO SCH ×3 (07:21→22:01)
[2018-04-19] MEDS: ASPIRIN 81 MG PO SCH (09:11)
[2018-04-19] MEDS: PANTOPRAZOLE 40 MG TABLET PO SCH ×2 (09:11→17:32)
[2018-04-19] MEDS: MONTELUKAST 10 MG TAB PO SCH (09:11)
[2018-04-19] MEDS: DULoxetine HCL 30 MG CAPSULE.DR PO SCH ×2 (09:11→21:59)
[2018-04-19] MEDS: MULTIVITAMINS, THERA 1 EACH TAB PO SCH (09:11)
[2018-04-19] MEDS: BACLOFEN 10 MG TAB PO SCH ×2 (09:11→21:59)
[2018-04-19] MEDS: NICOTINE 21MG/24HR PATCH TRANSDERM SCH (09:17)
[2018-04-19] MEDS: ONDANSETRON 4 MG/2 ML VIAL IVP PRN (09:25)
[2018-04-19] MEDS: SODIUM CHLORIDE 0.9% 1,000 ML IV SCH (10:49)
[2018-04-19 11:05] LABS: Basophils % (A) 0 %; Eosinophils % (A) 0 %; HCT 43.7 % (34.0-46.0); HGB 13.6 gm/dL (11.4-16.0); Hypochromasia Slight; Lymphocytes # (A) 0.9 k/uL (1.0-4.8); Lymphocytes % (A) 6 %; MCH 27.9 pg (25.0-35.0); MCHC 31.2 g/dL (31.0-37.0); MCV 89.6 fL (80.0-100.0); Monocytes # (A) 0.1 k/uL (0-1.0); Monocytes % (A) 1 %; Neutrophils # (A) 14.1 k/uL (1.3-7.7); Neutrophils % (A) 93 %; Platelet Count 191 k/uL (150-450); RBC 4.87 m/uL (3.80-5.40); RDW 14.1 % (11.5-15.5); WBC 15.2 k/uL (3.8-10.6)
[2018-04-19 11:16] LABS: ALT 27 U/L (9-52); AST 25 U/L (14-36); Albumin 3.4 g/dL (3.5-5.0); Alkaline Phosphatase 53 U/L (38-126); Anion Gap 9 mmol/L; Blood Urea Nitrogen 10 mg/dL (7-17); Calcium 8.5 mg/dL (8.4-10.2); Carbon Dioxide 25 mmol/L (22-30); Chloride 107 mmol/L (98-107); Glucose 173 mg/dL (74-99); Potassium 4.8 mmol/L (3.5-5.1); Sodium 141 mmol/L (137-145); Total Bilirubin 0.5 mg/dL (0.2-1.3); Total Protein 5.7 g/dL (6.3-8.2)
--- NOTE | 2018-04-19 11:33 | P.HPIM ---
History of Present Illness H&P Date: 04/19/18 This is a 62-year-old female patient who presented to the emergency room with complaints of nausea vomiting and diarrhea. Patient reports the nausea vomiting and diarrhea started around midnight two nights ago. Patient reports that diarrhea eventually turned to blood. Patient reports multiple bowel movements that appeared dark. Patient denies any fevers. Patient denies any change in diet. Patient reports last colonoscopy was greater than 5 years ago. Patient also reports complaints of increased chest congestion cough and shortness of breath. Patient reports history of COPD caused by MAC infection in which she follows with qc manager Dr. Tristan. Patient reports that her chest congestion and increased sputum production has been increasing over the past 3-4 days. Additional medical history includes asthma, COPD, fibromyalgia, GERD, hyperlipidemia, osteoarthritis, pneumonia, chronic neck pain, arthritis, anxiety, depression and panic disorder and current every day smoker. Chest x- ray completed in emergency room showing bilateral upper lobe nodule densities could relate to old granulomatous disease and appears unchanged compared to old exam. Normal heart. CT of abdomen and pelvis completed showing a long segment of large bowel wall thickening involving the splenic flexure and descending colon severe nonspecific colitis. This is change compared to old exam. EKG completed showing normal sinus rhythm. Possible left atrial enlargement. Dr. Tristan has been consulted for pulmonary services. Patient started on IV steroids. Patient started on Flagyl and Rocephin for IV antibiotics. Stool cultures ordered. Blood and sputum cultures ordered. Dr. Cardoso has been consulted for infectious disease. At this time patient is reporting some abdominal discomfort. Patient denies any chest pain or shortness of breath. Patient denies any urinary burning or frequency Review of Systems Please refer to HPI otherwise unremarkable Past Medical History Past Medical History: Asthma, COPD, Fibromyalgia, GERD/Reflux, Hyperlipidemia, Osteoarthritis (OA), Pneumonia, Respiratory Disorder Additional Past Medical History / Comment(s): Chronic neck pain"herniated discs ", arthitis, osteoporosis, fibrocystic breast disease, cataracts, "MAC" tx by dr [place]. History of Any Multi-Drug Resistant Organisms: None Reported Additional Past Surgical History / Comment(s): multiple breast surgeries(needle aspiration bx), tubal ligation, right foot surgery 40 years ago to removed a foreign object, bronchosocpy, inj in neck. Past Anesthesia/Blood Transfusion Reactions: No Reported Reaction Additional Past Anesthesia/Blood Transfusion Reaction / Comment(s): clausterphobia never had blood trans Past Psychological History: Anxiety, Bipolar, Depression, Panic Disorder Additional Psychological History / Comment(s): has depression but denies any thoughts of wanting to harm self. pt lives at home(divided house-sons live on other side).only has i step in the home pt lives with spouse, 2 dogs, 2 cats, 1 bird. is independant, no outside dervice. pt drives. Smoking Status: Current some day smoker Past Alcohol Use History: None Reported Past Drug Use History: None Reported - Past Family History Mother Family Medical History: Cancer Additional Family Medical History / Comment(s): brain, breast cancer Father Family Medical History: Congestive Heart Failure (CHF), CVA/TIA, Renal Disease Medications and Allergies Home Medications Medication Instructions Recorded Confirmed Type Aspirin EC [Ecotrin Low Dose] 81 mg PO DAILY 12/10/15 04/18/18 History Baclofen [Lioresal] 10 mg PO BID 12/10/15 04/18/18 History DULoxetine HCL [Cymbalta] 30 mg PO BID 12/10/15 04/18/18 History Multivitamins, Thera [Multivitamin 1 tab PO DAILY 12/10/15 04/18/18 History (formulary)] Omeprazole [PriLOSEC] 20 mg PO AC-BID 12/10/15 04/18/18 History Docusate [Colace] 100 mg PO BID PRN 04/28/17 04/18/18 History HYDROcodone/APAP 10-325MG [[place] 1 tab PO BID PRN 04/28/17 04/18/18 History 10-325] Melatonin 10 mg PO HS 04/28/17 04/18/18 History ALPRAZolam [Xanax] 0.25 mg PO Q8H 04/18/18 04/18/18 History Ergocalciferol [Vitamin D2] 50,000 unit PO WE 04/18/18 04/18/18 History Ibuprofen [Motrin] 600 mg PO Q8HR PRN 04/18/18 04/18/18 History Montelukast [Singulair] 10 mg PO DAILY 04/18/18 04/18/18 History guaiFENesin [Mucinex] 600 mg PO BID PRN 04/18/18 04/18/18 History Allergies Allergy/AdvReac Type Severity Reaction Status Date / Time Iodinated Contrast- Oral and Allergy Rash/Hives Verified 04/18/18 17:31 IV Dye [Iodinated Contrast Media - IV Dye] shellfish derived Allergy Rash/Hives Verified 04/18/18 17:31 venom-honey bee Allergy Anaphylaxis Verified 04/18/18 17:31 [bee venom (honey bee)] Physical Exam Vitals: Vital Signs Temp Pulse Pulse Resp BP BP Pulse Ox 04/19/18 11:04 88 04/19/18 06:10 98.4 F 75 16 100/61 97 04/19/18 02:44 98.0 F 74 16 126/76 93 L 04/19/18 01:05 80 04/19/18 00:50 72 95 04/18/18 22:47 98.2 F 66 16 111/73 94 L 04/18/18 22:00 98.2 F 70 18 122/65 97 04/18/18 18:39 100 04/18/18 18:35 100.5 F H 04/18/18 18:28 100 04/18/18 17:03 99.0 F 101 H 20 129/79 99 Intake and Output 04/18/18 04/19/18 04/19/18 22:59 06:59 14:59 Output Total 500 Balance -500 Output: Stool 500 Other: Voiding Method Toilet # Voids 1 # Bowel Movements 3 Weight 66.95 kg Head normocephalic Neck supple Lungs diminished bilaterally Heart regular rate and rhythm S1-S2, no rub or gallop Abdomen soft but tender to palpation to lower abdomen Extremities no edema Neuro alert and orientated to 3 Results CBC & Chem 7: 04/19/18 00:29 04/18/18 18:13 Labs: Abnormal Lab Results - Last 24 Hours (Table) 04/18/18 04/18/18 04/18/18 Range/Units 18:13 18:13 18:13 WBC 15.8 H (3.8-10.6) k/uL RBC 5.44 H (3.80-5.40) m/uL Hct 46.6 H (34.0-46.0) % MCHC (31.0-37.0) g/dL Neutrophils # 12.9 H (1.3-7.7) k/uL Glucose 124 H (74-99) mg/dL POC Glucose (mg/dL) (75-99) mg/dL Urine Blood Small H (Negative) Urine Mucus Rare H (None) /hpf Stool Occult Blood (Negative) 04/18/18 04/19/18 04/19/18 Range/Units 23:52 00:29 07:00 WBC 13.1 H (3.8-10.6) k/uL RBC (3.80-5.40) m/uL Hct (34.0-46.0) % MCHC 30.9 L (31.0-37.0) g/dL Neutrophils # (1.3-7.7) k/uL Glucose (74-99) mg/dL POC Glucose (mg/dL) 119 H (75-99) mg/dL Urine Blood (Negative) Urine Mucus (None) /hpf Stool Occult Blood Positive H (Negative) Microbiology - Last 24 Hours (Table) 04/18/18 23:52 Stool Culture - Preliminary Stool 04/18/18 18:13 Urine Culture - Preliminary Urine,Voided Thrombosis Risk Factor Assmnt - Choose All That Apply Each Factor Represents 1 point: Abnormal pulmonary function (COPD) Other Risk Factors: Yes Each Risk Factor Represents 2 Points: Age 61-74 years Other congenital or acquired thrombophilia - If yes, enter type in comment: No Thrombosis Risk Factor Assessment Total Risk Factor Score: 3 Thrombosis Risk Factor Assessment Level: Moderate Risk Assessment and Plan Assessment: 1. Increased shortness of breath. Chest x-ray completed showing bilateral lateral upper lobe nodule densities could relate to franulomatous disease and appears unchanged compared to old exam. Normal heart. Dr. Lopez been consulted for pulmonary services. Patient started on IV Solu-Medrol and updraft breathing treatments. Sputum sample orderd 2. History of MAC lung disease. Dr. Tristan has been consulted 3. Colitis was possible sepsis. CT of abdomen completed showing large bowel wall thickening involving the splenic flexure and the descending colon consistent with nonspecific colitis. The change compared to old exam. Dr. Cardoso has been consulted for infectious disease. Lactic acid 1.7. WBC 15.8. Patient started on Flagyl and Rocephin. Blood and stool cultures ordered. Stool positive for occult blood 4. History of COPD 5. History of fibromyalgia 6. History of hyperlipidemia 7. History of asthma 8. History of chronic neck pain 9. History of anxiety and bipolar depression 10. History of nicotine dependence. Patient educated greater than 3 minutes on smoking cessation. Nicotine patch ordered. 11. Hyperglycemia due to steroids. Sliding scale insulin has been ordered. Hemoglobin A1c ordered GI prophylaxis Protonix. DVT prophylaxis SCDs due to positive occult stool Time with Patient: Greater than 30 (Greater than 60% of the total time spent in counseling and coordination of care. I performed an examination of the patient and discussed their management with the Nurse Practitioner. I have reviewed the Nurse Practitioner's notes and agree with the documented findings and plan of care)
[2018-04-19 11:36] LABS: Glucose,Whole Blood 140 mg/dL (75-99)
[2018-04-19] MEDS: INSULIN ASPART 100 UNIT/ML 1 ML 10 ML VIAL SQ SCH ×3 (12:24→21:59)
[2018-04-19 17:06] LABS: Glucose,Whole Blood 147 mg/dL (75-99)
[2018-04-19 20:47] LABS: Glucose,Whole Blood 189 mg/dL (75-99)
[2018-04-19] MEDS: MELATONIN 5 MG TABLET PO SCH (21:59)
[2018-04-19] MEDS: guaiFENesin 600 MG TABLET.ER PO SCH (21:59)
[2018-04-20] MEDS: metroNIDAZOLE-NS PMX 500 MG in SALINE 1 100ML.BAG IVPB SCH ×5 (00:52→22:51)
[2018-04-20] MEDS: methylPREDNISolone SOD SUCCI 125 MG/2 ML VIAL IV SCH ×5 (00:52→22:52)
[2018-04-20] MEDS: IPRATROPIUM-ALBUTEROL 3 ML NEB INHALATION SCH ×6 (03:31→23:50)
--- NOTE | 2018-04-20 04:07 | CONS ---
CONSULTATION DATE OF SERVICE: 04/19/2018. REASON FOR CONSULTATION: Colitis. HISTORY OF PRESENT ILLNESS: The patient is a 62-year-old, female presenting to the ER with chief complaints of nausea, vomiting and diarrhea that has been going on for about 3-4 days before she presented to the hospital. The patient said she was doing well on . However, she went to bed and afterwards she had the urge to go to the bathroom. The patient went to the bathroom and did have an episode of diarrhea with blood in the stools. The patient symptoms continued to get worse over the next 2 days. The patient has been complaining of pain in the abdomen mostly on the left lower abdominal area for the last 2 days. The pain has been sharp in quality, almost 7 to 8 out of 10 with no radiation with associated nausea and vomiting. The patient did not recall any high- grade fever. However, the patient did have a low-grade fever of 100.5 when she presented to the hospital. The patient did have a elevated white count of 15.8. The patient did have influenza serology that was negative. Stool for culture was positive. Unfortunately no stool for C difficile was done. Stool cultures are currently pending. The patient did have a CT of the abdomen and pelvis completed which did show a long segment of the large bowel wall thickening involving the splenic flexure and descending colon consistent with colitis. The patient has been started on Rocephin and Flagyl. Infectious Disease was consulted for further recommendation regarding antibiotic therapy. REVIEW OF SYSTEMS: Positive points have been mentioned in HPI. The rest of the review of systems has been negative. PAST MEDICAL HISTORY: Asthma, COPD, fibromyalgia, gastroesophageal reflux disease, hypertension, hyperlipidemia, pneumonia, COPD. PAST SURGICAL HISTORY: Multiple breast biopsies, bronchoscopy, tubal ligation, right foot surgery. SOCIAL HISTORY: Current every day smoker. No drinking or drug use. FAMILY HISTORY: Mother with history of brain and breast cancer, father with history of disease. ALLERGIES: IODINATED CONTRAST DYE. MEDICATIONS: Currently, she is on DuoNeb, Xanax, Aspirin, Rocephin 1 g daily. She is on Cymbalta, vitamin D2, Mucinex, Dilaudid, Motrin, NovoLog, Melatonin, Solu-Medrol, Flagyl, Singulair, Theragran, Narcan, nicotine patch. PHYSICAL EXAMINATION: Blood pressure 110/54 with a pulse of 90, temperature 98.3. She is 96% on room air. General description is a middle-aged female lying in bed in no distress. No tachypnea or accessory muscles of respiration use. HEENT: Shows no pallor or scleral icterus. Oral mucosa membranes dry. No pharyngeal erythema or thrush. Neck: Trachea central. No thyromegaly. Lungs unlabored breathing. Clear to auscultation anteriorly. Heart S1, S2. Regular rate and rhythm. Abdomen soft. tenderness lower quadrant area. No guarding. No rigidity. Extremities: No edema of the feet. Skin examination: No rash or mass palpable. Neurologically: Patient is awake, alert, and oriented times three. Mood and affect normal. LABS: Hemoglobin 13.2, white count 15.2 with a BUN of 10, creatinine 0.7, white count has been normal. Liver enzymes normal. Urine has been negative. Stool for occult blood negative. DIAGNOSTIC IMPRESSION AND PLAN: Patient admitted to the hospital with sepsis in this patient who did have a fever of 100.5. The patient did have elevated white count 82729 did show tachycardia, heart rate 101, source likely colitis with concern for possible ischemic colitis with a wall with splenic flexure and descending colon. However, the underlying infectious colitis such as C diff or other infected pathogen not entirely excluded. PLAN: 1. We will check stool for C diff stat. 2. Stool culture pending. Will follow. 3. The patient will be treated with aggressive IV fluid. 4. Initiate Rocephin 1 g daily and Flagyl. 5. Depending upon the clinical response as well as cultures, we will adjust her medications further if needed. Thank you for this consultation. Will follow this patient along with you. MMODL / IJN: [id number] /
[2018-04-20] MEDS: SODIUM CHLORIDE 0.9% 1,000 ML IV SCH ×2 (05:39→14:00)
[2018-04-20] MEDS: ALPRAZolam 0.25 MG TAB PO SCH ×3 (06:42→22:51)
[2018-04-20 07:18] LABS: Glucose,Whole Blood 165 mg/dL (75-99)
[2018-04-20] MEDS: PANTOPRAZOLE 40 MG TABLET PO SCH ×2 (08:32→17:18)
[2018-04-20] MEDS: MONTELUKAST 10 MG TAB PO SCH (08:32)
[2018-04-20] MEDS: INSULIN ASPART 100 UNIT/ML 1 ML 10 ML VIAL SQ SCH ×4 (08:32→22:53)
[2018-04-20] MEDS: ASPIRIN 81 MG PO SCH (08:32)
[2018-04-20] MEDS: guaiFENesin 600 MG TABLET.ER PO SCH ×2 (08:32→22:37)
[2018-04-20] MEDS: DULoxetine HCL 30 MG CAPSULE.DR PO SCH ×2 (08:32→22:37)
[2018-04-20] MEDS: MULTIVITAMINS, THERA 1 EACH TAB PO SCH (08:32)
[2018-04-20] MEDS: BACLOFEN 10 MG TAB PO SCH ×2 (08:32→22:37)
[2018-04-20] MEDS: NICOTINE 21MG/24HR PATCH TRANSDERM SCH (08:33)
--- NOTE | 2018-04-20 09:39 | P.CNPUL ---
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, and gets followed up at [facility], patient did receive over a year and a half of anti MAC therapy, with the borderline response, patient was eventually taken off of the therapy, patient has multiple COPD exacerbation requiring admission in the hospital in the past, patient has chronic shortness of breath on minimal activity and exertion she has been on bronchodilator therapy on a regular basis supplemental oxygen, in the last couple of weeks she's been more short of breath than baseline her sputum which was usually clears started turning yellow to green in about a week, 2 days prior to coming to the hospital started having some intermittent abdominal pain followed by loose stool diarrhea some of the episodes were makes with blood, patient has been admitted into the hospital, chest x-ray performed on admission related to old granulomatous disease overall remains unchanged compared to x-ray performed back in September 2017, the large bowel however revealed presence of the thickening along the splenic flexure and descending colon associated with the colitis this was a new change compared to prior computed tomography scan performed back in May 2017, stool for culture has been sent, patient is being treated with bronchodilator therapy and IV steroids and the broad-spectrum antibiotics sputum has been requested, stool for C. difficile has been ordered but however patient is not having any more loose stool, patient is being followed by ID service as well Review of Systems All systems: negative Past Medical History Past Medical History: Asthma, COPD, Fibromyalgia, GERD/Reflux, Hyperlipidemia, Osteoarthritis (OA), Pneumonia, Respiratory Disorder Additional Past Medical History / Comment(s): Chronic neck pain"herniated discs ", arthitis, osteoporosis, fibrocystic breast disease, cataracts, "MAC" tx by dr [place]. History of Any Multi-Drug Resistant Organisms: None Reported Additional Past Surgical History / Comment(s): multiple breast surgeries(needle aspiration bx), tubal ligation, right foot surgery 40 years ago to removed a foreign object, bronchosocpy, inj in neck. Past Anesthesia/Blood Transfusion Reactions: No Reported Reaction Additional Past Anesthesia/Blood Transfusion Reaction / Comment(s): clausterphobia never had blood trans Past Psychological History: Anxiety, Bipolar, Depression, Panic Disorder Additional Psychological History / Comment(s): has depression but denies any thoughts of wanting to harm self. pt lives at home(divided house-sons live on other side).only has i step in the home pt lives with spouse, 2 dogs, 2 cats, 1 bird. is independant, no outside dervice. pt drives. Smoking Status: Current some day smoker Past Alcohol Use History: None Reported Past Drug Use History: None Reported - Past Family History Mother Family Medical History: Cancer Additional Family Medical History / Comment(s): brain, breast cancer Father Family Medical History: Congestive Heart Failure (CHF), CVA/TIA, Renal Disease Medications and Allergies Home Medications Medication Instructions Recorded Confirmed Type Aspirin EC [Ecotrin Low Dose] 81 mg PO DAILY 12/10/15 04/18/18 History Baclofen [Lioresal] 10 mg PO BID 12/10/15 04/18/18 History DULoxetine HCL [Cymbalta] 30 mg PO BID 12/10/15 04/18/18 History Multivitamins, Thera [Multivitamin 1 tab PO DAILY 12/10/15 04/18/18 History (formulary)] Omeprazole [PriLOSEC] 20 mg PO AC-BID 12/10/15 04/18/18 History Docusate [Colace] 100 mg PO BID PRN 04/28/17 04/18/18 History HYDROcodone/APAP 10-325MG [Jefferson 1 tab PO BID PRN 04/28/17 04/18/18 History 10-325] Melatonin 10 mg PO HS 04/28/17 04/18/18 History ALPRAZolam [Xanax] 0.25 mg PO Q8H 04/18/18 04/18/18 History Ergocalciferol [Vitamin D2] 50,000 unit PO WE 04/18/18 04/18/18 History Ibuprofen [Motrin] 600 mg PO Q8HR PRN 04/18/18 04/18/18 History Montelukast [Singulair] 10 mg PO DAILY 04/18/18 04/18/18 History guaiFENesin [Mucinex] 600 mg PO BID PRN 04/18/18 04/18/18 History Allergies Allergy/AdvReac Type Severity Reaction Status Date / Time Iodinated Contrast- Oral and Allergy Rash/Hives Verified 04/18/18 17:31 IV Dye [Iodinated Contrast Media - IV Dye] shellfish derived Allergy Rash/Hives Verified 04/18/18 17:31 venom-honey bee Allergy Anaphylaxis Verified 04/18/18 17:31 [bee venom (honey bee)] Physical Exam Vitals: Vital Signs Temp Pulse Pulse Resp BP Pulse Ox 04/20/18 05:39 97.9 F 84 14 99/58 95 04/19/18 23:47 86 04/19/18 23:35 83 97 04/19/18 22:00 98.3 F 90 18 110/64 96 04/19/18 20:36 89 18 04/19/18 20:23 88 18 04/19/18 16:46 71 16 04/19/18 16:35 73 16 93 L 04/19/18 15:00 98.6 F 101 H 18 117/71 93 L 04/19/18 11:15 89 04/19/18 11:04 88 Intake and Output 04/19/18 04/20/18 04/20/18 22:59 06:59 14:59 Other: # Voids 1 2 - Constitutional General appearance: cooperative, disheveled, mild distress - EENT Eyes: EOMI, PERRLA, poor dentition, normal appearance ENT: normal oropharynx Ears: bilateral: normal - Neck Neck: normal ROM Carotids: bilateral: upstroke normal Thyroid: bilateral: normal size - Respiratory Respiratory: bilateral: diminished, rhonchi (Fine bilateral during both inspiratory expiratory phase), wheezing (Fine bilateral during both inspiratory expiratory phase), prolonged expiration, negative: dullness, rales, prolonged inspiration - Cardiovascular Rhythm: regular Heart sounds: normal: S1, S2 - Gastrointestinal General gastrointestinal: decreased bowel sounds, distended, soft - Integumentary Integumentary: decreased turgor, normal turgor - Neurologic Neurologic: CNII-XII intact, focal deficits - Musculoskeletal Musculoskeletal: gait normal, generalized weakness, strength equal bilaterally - Psychiatric Psychiatric: A&O x's 3, appropriate affect, intact judgment & insight Results - Laboratory Findings CBC and BMP: 04/19/18 10:10 04/19/18 10:10 PT/INR, D-dimer PT 10.1 sec (9.0-12.0) 04/18/18 18:13 INR 0.9 (<1.2) 04/18/18 18:13 Abnormal lab findings: Abnormal Labs 04/18/18 04/18/18 04/18/18 18:13 18:13 18:13 WBC 15.8 H RBC 5.44 H Hct 46.6 H MCHC Neutrophils # 12.9 H Lymphocytes # Glucose 124 H POC Glucose (mg/dL) Total Protein Albumin Urine Blood Small H Urine Mucus Rare H Stool Occult Blood 04/18/18 04/19/18 04/19/18 23:52 00:29 07:00 WBC 13.1 H RBC Hct MCHC 30.9 L Neutrophils # Lymphocytes # Glucose POC Glucose (mg/dL) 119 H Total Protein Albumin Urine Blood Urine Mucus Stool Occult Blood Positive H 04/19/18 04/19/18 04/19/18 10:10 10:10 11:35 WBC 15.2 H RBC Hct MCHC Neutrophils # 14.1 H Lymphocytes # 0.9 L Glucose 173 H POC Glucose (mg/dL) 140 H Total Protein 5.7 L Albumin 3.4 L Urine Blood Urine Mucus Stool Occult Blood 04/19/18 04/19/18 04/20/18 17:04 20:45 07:12 WBC RBC Hct MCHC Neutrophils # Lymphocytes # Glucose POC Glucose (mg/dL) 147 H 189 H 165 H Total Protein Albumin Urine Blood Urine Mucus Stool Occult Blood - Diagnostic Findings Chest x-ray: report reviewed, image reviewed (Computed tomography scan of the abdominal and pelvis reviewed as well) Assessment and Plan Assessment: Acute COPD exacerbation Purulent tracheobronchitis Acute on chronic hypoxic respiratory failure Nonspecific descending and sigmoid colitis History of Mycobacterium avium complex infection status post therapy at [facility] Plan: Agree with IV steroids Breathing treatments Broad-spectrum antibiotics Send sputum for culture Send a stool for C. difficile Patient may need a colonoscopy and biopsy Time with Patient: Greater than 30
--- NOTE | 2018-04-20 09:43 | P.PN ---
Subjective Progress Note Date: 04/20/18 Principal diagnosis: Acute COPD exacerbation, purulent tracheobronchitis, acute on chronic hypoxic respiratory failure, diffuse nonspecific colitis of sigmoid and descending colon , history of Mycobacterium avium complex infection status post therapy, chronic bilateral pulmonary nodules 04/20/2018, patient seen eval examined during the rounds clinically overall not much change her diarrhea has improved awaiting his stool samples for C. 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, and gets followed up at [facility], patient did receive over a year and a half of anti MAC therapy, with the borderline response, patient was eventually taken off of the therapy, patient has multiple COPD exacerbation requiring admission in the hospital in the past, patient has chronic shortness of breath on minimal activity and exertion she has been on bronchodilator therapy on a regular basis supplemental oxygen, in the last couple of weeks she's been more short of breath than baseline her sputum which was usually clears started turning yellow to green in about a week, 2 days prior to coming to the hospital started having some intermittent abdominal pain followed by loose stool diarrhea some of the episodes were makes with blood, patient has been admitted into the hospital, chest x-ray performed on admission related to old granulomatous disease overall remains unchanged compared to x-ray performed back in September 2017, the large bowel however revealed presence of the thickening along the splenic flexure and descending colon associated with the colitis this was a new change compared to prior computed tomography scan performed back in May 2017, stool for culture has been sent, patient is being treated with bronchodilator therapy and IV steroids and the broad-spectrum antibiotics sputum has been requested, stool for C. difficile has been ordered but however patient is not having any more loose stool, patient is being followed by ID service as well Objective - Vital Signs Vital signs: Vital Signs Temp 97.9 F 04/20/18 05:39 Pulse 84 04/20/18 05:39 Resp 14 04/20/18 05:39 BP 99/58 04/20/18 05:39 Pulse Ox 95 04/20/18 05:39 Intake & Output 04/19/18 04/20/18 04/20/18 18:59 06:59 18:59 Intake Total 750 Balance 750 Intake: IV 750 Sodium Chloride 0.9% 1, 600 000 ml @ 75 mls/hr IV . [id number] [facility] Rx#:[id number] cefTRIAXone 1,000 mg In 50 Sodium Chloride 0.9% 50 ml @ 100 mls/hr IVPB Q24HR [facility] Rx#:[id number] metroNIDAZOLE-NS PMX 500 100 mg In Saline 1 100ml.bag @ 100 mls/hr IVPB Q6HR [facility] Rx#:[id number] Other: # Voids 2 - Exam Constitutional General appearance: cooperative, disheveled, mild distress - EENT Eyes: EOMI, PERRLA, poor dentition, normal appearance ENT: normal oropharynx Ears: bilateral: normal - Neck Neck: normal ROM Carotids: bilateral: upstroke normal Thyroid: bilateral: normal size - Respiratory Respiratory: bilateral: diminished, rhonchi (Fine bilateral during both inspiratory expiratory phase), wheezing (Fine bilateral during both inspiratory expiratory phase), prolonged expiration, negative: dullness, rales, prolonged inspiration, some soreness is present bilateral subcostal muscles - Cardiovascular Rhythm: regular Heart sounds: normal: S1, S2 - Gastrointestinal General gastrointestinal: decreased bowel sounds, distended, soft - Integumentary Integumentary: decreased turgor, normal turgor - Neurologic Neurologic: CNII-XII intact, focal deficits - Musculoskeletal Musculoskeletal: gait normal, generalized weakness, strength equal bilaterally - Psychiatric Psychiatric: A&O x's 3, appropriate affect, intact judgment & insight - Labs CBC & Chem 7: 04/19/18 10:10 04/19/18 10:10 Labs: Abnormal Lab Results - Last 24 Hours (Table) 04/19/18 04/19/18 04/19/18 Range/Units 10:10 10:10 11:35 WBC 15.2 H (3.8-10.6) k/uL Neutrophils # 14.1 H (1.3-7.7) k/uL Lymphocytes # 0.9 L (1.0-4.8) k/uL Glucose 173 H (74-99) mg/dL POC Glucose (mg/dL) 140 H (75-99) mg/dL Total Protein 5.7 L (6.3-8.2) g/dL Albumin 3.4 L (3.5-5.0) g/dL 04/19/18 04/19/18 04/20/18 Range/Units 17:04 20:45 07:12 WBC (3.8-10.6) k/uL Neutrophils # (1.3-7.7) k/uL Lymphocytes # (1.0-4.8) k/uL Glucose (74-99) mg/dL POC Glucose (mg/dL) 147 H 189 H 165 H (75-99) mg/dL Total Protein (6.3-8.2) g/dL Albumin (3.5-5.0) g/dL Microbiology - Last 24 Hours (Table) 04/18/18 18:13 Urine Culture - Final Urine,Voided 04/18/18 18:13 Blood Culture - Preliminary Blood No Growth after 24 hours 04/18/18 23:52 Stool Culture - Preliminary Stool Assessment and Plan Assessment: Subcostal bilateral chest wall pain/musculoskeletal pain due to excessive coughing Acute COPD exacerbation Purulent tracheobronchitis Acute on chronic hypoxic respiratory failure Nonspecific descending and sigmoid colitis History of Mycobacterium avium complex infection status post therapy at [facility] Plan: Agree with IV steroids, which could help nonspecific colitis as well Breathing treatments Broad-spectrum antibiotics Awaiting sputum for culture Awaiting stool for C. difficile Patient may need a colonoscopy and biopsy once slightly improved and better from respiratory standpoint Time with Patient: Greater than 30
[2018-04-20 11:22] LABS: ALT 22 U/L (9-52); AST 16 U/L (14-36); Alkaline Phosphatase 52 U/L (38-126); Anion Gap 5 mmol/L; Blood Urea Nitrogen 10 mg/dL (7-17); Calcium 8.8 mg/dL (8.4-10.2); Carbon Dioxide 26 mmol/L (22-30); Chloride 112 mmol/L (98-107); Glucose 131 mg/dL (74-99); Potassium 4.5 mmol/L (3.5-5.1); Sodium 143 mmol/L (137-145); Total Bilirubin 0.3 mg/dL (0.2-1.3); Total Protein 5.2 g/dL (6.3-8.2)
[2018-04-20 11:23] LABS: Glucose,Whole Blood 136 mg/dL (75-99)
[2018-04-20 11:23] LABS: Basophils % (A) 0 %; Eosinophils % (A) 0 %; HCT 37.3 % (34.0-46.0); HGB 12.2 gm/dL (11.4-16.0); Lymphocytes # (A) 1.2 k/uL (1.0-4.8); Lymphocytes % (A) 8 %; MCH 28.5 pg (25.0-35.0); MCHC 32.6 g/dL (31.0-37.0); MCV 87.2 fL (80.0-100.0); Monocytes # (A) 0.3 k/uL (0-1.0); Monocytes % (A) 2 %; Neutrophils # (A) 14.7 k/uL (1.3-7.7); Neutrophils % (A) 90 %; Platelet Count 176 k/uL (150-450); RBC 4.28 m/uL (3.80-5.40); RDW 14.2 % (11.5-15.5); WBC 16.3 k/uL (3.8-10.6)
--- NOTE | 2018-04-20 11:33 | P.PN ---
Subjective Progress Note Date: 04/20/18 This is a 62-year-old female patient who presented to the emergency room with complaints of nausea vomiting and diarrhea. Patient reports the nausea vomiting and diarrhea started around midnight two nights ago. Patient reports that diarrhea eventually turned to blood. Patient reports multiple bowel movements that appeared dark. Patient denies any fevers. Patient denies any change in diet. Patient reports last colonoscopy was greater than 5 years ago. Patient also reports complaints of increased chest congestion cough and shortness of breath. Patient reports history of COPD caused by MAC infection in which she follows with health safety manager Dr. Tristan. Patient reports that her chest congestion and increased sputum production has been increasing over the past 3-4 days. Additional medical history includes asthma, COPD, fibromyalgia, GERD, hyperlipidemia, osteoarthritis, pneumonia, chronic neck pain, arthritis, anxiety, depression and panic disorder and current every day smoker. Chest x- ray completed in emergency room showing bilateral upper lobe nodule densities could relate to old granulomatous disease and appears unchanged compared to old exam. Normal heart. CT of abdomen and pelvis completed showing a long segment of large bowel wall thickening involving the splenic flexure and descending colon severe nonspecific colitis. This is change compared to old exam. EKG completed showing normal sinus rhythm. Possible left atrial enlargement. Dr. Tristan has been consulted for pulmonary services. Patient started on IV steroids. Patient started on Flagyl and Rocephin for IV antibiotics. Stool cultures ordered. Blood and sputum cultures ordered. Dr. Cardoso has been consulted for infectious disease. At this time patient is reporting some abdominal discomfort. Patient denies any chest pain or shortness of breath. Patient denies any urinary burning or frequency On 04/20/2018 patient is currently resting in bed alert and orientated. Patient still complaining of some abdominal discomfort. Patient also complaining of increased chest congestion. Mucinex has been ordered. Patient is IV steroids and antibiotics at this time. C. diff ordered per infectious disease at this time. Patient denies any nausea or vomiting. Will advance diet to soft. Awaiting GI consult. Objective - Vital Signs Vital signs: Vital Signs Temp 97.9 F 04/20/18 05:39 Pulse 84 04/20/18 11:20 Resp 14 04/20/18 05:39 BP 99/58 04/20/18 05:39 Pulse Ox 95 04/20/18 05:39 Intake & Output 04/19/18 04/20/1819 18:59 06:59 18:59 Intake Total 750 Balance 750 Intake: IV 750 Sodium Chloride 0.9% 1, 600 000 ml @ 75 mls/hr IV . [id number] [facility] Rx#:[id number] cefTRIAXone 1,000 mg In 50 Sodium Chloride 0.9% 50 ml @ 100 mls/hr IVPB Q24HR [facility] Rx#:[id number] metroNIDAZOLE-NS PMX 500 100 mg In Saline 1 100ml.bag @ 100 mls/hr IVPB Q6HR [facility] Rx#:[id number] Other: # Voids 2 - Exam Head normocephalic Neck supple Lungs diminished rhonchi throughout throughout Heart regular rate and rhythm S1-S2, no rub or gallop Abdomen is soft nontender nondistended positive bowel sounds no hepatosplenomegaly Extremities no edema Neuro alert and orientated to 3 - Labs CBC & Chem 7: 04/20/18 10:01 04/20/18 10:01 Labs: Abnormal Lab Results - Last 24 Hours (Table) 04/19/18 04/19/18 04/19/18 Range/Units 11:35 17:04 20:45 WBC (3.8-10.6) k/uL Neutrophils # (1.3-7.7) k/uL Chloride (98-107) mmol/L Glucose (74-99) mg/dL POC Glucose (mg/dL) 140 H 147 H 189 H (75-99) mg/dL Total Protein (6.3-8.2) g/dL Albumin (3.5-5.0) g/dL 04/20/18 04/20/18 04/20/18 Range/Units 07:12 10:01 10:01 WBC 16.3 H (3.8-10.6) k/uL Neutrophils # 14.7 H (1.3-7.7) k/uL Chloride 112 H (98-107) mmol/L Glucose 131 H (74-99) mg/dL POC Glucose (mg/dL) 165 H (75-99) mg/dL Total Protein 5.2 L (6.3-8.2) g/dL Albumin 3.0 L (3.5-5.0) g/dL 04/20/18 Range/Units 11:21 WBC (3.8-10.6) k/uL Neutrophils # (1.3-7.7) k/uL Chloride (98-107) mmol/L Glucose (74-99) mg/dL POC Glucose (mg/dL) 136 H (75-99) mg/dL Total Protein (6.3-8.2) g/dL Albumin (3.5-5.0) g/dL Microbiology - Last 24 Hours (Table) 04/18/18 18:13 Urine Culture - Final Urine,Voided 04/18/18 18:13 Blood Culture - Preliminary Blood No Growth after 24 hours 04/18/18 23:52 Stool Culture - Preliminary Stool Assessment and Plan Assessment: 1. Increased shortness of breath. Chest x-ray completed showing bilateral lateral upper lobe nodule densities could relate to franulomatous disease and appears unchanged compared to old exam. Normal heart. Dr. Tristan has been consulted for pulmonary services. Patient started on IV Solu-Medrol and updraft breathing treatments. Sputum sample ordered. 2. History of MAC lung disease. Dr. Tristan has been consulted 3. Colitis was possible sepsis. CT of abdomen completed showing large bowel wall thickening involving the splenic flexure and the descending colon consistent with nonspecific colitis. The change compared to old exam. Dr. Cardoso has been consulted for infectious disease. Lactic acid 1.7. WBC 15.8. Patient started on Flagyl and Rocephin. Blood and stool cultures ordered. Stool positive for occult blood. GI services have been consulted. Stool for C. diff ordered 4. History of COPD 5. History of fibromyalgia 6. History of hyperlipidemia 7. History of asthma 8. History of chronic neck pain 9. History of anxiety and bipolar depression 10. History of nicotine dependence. Patient educated greater than 3 minutes on smoking cessation. Nicotine patch ordered. 11. Hyperglycemia due to steroids. Sliding scale insulin has been ordered. Hemoglobin A1c ordered GI prophylaxis Protonix. DVT prophylaxis SCDs due to positive occult stool I performed an examination of the patient and discussed their management with the Nurse Practitioner. I have reviewed the Nurse Practitioner's notes and agree with the documented findings and plan of care
[2018-04-20] MEDS: guaiFENesin-DM 100-10MG/5ML 10 ML CUP PO PRN (11:40)
[2018-04-20] MEDS: HYDROmorphone 0.5 MG/0.5 ML SYRINGE IVP PRN ×4 (11:40→22:51)
[2018-04-20] MEDS: ONDANSETRON 4 MG/2 ML VIAL IVP PRN (12:12)
[2018-04-20 16:53] LABS: Glucose,Whole Blood 153 mg/dL (75-99)
--- NOTE | 2018-04-20 18:57 | P.CONS ---
History of Present Illness - Reason for Consult Consult date: 04/20/18 Blood per rectum Requesting physician: Dionna Curran - Chief Complaint Nausea, vomiting, diarrhea - History of Present Illness The patient is a pleasant 62-year-old female with a medical history significant for asthma, COPD, GERD, fibromyalgia, dyslipidemia and osteoarthritis who presented to the hospital with complaints of nausea, vomiting and diarrhea. The patient reports that the symptoms started 2 days prior to presentation. She denies any new medications, sick contacts, or unusual foods or travel. She reports initially having nausea and vomiting, with multiple loose nonbloody bowel movements. The patient subsequently developed bright red blood per rectum noting at least 10 bloody bowel movements. She denies any prior episodes with similar symptoms. She reports associated abdominal pain described as periumbilical, sharp in quality and worse on the right side of her abdomen. She denies any radiation of pain. The patient had a significant leukocytosis of 15 on presentation. She had a computed tomography scan of the abdomen which showed thickening of the bowel wall in the descending and splenic flexure suggestive of colitis. She reports that her last colonoscopy was over 5 years ago and significant only for hemorrhoids and that she has not had an EGD in the past. She does a history of reflux disease and is on twice daily PPI therapy at home. She is currently seen lying in bed reporting that her abdominal pain is still present but improved. She's had no further blood per rectum today. Review of Systems REVIEW OF SYSTEMS: CONSTITUTIONAL: Denies any weight change or fatigue. CARDIOVASCULAR: Denies any chest pain, palpitations high or low blood pressures RESPIRATORY: Denies any shortness of breath, hemoptysis or cough. GENITOURINARY: No dysuria or hematuria. MUSCULOSKELETAL: No weakness reported. SKIN: Denies any new rashes or lesions, jaundice or pallor. PSYCHIATRIC: Denies any depression or anxiety. NEUROLOGY: Denies headache, denies any new focal deficits. EARS/NOSE/THROAT: No recent hearing change, congestion, nasal discharge or sore throat. EYES: No pain in eyes, discharge or change in vision. GASTROINTESTINAL: As per HPI. Past Medical History Past Medical History: Asthma, COPD, Fibromyalgia, GERD/Reflux, Hyperlipidemia, Osteoarthritis (OA), Pneumonia, Respiratory Disorder Additional Past Medical History / Comment(s): Chronic neck pain"herniated discs ", arthitis, osteoporosis, fibrocystic breast disease, cataracts, "MAC" tx by dr [place]. History of Any Multi-Drug Resistant Organisms: None Reported Additional Past Surgical History / Comment(s): multiple breast surgeries(needle aspiration bx), tubal ligation, right foot surgery 40 years ago to removed a foreign object, bronchosocpy, inj in neck. Past Anesthesia/Blood Transfusion Reactions: No Reported Reaction Additional Past Anesthesia/Blood Transfusion Reaction / Comm: clausterphobia never had blood trans Past Psychological History: Anxiety, Bipolar, Depression, Panic Disorder Additional Psychological History / Comment(s): has depression but denies any thoughts of wanting to harm self. pt lives at home(divided house-sons live on other side).only has i step in the home pt lives with spouse, 2 dogs, 2 cats, 1 bird. is independant, no outside dervice. pt drives. Smoking Status: Current some day smoker Past Alcohol Use History: None Reported Past Drug Use History: None Reported - Past Family History Mother Family Medical History: Cancer Additional Family Medical History / Comment(s): brain, breast cancer Father Family Medical History: Congestive Heart Failure (CHF), CVA/TIA, Renal Disease Medications and Allergies Home Medications Medication Instructions Recorded Confirmed Type Aspirin EC [Ecotrin Low Dose] 81 mg PO DAILY 12/10/15 04/18/18 History Baclofen [Lioresal] 10 mg PO BID 12/10/15 04/18/18 History DULoxetine HCL [Cymbalta] 30 mg PO BID 12/10/15 04/18/18 History Multivitamins, Thera [Multivitamin 1 tab PO DAILY 12/10/15 04/18/18 History (formulary)] Omeprazole [PriLOSEC] 20 mg PO AC-BID 12/10/15 04/18/18 History Docusate [Colace] 100 mg PO BID PRN 04/28/17 04/18/18 History HYDROcodone/APAP 10-325MG [Turlock 1 tab PO BID PRN 04/28/17 04/18/18 History 10-325] Melatonin 10 mg PO HS 04/28/17 04/18/18 History ALPRAZolam [Xanax] 0.25 mg PO Q8H 04/18/18 04/18/18 History Ergocalciferol [Vitamin D2] 50,000 unit PO WE 04/18/18 04/18/18 History Ibuprofen [Motrin] 600 mg PO Q8HR PRN 04/18/18 04/18/18 History Montelukast [Singulair] 10 mg PO DAILY 04/18/18 04/18/18 History guaiFENesin [Mucinex] 600 mg PO BID PRN 04/18/18 04/18/18 History Allergies Allergy/AdvReac Type Severity Reaction Status Date / Time Iodinated Contrast- Oral and Allergy Rash/Hives Verified 04/18/18 17:31 IV Dye [Iodinated Contrast Media - IV Dye] shellfish derived Allergy Rash/Hives Verified 04/18/18 17:31 venom-honey bee Allergy Anaphylaxis Verified 04/18/18 17:31 [bee venom (honey bee)] Physical Exam Vitals: Vital Signs Temp Pulse Pulse Resp BP Pulse Ox 04/20/18 15:37 80 04/20/18 15:26 82 96 04/20/18 14:17 98.3 F 96 18 144/72 92 L 04/20/18 11:31 85 04/20/18 11:20 84 04/20/18 05:39 97.9 F 84 14 99/58 95 04/19/18 23:47 86 04/19/18 23:35 83 97 04/19/18 22:00 98.3 F 90 18 110/64 96 04/19/18 20:36 89 18 04/19/18 20:23 88 18 Intake and Output 04/20/18 04/20/18 04/20/18 06:59 14:59 22:59 Intake Total 750 Balance 750 Intake: IV 750 Sodium Chloride 0.9% 1, 600 000 ml @ 75 mls/hr IV . [id number] [facility] Rx#:[id number] cefTRIAXone 1,000 mg In 50 Sodium Chloride 0.9% 50 ml @ 100 mls/hr IVPB Q24HR [facility] Rx#:[id number] metroNIDAZOLE-NS PMX 500 100 mg In Saline 1 100ml.bag @ 100 mls/hr IVPB Q6HR [facility] Rx#:[id number] Other: # Voids 2 3 On physical examination, patient appears comfortable in no apparent distress. HEAD: Normocephalic, atraumatic. EYES: No scleral icterus. No conjunctival injection. MOUTH: No lesions, tongue midline. NECK: Trachea midline, no gross abnormalities. CHEST: Clear to auscultation with no wheezing or rhonchi appreciated. HEART: Regular rate and rhythm. ABDOMEN: Soft, mildly tender to palpation worse on the right side of her abdomen. Bowel sounds are positive. No organomegaly. No guarding or rigidity. EXTREMITIES: No pedal edema. SKIN: No rashes, no jaundice. NEUROLOGIC: Alert and oriented x3. No focal deficits. Results CBC & Chem 7: 04/20/18 10:01 04/20/18 10:01 Labs: Abnormal Lab Results - Last 24 Hours (Table) 04/19/18 04/20/18 04/20/18 Range/Units 20:45 07:12 10:01 WBC 16.3 H (3.8-10.6) k/uL Neutrophils # 14.7 H (1.3-7.7) k/uL Chloride (98-107) mmol/L Glucose (74-99) mg/dL POC Glucose (mg/dL) 189 H 165 H (75-99) mg/dL Total Protein (6.3-8.2) g/dL Albumin (3.5-5.0) g/dL 04/20/18 04/20/18 04/20/18 Range/Units 10:01 11:21 16:48 WBC (3.8-10.6) k/uL Neutrophils # (1.3-7.7) k/uL Chloride 112 H (98-107) mmol/L Glucose 131 H (74-99) mg/dL POC Glucose (mg/dL) 136 H 153 H (75-99) mg/dL Total Protein 5.2 L (6.3-8.2) g/dL Albumin 3.0 L (3.5-5.0) g/dL Microbiology - Last 24 Hours (Table) 04/18/18 18:13 Urine Culture - Final Urine,Voided 04/18/18 18:13 Blood Culture - Preliminary Blood No Growth after [address] scan - abdomen: report reviewed (Computed tomography scan of the abdomen with findings of colonic wall thickening in the descending colon and splenic flexure suggestive of colitis.) Assessment and Plan (1) Colitis Narrative/Plan: Patient presenting with acute episode of nausea, vomiting, diarrhea and subsequent bright red blood per rectum with associated findings on computed tomography scan of colitis of the splenic flexure and descending colon. Unknown etiology, however given the acuity of the patient's symptoms consideration is for infectious or ischemic etiology, less likely inflammatory in nature. Current Visit: Yes Status: Acute Code(s): K52.9 - NONINFECTIVE GASTROENTERITIS AND COLITIS, UNSPECIFIED SNOMED Code(s): 65163285 (2) Bright red blood per rectum Narrative/Plan: Patient reporting a bowel movement of bright red blood per rectum after initial symptoms of nausea, vomiting and diarrhea, currently symptomatically improved. Current Visit: Yes Status: Acute Code(s): K62.5 - HEMORRHAGE OF ANUS AND RECTUM SNOMED Code(s): 54423303 Plan: Supportive care Okay for diet Continue to monitor hemoglobin and hematocrit and transfuse as needed Continue antibiotic treatment with ceftriaxone and Flagyl No plans for endoscopic evaluation at this time, however extensive discussion with the patient and would recommend colonoscopy in 4-6 weeks after discharge, however if patient's symptoms worsen we'll consider further evaluation Thank you for allowing us to participate in the care of the patient, we will continue to follow
[2018-04-20 21:00] LABS: Glucose,Whole Blood 168 mg/dL (75-99)
[2018-04-20] MEDS: MELATONIN 5 MG TABLET PO SCH (22:37)
[2018-04-20] MEDS: AMPICILLIN-SULBACTAM 3 GM in SODIUM CHLORIDE 0.9% 100 ML IVPB SCH (22:51)
--- NOTE | 2018-04-20 23:56 | PN ---
PROGRESS NOTE DATE OF SERVICE: 04/20/2018 REASON FOR FOLLOWUP: Colitis, likely ischemic. INTERVAL HISTORY: The patient is afebrile. She is breathing comfortably. Still complaining of pain to the left abdominal area and did have some pain on the right lower abdominal area this morning. The patient denies having any chest pain or shortness of breath or cough. The patient's diarrhea has resolved. The patient did not have any bowel movement since yesterday. EXAMINATION: Blood pressure is 144/72 with a pulse of 96, temperature 98.3. She is 92% on room air. General description is a middle aged female lying in bed in no distress. Respiratory system: Unlabored breathing. Clear to auscultation anteriorly. Heart S1, S2. Regular rate and rhythm. ABDOMEN: Soft, mildly distended. No guarding. No rigidity. No organomegaly. Extremities: No edema of the feet. LABS: White count slightly elevated to 16.3 today with a BUN of 10, creatinine 0.67. Stool cultures have been negative. Unfortunately could not be completed. The patient has not provided any stool sample. DIAGNOSTIC IMPRESSION AND PLAN: Patient with evidence of colitis-highly concern for possible ischemic colitis in view of the splenic flexure and descending colon involvement, which is and less likely infectious colitis. We will discontinue Rocephin and start the patient on Unasyn 3 g every 6 hours and monitor clinical course closely. Continue supportive care. MMODL / IJN: [id number] /
[2018-04-21] MEDS: guaiFENesin-DM 100-10MG/5ML 10 ML CUP PO PRN ×3 (02:04→23:43)
[2018-04-21] MEDS: HYDROmorphone 0.5 MG/0.5 ML SYRINGE IVP PRN ×5 (03:38→23:43)
[2018-04-21] MEDS: IPRATROPIUM-ALBUTEROL 3 ML NEB INHALATION SCH ×6 (04:14→23:37)
[2018-04-21] MEDS: methylPREDNISolone SOD SUCCI 125 MG/2 ML VIAL IV SCH ×2 (06:43→12:43)
[2018-04-21] MEDS: metroNIDAZOLE-NS PMX 500 MG in SALINE 1 100ML.BAG IVPB SCH ×2 (06:45→13:13)
[2018-04-21] MEDS: SODIUM CHLORIDE 0.9% 1,000 ML IV SCH ×2 (06:45→16:55)
[2018-04-21 07:04] LABS: Glucose,Whole Blood 141 mg/dL (75-99)
[2018-04-21 07:42] LABS: Basophils % (A) 0 %; Eosinophils # (A) 0.1 k/uL (0-0.7); Eosinophils % (A) 1 %; HCT 38.9 % (34.0-46.0); Hypochromasia Slight; Lymphocytes # (A) 1.2 k/uL (1.0-4.8); Lymphocytes % (A) 7 %; MCH 27.4 pg (25.0-35.0); MCHC 30.9 g/dL (31.0-37.0); MCV 88.6 fL (80.0-100.0); Mean Platelet Volume 6.9; Monocytes # (A) 0.5 k/uL (0-1.0); Monocytes % (A) 3 %; Neutrophils # (A) 15.4 k/uL (1.3-7.7); Neutrophils % (A) 90 %; Platelet Count 195 k/uL (150-450); RBC 4.39 m/uL (3.80-5.40); RDW 14.2 % (11.5-15.5); WBC 17.2 k/uL (3.8-10.6)
[2018-04-21 08:00] LABS: Albumin 2.6 g/dL (3.5-5.0); Calcium 8.6 mg/dL (8.4-10.2); Potassium 5.1 mmol/L (3.5-5.1); Total Bilirubin 0.3 mg/dL (0.2-1.3); Total Protein 4.7 g/dL (6.3-8.2)
[2018-04-21] MEDS: AMPICILLIN-SULBACTAM 3 GM in SODIUM CHLORIDE 0.9% 100 ML IVPB SCH ×4 (08:27→23:16)
[2018-04-21] MEDS: MONTELUKAST 10 MG TAB PO SCH (08:28)
[2018-04-21] MEDS: ALPRAZolam 0.25 MG TAB PO SCH ×3 (08:28→23:16)
[2018-04-21] MEDS: DULoxetine HCL 30 MG CAPSULE.DR PO SCH ×2 (08:28→20:01)
[2018-04-21] MEDS: BACLOFEN 10 MG TAB PO SCH ×2 (08:28→20:01)
[2018-04-21] MEDS: guaiFENesin 600 MG TABLET.ER PO SCH ×2 (08:28→20:01)
[2018-04-21] MEDS: INSULIN ASPART 100 UNIT/ML 1 ML 10 ML VIAL SQ SCH ×4 (08:28→21:37)
[2018-04-21] MEDS: ASPIRIN 81 MG PO SCH (08:28)
[2018-04-21] MEDS: NICOTINE 21MG/24HR PATCH TRANSDERM SCH (08:28)
[2018-04-21] MEDS: PANTOPRAZOLE 40 MG TABLET PO SCH ×2 (08:28→17:12)
[2018-04-21] MEDS: ONDANSETRON 4 MG/2 ML VIAL IVP PRN (08:42)
[2018-04-21] MEDS ORDERED: BISACODYL 5 MG TABLET.DR PO PRN (10:51)
--- NOTE | 2018-04-21 11:48 | P.PN ---
Subjective Progress Note Date: 04/21/18 This is a 62-year-old female patient who presented to the emergency room with complaints of nausea vomiting and diarrhea. Patient reports the nausea vomiting and diarrhea started around midnight two nights ago. Patient reports that diarrhea eventually turned to blood. Patient reports multiple bowel movements that appeared dark. Patient denies any fevers. Patient denies any change in diet. Patient reports last colonoscopy was greater than 5 years ago. Patient also reports complaints of increased chest congestion cough and shortness of breath. 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 Tristan. Patient reports that her chest congestion and increased sputum production has been increasing over the past 3-4 days. Additional medical history includes asthma, COPD, fibromyalgia, GERD, hyperlipidemia, osteoarthritis, pneumonia, chronic neck pain, arthritis, anxiety, depression and panic disorder and current every day smoker. Chest x- ray completed in emergency room showing bilateral upper lobe nodule densities could relate to old granulomatous disease and appears unchanged compared to old exam. Normal heart. CT of abdomen and pelvis completed showing a long segment of large bowel wall thickening involving the splenic flexure and descending colon severe nonspecific colitis. This is change compared to old exam. EKG completed showing normal sinus rhythm. Possible left atrial enlargement. Dr. Tristan has been consulted for pulmonary services. Patient started on IV steroids. Patient started on Flagyl and Rocephin for IV antibiotics. Stool cultures ordered. Blood and sputum cultures ordered. Dr. Cardoso has been consulted for infectious disease. At this time patient is reporting some abdominal discomfort. Patient denies any chest pain or shortness of breath. Patient denies any urinary burning or frequency On 04/20/2018 patient is currently resting in bed alert and orientated. Patient still complaining of some abdominal discomfort. Patient also complaining of increased chest congestion. Mucinex has been ordered. Patient is IV steroids and antibiotics at this time. C. diff ordered per infectious disease at this time. Patient denies any nausea or vomiting. Will advance diet to soft. Awaiting GI consult. 04/21/2018 patient complaining of a worsening right lower quadrant abdominal pain. She is applying heating pad. She's been refusing the [place] and only using the Dilaudid. GI is following. She is requesting Chantix on top of the nicotine patch for smoking cessation. Also complaining of constipation reports last bowel movement was on Dar. Colace has been added. White count is 17.2 , hemoglobin 12.0. Patient also has been complaining of chest pain. EKG and troponin ordered Objective - Vital Signs Vital signs: Vital Signs Temp 97.9 F 04/21/18 05:51 Pulse 80 04/21/18 11:28 Resp 16 04/21/18 08:00 BP 112/65 04/21/18 05:51 Pulse Ox 95 04/21/18 07:17 Intake & Output 04/20/18 04/21/18 04/21/18 18:59 06:59 18:59 Intake Total 750 Balance 750 Intake: IV 750 Sodium Chloride 0.9% 1, 600 000 ml @ 75 mls/hr IV . [id number] [facility] Rx#:[id number] cefTRIAXone 1,000 mg In 50 Sodium Chloride 0.9% 50 ml @ 100 mls/hr IVPB Q24HR [facility] Rx#:[id number] metroNIDAZOLE-NS PMX 500 100 mg In Saline 1 100ml.bag @ 100 mls/hr IVPB Q6HR [facility] Rx#:[id number] Other: Voiding Method Toilet Toilet # Voids 3 2 - Exam Head normocephalic Neck supple Lungs clear to auscultation bilaterally no wheezing or crackles Heart regular rate and rhythm S1-S2, no rub or gallop Abdomen is soft right lower quadrant tenderness nondistended positive bowel sounds no hepatosplenomegaly Extremities no edema Neuro alert and orientated to 3 - Labs CBC & Chem 7: 04/21/18 07:02 04/21/18 07:02 Labs: Abnormal Lab Results - Last 24 Hours (Table) 04/20/18 04/20/18 04/21/18 Range/Units 16:48 20:59 07:02 WBC 17.2 H (3.8-10.6) k/uL MCHC 30.9 L (31.0-37.0) g/dL Neutrophils # 15.4 H (1.3-7.7) k/uL Chloride (98-107) mmol/L BUN (7-17) mg/dL Glucose (74-99) mg/dL POC Glucose (mg/dL) 153 H 168 H (75-99) mg/dL Total Protein (6.3-8.2) g/dL Albumin (3.5-5.0) g/dL 04/21/18 04/21/18 Range/Units 07:02 07:02 WBC (3.8-10.6) k/uL MCHC (31.0-37.0) g/dL Neutrophils # (1.3-7.7) k/uL Chloride 111 H (98-107) mmol/L BUN 18 H (7-17) mg/dL Glucose 148 H (74-99) mg/dL POC Glucose (mg/dL) 141 H (75-99) mg/dL Total Protein 4.7 L (6.3-8.2) g/dL Albumin 2.6 L (3.5-5.0) g/dL Microbiology - Last 24 Hours (Table) 04/18/18 23:52 Stool Culture - Preliminary Stool 04/18/18 18:13 Blood Culture - Preliminary Blood No Growth after 48 hours Assessment and Plan Assessment: 1.Colitis was possible sepsis. Infectious versus ischemic. Currently on Unasyn and Flagyl. Infectious disease and GI service are following. CT of abdomen completed showing large bowel wall thickening involving the splenic flexure and the descending colon consistent with nonspecific colitis. The change compared to old exam. Stool for occult blood is positive. GI recommending colonoscopy in 4-6 weeks outpatient. Patient is complaining of worsening right lower quadrant abdominal pain 2. Acute COPD exacerbation: Continue nebulizer treatments and IV Solu-Medrol. Pulmonary following 3. History of MAC lung disease status post treatment. Dr. Tristan has been consulted 4. History of COPD 5. History of fibromyalgia 6. History of hyperlipidemia 7. History of asthma 8. History of chronic neck pain 9. History of anxiety and bipolar depression 10. History of nicotine dependence. Patient educated greater than 3 minutes on smoking cessation. Continue nicotine patch will add Chantix 11. Hyperglycemia due to steroids. Sliding scale insulin has been ordered. Hemoglobin A1c ordered 12. Acute on chronic hypoxic respiratory failure 13. Constipation add Colace 14. Chest pain likely secondary to patient's cough. However will check EKG and troponin GI prophylaxis Protonix. DVT prophylaxis SCDs due to positive occult stool Consult physical therapy I performed an examination of the patient and discussed their management with the physician Soil Conservationist. I have reviewed the Physician Soil Conservationist's notes and agree with the documented findings and plan of care
[2018-04-21 11:56] LABS: Hemoglobin A1C 5.6 % (4.0-6.0)
[2018-04-21 12:09] LABS: Glucose,Whole Blood 138 mg/dL (75-99)
[2018-04-21] MEDS: VARENICLINE 0.5 MG TAB PO SCH (12:43)
[2018-04-21] MEDS: MULTIVITAMINS, THERA 1 EACH TAB PO SCH (12:44)
[2018-04-21] MEDS: DOCUSATE 100 MG CAP PO SCH ×2 (12:47→20:01)
--- NOTE | 2018-04-21 13:05 | P.PN ---
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, and gets followed up at [facility], patient did receive over a year and a half of anti MAC therapy, with the borderline response, patient was eventually taken off of the therapy, patient has multiple COPD exacerbation requiring admission in the hospital in the past, patient has chronic shortness of breath on minimal activity and exertion she has been on bronchodilator therapy on a regular basis supplemental oxygen, in the last couple of weeks she's been more short of breath than baseline her sputum which was usually clears started turning yellow to green in about a week, 2 days prior to coming to the hospital started having some intermittent abdominal pain followed by loose stool diarrhea some of the episodes were makes with blood, patient has been admitted into the hospital, chest x-ray performed on admission related to old granulomatous disease overall remains unchanged compared to x-ray performed back in September 2017, the large bowel however revealed presence of the thickening along the splenic flexure and descending colon associated with the colitis this was a new change compared to prior computed tomography scan performed back in May 2017, stool for culture has been sent, patient is being treated with bronchodilator therapy and IV steroids and the broad-spectrum antibiotics sputum has been requested, stool for C. difficile has been ordered but however patient is not having any more loose stool, patient is being followed by ID service as well Interval history: 04/21/2017- patient is being seen examined and evaluated today while covering for Dr. Tristan. The patient is resting up in bed on 2 L of supplemental oxygen via nasal cannula. She states she uses home oxygen at night only at 2 L. She is complaining of some shortness of breath cough and congestion. She has had some yellow-green sputum. She will obtain a sputum sample today and send it down. She is being followed by GI and infectious disease as well. She does complain of some constipation currently. She has been afebrile no further complaints. Objective - Vital Signs Vital signs: Vital Signs Temp 97.9 F 04/21/18 05:51 Pulse 80 04/21/18 11:28 Resp 16 04/21/18 08:00 BP 112/65 04/21/18 05:51 Pulse Ox 95 04/21/18 07:17 Intake & Output 04/20/18 04/21/18 04/21/18 18:59 06:59 18:59 Intake Total 750 Balance 750 Intake: IV 750 Sodium Chloride 0.9% 1, 600 000 ml @ 75 mls/hr IV . [id number] [facility] Rx#:[id number] cefTRIAXone 1,000 mg In 50 Sodium Chloride 0.9% 50 ml @ 100 mls/hr IVPB Q24HR [facility] Rx#:[id number] metroNIDAZOLE-NS PMX 500 100 mg In Saline 1 100ml.bag @ 100 mls/hr IVPB Q6HR [facility] Rx#:[id number] Other: Voiding Method Toilet Toilet # Voids 3 2 - Exam GENERAL EXAM: Alert, active, comfortable in no apparent distress. HEAD: Normocephalic. EYES: Normal reaction of pupils, equal size. NOSE: Clear with pink turbinates. THROAT: No erythema or exudates. NECK: No masses, no JVD. CHEST: No chest wall deformity. LUNGS: Lungs noted to have some rhonchi and faint wheezing with prolonged expiration phase. CVS: S1 and S2 normal with no audible mumurs, regular rhythm. ABDOMEN: No hepatosplenomegaly, normal bowel sounds, no guarding or rigidity. EXTREMITIES: No edema noted, pedal pulses palpable. CENTRAL NERVOUS SYSTEM: No focal deficits, tone is normal in all 4 extremities. - Labs CBC & Chem 7: 04/21/18 07:02 04/21/18 07:02 Labs: Abnormal Lab Results - Last 24 Hours (Table) 04/20/18 04/20/18 04/21/18 Range/Units 16:48 20:59 07:02 WBC 17.2 H (3.8-10.6) k/uL MCHC 30.9 L (31.0-37.0) g/dL Neutrophils # 15.4 H (1.3-7.7) k/uL Chloride (98-107) mmol/L BUN (7-17) mg/dL Glucose (74-99) mg/dL POC Glucose (mg/dL) 153 H 168 H (75-99) mg/dL Total Protein (6.3-8.2) g/dL Albumin (3.5-5.0) g/dL 04/21/18 04/21/18 04/21/18 Range/Units 07:02 07:02 12:04 WBC (3.8-10.6) k/uL MCHC (31.0-37.0) g/dL Neutrophils # (1.3-7.7) k/uL Chloride 111 H (98-107) mmol/L BUN 18 H (7-17) mg/dL Glucose 148 H (74-99) mg/dL POC Glucose (mg/dL) 141 H 138 H (75-99) mg/dL Total Protein 4.7 L (6.3-8.2) g/dL Albumin 2.6 L (3.5-5.0) g/dL Microbiology - Last 24 Hours (Table) 04/18/18 23:52 Stool Culture - Preliminary Stool 04/18/18 18:13 Blood Culture - Preliminary Blood No Growth after 48 hours Assessment and Plan Assessment: Assessment Subcostal bilateral chest wall pain/muscle skeletal pain due to excessive coughing Acute exacerbation of COPD Purulent tracheobronchitis Acute on chronic hypoxic respiratory failure requiring supplemental oxygen Nonspecific descending and sigmoid colitis History of Mycobacterium avium complex infection status post therapy at [facility] Plan Medications have been reviewed and will be continued as ordered. Antibiotics and steroid taper Infectious disease on consult Appreciate GI recommendations Obtain sputum culture Continue with pulmonary hygiene, coughing and deep breathing exercises, and supportive care. Supplemental oxygen to maintain oxygen saturations of 92% or better. Continue nebulizer treatments. GI and DVT prophylaxis. We will continue to monitor labs/results and adjust treatment as necessary. Further recommendations pending. I, the signing physician performed an examination of the patient, discussed and directed their management with the nurse practitioner. I have reviewed the nurse practitioner's note and agree with the documented findings, orders and plan of care. Nurse practitioner acting as a scribe for the signing physician Please note we are covering for Dr. Tristan
[2018-04-21] MEDS: methylPREDNISolone SOD SUCCI 40 MG/ML 1 ML VIAL IV SCH ×2 (16:01→23:16)
[2018-04-21 16:55] LABS: Glucose,Whole Blood 128 mg/dL (75-99)
[2018-04-21] MEDS: metroNIDAZOLE 500 MG TAB PO SCH ×2 (17:12→23:16)
--- NOTE | 2018-04-21 19:33 | P.PN ---
Subjective Progress Note Date: 04/21/18 Principal diagnosis: Colitis, blood per rectum Patient lying in bed reporting right abdominal pain. Diet was advanced in tolerated. She is asking for a bowel regimen. Objective - Vital Signs Vital signs: Vital Signs Temp 98.0 F 04/21/18 14:46 Pulse 77 04/21/18 14:46 Resp 16 04/21/18 15:43 BP 119/74 04/21/18 14:46 Pulse Ox 95 04/21/18 14:46 Intake & Output 04/21/18 04/21/18 04/22/18 06:59 18:59 06:59 Other: Voiding Method Toilet Toilet # Voids 2 3 # Bowel Movements 0 - Exam On physical examination, patient appears comfortable in no apparent distress. HEAD: Normocephalic, atraumatic. EYES: No scleral icterus. No conjunctival injection. MOUTH: No lesions, tongue midline. NECK: Trachea midline, no gross abnormalities. CHEST: Clear to auscultation with no wheezing or rhonchi appreciated. HEART: Regular rate and rhythm. ABDOMEN: Soft, tender to palpation. Bowel sounds are positive. No organomegaly. No guarding or rigidity. EXTREMITIES: No pedal edema. SKIN: No rashes, no jaundice. NEUROLOGIC: Alert and oriented x3. No focal deficits. - Labs CBC & Chem 7: 04/21/18 07:02 04/21/18 07:02 Labs: Abnormal Lab Results - Last 24 Hours (Table) 04/20/18 04/21/18 04/21/18 Range/Units 20:59 07:02 07:02 WBC 17.2 H (3.8-10.6) k/uL MCHC 30.9 L (31.0-37.0) g/dL Neutrophils # 15.4 H (1.3-7.7) k/uL Chloride 111 H (98-107) mmol/L BUN 18 H (7-17) mg/dL Glucose 148 H (74-99) mg/dL POC Glucose (mg/dL) 168 H (75-99) mg/dL Total Protein 4.7 L (6.3-8.2) g/dL Albumin 2.6 L (3.5-5.0) g/dL 04/21/18 04/21/18 04/21/18 Range/Units 07:02 12:04 16:53 WBC (3.8-10.6) k/uL MCHC (31.0-37.0) g/dL Neutrophils # (1.3-7.7) k/uL Chloride (98-107) mmol/L BUN (7-17) mg/dL Glucose (74-99) mg/dL POC Glucose (mg/dL) 141 H 138 H 128 H (75-99) mg/dL Total Protein (6.3-8.2) g/dL Albumin (3.5-5.0) g/dL Microbiology - Last 24 Hours (Table) 04/18/18 23:52 Stool Culture - Preliminary Stool 04/18/18 18:13 Blood Culture - Preliminary Blood No Growth after 48 hours Assessment and Plan (1) Colitis Narrative/Plan: Patient presenting with acute episode of nausea, vomiting, diarrhea and subsequent bright red blood per rectum with associated findings on computed tomography scan of colitis of the splenic flexure and descending colon. Unknown etiology, however given the acuity of the patient's symptoms consideration is for infectious or ischemic etiology, less likely inflammatory in nature. Current Visit: Yes Status: Acute Code(s): K52.9 - NONINFECTIVE GASTROENTERITIS AND COLITIS, UNSPECIFIED SNOMED Code(s): 81803006 (2) Bright red blood per rectum Narrative/Plan: Patient reporting a bowel movement of bright red blood per rectum after initial symptoms of nausea, vomiting and diarrhea, currently symptomatically improved. Current Visit: Yes Status: Acute Code(s): K62.5 - HEMORRHAGE OF ANUS AND RECTUM SNOMED Code(s): 52881869 Plan: Supportive care Okay for diet Continue to monitor hemoglobin and hematocrit and transfuse as needed Continue antibiotic treatment with ceftriaxone and Flagyl No plans for endoscopic evaluation at this time, however extensive discussion with the patient and would recommend colonoscopy in 4-6 weeks after discharge, however if patient's symptoms worsen we'll consider further evaluation Colace started by primary team for bowel regimen, would recommend addition of MiraLAX Thank you for allowing us to participate in the care of the patient, we will continue to follow
[2018-04-21] MEDS: MELATONIN 5 MG TABLET PO SCH (20:01)
[2018-04-21 21:17] LABS: Glucose,Whole Blood 222 mg/dL (75-99)
[2018-04-22] MEDS: IPRATROPIUM-ALBUTEROL 3 ML NEB INHALATION SCH ×6 (03:22→23:19)
[2018-04-22] MEDS: HYDROmorphone 0.5 MG/0.5 ML SYRINGE IVP PRN ×4 (04:49→20:43)
[2018-04-22] MEDS: SODIUM CHLORIDE 0.9% 1,000 ML IV SCH ×2 (04:52→19:45)
--- NOTE | 2018-04-22 05:30 | PN ---
PROGRESS NOTE DATE OF SERVICE: 04/21/2018 REASON FOR FOLLOWUP: Colitis, likely ischemic. INTERVAL HISTORY: The patient is afebrile. She has been complaining of pain mostly in the right lower abdominal area, slight nausea but no vomiting. The patient did not have any bowel movement for the last 2 days. Denies having any chest pain, shortness of breath or cough. PHYSICAL EXAMINATION: On examination, blood pressure 119/74 with a pulse of 77, temperature 98. She is 95% on 2 L nasal cannula. General description is a middle aged female lying in bed in no distress. RESPIRATORY SYSTEM: Unlabored breathing, clear to auscultation anteriorly. HEART: S1, S2. Regular rate and rhythm. ABDOMEN: Soft, mildly tender. No guarding or rigidity. EXTREMITIES: No edema of the feet. LABS: Hemoglobin is 12 with white count 17.2. BUN of 18, creatinine 0.90. Blood culture has been negative. Stool culture so far negative. DIAGNOSTIC IMPRESSION AND PLAN: Patient with colitis, with splenic flexure and the descending colon with concern likely for ischemic etiology less likely infectious, now with pain mostly on the right side. If the pain persists, recommend repeating a CT of the abdomen and pelvis. Keep the patient on Unasyn and Flagyl. White count remains to be elevated more likely because of if we are not dealing with inflammatory colitis as per GI. Continue supportive care. MMODL / IJN: [id number] /
[2018-04-22] MEDS: AMPICILLIN-SULBACTAM 3 GM in SODIUM CHLORIDE 0.9% 100 ML IVPB SCH ×4 (06:07→23:05)
[2018-04-22] MEDS: metroNIDAZOLE 500 MG TAB PO SCH ×4 (06:07→23:05)
[2018-04-22] MEDS: ALPRAZolam 0.25 MG TAB PO SCH ×3 (06:07→23:05)
[2018-04-22 07:20] LABS: Glucose,Whole Blood 136 mg/dL (75-99)
[2018-04-22] MEDS: ASPIRIN 81 MG PO SCH (07:46)
[2018-04-22] MEDS: PANTOPRAZOLE 40 MG TABLET PO SCH ×2 (07:46→17:21)
[2018-04-22] MEDS: MONTELUKAST 10 MG TAB PO SCH (07:46)
[2018-04-22] MEDS: guaiFENesin 600 MG TABLET.ER PO SCH ×2 (07:46→20:41)
[2018-04-22] MEDS: DOCUSATE 100 MG CAP PO SCH ×2 (07:46→20:42)
[2018-04-22] MEDS: NICOTINE 21MG/24HR PATCH TRANSDERM SCH (07:47)
[2018-04-22] MEDS: INSULIN ASPART 100 UNIT/ML 1 ML 10 ML VIAL SQ SCH ×4 (07:47→20:43)
[2018-04-22] MEDS: VARENICLINE 0.5 MG TAB PO SCH (07:47)
[2018-04-22] MEDS: BACLOFEN 10 MG TAB PO SCH ×2 (07:47→20:41)
[2018-04-22] MEDS: DULoxetine HCL 30 MG CAPSULE.DR PO SCH ×2 (07:47→20:41)
[2018-04-22] MEDS: methylPREDNISolone SOD SUCCI 40 MG/ML 1 ML VIAL IV SCH ×3 (07:49→23:05)
[2018-04-22 09:33] LABS: Basophils % (A) 0 %; Eosinophils # (A) 0.1 k/uL (0-0.7); Eosinophils % (A) 0 %; HCT 39.7 % (34.0-46.0); HGB 11.9 gm/dL (11.4-16.0); Hypochromasia Moderate; Lymphocytes % (A) 7 %; MCH 26.9 pg (25.0-35.0); MCHC 29.9 g/dL (31.0-37.0); MCV 89.9 fL (80.0-100.0); Mean Platelet Volume 7.3; Monocytes # (A) 0.7 k/uL (0-1.0); Monocytes % (A) 5 %; Neutrophils # (A) 12.6 k/uL (1.3-7.7); Neutrophils % (A) 87 %; Platelet Count 204 k/uL (150-450); RBC 4.41 m/uL (3.80-5.40); RDW 14.6 % (11.5-15.5); WBC 14.5 k/uL (3.8-10.6)
[2018-04-22 09:40] LABS: Albumin 2.7 g/dL (3.5-5.0); Calcium 8.4 mg/dL (8.4-10.2); Potassium 4.6 mmol/L (3.5-5.1); Total Bilirubin 0.3 mg/dL (0.2-1.3); Total Protein 4.7 g/dL (6.3-8.2)
[2018-04-22 11:50] LABS: Glucose,Whole Blood 146 mg/dL (75-99)
--- NOTE | 2018-04-22 12:15 | P.PN ---
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, and gets followed up at [facility], patient did receive over a year and a half of anti MAC therapy, with the borderline response, patient was eventually taken off of the therapy, patient has multiple COPD exacerbation requiring admission in the hospital in the past, patient has chronic shortness of breath on minimal activity and exertion she has been on bronchodilator therapy on a regular basis supplemental oxygen, in the last couple of weeks she's been more short of breath than baseline her sputum which was usually clears started turning yellow to green in about a week, 2 days prior to coming to the hospital started having some intermittent abdominal pain followed by loose stool diarrhea some of the episodes were makes with blood, patient has been admitted into the hospital, chest x-ray performed on admission related to old granulomatous disease overall remains unchanged compared to x-ray performed back in September 2017, the large bowel however revealed presence of the thickening along the splenic flexure and descending colon associated with the colitis this was a new change compared to prior computed tomography scan performed back in May 2017, stool for culture has been sent, patient is being treated with bronchodilator therapy and IV steroids and the broad-spectrum antibiotics sputum has been requested, stool for C. difficile has been ordered but however patient is not having any more loose stool, patient is being followed by ID service as well Interval history: 04/21/2017- patient is being seen examined and evaluated today while covering for Dr. Tristan. The patient is resting up in bed on 2 L of supplemental oxygen via nasal cannula. She states she uses home oxygen at night only at 2 L. She is complaining of some shortness of breath cough and congestion. She has had some yellow-green sputum. She will obtain a sputum sample today and send it down. She is being followed by GI and infectious disease as well. She does complain of some constipation currently. She has been afebrile no further complaints. 04/22/18- patient is being seen examined and evaluated on rounds covering for Dr. Tristan. Patient is resting up in bed on 2 L of supplemental oxygen via nasal cannula. She still has some occasional wheezing however her breathing is much improved. She continues to be worked up with GI services in regards to her colitis. She is afebrile no further complaints. Objective - Vital Signs Vital signs: Vital Signs Temp 98.0 F 04/22/18 05:20 Pulse 66 04/22/18 12:01 Resp 18 04/22/18 08:00 BP 139/78 04/22/18 05:20 Pulse Ox 95 04/22/18 07:50 Intake & Output 04/21/18 04/22/18 04/22/18 18:59 06:59 18:59 Other: Voiding Method Toilet Toilet Toilet # Voids 3 2 # Bowel Movements 0 - Exam GENERAL EXAM: Alert, active, comfortable in no apparent distress. HEAD: Normocephalic. EYES: Normal reaction of pupils, equal size. NOSE: Clear with pink turbinates. THROAT: No erythema or exudates. NECK: No masses, no JVD. CHEST: No chest wall deformity. LUNGS: Lungs noted to have some rhonchi and faint wheezing with prolonged expiration phase. CVS: S1 and S2 normal with no audible mumurs, regular rhythm. ABDOMEN: No hepatosplenomegaly, normal bowel sounds, no guarding or rigidity. EXTREMITIES: No edema noted, pedal pulses palpable. CENTRAL NERVOUS SYSTEM: No focal deficits, tone is normal in all 4 extremities. - Labs CBC & Chem 7: 04/22/18 09:10 04/22/18 09:10 Labs: Abnormal Lab Results - Last 24 Hours (Table) 04/21/18 04/21/18 04/22/18 Range/Units 16:53 20:45 06:59 WBC (3.8-10.6) k/uL MCHC (31.0-37.0) g/dL Neutrophils # (1.3-7.7) k/uL Chloride (98-107) mmol/L BUN (7-17) mg/dL Glucose (74-99) mg/dL POC Glucose (mg/dL) 128 H 222 H 136 H (75-99) mg/dL Total Protein (6.3-8.2) g/dL Albumin (3.5-5.0) g/dL 04/22/18 04/22/18 04/22/18 Range/Units 09:10 09:10 11:37 WBC 14.5 H (3.8-10.6) k/uL MCHC 29.9 L (31.0-37.0) g/dL Neutrophils # 12.6 H (1.3-7.7) k/uL Chloride 110 H (98-107) mmol/L BUN 22 H (7-17) mg/dL Glucose 187 H (74-99) mg/dL POC Glucose (mg/dL) 146 H (75-99) mg/dL Total Protein 4.7 L (6.3-8.2) g/dL Albumin 2.7 L (3.5-5.0) g/dL Microbiology - Last 24 Hours (Table) 04/18/18 23:52 Stool Culture - Final Stool 04/18/18 18:13 Blood Culture - Preliminary Blood No Growth after 72 hours Assessment and Plan Assessment: Assessment Subcostal bilateral chest wall pain/muscle skeletal pain due to excessive coughing Acute exacerbation of COPD Purulent tracheobronchitis Acute on chronic hypoxic respiratory failure requiring supplemental oxygen Nonspecific descending and sigmoid colitis History of Mycobacterium avium complex infection status post therapy at [facility] Plan Medications have been reviewed and will be continued as ordered. Antibiotics and steroid taper Infectious disease on consult Appreciate GI recommendations Obtain sputum culture Continue with pulmonary hygiene, coughing and deep breathing exercises, and supportive care. Supplemental oxygen to maintain oxygen saturations of 92% or better. Continue nebulizer treatments. GI and DVT prophylaxis. We will continue to monitor labs/results and adjust treatment as necessary. Further recommendations pending. I, the signing physician performed an examination of the patient, discussed and directed their management with the nurse practitioner. I have reviewed the nurse practitioner's note and agree with the documented findings, orders and plan of care. Nurse practitioner acting as a scribe for the signing physician Please note we are covering for Dr. Tristan
[2018-04-22] MEDS: MULTIVITAMINS, THERA 1 EACH TAB PO SCH (12:16)
--- NOTE | 2018-04-22 12:28 | P.PN ---
Subjective Progress Note Date: 04/22/18 This is a 62-year-old female patient who presented to the emergency room with complaints of nausea vomiting and diarrhea. Patient reports the nausea vomiting and diarrhea started around midnight two nights ago. Patient reports that diarrhea eventually turned to blood. Patient reports multiple bowel movements that appeared dark. Patient denies any fevers. Patient denies any change in diet. Patient reports last colonoscopy was greater than 5 years ago. Patient also reports complaints of increased chest congestion cough and shortness of breath. Patient reports history of COPD caused by MAC infection in which she follows with cost controller Dr. Tristan. Patient reports that her chest congestion and increased sputum production has been increasing over the past 3-4 days. Additional medical history includes asthma, COPD, fibromyalgia, GERD, hyperlipidemia, osteoarthritis, pneumonia, chronic neck pain, arthritis, anxiety, depression and panic disorder and current every day smoker. Chest x- ray completed in emergency room showing bilateral upper lobe nodule densities could relate to old granulomatous disease and appears unchanged compared to old exam. Normal heart. CT of abdomen and pelvis completed showing a long segment of large bowel wall thickening involving the splenic flexure and descending colon severe nonspecific colitis. This is change compared to old exam. EKG completed showing normal sinus rhythm. Possible left atrial enlargement. Dr. Tristan has been consulted for pulmonary services. Patient started on IV steroids. Patient started on Flagyl and Rocephin for IV antibiotics. Stool cultures ordered. Blood and sputum cultures ordered. Dr. Cardoso has been consulted for infectious disease. At this time patient is reporting some abdominal discomfort. Patient denies any chest pain or shortness of breath. Patient denies any urinary burning or frequency On 04/20/2018 patient is currently resting in bed alert and orientated. Patient still complaining of some abdominal discomfort. Patient also complaining of increased chest congestion. Mucinex has been ordered. Patient is IV steroids and antibiotics at this time. C. diff ordered per infectious disease at this time. Patient denies any nausea or vomiting. Will advance diet to soft. Awaiting GI consult. 04/21/2018 patient complaining of a worsening right lower quadrant abdominal pain. She is applying heating pad. She's been refusing the [place] and only using the Dilaudid. GI is following. She is requesting Chantix on top of the nicotine patch for smoking cessation. Also complaining of constipation reports last bowel movement was on Dar. Colace has been added. White count is 17.2 , hemoglobin 12.0. Patient also has been complaining of chest pain. EKG and troponin ordered 04/22/2018 patient still complaining of right lower quadrant abdominal pain. Review GI and infectious disease notes. We will repeat computed tomography scan of the abdomen. Patient still reporting cough and chest pain. Troponin was negative. EKG normal sinus rhythm. White count did trend down from 17- 14.5. Denies any nausea or vomiting. Still no bowel movement. Colace added yesterday. We'll add MiraLAX Objective - Vital Signs Vital signs: Vital Signs Temp 98.0 F 04/22/18 05:20 Pulse 66 04/22/18 12:01 Resp 18 04/22/18 08:00 BP 139/78 04/22/18 05:20 Pulse Ox 95 04/22/18 07:50 Intake & Output 04/21/18 04/22/18 04/22/18 18:59 06:59 18:59 Other: Voiding Method Toilet Toilet Toilet # Voids 3 2 # Bowel Movements 0 - Exam Head normocephalic Neck supple Lungs clear to auscultation bilaterally no wheezing or crackles Heart regular rate and rhythm S1-S2, no rub or gallop Abdomen is soft right lower quadrant tenderness mildly distended positive bowel sounds no hepatosplenomegaly Extremities no edema Neuro alert and orientated to 3 - Labs CBC & Chem 7: 04/22/18 09:10 04/22/18 09:10 Labs: Abnormal Lab Results - Last 24 Hours (Table) 04/21/18 04/21/18 04/22/18 Range/Units 16:53 20:45 06:59 WBC (3.8-10.6) k/uL MCHC (31.0-37.0) g/dL Neutrophils # (1.3-7.7) k/uL Chloride (98-107) mmol/L BUN (7-17) mg/dL Glucose (74-99) mg/dL POC Glucose (mg/dL) 128 H 222 H 136 H (75-99) mg/dL Total Protein (6.3-8.2) g/dL Albumin (3.5-5.0) g/dL 04/22/18 04/22/18 04/22/18 Range/Units 09:10 09:10 11:37 WBC 14.5 H (3.8-10.6) k/uL MCHC 29.9 L (31.0-37.0) g/dL Neutrophils # 12.6 H (1.3-7.7) k/uL Chloride 110 H (98-107) mmol/L BUN 22 H (7-17) mg/dL Glucose 187 H (74-99) mg/dL POC Glucose (mg/dL) 146 H (75-99) mg/dL Total Protein 4.7 L (6.3-8.2) g/dL Albumin 2.7 L (3.5-5.0) g/dL Microbiology - Last 24 Hours (Table) 04/18/18 23:52 Stool Culture - Final Stool 04/18/18 18:13 Blood Culture - Preliminary Blood No Growth after 72 hours Assessment and Plan Assessment: 1.Colitis was possible sepsis. Infectious versus ischemic. Currently on Unasyn and Flagyl. Infectious disease and GI service are following. CT of abdomen completed showing large bowel wall thickening involving the splenic flexure and the descending colon consistent with nonspecific colitis. This is change compared to old exam. Stool for occult blood is positive. GI recommending colonoscopy in 4-6 weeks outpatient. Patient is complaining of worsening right lower quadrant abdominal pain will repeat computed tomography scan of the abdomen and pelvis. 2. Acute COPD exacerbation: Continue nebulizer treatments and IV Solu-Medrol. Pulmonary following 3. History of MAC lung disease status post treatment. Dr. Tristan has been consulted 4. History of COPD 5. History of fibromyalgia 6. History of hyperlipidemia 7. History of asthma 8. History of chronic neck pain 9. History of anxiety and bipolar depression 10. History of nicotine dependence. Patient educated greater than 3 minutes on smoking cessation. Continue nicotine patch will add Chantix 11. Hyperglycemia due to steroids. Sliding scale insulin has been ordered. Hemoglobin A1c ordered 12. Acute on chronic hypoxic respiratory failure 13. Constipation : Continue Colace. Add MiraLAX 14. Chest pain likely secondary to patient's cough. EKG normal sinus rhythm. Troponin negative GI prophylaxis Protonix. DVT prophylaxis SCDs due to positive occult stool Consult physical therapy I performed an examination of the patient and discussed their management with the physician Business Analysis Consultant. I have reviewed the Physician Business Analysis Consultant's notes and agree with the documented findings and plan of care
--- NOTE | 2018-04-22 14:39 | CT ---
EXAMINATION TYPE: CT abdomen pelvis wo con DATE OF EXAM: 04/22/2018 COMPARISON: April 18, 2018 HISTORY: Abdominal pain CT DLP: 490.8 mGycm Examination of the solid and hollow viscera is limited given the lack of contrast. FINDINGS: LUNG BASES: Multiple basilar pulmonary nodules noted. New left sided and small right-sided pleural ef fusions. Basilar compressive atelectasis and/or infiltrates. LIVER/GB: The gallbladder is unremarkable. No space-occupying hepatic lesion. PANCREAS: No pancreatic mass identified. No inflammatory process seen. SPLEEN: No evidence for splenomegaly. No intrasplenic lesions seen. ADRENALS: No adrenal nodules identified. No evidence for thickening. KIDNEYS: No evidence for renal mass. No nephrolithiasis. No hydronephrosis. BOWEL: Nonvisualization of the appendix. No evidence of bowel obstruction. No inflammatory process. Lymph nodes: No evidence for adenopathy greater than 1 cm. Abdominal aorta: Atheromatous changes seen. No evidence for aneurysm. Genital organs: Hysterectomy changes identified. No evidence for adnexal mass. Other: No significant abnormality. IMPRESSION: 1. Basilar pleural effusions with atelectasis and infiltrates. Scattered nodules are nonspecific. Fol low-up advised. 2. No acute intra-abdominal process appreciated.
[2018-04-22 17:06] LABS: Glucose,Whole Blood 124 mg/dL (75-99)
[2018-04-22] MEDS: ONDANSETRON 4 MG/2 ML VIAL IVP PRN (17:21)
[2018-04-22 20:27] LABS: Glucose,Whole Blood 158 mg/dL (75-99)
[2018-04-22] MEDS: MELATONIN 5 MG TABLET PO SCH (20:41)
[2018-04-22] MEDS: POLYETHYLENE GLYCOL 3350 17 GM POWD.PACK PO SCH (20:42)
--- NOTE | 2018-04-23 00:10 | PN ---
PROGRESS NOTE DATE OF SERVICE: 04/22/2018. REASON FOR FOLLOW UP: Colitis, possibly ischemic. INTERVAL HISTORY: The patient is afebrile. The patient continues to complains of pain to the right lower abdominal area, slight nausea, no vomiting. having any bowel movement. Breathing improved. Increasing cough. PHYSICAL EXAMINATION: Blood pressure 139/72, with a pulse of 74, temperature of 98. She is 94% on room air. General description is a middle aged female, lying in bed in no distress. Respiratory system: Unlabored breathing. Decreased and distant breath sounds. No wheeze. Heart S1, S2. Regular rate and rhythm. ABDOMEN: Soft. No guarding or rigidity. EXTREMITIES: No edema of the feet. LABS: Hemoglobin is 11.1, white count 14.5, BUN of 22, creatinine 0.7. DIAGNOSTIC IMPRESSION AND PLAN: Patient admitted to the hospital with abdominal pain. No nausea, vomiting, diarrhea, with evidence of colitis involving the splenic flexure and descending colon. Highly suspicious for ischemic colitis. She did have a CT abdomen and pelvis done today. However it was done without contrast, did not show any abnormality. White count showing downward trend. She is on Unasyn and Flagyl that will be continued, transition to oral on discharge. Continue supportive care. MMODL / IJN: [id number] /
[2018-04-23] MEDS: HYDROmorphone 0.5 MG/0.5 ML SYRINGE IVP PRN ×4 (02:33→22:23)
[2018-04-23] MEDS: IPRATROPIUM-ALBUTEROL 3 ML NEB INHALATION SCH ×6 (03:22→23:32)
[2018-04-23] MEDS: ALPRAZolam 0.25 MG TAB PO SCH ×3 (05:56→21:12)
[2018-04-23] MEDS: metroNIDAZOLE 500 MG TAB PO SCH ×4 (05:56→23:53)
[2018-04-23] MEDS: AMPICILLIN-SULBACTAM 3 GM in SODIUM CHLORIDE 0.9% 100 ML IVPB SCH ×4 (05:57→23:52)
[2018-04-23 07:06] LABS: Glucose,Whole Blood 110 mg/dL (75-99)
[2018-04-23] MEDS: INSULIN ASPART 100 UNIT/ML 1 ML 10 ML VIAL SQ SCH ×4 (07:50→21:05)
[2018-04-23] MEDS: DOCUSATE 100 MG CAP PO SCH ×2 (07:50→20:58)
[2018-04-23] MEDS: guaiFENesin 600 MG TABLET.ER PO SCH ×2 (07:50→21:05)
[2018-04-23] MEDS: MULTIVITAMINS, THERA 1 EACH TAB PO SCH (07:51)
[2018-04-23] MEDS: BACLOFEN 10 MG TAB PO SCH ×2 (07:51→21:05)
[2018-04-23] MEDS: DULoxetine HCL 30 MG CAPSULE.DR PO SCH ×2 (07:51→21:05)
[2018-04-23] MEDS: ASPIRIN 81 MG PO SCH (07:51)
[2018-04-23] MEDS: PANTOPRAZOLE 40 MG TABLET PO SCH ×2 (07:51→17:40)
[2018-04-23] MEDS: VARENICLINE 0.5 MG TAB PO SCH (07:51)
[2018-04-23] MEDS: MONTELUKAST 10 MG TAB PO SCH (07:51)
[2018-04-23] MEDS: methylPREDNISolone SOD SUCCI 40 MG/ML 1 ML VIAL IV SCH ×3 (07:52→23:52)
[2018-04-23] MEDS: NICOTINE 21MG/24HR PATCH TRANSDERM SCH (07:52)
[2018-04-23 08:26] LABS: Basophils # (A) 0.1 k/uL (0-0.2); Basophils % (A) 0 %; Eosinophils % (A) 0 %; HCT 44.6 % (34.0-46.0); HGB 13.9 gm/dL (11.4-16.0); Hypochromasia Slight; Lymphocytes # (A) 1.9 k/uL (1.0-4.8); Lymphocytes % (A) 13 %; MCH 27.5 pg (25.0-35.0); MCHC 31.2 g/dL (31.0-37.0); Mean Platelet Volume 6.7; Monocytes # (A) 0.8 k/uL (0-1.0); Monocytes % (A) 5 %; Neutrophils # (A) 12.1 k/uL (1.3-7.7); Neutrophils % (A) 81 %; Platelet Count 231 k/uL (150-450); RBC 5.06 m/uL (3.80-5.40); RDW 14.5 % (11.5-15.5)
[2018-04-23 08:32] LABS: Albumin 2.8 g/dL (3.5-5.0); Calcium 8.5 mg/dL (8.4-10.2); Potassium 4.7 mmol/L (3.5-5.1); Total Bilirubin 0.4 mg/dL (0.2-1.3); Total Protein 4.8 g/dL (6.3-8.2)
[2018-04-23] MEDS ORDERED: ERGOCALCIFEROL 50,000 UNIT CAP PO SCH (09:00)
[2018-04-23 11:42] LABS: Glucose,Whole Blood 115 mg/dL (75-99)
--- NOTE | 2018-04-23 12:09 | P.PN ---
Subjective Progress Note Date: 04/23/18 HPI: 62-year-old female well-known to me patient has a history of the end-stage lung disease and severe COPD emphysema and history of lung nodules which are thought to be related to Mycobacterium avium complex infection, and gets followed up at [facility], patient did receive over a year and a half of anti MAC therapy, with the borderline response, patient was eventually taken off of the therapy, patient has multiple COPD exacerbation requiring admission in the hospital in the past, patient has chronic shortness of breath on minimal activity and exertion she has been on bronchodilator therapy on a regular basis supplemental oxygen, in the last couple of weeks she's been more short of breath than baseline her sputum which was usually clears started turning yellow to green in about a week, 2 days prior to coming to the hospital started having some intermittent abdominal pain followed by loose stool diarrhea some of the episodes were makes with blood, patient has been admitted into the hospital, chest x-ray performed on admission related to old granulomatous disease overall remains unchanged compared to x-ray performed back in September 2017, the large bowel however revealed presence of the thickening along the splenic flexure and descending colon associated with the colitis this was a new change compared to prior computed tomography scan performed back in May 2017, stool for culture has been sent, patient is being treated with bronchodilator therapy and IV steroids and the broad-spectrum antibiotics sputum has been requested, stool for C. difficile has been ordered but however patient is not having any more loose stool, patient is being followed by ID service as well Interval history: 04/21/2017- patient is being seen examined and evaluated today while covering for Dr. Tristan. The patient is resting up in bed on 2 L of supplemental oxygen via nasal cannula. She states she uses home oxygen at night only at 2 L. She is complaining of some shortness of breath cough and congestion. She has had some yellow-green sputum. She will obtain a sputum sample today and send it down. She is being followed by GI and infectious disease as well. She does complain of some constipation currently. She has been afebrile no further complaints. 04/22/18- patient is being seen examined and evaluated on rounds covering for Dr. Tristan. Patient is resting up in bed on 2 L of supplemental oxygen via nasal cannula. She still has some occasional wheezing however her breathing is much improved. She continues to be worked up with GI services in regards to her colitis. She is afebrile no further complaints. 04/23/18- patient is being seen examined and evaluated today on rounds covering for Dr. Tristan. She continues on 2 L of supplemental oxygen via nasal cannula. He occasionally still has wheezing. Her CT of the abdomen and pelvis showed no acute abdominal process. Did reveal some bibasilar atelectasis in the lungs. The patient is encouraged to get up and ambulate and increase her activity. GI is following the patient closely. She did say she had a bowel movement overnight with did have some bleeding. Objective - Vital Signs Vital signs: Vital Signs Temp 96.9 F L 04/23/18 06:01 Pulse 66 04/23/18 11:14 Resp 17 04/23/18 08:00 BP 167/90 04/23/18 06:01 Pulse Ox 91 L 04/23/18 06:01 Intake & Output 04/22/18 04/23/18 04/23/18 18:59 06:59 18:59 Other: Voiding Method Toilet Toilet Toilet # Voids 2 2 - Exam GENERAL EXAM: Alert, active, comfortable in no apparent distress. HEAD: Normocephalic. EYES: Normal reaction of pupils, equal size. NOSE: Clear with pink turbinates. THROAT: No erythema or exudates. NECK: No masses, no JVD. CHEST: No chest wall deformity. LUNGS: Lungs noted to have some rhonchi and faint wheezing with prolonged expiration phase. CVS: S1 and S2 normal with no audible mumurs, regular rhythm. ABDOMEN: No hepatosplenomegaly, normal bowel sounds, no guarding or rigidity. EXTREMITIES: No edema noted, pedal pulses palpable. CENTRAL NERVOUS SYSTEM: No focal deficits, tone is normal in all 4 extremities. - Labs CBC & Chem 7: 04/23/18 07:33 04/23/18 07:33 Labs: Abnormal Lab Results - Last 24 Hours (Table) 04/22/18 04/22/18 04/23/18 Range/Units 17:02 20:25 07:03 WBC (3.8-10.6) k/uL Neutrophils # (1.3-7.7) k/uL Carbon Dioxide (22-30) mmol/L Glucose (74-99) mg/dL POC Glucose (mg/dL) 124 H 158 H 110 H (75-99) mg/dL Total Protein (6.3-8.2) g/dL Albumin (3.5-5.0) g/dL 04/23/18 04/23/18 04/23/18 Range/Units 07:33 07:33 11:31 WBC 15.0 H (3.8-10.6) k/uL Neutrophils # 12.1 H (1.3-7.7) k/uL Carbon Dioxide 33 H (22-30) mmol/L Glucose 102 H (74-99) mg/dL POC Glucose (mg/dL) 115 H (75-99) mg/dL Total Protein 4.8 L (6.3-8.2) g/dL Albumin 2.8 L (3.5-5.0) g/dL Microbiology - Last 24 Hours (Table) 04/18/18 23:52 Stool Culture - Final Stool 04/18/18 18:13 Blood Culture - Preliminary Blood No Growth after 96 hours Assessment and Plan Assessment: Assessment Subcostal bilateral chest wall pain/muscle skeletal pain due to excessive coughing Acute exacerbation of COPD Purulent tracheobronchitis Acute on chronic hypoxic respiratory failure requiring supplemental oxygen Nonspecific descending and sigmoid colitis History of Mycobacterium avium complex infection status post therapy at [facility] Plan Medications have been reviewed and will be continued as ordered. Antibiotics and steroid taper Infectious disease on consult Appreciate GI recommendations Obtain sputum culture Continue with pulmonary hygiene, coughing and deep breathing exercises, and supportive care. Supplemental oxygen to maintain oxygen saturations of 92% or better. Continue nebulizer treatments. GI and DVT prophylaxis. We will continue to monitor labs/results and adjust treatment as necessary. Further recommendations pending. I, the signing physician performed an examination of the patient, discussed and directed their management with the nurse practitioner. I have reviewed the nurse practitioner's note and agree with the documented findings, orders and plan of care. Nurse practitioner acting as a scribe for the signing physician Please note we are covering for Dr. Tristan
[2018-04-23] MEDS: SODIUM CHLORIDE 0.9% 1,000 ML IV SCH ×2 (12:27→23:31)
[2018-04-23] MEDS: guaiFENesin-DM 100-10MG/5ML 10 ML CUP PO PRN (12:27)
--- NOTE | 2018-04-23 14:53 | P.PN ---
Subjective Progress Note Date: 04/23/18 This is a 62-year-old female patient who presented to the emergency room with complaints of nausea vomiting and diarrhea. Patient reports the nausea vomiting and diarrhea started around midnight two nights ago. Patient reports that diarrhea eventually turned to blood. Patient reports multiple bowel movements that appeared dark. Patient denies any fevers. Patient denies any change in diet. Patient reports last colonoscopy was greater than 5 years ago. Patient also reports complaints of increased chest congestion cough and shortness of breath. Patient reports history of COPD caused by MAC infection in which she follows with harbor pilot Dr. Tristan. Patient reports that her chest congestion and increased sputum production has been increasing over the past 3-4 days. Additional medical history includes asthma, COPD, fibromyalgia, GERD, hyperlipidemia, osteoarthritis, pneumonia, chronic neck pain, arthritis, anxiety, depression and panic disorder and current every day smoker. Chest x- ray completed in emergency room showing bilateral upper lobe nodule densities could relate to old granulomatous disease and appears unchanged compared to old exam. Normal heart. CT of abdomen and pelvis completed showing a long segment of large bowel wall thickening involving the splenic flexure and descending colon severe nonspecific colitis. This is change compared to old exam. EKG completed showing normal sinus rhythm. Possible left atrial enlargement. Dr. Tristan has been consulted for pulmonary services. Patient started on IV steroids. Patient started on Flagyl and Rocephin for IV antibiotics. Stool cultures ordered. Blood and sputum cultures ordered. Dr. Cardoso has been consulted for infectious disease. At this time patient is reporting some abdominal discomfort. Patient denies any chest pain or shortness of breath. Patient denies any urinary burning or frequency On 04/20/2018 patient is currently resting in bed alert and orientated. Patient still complaining of some abdominal discomfort. Patient also complaining of increased chest congestion. Mucinex has been ordered. Patient is IV steroids and antibiotics at this time. C. diff ordered per infectious disease at this time. Patient denies any nausea or vomiting. Will advance diet to soft. Awaiting GI consult. 04/21/2018 patient complaining of a worsening right lower quadrant abdominal pain. She is applying heating pad. She's been refusing the [place] and only using the Dilaudid. GI is following. She is requesting Chantix on top of the nicotine patch for smoking cessation. Also complaining of constipation reports last bowel movement was on Dar. Colace has been added. White count is 17.2 , hemoglobin 12.0. Patient also has been complaining of chest pain. EKG and troponin ordered 04/22/2018 patient still complaining of right lower quadrant abdominal pain. Review GI and infectious disease notes. We will repeat computed tomography scan of the abdomen. Patient still reporting cough and chest pain. Troponin was negative. EKG normal sinus rhythm. White count did trend down from 17- 14.5. Denies any nausea or vomiting. Still no bowel movement. Colace added yesterday. We'll add MiraLAX On 04/23/2018 patient is alert and oriented. Patient does state per minute with abdominal pain. Patient did report she had BM this AM. This time patient denies chest pain or shortness breath. Patient denies nausea vomiting or diarrhea. Patient denies any urinary burning or frequency. Objective - Vital Signs Vital signs: Vital Signs Temp 96.9 F L 04/23/18 06:01 Pulse 66 04/23/18 11:14 Resp 17 04/23/18 08:00 BP 167/90 04/23/18 06:01 Pulse Ox 91 L 04/23/18 06:01 Intake & Output 04/22/18 04/23/18 04/23/18 18:59 06:59 18:59 Other: Voiding Method Toilet Toilet Toilet # Voids 2 2 - Exam Head normocephalic Neck supple Lungs diminished rhonchi throughout throughout Heart regular rate and rhythm S1-S2, no rub or gallop Abdomen is soft nontender nondistended positive bowel sounds no hepatosplenomegaly Extremities no edema Neuro alert and orientated to 3 - Labs CBC & Chem 7: 04/23/18 07:33 04/23/18 07:33 Labs: Abnormal Lab Results - Last 24 Hours (Table) 04/22/18 04/22/18 04/23/18 Range/Units 17:02 20:25 07:03 WBC (3.8-10.6) k/uL Neutrophils # (1.3-7.7) k/uL Carbon Dioxide (22-30) mmol/L Glucose (74-99) mg/dL POC Glucose (mg/dL) 124 H 158 H 110 H (75-99) mg/dL Total Protein (6.3-8.2) g/dL Albumin (3.5-5.0) g/dL 04/23/18 04/23/18 04/23/18 Range/Units 07:33 07:33 11:31 WBC 15.0 H (3.8-10.6) k/uL Neutrophils # 12.1 H (1.3-7.7) k/uL Carbon Dioxide 33 H (22-30) mmol/L Glucose 102 H (74-99) mg/dL POC Glucose (mg/dL) 115 H (75-99) mg/dL Total Protein 4.8 L (6.3-8.2) g/dL Albumin 2.8 L (3.5-5.0) g/dL Microbiology - Last 24 Hours (Table) 04/18/18 23:52 Stool Culture - Final Stool 04/18/18 18:13 Blood Culture - Preliminary Blood No Growth after 96 hours Assessment and Plan Assessment: 1.Colitis was possible sepsis. Infectious versus ischemic. Currently on Unasyn and Flagyl. Infectious disease and GI service are following. CT of abdomen completed showing large bowel wall thickening involving the splenic flexure and the descending colon consistent with nonspecific colitis. This is change compared to old exam. Stool for occult blood is positive. GI recommending colonoscopy in 4-6 weeks outpatient. Patient is complaining of worsening right lower quadrant. CT of abdomen completed showing basilar pleural effusions with atelectasis and infiltrates. Scattered nodules are nonspecific follow-up advised. No acute intra-abdominal process appreciated. 2. Acute COPD exacerbation: Continue nebulizer treatments and IV Solu-Medrol. Pulmonary following 3. History of MAC lung disease status post treatment. Dr. Tristan has been consulted 4. History of COPD 5. History of fibromyalgia 6. History of hyperlipidemia 7. History of asthma 8. History of chronic neck pain 9. History of anxiety and bipolar depression 10. History of nicotine dependence. Patient educated greater than 3 minutes on smoking cessation. Continue nicotine patch will add Chantix 11. Hyperglycemia due to steroids. Sliding scale insulin has been ordered. Hemoglobin A1c ordered 12. Acute on chronic hypoxic respiratory failure 13. Constipation : Continue Colace. Add MiraLAX 14. Chest pain likely secondary to patient's cough. EKG normal sinus rhythm. Troponin negative DVT prophylaxis SCDs due to positive occult stool. GI prophylaxis Protonix I performed an examination of the patient and discussed their management with the Nurse Practitioner. I have reviewed the Nurse Practitioner's notes and agree with the documented findings and plan of care
--- NOTE | 2018-04-23 15:14 | P.PN ---
Subjective Progress Note Date: 04/23/18 Principal diagnosis: Abdominal pain colitis blood per rectum CT yesterday no acute changes. Tolerating diet. BM today. Abdominal pain improved. Afebrile. White count 15. Hemoglobin 13.9. Objective - Vital Signs Vital signs: Vital Signs Temp 98.3 F 04/23/18 13:50 Pulse 81 04/23/18 13:50 Resp 16 04/23/18 13:50 BP 146/77 04/23/18 13:50 Pulse Ox 91 L 04/23/18 13:50 Intake & Output 04/22/18 04/23/18 04/23/18 18:59 06:59 18:59 Intake Total 840 Balance 840 Intake: Oral 840 Other: Voiding Method Toilet Toilet Toilet # Voids 2 2 3 # Bowel Movements 1 - Exam General appearance: The patient is alert, oriented, in no acute distress. HET: Head is normocephalic and atraumatic. Pupils are equal and reactive. Oropharynx is clear without lesions. Neck: Supple without lymphadenopathy. Trachea midline. Heart: S1 S2. Regular rate and rhythm. Lungs: No crackles or wheezes are heard. Abdomen: Soft, mild tenderness across mid abdomen, nondistended with bowel sounds. No peritoneal signs. No palpable organomegaly or masses. Extremities: Normal skin color and turgor. No cyanosis, rash, ulceration, clubbing, or edema. Radial and pedal pulses are 2/4 bilaterally. Neurological: No focal deficits. Strength and sensation are grossly intact. - Labs CBC & Chem 7: 04/23/18 07:33 04/23/18 07:33 Labs: Abnormal Lab Results - Last 24 Hours (Table) 04/22/18 04/22/18 04/23/18 Range/Units 17:02 20:25 07:03 WBC (3.8-10.6) k/uL Neutrophils # (1.3-7.7) k/uL Carbon Dioxide (22-30) mmol/L Glucose (74-99) mg/dL POC Glucose (mg/dL) 124 H 158 H 110 H (75-99) mg/dL Total Protein (6.3-8.2) g/dL Albumin (3.5-5.0) g/dL 04/23/18 04/23/18 04/23/18 Range/Units 07:33 07:33 11:31 WBC 15.0 H (3.8-10.6) k/uL Neutrophils # 12.1 H (1.3-7.7) k/uL Carbon Dioxide 33 H (22-30) mmol/L Glucose 102 H (74-99) mg/dL POC Glucose (mg/dL) 115 H (75-99) mg/dL Total Protein 4.8 L (6.3-8.2) g/dL Albumin 2.8 L (3.5-5.0) g/dL Microbiology - Last 24 Hours (Table) 04/18/18 23:52 Stool Culture - Final Stool 04/18/18 18:13 Blood Culture - Preliminary Blood No Growth after 96 hours Assessment and Plan (1) Colitis Current Visit: Yes Status: Acute Code(s): K52.9 - NONINFECTIVE GASTROENTERITIS AND COLITIS, UNSPECIFIED SNOMED Code(s): 24777941 (2) Bright red blood per rectum Current Visit: Yes Status: Acute Code(s): K62.5 - HEMORRHAGE OF ANUS AND RECTUM SNOMED Code(s): 50688973 Plan: 1. Continue with light diet as tolerated. Continue with symptomatic supportive measures. Return to office in 2-3 weeks for reevaluation. Discharge per medicine. Assessment and plan a care discussed with Dr. Avina
[2018-04-23] MEDS: HYDROcodone/APAP 10-325MG 1 EACH TAB PO PRN (16:17)
[2018-04-23 17:10] LABS: Glucose,Whole Blood 156 mg/dL (75-99)
[2018-04-23 19:49] LABS: Glucose,Whole Blood 188 mg/dL (75-99)
[2018-04-23] MEDS: MELATONIN 5 MG TABLET PO SCH (21:06)
[2018-04-23] MEDS: POLYETHYLENE GLYCOL 3350 17 GM POWD.PACK PO SCH (21:08)
--- NOTE | 2018-04-23 22:17 | PN ---
PROGRESS NOTE DATE OF SERVICE: 04/23/2018. REASON FOR FOLLOWUP VISIT: Colitis. INTERVAL HISTORY: The patient is currently afebrile. She is breathing comfortably. Patient's abdominal pain has improved. The patient did mention that she did have one small bowel movement with slight amount of blood in it. Her breathing has improved. No nausea, no vomiting. PHYSICAL EXAMINATION: Her blood pressure is 146/77 with a pulse of 81, temperature 98.3. She is 91% on room air. General description is a middle-aged female lying in bed in no distress. Respiratory system: Unlabored breathing. Clear to auscultation anteriorly. Heart S1, S2. Regular rate and rhythm. Abdomen soft. No guarding or rigidity. EXTREMITIES: No edema of the feet. LABS: Hemoglobin 13.1, white count 15,000, BUN of 16, creatinine 0.89. DIAGNOSTIC IMPRESSION AND PLAN: Patient admitted to the hospital with abdominal pain, nausea, vomiting in this patient who did have evidence of colitis involving the splenic flexure and descending colon with concern for possible ischemic colitis. She did have persistent abdominal pain. repeat CT was done unfortunately without any contrast and did not mention any colitis. Patient is currently on Unasyn. Will transition to oral antibiotic on discharge. Continue supportive care. MMODL / IJN: [id number] /
[2018-04-24] MEDS: HYDROmorphone 0.5 MG/0.5 ML SYRINGE IVP PRN ×4 (03:31→21:58)
[2018-04-24] MEDS: IPRATROPIUM-ALBUTEROL 3 ML NEB INHALATION SCH ×6 (04:07→23:52)
[2018-04-24] MEDS: metroNIDAZOLE 500 MG TAB PO SCH ×3 (07:01→17:45)
[2018-04-24] MEDS: AMPICILLIN-SULBACTAM 3 GM in SODIUM CHLORIDE 0.9% 100 ML IVPB SCH ×3 (07:01→17:48)
[2018-04-24 07:14] LABS: Glucose,Whole Blood 115 mg/dL (75-99)
[2018-04-24] MEDS: NICOTINE 21MG/24HR PATCH TRANSDERM SCH (07:55)
[2018-04-24] MEDS: MULTIVITAMINS, THERA 1 EACH TAB PO SCH (07:56)
[2018-04-24] MEDS: BACLOFEN 10 MG TAB PO SCH ×2 (07:56→20:15)
[2018-04-24] MEDS: ALPRAZolam 0.25 MG TAB PO SCH ×2 (07:56→16:15)
[2018-04-24] MEDS: MONTELUKAST 10 MG TAB PO SCH (07:56)
[2018-04-24] MEDS: ASPIRIN 81 MG PO SCH (07:56)
[2018-04-24] MEDS: VARENICLINE 0.5 MG TAB PO SCH (07:56)
[2018-04-24] MEDS: guaiFENesin 600 MG TABLET.ER PO SCH ×2 (07:57→20:15)
[2018-04-24] MEDS: PANTOPRAZOLE 40 MG TABLET PO SCH ×2 (07:57→17:45)
[2018-04-24] MEDS: DULoxetine HCL 30 MG CAPSULE.DR PO SCH ×2 (07:57→20:15)
[2018-04-24] MEDS: INSULIN ASPART 100 UNIT/ML 1 ML 10 ML VIAL SQ SCH ×4 (07:57→21:53)
[2018-04-24] MEDS: methylPREDNISolone SOD SUCCI 40 MG/ML 1 ML VIAL IV SCH ×2 (07:57→16:15)
[2018-04-24] MEDS: DOCUSATE 100 MG CAP PO SCH (07:58)
[2018-04-24] MEDS: HYDROcodone/APAP 10-325MG 1 EACH TAB PO PRN (08:02)
[2018-04-24 09:49] LABS: Basophils # (A) 0.1 k/uL (0-0.2); Basophils % (A) 0 %; Eosinophils # (A) 0.1 k/uL (0-0.7); Eosinophils % (A) 1 %; HCT 45.9 % (34.0-46.0); HGB 14.1 gm/dL (11.4-16.0); Lymphocytes # (A) 2.4 k/uL (1.0-4.8); Lymphocytes % (A) 17 %; MCHC 30.7 g/dL (31.0-37.0); Mean Platelet Volume 7.5; Monocytes # (A) 0.7 k/uL (0-1.0); Monocytes % (A) 5 %; Neutrophils % (A) 77 %; Platelet Count 228 k/uL (150-450); RBC 5.22 m/uL (3.80-5.40); RDW 14.8 % (11.5-15.5); WBC 14.4 k/uL (3.8-10.6)
[2018-04-24 10:12] LABS: ALT 35 U/L (9-52); AST 20 U/L (14-36); Albumin 2.9 g/dL (3.5-5.0); Alkaline Phosphatase 42 U/L (38-126); Anion Gap 2 mmol/L; Blood Urea Nitrogen 17 mg/dL (7-17); Calcium 8.6 mg/dL (8.4-10.2); Carbon Dioxide 36 mmol/L (22-30); Chloride 103 mmol/L (98-107); Glucose 105 mg/dL (74-99); Potassium 4.1 mmol/L (3.5-5.1); Sodium 141 mmol/L (137-145); Total Bilirubin 0.5 mg/dL (0.2-1.3); Total Protein 5.1 g/dL (6.3-8.2)
[2018-04-24] MEDS: guaiFENesin-DM 100-10MG/5ML 10 ML CUP PO PRN (10:19)
--- NOTE | 2018-04-24 11:06 | P.PN ---
Subjective Progress Note Date: 04/24/18 HPI: 62-year-old female well-known to me patient has a history of the end-stage lung disease and severe COPD emphysema and history of lung nodules which are thought to be related to Mycobacterium avium complex infection, and gets followed up at [facility], patient did receive over a year and a half of anti MAC therapy, with the borderline response, patient was eventually taken off of the therapy, patient has multiple COPD exacerbation requiring admission in the hospital in the past, patient has chronic shortness of breath on minimal activity and exertion she has been on bronchodilator therapy on a regular basis supplemental oxygen, in the last couple of weeks she's been more short of breath than baseline her sputum which was usually clears started turning yellow to green in about a week, 2 days prior to coming to the hospital started having some intermittent abdominal pain followed by loose stool diarrhea some of the episodes were makes with blood, patient has been admitted into the hospital, chest x-ray performed on admission related to old granulomatous disease overall remains unchanged compared to x-ray performed back in September 2017, the large bowel however revealed presence of the thickening along the splenic flexure and descending colon associated with the colitis this was a new change compared to prior computed tomography scan performed back in May 2017, stool for culture has been sent, patient is being treated with bronchodilator therapy and IV steroids and the broad-spectrum antibiotics sputum has been requested, stool for C. difficile has been ordered but however patient is not having any more loose stool, patient is being followed by ID service as well Interval history: 04/21/2017- patient is being seen examined and evaluated today while covering for Dr. Tristan. The patient is resting up in bed on 2 L of supplemental oxygen via nasal cannula. She states she uses home oxygen at night only at 2 L. She is complaining of some shortness of breath cough and congestion. She has had some yellow-green sputum. She will obtain a sputum sample today and send it down. She is being followed by GI and infectious disease as well. She does complain of some constipation currently. She has been afebrile no further complaints. 04/22/18- patient is being seen examined and evaluated on rounds covering for Dr. Tristan. Patient is resting up in bed on 2 L of supplemental oxygen via nasal cannula. She still has some occasional wheezing however her breathing is much improved. She continues to be worked up with GI services in regards to her colitis. She is afebrile no further complaints. 04/23/18- patient is being seen examined and evaluated today on rounds covering for Dr. Tristan. She continues on 2 L of supplemental oxygen via nasal cannula. He occasionally still has wheezing. Her CT of the abdomen and pelvis showed no acute abdominal process. Did reveal some bibasilar atelectasis in the lungs. The patient is encouraged to get up and ambulate and increase her activity. GI is following the patient closely. She did say she had a bowel movement overnight with did have some bleeding. 04/24/18- patient is being seen examined and evaluated today on rounds while covering Dr. Tristan. She continues on supplemental oxygen via nasal cannula her breathing is close to her baseline. She does have a congested cough at times. She did have an episode of diarrhea however C. diff has been ruled out. No further interventions from a GI standpoint per their note. She will require close follow-up in the outpatient setting. She is hemodynamically stable. Objective - Vital Signs Vital signs: Vital Signs Temp 98.0 F 04/24/18 04:12 Pulse 78 04/24/18 11:02 Resp 16 04/24/18 08:00 BP 152/73 04/24/18 04:12 Pulse Ox 94 L 04/24/18 04:12 Intake & Output 04/23/18 04/24/18 04/24/18 18:59 06:59 18:59 Intake Total 1680 Balance 1680 Weight 66.95 kg Intake: Oral 1680 Other: Voiding Method Toilet Toilet # Voids 2 1 # Bowel Movements 1 - Exam GENERAL EXAM: Alert, active, comfortable in no apparent distress. HEAD: Normocephalic. EYES: Normal reaction of pupils, equal size. NOSE: Clear with pink turbinates. THROAT: No erythema or exudates. NECK: No masses, no JVD. CHEST: No chest wall deformity. LUNGS: Lungs noted to have some rhonchi and faint wheezing with prolonged expiration phase. CVS: S1 and S2 normal with no audible mumurs, regular rhythm. ABDOMEN: No hepatosplenomegaly, normal bowel sounds, no guarding or rigidity. EXTREMITIES: No edema noted, pedal pulses palpable. CENTRAL NERVOUS SYSTEM: No focal deficits, tone is normal in all 4 extremities. - Labs CBC & Chem 7: 04/24/18 09:18 04/24/18 09:18 Labs: Abnormal Lab Results - Last 24 Hours (Table) 04/23/18 04/23/18 04/23/18 Range/Units 11:31 17:05 19:47 WBC (3.8-10.6) k/uL MCHC (31.0-37.0) g/dL Neutrophils # (1.3-7.7) k/uL Carbon Dioxide (22-30) mmol/L Glucose (74-99) mg/dL POC Glucose (mg/dL) 115 H 156 H 188 H (75-99) mg/dL Total Protein (6.3-8.2) g/dL Albumin (3.5-5.0) g/dL 04/24/18 04/24/18 04/24/18 Range/Units 07:05 09:18 09:18 WBC 14.4 H (3.8-10.6) k/uL MCHC 30.7 L (31.0-37.0) g/dL Neutrophils # 11.0 H (1.3-7.7) k/uL Carbon Dioxide 36 H (22-30) mmol/L Glucose 105 H (74-99) mg/dL POC Glucose (mg/dL) 115 H (75-99) mg/dL Total Protein 5.1 L (6.3-8.2) g/dL Albumin 2.9 L (3.5-5.0) g/dL Microbiology - Last 24 Hours (Table) 04/18/18 18:13 Blood Culture - Preliminary Blood No Growth after 120 hours 04/18/18 23:52 Stool Culture - Final Stool Assessment and Plan Assessment: Assessment Subcostal bilateral chest wall pain/muscle skeletal pain due to excessive coughing Acute exacerbation of COPD Purulent tracheobronchitis Acute on chronic hypoxic respiratory failure requiring supplemental oxygen Nonspecific descending and sigmoid colitis History of Mycobacterium avium complex infection status post therapy at [facility] Plan Medications have been reviewed and will be continued as ordered. Antibiotics and steroid taper Infectious disease on consult Appreciate GI recommendations Obtain sputum culture Continue with pulmonary hygiene, coughing and deep breathing exercises, and supportive care. Supplemental oxygen to maintain oxygen saturations of 92% or better. Continue nebulizer treatments. GI and DVT prophylaxis. We will continue to monitor labs/results and adjust treatment as necessary. Further recommendations pending. I, the signing physician performed an examination of the patient, discussed and directed their management with the nurse practitioner. I have reviewed the nurse practitioner's note and agree with the documented findings, orders and plan of care. Nurse practitioner acting as a scribe for the signing physician Please note we are covering for Dr. Tristan
[2018-04-24 11:28] LABS: Glucose,Whole Blood 89 mg/dL (75-99)
[2018-04-24] MEDS: SODIUM CHLORIDE 0.9% 1,000 ML IV SCH (11:36)
--- NOTE | 2018-04-24 12:13 | P.PN ---
Subjective Progress Note Date: 04/24/18 This is a 62-year-old female patient who presented to the emergency room with complaints of nausea vomiting and diarrhea. Patient reports the nausea vomiting and diarrhea started around midnight two nights ago. Patient reports that diarrhea eventually turned to blood. Patient reports multiple bowel movements that appeared dark. Patient denies any fevers. Patient denies any change in diet. Patient reports last colonoscopy was greater than 5 years ago. Patient also reports complaints of increased chest congestion cough and shortness of breath. 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 Tristan. Patient reports that her chest congestion and increased sputum production has been increasing over the past 3-4 days. Additional medical history includes asthma, COPD, fibromyalgia, GERD, hyperlipidemia, osteoarthritis, pneumonia, chronic neck pain, arthritis, anxiety, depression and panic disorder and current every day smoker. Chest x- ray completed in emergency room showing bilateral upper lobe nodule densities could relate to old granulomatous disease and appears unchanged compared to old exam. Normal heart. CT of abdomen and pelvis completed showing a long segment of large bowel wall thickening involving the splenic flexure and descending colon severe nonspecific colitis. This is change compared to old exam. EKG completed showing normal sinus rhythm. Possible left atrial enlargement. Dr. Tristan has been consulted for pulmonary services. Patient started on IV steroids. Patient started on Flagyl and Rocephin for IV antibiotics. Stool cultures ordered. Blood and sputum cultures ordered. Dr. Cardoso has been consulted for infectious disease. At this time patient is reporting some abdominal discomfort. Patient denies any chest pain or shortness of breath. Patient denies any urinary burning or frequency On 04/20/2018 patient is currently resting in bed alert and orientated. Patient still complaining of some abdominal discomfort. Patient also complaining of increased chest congestion. Mucinex has been ordered. Patient is IV steroids and antibiotics at this time. C. diff ordered per infectious disease at this time. Patient denies any nausea or vomiting. Will advance diet to soft. Awaiting GI consult. 04/21/2018 patient complaining of a worsening right lower quadrant abdominal pain. She is applying heating pad. She's been refusing the [place] and only using the Dilaudid. GI is following. She is requesting Chantix on top of the nicotine patch for smoking cessation. Also complaining of constipation reports last bowel movement was on [place]. Colace has been added. White count is 17.2 , hemoglobin 12.0. Patient also has been complaining of chest pain. EKG and troponin ordered 04/22/2018 patient still complaining of right lower quadrant abdominal pain. Review GI and infectious disease notes. We will repeat computed tomography scan of the abdomen. Patient still reporting cough and chest pain. Troponin was negative. EKG normal sinus rhythm. White count did trend down from 17- 14.5. Denies any nausea or vomiting. Still no bowel movement. Colace added yesterday. We'll add MiraLAX On 04/23/2018 patient is alert and oriented. Patient does state per minute with abdominal pain. Patient did report she had BM this AM. This time patient denies chest pain or shortness breath. Patient denies nausea vomiting or diarrhea. Patient denies any urinary burning or frequency. 04/24/2018 patient complaining of lower abdominal pain. Starting to have diarrhea. She reports for for loose stools. Stool for C. diff is negative. Patient denies any chest pain or shortness of breath. Denies any nausea or vomiting. On a low fiber diet. Objective - Vital Signs Vital signs: Vital Signs Temp 98.0 F 04/24/18 04:12 Pulse 74 04/24/18 11:11 Resp 16 04/24/18 08:00 BP 152/73 04/24/18 04:12 Pulse Ox 94 L 04/24/18 04:12 Intake & Output 04/23/18 04/24/18 04/24/18 18:59 06:59 18:59 Intake Total 1680 Balance 1680 Weight 66.95 kg Intake: Oral 1680 Other: Voiding Method Toilet Toilet # Voids 2 1 # Bowel Movements 1 - Exam Head normocephalic Neck supple Lungs clear to auscultation bilaterally no wheezing or crackles Heart regular rate and rhythm S1-S2, no rub or gallop Abdomen is soft nondistended lower abdominal tenderness positive bowel sounds Extremities no edema Neuro alert and orientated to 3 - Labs CBC & Chem 7: 04/24/18 09:18 04/24/18 09:18 Labs: Abnormal Lab Results - Last 24 Hours (Table) 04/23/18 04/23/18 04/24/18 Range/Units 17:05 19:47 07:05 WBC (3.8-10.6) k/uL MCHC (31.0-37.0) g/dL Neutrophils # (1.3-7.7) k/uL Carbon Dioxide (22-30) mmol/L Glucose (74-99) mg/dL POC Glucose (mg/dL) 156 H 188 H 115 H (75-99) mg/dL Total Protein (6.3-8.2) g/dL Albumin (3.5-5.0) g/dL 04/24/18 04/24/18 Range/Units 09:18 09:18 WBC 14.4 H (3.8-10.6) k/uL MCHC 30.7 L (31.0-37.0) g/dL Neutrophils # 11.0 H (1.3-7.7) k/uL Carbon Dioxide 36 H (22-30) mmol/L Glucose 105 H (74-99) mg/dL POC Glucose (mg/dL) (75-99) mg/dL Total Protein 5.1 L (6.3-8.2) g/dL Albumin 2.9 L (3.5-5.0) g/dL Microbiology - Last 24 Hours (Table) 04/18/18 18:13 Blood Culture - Preliminary Blood No Growth after 120 hours 04/18/18 23:52 Stool Culture - Final Stool Assessment and Plan Assessment: 1.Colitis was possible sepsis. Infectious versus ischemic. Currently on Unasyn and Flagyl. Infectious disease and GI service are following. CT of abdomen completed showing large bowel wall thickening involving the splenic flexure and the descending colon consistent with nonspecific colitis. This is change compared to old exam. Stool for occult blood is positive. GI recommending colonoscopy in 4-[address] of abdomen completed showing basilar pleural effusions with atelectasis and infiltrates. Scattered nodules are nonspecific follow-up advised. No acute intra-abdominal process appreciated. GI is recommending follow-up in the office in 2-3 weeks 2. Acute COPD exacerbation: Continue nebulizer treatments and IV Solu-Medrol. Pulmonary following 3. History of MAC lung disease status post treatment. Dr. Tristan has been consulted 4. History of COPD 5. History of fibromyalgia 6. History of hyperlipidemia 7. History of asthma 8. History of chronic neck pain 9. History of anxiety and bipolar depression 10. History of nicotine dependence. Patient educated greater than 3 minutes on smoking cessation. Continue nicotine patch will add Chantix 11. Hyperglycemia due to steroids. Sliding scale insulin has been ordered. Has resolved 12. Acute on chronic hypoxic respiratory failure 13. Constipation : Resolved. Patient now having diarrhea. Discontinue Colace and MiraLAX. Stool for C. diff is negative 14. Chest pain likely secondary to patient's cough. EKG normal sinus rhythm. Troponin negative GI prophylaxis Protonix. DVT prophylaxis SCDs due to positive occult stool Consult physical therapy I performed an examination of the patient and discussed their management with the physician Hop Grower. I have reviewed the Physician Hop Grower's notes and agree with the documented findings and plan of care
[2018-04-24 17:17] LABS: Glucose,Whole Blood 103 mg/dL (75-99)
[2018-04-24] MEDS: MELATONIN 5 MG TABLET PO SCH (20:15)
[2018-04-24 20:36] LABS: Glucose,Whole Blood 201 mg/dL (75-99)
[2018-04-25] MEDS: ALPRAZolam 0.25 MG TAB PO SCH ×3 (00:09→15:06)
[2018-04-25] MEDS: AMPICILLIN-SULBACTAM 3 GM in SODIUM CHLORIDE 0.9% 100 ML IVPB SCH ×3 (01:21→12:31)
[2018-04-25] MEDS: metroNIDAZOLE 500 MG TAB PO SCH ×4 (01:22→17:30)
[2018-04-25] MEDS: methylPREDNISolone SOD SUCCI 40 MG/ML 1 ML VIAL IV SCH ×2 (01:22→08:50)
[2018-04-25] MEDS: IPRATROPIUM-ALBUTEROL 3 ML NEB INHALATION SCH ×4 (03:34→15:22)
[2018-04-25] MEDS: HYDROmorphone 0.5 MG/0.5 ML SYRINGE IVP PRN ×4 (03:56→17:30)
[2018-04-25 07:24] LABS: Glucose,Whole Blood 97 mg/dL (75-99)
[2018-04-25] MEDS: INSULIN ASPART 100 UNIT/ML 1 ML 10 ML VIAL SQ SCH ×3 (07:38→17:00)
--- NOTE | 2018-04-25 08:04 | PN ---
PROGRESS NOTE DATE OF SERVICE: 04/24/2018 REASON FOR FOLLOWUP: Colitis, possibly ischemic. INTERVAL HISTORY: The patient is currently afebrile. She is breathing comfortably. Denies having any chest pain. Breathing has improved. Occasional cough. Still has some abdominal pain and complaining of diarrhea. PHYSICAL EXAMINATION: On examination, blood pressure 127/77 with a pulse of 75, temperature 98.6. She is 97% on room air. General description is a middle aged female lying in bed in no distress. RESPIRATORY SYSTEM: Unlabored breathing, clear to auscultation anteriorly. HEART: S1, S2, regular rate and rhythm. ABDOMEN: Soft, no tenderness. LABS: Hemoglobin is 14.1, white count 14.4 with a BUN of 17, creatinine 0.81. DIAGNOSTIC IMPRESSION AND PLAN: Patient admitted to the hospital with nausea, vomiting, and diarrhea in this colon colitis, likely ischemic currently with Unasyn that will be transitioned to oral for a short course to finish course of therapy. Continue supportive care. MMODL / IJN: [id number] /
[2018-04-25] MEDS: guaiFENesin 600 MG TABLET.ER PO SCH (08:26)
[2018-04-25] MEDS: MONTELUKAST 10 MG TAB PO SCH (08:27)
[2018-04-25] MEDS: DULoxetine HCL 30 MG CAPSULE.DR PO SCH (08:27)
[2018-04-25] MEDS: VARENICLINE 0.5 MG TAB PO SCH (08:27)
[2018-04-25] MEDS: NICOTINE 21MG/24HR PATCH TRANSDERM SCH (08:27)
[2018-04-25] MEDS: PANTOPRAZOLE 40 MG TABLET PO SCH ×2 (08:27→17:30)
[2018-04-25] MEDS: BACLOFEN 10 MG TAB PO SCH (08:27)
[2018-04-25] MEDS: ASPIRIN 81 MG PO SCH (08:27)
[2018-04-25 08:57] LABS: Basophils % (A) 0 %; Eosinophils # (A) 0.1 k/uL (0-0.7); Eosinophils % (A) 1 %; HCT 43.7 % (34.0-46.0); HGB 13.8 gm/dL (11.4-16.0); Lymphocytes # (A) 1.4 k/uL (1.0-4.8); Lymphocytes % (A) 12 %; MCH 27.8 pg (25.0-35.0); MCHC 31.5 g/dL (31.0-37.0); MCV 88.2 fL (80.0-100.0); Mean Platelet Volume 7.3; Monocytes # (A) 0.4 k/uL (0-1.0); Monocytes % (A) 4 %; Neutrophils # (A) 9.9 k/uL (1.3-7.7); Neutrophils % (A) 83 %; Platelet Count 207 k/uL (150-450); RBC 4.96 m/uL (3.80-5.40); RDW 14.7 % (11.5-15.5); WBC 11.9 k/uL (3.8-10.6)
[2018-04-25 09:10] LABS: Calcium 8.7 mg/dL (8.4-10.2); Potassium 4.4 mmol/L (3.5-5.1); Total Bilirubin 0.4 mg/dL (0.2-1.3); Total Protein 5.1 g/dL (6.3-8.2)
--- NOTE | 2018-04-25 09:10 | PN ---
PROGRESS NOTE DATE OF SERVICE: 04/24/2018 REASON FOR FOLLOWUP: Colitis, possibly ischemic. INTERVAL HISTORY: The patient is currently afebrile. She is breathing comfortably. She denies having any chest pain. Breathing has improved. Occasional cough. Still has some abdominal pain and is complaining of diarrhea. PHYSICAL EXAMINATION: Blood pressure 127/77 with a pulse of 75, temperature 98.6, she is 97% on room air. General description is an elderly female, lying in bed in no distress. RESPIRATORY SYSTEM: Unlabored breathing, clear to auscultation anteriorly. HEART: S1, S2. Regular rate and rhythm. ABDOMEN: Soft, no tenderness. LABS: Hemoglobin is 14.1, white count of 14.4 with a BUN of 17, creatinine 0.81. DIAGNOSTIC IMPRESSION AND PLAN: Patient admitted to the hospital with nausea, vomiting, diarrhea, and did not have any . Flexure and descending colon colitis, likely ischemic currently with . Will switch to oral Augmentin for a short course to finish a course of therapy. Continue supportive care. MMODL / IJN: [id number] /
[2018-04-25] MEDS ORDERED: predniSONE 20 MG TAB PO SCH (10:15)
[2018-04-25 12:00] LABS: Glucose,Whole Blood 144 mg/dL (75-99)
[2018-04-25] MEDS: MULTIVITAMINS, THERA 1 EACH TAB PO SCH (12:28)
--- NOTE | 2018-04-25 12:40 | P.PN ---
Subjective Progress Note Date: 04/25/18 HPI: 62-year-old female well-known to me patient has a history of the end-stage lung disease and severe COPD emphysema and history of lung nodules which are thought to be related to Mycobacterium avium complex infection, and gets followed up at [facility], patient did receive over a year and a half of anti MAC therapy, with the borderline response, patient was eventually taken off of the therapy, patient has multiple COPD exacerbation requiring admission in the hospital in the past, patient has chronic shortness of breath on minimal activity and exertion she has been on bronchodilator therapy on a regular basis supplemental oxygen, in the last couple of weeks she's been more short of breath than baseline her sputum which was usually clears started turning yellow to green in about a week, 2 days prior to coming to the hospital started having some intermittent abdominal pain followed by loose stool diarrhea some of the episodes were makes with blood, patient has been admitted into the hospital, chest x-ray performed on admission related to old granulomatous disease overall remains unchanged compared to x-ray performed back in September 2017, the large bowel however revealed presence of the thickening along the splenic flexure and descending colon associated with the colitis this was a new change compared to prior computed tomography scan performed back in May 2017, stool for culture has been sent, patient is being treated with bronchodilator therapy and IV steroids and the broad-spectrum antibiotics sputum has been requested, stool for C. difficile has been ordered but however patient is not having any more loose stool, patient is being followed by ID service as well Interval history: 04/21/2017- patient is being seen examined and evaluated today while covering for Dr. Tristan. The patient is resting up in bed on 2 L of supplemental oxygen via nasal cannula. She states she uses home oxygen at night only at 2 L. She is complaining of some shortness of breath cough and congestion. She has had some yellow-green sputum. She will obtain a sputum sample today and send it down. She is being followed by GI and infectious disease as well. She does complain of some constipation currently. She has been afebrile no further complaints. 04/22/18- patient is being seen examined and evaluated on rounds covering for Dr. Tristan. Patient is resting up in bed on 2 L of supplemental oxygen via nasal cannula. She still has some occasional wheezing however her breathing is much improved. She continues to be worked up with GI services in regards to her colitis. She is afebrile no further complaints. 04/23/18- patient is being seen examined and evaluated today on rounds covering for Dr. Tristan. She continues on 2 L of supplemental oxygen via nasal cannula. He occasionally still has wheezing. Her CT of the abdomen and pelvis showed no acute abdominal process. Did reveal some bibasilar atelectasis in the lungs. The patient is encouraged to get up and ambulate and increase her activity. GI is following the patient closely. She did say she had a bowel movement overnight with did have some bleeding. 04/24/18- patient is being seen examined and evaluated today on rounds while covering Dr. Tristan. She continues on supplemental oxygen via nasal cannula her breathing is close to her baseline. She does have a congested cough at times. She did have an episode of diarrhea however C. diff has been ruled out. No further interventions from a GI standpoint per their note. She will require close follow-up in the outpatient setting. She is hemodynamically stable. 04/25/18- patient is being seen examined and evaluated today on rounds covering for Dr. Tristan. She continues intermittently using oxygen. She feels like she is improving slightly. She has been cleared by cardiology and infectious disease. Her respiratory status is improving slowly. She has been afebrile. All labs and reports have been reviewed. Objective - Vital Signs Vital signs: Vital Signs Temp 97.9 F 04/25/18 06:24 Pulse 66 04/25/18 11:16 Resp 19 04/25/18 12:07 BP 150/87 04/25/18 06:24 Pulse Ox 95 04/25/18 07:07 Intake & Output 04/24/18 04/25/18 04/25/18 18:59 06:59 18:59 Intake Total 1200 Balance 1200 Weight 66.95 kg Intake: Oral 1200 Other: Voiding Method Toilet Toilet # Voids 2 1 - Exam GENERAL EXAM: Alert, active, comfortable in no apparent distress. HEAD: Normocephalic. EYES: Normal reaction of pupils, equal size. NOSE: Clear with pink turbinates. THROAT: No erythema or exudates. NECK: No masses, no JVD. CHEST: No chest wall deformity. LUNGS: Lungs noted to have some rhonchi and faint wheezing with prolonged expiration phase. CVS: S1 and S2 normal with no audible mumurs, regular rhythm. ABDOMEN: No hepatosplenomegaly, normal bowel sounds, no guarding or rigidity. EXTREMITIES: No edema noted, pedal pulses palpable. CENTRAL NERVOUS SYSTEM: No focal deficits, tone is normal in all 4 extremities. - Labs CBC & Chem 7: 04/25/18 08:10 04/25/18 08:10 Labs: Abnormal Lab Results - Last 24 Hours (Table) 04/24/18 04/24/18 04/25/18 Range/Units 17:15 20:35 08:10 WBC 11.9 H (3.8-10.6) k/uL Neutrophils # 9.9 H (1.3-7.7) k/uL Glucose (74-99) mg/dL POC Glucose (mg/dL) 103 H 201 H (75-99) mg/dL Total Protein (6.3-8.2) g/dL Albumin (3.5-5.0) g/dL 04/25/18 04/25/18 Range/Units 08:10 11:52 WBC (3.8-10.6) k/uL Neutrophils # (1.3-7.7) k/uL Glucose 170 H (74-99) mg/dL POC Glucose (mg/dL) 144 H (75-99) mg/dL Total Protein 5.1 L (6.3-8.2) g/dL Albumin 3.0 L (3.5-5.0) g/dL Microbiology - Last 24 Hours (Table) 04/24/18 15:48 Gram Stain - Preliminary Sputum Sputum Culture - Preliminary [place] albicans 04/18/18 18:13 Blood Culture - Final Blood No Growth after 144 hours Assessment and Plan Assessment: Assessment Subcostal bilateral chest wall pain/muscle skeletal pain due to excessive coughing Acute exacerbation of COPD Purulent tracheobronchitis Acute on chronic hypoxic respiratory failure requiring supplemental oxygen Nonspecific descending and sigmoid colitis History of Mycobacterium avium complex infection status post therapy at [facility] Plan Patient is cleared for discharge from pulmonary standpoint Medications have been reviewed and will be continued as ordered. Antibiotics and steroid taper Infectious disease on consult Appreciate GI recommendations Continue with pulmonary hygiene, coughing and deep breathing exercises, and supportive care. Supplemental oxygen to maintain oxygen saturations of 92% or better. Continue nebulizer treatments. GI and DVT prophylaxis. We will continue to monitor labs/results and adjust treatment as necessary. Further recommendations pending. I, the signing physician performed an examination of the patient, discussed and directed their management with the nurse practitioner. I have reviewed the nurse practitioner's note and agree with the documented findings, orders and plan of care. Nurse practitioner acting as a scribe for the signing physician Please note we are covering for Dr. Tristan
[2018-04-25 14:55] VITALS: BP 144/80; RESP 16; TEMP 98.6
--- NOTE | 2018-04-25 15:19 | PN ---
PROGRESS NOTE DATE OF SERVICE: 04/25/2018. REASON FOR FOLLOWUP: Colitis, possible ischemic. INTERVAL HISTORY: The patient is afebrile. She is breathing comfortably. Denies having any chest pain. Her breathing has improved. Occasional cough. No worsening abdominal pain. Did have some loose stools. PHYSICAL EXAMINATION: Blood pressure 144/80 with a pulse of 75, temperature 98.6. She is 93% on room air. General description is a middle aged female lying in bed in no distress. Respiratory system: Unlabored breathing. Clear to auscultation anteriorly. Heart S1, S2. Regular rate and rhythm. Abdomen soft. No tenderness. LABS: Hemoglobin is 13.8, white count 11.9 with a BUN of 17, creatinine 0.95. DIAGNOSTIC IMPRESSION AND PLAN: Patient admitted to the hospital with colitis involving the splenic and descending and descending colon likely representing the ischemic colitis. The patient responded to the Unasyn that will be transitioned to a short course of oral Augmentin and close outpatient followup. Continue supportive care. MMODL / IJN: [id number] /
--- NOTE | 2018-04-25 15:32 | P.DS ---
Providers Date of admission: 04/18/18 21:26 Expected date of discharge: 04/25/18 Attending physician: Dionna Curran Consults: 04/18/18 20:55 Consult Physician Routine Consulting Provider: Jose Raul Cardoso Consult Reason/Comments: colitis, intractable nausea, vomiting, and diarrhea. history of MAC Do you want consulting provider notified?: Already Contacted 04/18/18 21:41 Consult Physician Stat Consulting Provider: Paulo Tristan Consult Reason/Comments: COPD exacerbation; Hx of MAC infection Do you want consulting provider notified?: Yes Primary care physician: Dionna Bina [facility] Course: Discharge diagnosis 1.Colitis was possible sepsis. Infectious versus ischemic. Currently on Unasyn and Flagyl. Infectious disease and GI service are following. CT of abdomen completed showing large bowel wall thickening involving the splenic flexure and the descending colon consistent with nonspecific colitis. This is change compared to old exam. Stool for occult blood is positive. GI recommending colonoscopy in 4-[address] of abdomen completed showing basilar pleural effusions with atelectasis and infiltrates. Scattered nodules are nonspecific follow-up advised. No acute intra-abdominal process appreciated. GI is recommending follow-up in the office in 2-3 weeks 2. Acute COPD exacerbation: Continue nebulizer treatments and IV Solu-Medrol. Pulmonary following 3. History of MAC lung disease status post treatment. Dr. Tristan has been consulted 4. History of COPD 5. History of fibromyalgia 6. History of hyperlipidemia 7. History of asthma 8. History of chronic neck pain 9. History of anxiety and bipolar depression 10. History of nicotine dependence. Patient educated greater than 3 minutes on smoking cessation. Continue nicotine patch will add Chantix 11. Hyperglycemia due to steroids. Sliding scale insulin has been ordered. Has resolved 12. Acute on chronic hypoxic respiratory failure 13. Constipation : Resolved. Patient now having diarrhea. Discontinue Colace and MiraLAX. Stool for C. diff is negative 14. Chest pain likely secondary to patient's cough. EKG normal sinus rhythm. Troponin negative Hospital course This is a 62-year-old female patient who presented to the emergency room with complaints of nausea vomiting and diarrhea. Patient reports the nausea vomiting and diarrhea started around midnight two nights ago. Patient reports that diarrhea eventually turned to blood. Patient reports multiple bowel movements that appeared dark. Patient denies any fevers. Patient denies any change in diet. Patient reports last colonoscopy was greater than 5 years ago. Patient also reports complaints of increased chest congestion cough and shortness of breath. Patient reports history of COPD caused by MAC infection in which she follows with shipping and receiving coordinator Dr. Tristan. Patient reports that her chest congestion and increased sputum production has been increasing over the past 3-4 days. Additional medical history includes asthma, COPD, fibromyalgia, GERD, hyperlipidemia, osteoarthritis, pneumonia, chronic neck pain, arthritis, anxiety, depression and panic disorder and current every day smoker. Chest x- ray completed in emergency room showing bilateral upper lobe nodule densities could relate to old granulomatous disease and appears unchanged compared to old exam. Normal heart. CT of abdomen and pelvis completed showing a long segment of large bowel wall thickening involving the splenic flexure and descending colon severe nonspecific colitis. This is change compared to old exam. EKG completed showing normal sinus rhythm. Possible left atrial enlargement. Dr. Tristan has been consulted for pulmonary services. Patient started on IV steroids. Patient started on Flagyl and Rocephin for IV antibiotics. Stool cultures ordered. Blood and sputum cultures ordered. Dr. Cardoso has been consulted for infectious disease. At this time patient is reporting some abdominal discomfort. Patient denies any chest pain or shortness of breath. Patient denies any urinary burning or frequency On 04/20/2018 patient is currently resting in bed alert and orientated. Patient still complaining of some abdominal discomfort. Patient also complaining of increased chest congestion. Mucinex has been ordered. Patient is IV steroids and antibiotics at this time. C. diff ordered per infectious disease at this time. Patient denies any nausea or vomiting. Will advance diet to soft. Awaiting GI consult. 04/21/2018 patient complaining of a worsening right lower quadrant abdominal pain. She is applying heating pad. She's been refusing the [place] and only using the Dilaudid. GI is following. She is requesting Chantix on top of the nicotine patch for smoking cessation. Also complaining of constipation reports last bowel movement was on Saturday. Colace has been added. White count is 17.2 , hemoglobin 12.0. Patient also has been complaining of chest pain. EKG and troponin ordered 04/22/2018 patient still complaining of right lower quadrant abdominal pain. Review GI and infectious disease notes. We will repeat computed tomography scan of the abdomen. Patient still reporting cough and chest pain. Troponin was negative. EKG normal sinus rhythm. White count did trend down from 17- 14.5. Denies any nausea or vomiting. Still no bowel movement. Colace added yesterday. We'll add MiraLAX On 04/23/2018 patient is alert and oriented. Patient does state per minute with abdominal pain. Patient did report she had BM this AM. This time patient denies chest pain or shortness breath. Patient denies nausea vomiting or diarrhea. Patient denies any urinary burning or frequency. 04/24/2018 patient complaining of lower abdominal pain. Starting to have diarrhea. She reports for for loose stools. Stool for C. diff is negative. Patient denies any chest pain or shortness of breath. Denies any nausea or vomiting. On a low fiber diet. 04/25/2018 patient is medically stable for discharge. She has been cleared by GI, infectious disease and pulmonary service for discharge. Infectious diseases recommending Augmentin for 1 more week. Also on pulmonary is recommending a pack prednisone taper. White count has gone down from 14.4- 11.9. Patient still having some abdominal pain but better than when she came into the hospital. She also is having some diarrhea. Stool for C. diff is negative. Patient would like to be discharged home. She is stable for discharge and will require colonoscopy outpatient in 4-6 weeks after her colitis has improved. Patient's had no further blood in stools. Hemoglobin is stable at 13.8. Patient has been educated thoroughly on smoking cessation. Please refer to chart for any further details. I performed an examination of the patient and discussed their management with the physician [employer] Associate. I have reviewed the Physician Pi/[employer] Research Associate's notes and agree with the documented findings and plan of care Patient Condition at Discharge: Stable Plan - Discharge Summary Discharge Rx Participant: No New Discharge Prescriptions: New predniSONE 10 mg PO DIRECTED #30 tab Amoxic-Pot Clav 875-125Mg [Augmentin 875-125] 1 each PO Q12HR #14 tab Varenicline [Chantix Starter Pack] 0.5 mg PO DAILY tab Continue Omeprazole [PriLOSEC] 20 mg PO AC-BID Aspirin EC [Ecotrin Low Dose] 81 mg PO DAILY Baclofen [Lioresal] 10 mg PO BID Multivitamins, Thera [Multivitamin (formulary)] 1 tab PO DAILY DULoxetine HCL [Cymbalta] 30 mg PO BID HYDROcodone/APAP 10-325MG [[place] 10-325] 1 tab PO BID PRN PRN Reason: Pain Docusate [Colace] 100 mg PO BID PRN PRN Reason: Constipation Melatonin 10 mg PO HS Montelukast [Singulair] 10 mg PO DAILY guaiFENesin [Mucinex] 600 mg PO BID PRN PRN Reason: Cough Ergocalciferol [Vitamin D2 (DRISDOL)] 50,000 unit PO WE ALPRAZolam [Xanax] 0.25 mg PO Q8H Discontinued Ibuprofen [Motrin] 600 mg PO Q8HR PRN PRN Reason: Pain Discharge Medication List Aspirin EC [Ecotrin Low Dose] 81 mg PO DAILY 12/10/15 [History] Baclofen [Lioresal] 10 mg PO BID 12/10/15 [History] DULoxetine HCL [Cymbalta] 30 mg PO BID 12/10/15 [History] Multivitamins, Thera [Multivitamin (formulary)] 1 tab PO DAILY 12/10/15 [History ] Omeprazole [PriLOSEC] 20 mg PO AC-BID 12/10/15 [History] Docusate [Colace] 100 mg PO BID PRN 04/28/17 [History] HYDROcodone/APAP 10-325MG [[place] 10-325] 1 tab PO BID PRN 04/28/17 [History] Melatonin 10 mg PO HS 04/28/17 [History] ALPRAZolam [Xanax] 0.25 mg PO Q8H 04/18/18 [History] Ergocalciferol [Vitamin D2 (DRISDOL)] 50,000 unit PO WE 04/18/18 [History] Montelukast [Singulair] 10 mg PO DAILY 04/18/18 [History] guaiFENesin [Mucinex] 600 mg PO BID PRN 04/18/18 [History] Amoxic-Pot Clav 875-125Mg [Augmentin 875-125] 1 each PO Q12HR #14 tab 04/25/18 [ Rx] Varenicline [Chantix Starter Pack] 0.5 mg PO DAILY tab 04/25/18 [Rx] predniSONE 10 mg PO DIRECTED #30 tab 04/25/18 [Rx] Follow up Appointment(s)/Referral(s): Dionna Curran MD [Primary Care Provider] - 1 Week (Please call Saturday to make appointment) Paulo Tristan MD [STAFF PHYSICIAN] - 1 Week (Please call to make appointment Saturday) Ralph Avina MD [STAFF PHYSICIAN] - 05/09/18 9:30 am Patient Instructions/Handouts: COPD (Chronic Obstructive Pulmonary Disease) (DC ), Ischemic Colitis (DC) Activity/Diet/Wound Care/Special Instructions: Outpatient colonscopy to be scheduled in 4-6 weeks No smoking. Cessation information given. Consistent carb, low fiber diet. Activity as tolerated. Discharge Disposition: HOME SELF-CARE
[2018-04-25 15:34] VITALS: PULSE 70
[2018-04-25] MEDS ORDERED: AMOXIC-POT CLAV 875-125MG 1 EACH TAB PO SCH (21:00)
== END 2018-04-25 18:29 | disposition home or self-care (01) | DRG 871 ==
LOC: EC 16:45 → 4MS4W 21:26
PROVIDERS: ADMIT Internal Medicine; ATTEND Internal Medicine
DX: A41.9 Sepsis, unspecified organism (principal); J96.21 Acute and chronic respiratory failure with hypoxia; A09 Infectious gastroenteritis and colitis, unspecified; K55.9 Vascular disorder of intestine, unspecified; F31.30 Bipolar disorder, current episode depressed, mild or moderate severity, unspecified; J98.11 Atelectasis; J90 Pleural effusion, not elsewhere classified; J84.10 Pulmonary fibrosis, unspecified; J43.9 Emphysema, unspecified; J40 Bronchitis, not specified as acute or chronic; T38.0X5A Adverse effect of glucocorticoids and synthetic analogues, initial encounter; R73.9 Hyperglycemia, unspecified; I10 Essential (primary) hypertension; K59.00 Constipation, unspecified; M79.7 Fibromyalgia; E78.5 Hyperlipidemia, unspecified; M54.2 Cervicalgia; G89.29 Other chronic pain; K21.9 Gastro-esophageal reflux disease without esophagitis; M81.0 Age-related osteoporosis without current pathological fracture; M19.90 Unspecified osteoarthritis, unspecified site; N60.19 Diffuse cystic mastopathy of unspecified breast; F41.0 Panic disorder [episodic paroxysmal anxiety]; F17.200 Nicotine dependence, unspecified, uncomplicated; Z71.6 Tobacco abuse counseling; Z99.81 Dependence on supplemental oxygen; Z79.82 Long term (current) use of aspirin; Z79.899 Other long term (current) drug therapy; Z87.01 Personal history of pneumonia (recurrent); Z87.19 Personal history of other diseases of the digestive system; Z86.19 Personal history of other infectious and parasitic diseases; Z98.51 Tubal ligation status; Z98.42 Cataract extraction status, left eye; Z98.41 Cataract extraction status, right eye; Z91.030 Bee allergy status; Z91.041 Radiographic dye allergy status; Z91.013 Allergy to seafood; Z80.3 Family history of malignant neoplasm of breast; Z82.49 Family history of ischemic heart disease and other diseases of the circulatory system; Z84.1 Family history of disorders of kidney and ureter; Z82.3 Family history of stroke; Z80.8 Family history of malignant neoplasm of other organs or systems
CPT/HCPCS: 36415; 71046; 74176; 80053; 81001; 82272; 83036; 83605; 83690; 84484; 85025; 85027; 85610; 85730; 87040; 87045; 87046; 87070; 87086; 87177; 87205; 87207; 87209; 87324; 87502; 93005; 94640; 94760; 96365; 96367; 96375; 99285

== ENCOUNTER → 2018-05-16 | Outpatient (CLI) | payer MEDICARE ==
--- NOTE | 2018-05-16 19:36 | US ---
EXAMINATION TYPE: US kidneys/renal and bladder DATE OF EXAM: 05/16/2018 COMPARISON: CT 04/22/2018 CLINICAL HISTORY: R31.9 HEMATURIA. EXAM MEASUREMENTS: Right Kidney: 9.6 x 3.8 x 4.8 cm Left Kidney: 9.6 x 4.4 x 4.4 cm Right Kidney: No hydronephrosis or masses seen Left Kidney: No hydronephrosis or masses seen Bladder: wnl Bilateral Jets seen: Yes There is no evidence for hydronephrosis at this point in time. No nephrolithiasis is seen. No law s are identified. The urinary bladder is anechoic. Bilateral ureteral jets are seen. IMPRESSION: Negative retroperitoneal sonogram exam. No renal mass or obstruction. Normal urinary blad brittany.
== END ==
LOC: RADUSWWP 16:26
PROVIDERS: ATTEND Internal Medicine
DX: R31.9 Hematuria, unspecified (principal)
CPT/HCPCS: 76770

== ENCOUNTER 2018-05-20 08:31 | Day surgery (SDC) | payer MEDICARE ==
[2018-05-19 09:01] VITALS: BMI 26.2
[~2018-05-20 08:31] MED LIST: LACTATED RINGERS 1,000 ML IV SCH; LIDOCAINE 1% 20 ML VIAL (10MG/ML) FOR IV START INTRADERMA PRN
[2018-05-20 09:00] VITALS: TEMP 98.4
[2018-05-20 09:02] LABS: Glucose,Whole Blood 95 mg/dL (75-99)
[2018-05-20] MEDS ORDERED: PROPOFOL 10 MG/ML 20 ML VIAL IV ONE (09:09)
[2018-05-20] MEDS ORDERED: LIDOCAINE 1% INJ 10MG/ML (20 ML MDV) ONE (09:09)
--- NOTE | 2018-05-20 10:08 | P.PCN ---
Date of Procedure: 05/20/18 Procedure(s) Performed: Procedure: 1. Esophagogastroduodenoscopy and biopsy. 2. Colonoscopy and biopsy. Preoperative diagnosis: History of colitis and change in bowel habits. Postoperative diagnosis: 1. Sliding hiatal hernia with no obvious esophagitis or complicated reflux disease. 2. Mild antral gastritis. 3. Sigmoid diverticulosis with no evidence of acute diverticulitis or strictures. 4. Mild proctitis. 5. Prominent cecal fold biopsied. 6. Biopsies obtained from the duodenum, antrum, esophagus, and rectum in addition to the cecal fold. Preparation: HalfLytely prep. Sedation: Was provided by anesthesia. Brief clinical history: The patient is a 62-year-old female with a medical history significant for asthma, COPD, GERD, fibromyalgia, dyslipidemia and osteoarthritis who was hospitalized early last month with complaints of nausea, vomiting and diarrhea. The patient reports that the symptoms started 2 days prior to presentation. She denies any new medications, sick contacts, or unusual foods or travel. She reports initially having nausea and vomiting, with multiple loose nonbloody bowel movements. The patient subsequently developed bright red blood per rectum noting at least 10 bloody bowel movements. She denies any prior episodes with similar symptoms. She reports associated abdominal pain described as periumbilical, sharp in quality and worse on the right side of her abdomen. She denies any radiation of pain. The patient had significant leukocytosis on presentation. She had a computed tomography scan of the abdomen which showed thickening of the bowel wall in the descending and splenic flexure suggestive of colitis. She reports that her last colonoscopy was over 5 years ago and significant only for hemorrhoids and that she has not had an EGD in the past. She does a history of reflux disease and was on twice daily PPI therapy at home. This evaluation is scheduled to rule out complicated reflux disease, neoplasia or other pathology. Procedure: With the patient on her left lateral decubitus position and after informed consent and adequate sedation, I passed the Olympus-GIF H190 video upper endoscope through the cricopharyngeus down the esophagus. There was a small sliding hiatal hernia but no obvious esophagitis or complicated reflux disease GE junction was around 40 cm from the incisors. The endoscope was then passed into the stomach which was insufflated with air and inspected in detail including the retroflex view in the cardia. There was some mottling and erythema in the antrum but no ulcers or erosions. Pyloric channel, duodenal bulb, post bulbar area and descending duodenum appeared within normal limits. Because of her symptoms, I obtained biopsies from the duodenum, antrum and esophagus then the endoscope was withdrawn and I proceeded to do colonoscopy. Perianal area did not show any fissures or fistulas there were no masses felt on digital rectal examination. The Olympus CFH 190L video colonoscope was then inserted in the rectum in the usual fashion and advanced to the cecum. The preparation was less than ideal especially on the right side and cecum. There was a prominent fold measuring around 3-4 cm in the cecum which I biopsied but there were no large polyps or tumors. Multiple diverticular orifices were seen scattered in the sigmoid with no evidence of acute diverticulitis or strictures. The rectum showed some evidence of proctitis with erythema and pinpoint submucosal hemorrhage but no ulcers or spontaneous bleeding. I obtained biopsies from the rectum then I retroflexed the endoscope in the rectum before the endoscope was withdrawn. The patient tolerated the procedure well. Plan: The patient was reassured. Will await biopsy results. I anticipate repeating her colonoscopy after more thorough cleaning in the short-term to follow-up on her proctitis and the cecal fold especially if the biopsy showed adenomatous tissue. I will keep you updated on her progress.
[2018-05-20 10:15] VITALS: BP 122/78; PULSE 68; RESP 18
== END 2018-05-20 10:52 | disposition home or self-care (01) ==
LOC: ORWHC2ENDO 08:31
DX: K21.0 Gastro-esophageal reflux disease with esophagitis (principal); D12.0 Benign neoplasm of cecum; K44.9 Diaphragmatic hernia without obstruction or gangrene; K57.30 Diverticulosis of large intestine without perforation or abscess without bleeding; K52.9 Noninfective gastroenteritis and colitis, unspecified; E78.5 Hyperlipidemia, unspecified; J44.9 Chronic obstructive pulmonary disease, unspecified; K29.50 Unspecified chronic gastritis without bleeding; M19.90 Unspecified osteoarthritis, unspecified site; M79.7 Fibromyalgia; Z91.030 Bee allergy status; Z91.041 Radiographic dye allergy status; Z91.013 Allergy to seafood; Z79.899 Other long term (current) drug therapy
CPT/HCPCS: 88305; 45380; 43239; J2001; J2704

== ENCOUNTER → 2018-07-29 | Outpatient (CLI) | payer MEDICARE ==
--- NOTE | 2018-07-29 16:09 | CT ---
EXAMINATION TYPE: CT abdomen pelvis wo con DATE OF EXAM: 07/29/2018 COMPARISON: Prior CT 04/22/2018 HISTORY: RLQ pain CT DLP: 311.4 mGycm Automated exposure control for dose reduction was used. TECHNIQUE: Helical acquisition of images from the lung bases through the pelvis. FINDINGS: Lack of intravenous contrast could compromise sensitivity of the exam. LUNG BASES: No significant abnormality is appreciated. Calcified granuloma present in the right lower lobe. Calcified node present at the level of the posterior margin of the heart, distal esophagus AORTA: No significant abnormality is appreciated. LIVER/GB: There is no evident mass within the liver, no dilated ducts, gallbladder is normal as seen. PANCREAS: No significant abnormality is seen. SPLEEN: No significant abnormality is seen. ADRENALS: No significant abnormality is seen. KIDNEYS: No significant abnormality is seen. REPRODUCTIVE ORGANS: No significant abnormality is seen. URINARY BLADDER: Urinary bladder shows a thickened wall but is not distended. BOWEL: Small bowel loops show some wall thickening. The appendix is normal. Large amount of retained fecal debris within the colon. FREE AIR: No Free Air is visible. ASCITES: None visible. PELVIC ADENOPATHY: None visualized. RETROPERITONEAL ADENOPATHY: No Retroperitoneal Adenopathy visible. OSSEOUS STRUCTURES: Facet arthropathy noted at the lower lumbar spine. IMPRESSION: CORRELATE FOR POSSIBLE UNDERLYING ENTERITIS OR FECAL STASIS. OLD GRANULOMATOUS DISEASE. NONCONTRAST E XAM COULD LIMIT THE EVALUATION. CORRELATE TO EXCLUDE CYSTITIS. FOLLOW-UP INDICATED.
== END | disposition home or self-care (01) ==
LOC: RADCTMAIN 15:33
PROVIDERS: ATTEND Urology
DX: N20.9 Urinary calculus, unspecified (principal); R31.1 Benign essential microscopic hematuria; Z91.048 Other nonmedicinal substance allergy status; Z91.030 Bee allergy status
CPT/HCPCS: 74176

== ENCOUNTER → 2019-05-11 | Outpatient (CLI) | payer MEDICARE ==
--- NOTE | 2019-05-12 09:40 | XR ---
EXAMINATION TYPE: XR chest 2V DATE OF EXAM: 05/11/2019 COMPARISON: 04/18/2018 HISTORY: Cough and shortness of breath TECHNIQUE: Frontal and lateral views of the chest are obtained. FINDINGS: There are multiple bilateral pulmonary nodules. On the CT of 12/10/2015 views were also see n and likely relates to benign granulomatous disease however follow-up CT is recommended to ensure st ability for direct comparison of size. Pulmonary per inflation compatible with underlying COPD. Cardi a mediastinal silhouette is stable. Mild degenerative change of the spine. IMPRESSION: 1. Multiple bilateral pulmonary nodules do appear similar to prior exams however CT thorax is recomme nded on a nonemergent basis to compare size and number to the CT of 12/10/2015 to establish stability. 2. COPD.
== END | disposition home or self-care (01) ==
LOC: RAD 17:20
PROVIDERS: ATTEND Internal Medicine
DX: J44.9 Chronic obstructive pulmonary disease, unspecified (principal); R91.8 Other nonspecific abnormal finding of lung field
CPT/HCPCS: 71046

== ENCOUNTER → 2019-07-13 | Outpatient (CLI) | payer MEDICARE ==
--- NOTE | 2019-07-13 19:08 | CT ---
EXAMINATION TYPE: CT brain wo con DATE OF EXAM: 07/13/2019 HISTORY: Headache. CT DLP: 1105.4 mGycm. Automated Exposure Control for Dose Reduction was Utilized. TECHNIQUE: CT scan of the head is performed without contrast. COMPARISON: CT head February 20, 2014. FINDINGS: There is no acute intracranial hemorrhage or midline shift identified. There is diffuse v entricular and sulcal prominence consistent with mild to minimal diffuse age-related cerebral atrophy . Cheng-white matter differentiation is maintained. The globes are intact and the visualized sinuses are clear. IMPRESSION: No acute intracranial hemorrhage or midline shift. No significant change from prior.
== END | disposition home or self-care (01) ==
LOC: RADCTMAIN 18:20
PROVIDERS: ATTEND Family Medicine
DX: R51 Headache (principal); Z91.041 Radiographic dye allergy status
CPT/HCPCS: 70450

== ENCOUNTER → 2019-12-11 | Outpatient (CLI) | payer MEDICARE ==
--- NOTE | 2019-12-14 14:04 | MM ---
Reason for exam: screening (asymptomatic). Last mammogram was performed 2 years and 5 months ago. History: Patient is postmenopausal. Family history of breast cancer in mother. 2 excisional biopsies of the left breast. 2 excisional biopsies of the right breast. Physical Findings: A clinical breast exam by your physician is recommended on an annual basis and results should be correlated with mammographic findings. MG 3D Screening Mammo W/Cad Bilateral CC and MLO view(s) were taken. Prior study comparison: July 23, 2017, bilateral MG 3d diag mammo w/cad SEE. August 12, 2015, mammogram, performed at [facility]. The breast tissue is heterogeneously dense. This may lower the sensitivity of mammography. Finding: There are typically benign round, grouped/clustered calcifications in the upper quadrant, posterior position of the left breast on MLO view. No significant changes in finding since July 23, 2017. ASSESSMENT: Benign, BI-RAD 2 RECOMMENDATION: Routine screening mammogram of both breasts in 1 year.
== END | disposition home or self-care (01) ==
LOC: RADMAMWWP 13:56
PROVIDERS: ATTEND Internal Medicine
DX: Z12.31 Encounter for screening mammogram for malignant neoplasm of breast (principal)
CPT/HCPCS: 77063; 77067

== ENCOUNTER 2020-04-28 13:50 | Emergency (ER) | payer MEDICARE ==
[2020-04-28] MEDS ORDERED: MORPHINE SULFATE 2 MG/ML SYRINGE IV STA (15:31)
[2020-04-28] MEDS ORDERED: KETOROLAC 15 MG/ML 1 ML VIAL IVP STA (15:31)
[2020-04-28] MEDS ORDERED: LIDOCAINE 5% PATCH TOPICAL STA (15:31)
--- NOTE | 2020-04-28 15:35 | ED ---
General Adult HPI - General Chief complaint: Chest Pain Stated complaint: chest pain Time Seen by Provider: 04/28/20 15:17 Source: patient Mode of arrival: ambulatory Limitations: no limitations - History of Present Illness Initial comments: Dictation was produced using [employer] dictation software. please excuse any grammatical, word or spelling errors. This patient was cared for during a federal and state declared state of emergency secondary to Covid 19 Chief Complaint: 64-year-old feel presents with head pain and neck pain and az[address] st pain after fall 3 days ago History of Present Illness: 64-year-old female she has past medical history of asthma, COPD fibromyalgia. Patient states that she hurt her chest and her head and her neck after falling 3 days ago. She was trying to retrieve a package from her porch when she had to push a [place] in her house. She states she pushed the cat [place] and drove her left elbow into her left chest. She states that since she's been having significant chest pain. Patient states that prior to that she tripped and fell in her house. She states she did strike her head on the wall. She has history of chronic neck pain from herniated cervical disc. She states that after the fall she had head pain and neck pain. She called her primary care physician today told her come to the emergency department to be evaluated. She states she was all that often coming to the emergency room because of the covid 19 pandemic The ROS documented in this emergency department record has been reviewed and confirmed by me. Those systems with pertinent positive or negative responses have been documented in the HPI. All other systems are other negative and/or noncontributory. PHYSICAL EXAM: General Impression: Alert and oriented x3, acute distress secondary to pain HEENT: Normocephalic atraumatic, extra-ocular movements intact, pupils equal and reactive to light bilaterally, mucous membranes moist. Cardiovascular: Heart regular rate and rhythm Chest: Able to complete full sentences, no retractions, no tachypnea, significant tenderness with palpation to the left anterior chest just under the left breast Abdomen: abdomen soft, non-tender, non-distended, no organomegaly Musculoskeletal: Pulses present and equal in all extremities, no peripheral edema Motor: no focal deficits noted Neurological: CN II-XII grossly intact, no focal motor or sensory deficits noted Skin: Intact with no visualized rashes Psych: Normal affect and mood ED course: 64-year-old female presents with head pain, neck pain and chest pain traumatic event. Traumatic event occurred approximately 3-4 days ago. She's been able to perform her activities daily living with some pain. What was described by patient does not seem like a very high impact mechanism of injury. Signs upon arrival are within acceptable limits. EKGs benign. Patient provided with analgesics. Chest x-ray is unremarkable. Rib x-rays unremarkable. Computed tomography scan of the head and C-spine are unremarkable. Patient reevaluated at bedside at approximately 4:45 PM in stable medical condition. Clinical presentation consistent with head contusion, neck strain and chest contusion. EKG interpretation: Ventricular rate 91, normal sinus rhythm, ND interval 152, QRS 80, QTC 428. No ND prolongation, no QTC prolongation, no ST or T-wave changes noted. EKG compared to 04/18/2018 showing no changes. Overall, this EKG is unremarkable - Related Data Home Medications Medication Instructions Recorded Confirmed DULoxetine HCL [Cymbalta] 30 mg PO BID 12/10/15 04/28/20 Omeprazole [PriLOSEC] 20 mg PO BID 12/10/15 04/28/20 ALPRAZolam [Xanax] 0.25 mg PO TID PRN 04/18/18 04/28/20 Ergocalciferol [Vitamin D2 50,000 unit PO WE 04/18/18 04/28/20 (DRISDOL)] guaiFENesin [Mucinex] 600 mg PO BID PRN 04/18/18 04/28/20 Dicyclomine [Bentyl] 10 mg PO Q8H PRN 05/19/18 04/28/20 Cyclobenzaprine [Flexeril] 10 mg PO TID 04/28/20 04/28/20 HYDROcodone/APAP 10-325MG [[place] 1 tab PO BID PRN 04/28/20 04/28/20 10-325] Simvastatin [Zocor] 20 mg PO HS 04/28/20 04/28/20 Previous Rx's Medication Instructions Recorded HYDROcodone/APAP 5-325MG [[place] 1 tab PO Q6HR PRN 3 Days #12 tab 04/28/20 5-325] Allergies Allergy/AdvReac Type Severity Reaction Status Date / Time Iodinated Contrast Media Allergy Rash/Hives Verified 04/28/20 16:10 [Iodinated Contrast Media - IV Dye] shellfish derived Allergy Rash/Hives Verified 04/28/20 16:10 venom-honey bee Allergy Anaphylaxis Verified 04/28/20 16:10 [bee venom (honey bee)] Review of Systems ROS Statement: Those systems with pertinent positive or pertinent negative responses have been documented in the HPI. ROS Other: All systems not noted in ROS Statement are negative. Past Medical History Past Medical History: Asthma, COPD, Fibromyalgia, GERD/Reflux, Hyperlipidemia, Osteoarthritis (OA), Pneumonia, Respiratory Disorder Additional Past Medical History / Comment(s): Chronic neck pain"herniated discs", arthitis, osteoporosis, fibrocystic breast disease, cataracts, "MAC" tx by dr [place]. History of Any Multi-Drug Resistant Organisms: None Reported Past Surgical History: Breast Surgery Additional Past Surgical History / Comment(s): multiple breast surgeries(needle aspiration bx), tubal ligation, right foot surgery 40 years ago to removed a foreign object, bronchosocpy, inj in neck. Past Anesthesia/Blood Transfusion Reactions: No Reported Reaction Additional Past Anesthesia/Blood Transfusion Reaction / Comment(s): clausterphobia never had blood trans Past Psychological History: Anxiety, Bipolar, Depression, Panic Disorder Smoking Status: Current every day smoker Past Alcohol Use History: None Reported Past Drug Use History: None Reported - Past Family History Mother Family Medical History: Cancer Additional Family Medical History / Comment(s): brain, breast cancer Father Family Medical History: Congestive Heart Failure (CHF), CVA/TIA, Renal Disease General Exam Limitations: no limitations Course Vital Signs 04/28/20 13:56 Temperature 98.2 F Pulse Rate 101 H Respiratory 18 Rate Blood Pressure 164/85 O2 Sat by Pulse 96 Oximetry Disposition Clinical Impression: Strain of chest wall, Head contusion, Neck strain Disposition: HOME SELF-CARE Condition: Good Instructions (If sedation given, give patient instructions): Costochondritis (ED) Prescriptions: HYDROcodone/APAP 5-325MG [[place] 5-325] 1 tab PO Q6HR PRN 3 Days #12 tab PRN Reason: Severe Pain Is patient prescribed a controlled substance at d/c from ED?: Yes If prescribed controlled substance>3 days was MAPS reviewed?: Prescribed <3 Days Referrals: Dionna Curran MD [Primary Care Provider] - 1-2 days Time of Disposition: 16:49
--- NOTE | 2020-04-28 16:13 | XR ---
EXAMINATION TYPE: XR chest 2V, XR ribs LT DATE OF EXAM: 04/28/2020 COMPARISON: 05/11/2019 HISTORY: Shortness of breath TECHNIQUE: Frontal and lateral views of the chest are obtained. 4 views of the left-sided ribs are a lso submitted. FINDINGS: Scattered senescent parenchymal changes noted. Hyperinflation compatible with COPD. No evidence for infiltrate. No evidence for atelectasis. Cavitary pulmonary nodules are redemonstrate d. Consider CT chest on a nonemergent basis. Heart size is stable. Mediastinal structures are stable and grossly unremarkable. No evidence for hilar prominence. Degenerative changes dorsal spine. Left-sided ribs are intact. No evidence for pneumothorax. IMPRESSION: 1. Multiple pulmonary nodules as noted above. 2. No evidence for displaced left-sided rib fracture.
--- NOTE | 2020-04-28 16:25 | CT ---
EXAMINATION TYPE: CT brain martínez calderon DATE OF EXAM: 04/28/2020 COMPARISON: None HISTORY: Fall 3 days ago. Right sided head injury. CT DLP: 1297.[address] of the brain was performed. The ventricles, basal cisterns and sulci overlying the cerebral convexities demonstrate mild enlargem ent. There is no evidence for intracranial hemorrhage or sulcal effacement. There is decreased attenuatio n about the periventricular white matter and deep white matter of both cerebral hemispheres, compatib le with chronic small vessel ischemia. No mass effects are seen. If symptoms persist consider MRI. Osseous calvarium is intact. IMPRESSION: 1. Age related atrophic and chronic small vessel ischemic change without acute intracranial process seen at this time. CT Cervical Spine: Unenhanced CT of the cervical spine was performed with bone and soft tissue window settings submitted . Coronal and sagittal reconstruction is obtained. There is normal alignment and prevertebral soft tissues. No evidence for acute cervical fracture . Scattered degenerative disc disease and spondylosis. Biapical scarring. IMPRESSION: 1. No evidence for acute fracture or subluxation of the cervical spine.
[2020-04-28 17:04] VITALS: BP 123/78; PULSE 99; RESP 20; TEMP 98.4
== END 2020-04-28 17:04 | disposition home or self-care (01) ==
LOC: EC 13:50
DX: S29.011A Strain of muscle and tendon of front wall of thorax, initial encounter (principal); S16.1XXA Strain of muscle, fascia and tendon at neck level, initial encounter; S00.93XA Contusion of unspecified part of head, initial encounter; K21.9 Gastro-esophageal reflux disease without esophagitis; E78.5 Hyperlipidemia, unspecified; M19.90 Unspecified osteoarthritis, unspecified site; M79.7 Fibromyalgia; G89.29 Other chronic pain; F32.9 Major depressive disorder, single episode, unspecified; F41.9 Anxiety disorder, unspecified; F41.0 Panic disorder [episodic paroxysmal anxiety]; F17.200 Nicotine dependence, unspecified, uncomplicated; Z79.899 Other long term (current) drug therapy; Z91.041 Radiographic dye allergy status; Z91.013 Allergy to seafood; Z91.030 Bee allergy status; W01.198A Fall on same level from slipping, tripping and stumbling with subsequent striking against other object, initial encounter; Y92.009 Unspecified place in unspecified non-institutional (private) residence as the place of occurrence of the external cause
CPT/HCPCS: 93005; 71100; 71046; 72125; 70450; 99285; 96374; 96375; J2270; J1885

== ENCOUNTER → 2020-12-27 | Outpatient (CLI) | payer MEDICARE ==
--- NOTE | 2020-12-28 13:11 | BD ---
EXAMINATION TYPE: Axial Bone Density DATE OF EXAM: 12/27/2020 COMPARISON: NONE CLINICAL HISTORY: Height: 64 IN Weight: 168 LBS FRAX RISK QUESTIONS: History of Fracture in Adulthood: LT RIBS AGE 59 Current Tobacco Use: YES RISK FACTORS HISTORY OF: Family History of Osteoporosis: YES MOTHER; BROTHER Active: YES Postmenopausal woman: AGE 48 Frequent falls: YES DUE TO TRIPPING MEDICATIONS: Which medication: Fosamax How Long: NOT NOW NOW. TOOK PREVIOUSLY FOR 2 YEARS Additional Medications: VIT D, MUSCLE RELAXER, ANXIETY MEDS, OMEPRAZOLE, EXAM MEASUREMENTS: Bone mineral densitometry was performed using the [employer] System. Bone mineral density as measured about the Lumbar spine is: ----- L1-L4(G/cm2): 0.977 T Score Values are as follows: ----- L2: -2.5 ----- L3: -2.1 ----- L4: -0.5 ----- L1-L4: -1.7 Bone mineral density BASELINE Bone mineral density about the R hip (g/cm2): 0.695 Bone mineral density about the L hip (g/cm2): 0.632 T Score values are as follows: -----R Neck: -2.5 -----L Neck: -2.9 -----R Total: -2.2 -----L Total: -2.2 Bone mineral density BASELINE IMPRESSION: Osteoporosis (T Score less than -2.5). There is increased fracture risk and therapy is usually indicated based on age. Re-Screen 1-2 years. NOTE: T-SCORE=SD OF THE YOUNG ADULT MEAN.
--- NOTE | 2020-12-29 14:00 | MM ---
Reason for exam: screening (asymptomatic). Last mammogram was performed 1 year and 1 month ago. History: Patient is postmenopausal. Family history of breast cancer in mother. 2 excisional biopsies of the left breast. 2 excisional biopsies of the right breast. Physical Findings: A clinical breast exam by your physician is recommended on an annual basis and results should be correlated with mammographic findings. MG 3D Screening Mammo W/Cad Bilateral CC and MLO view(s) were taken. Prior study comparison: December 11, 2019, bilateral MG 3d screening mammo w/cad. July 23, 2017, bilateral MG 3d diag mammo w/cad SEE. The breast tissue is heterogeneously dense. This may lower the sensitivity of mammography. No significant changes when compared with prior studies. ASSESSMENT: Benign, BI-RAD 2 RECOMMENDATION: Routine screening mammogram of both breasts in 1 year. Manage on a clinical basis with regard to palpable abnormalities. Consider ultrasound.
== END | disposition home or self-care (01) ==
LOC: RADMAMWWP 16:15
PROVIDERS: ATTEND Internal Medicine
DX: Z12.31 Encounter for screening mammogram for malignant neoplasm of breast (principal); M81.0 Age-related osteoporosis without current pathological fracture; Z80.3 Family history of malignant neoplasm of breast; Z78.0 Asymptomatic menopausal state
CPT/HCPCS: 77063; 77067; 77080

== ENCOUNTER 2021-03-15 18:23 | Emergency (ER) | payer MEDICARE ==
--- NOTE | 2021-03-15 22:00 | XR ---
EXAMINATION TYPE: XR chest 2V DATE OF EXAM: 03/15/2021 COMPARISON: NONE HISTORY: Shortness of breath TECHNIQUE: Frontal and lateral views of the chest are obtained. FINDINGS: Scattered senescent parenchymal changes noted. Hyperinflation compatible with COPD. Nonspecific scatt ered pulmonary nodules noted. No evidence for infiltrate. No evidence for atelectasis. Heart size is stable. Mediastinal structures are stable and grossly unremarkable. No evidence for hilar prominence. Degenerative changes dorsal spine. IMPRESSION: 1. No evidence for acute pulmonary disease.
[2021-03-15] MEDS ORDERED: AZITHROMYCIN 500 MG TAB PO STA (23:29)
[2021-03-15] MEDS ORDERED: IBUPROFEN 800 MG TAB PO STA (23:29)
[2021-03-15] MEDS ORDERED: ACETAMINOPHEN TAB 500 MG TAB PO STA (23:29)
[2021-03-15] MEDS ORDERED: dexAMETHasone 2 MG TAB PO STA (23:29)
[2021-03-15] MEDS ORDERED: IPRATROPIUM-ALBUTEROL 3 ML NEB INHALATION STA (23:29)
--- NOTE | 2021-03-15 23:31 | ED ---
URI HPI - General Chief Complaint: Upper Respiratory Infection Stated Complaint: SOB Time Seen by Provider: 03/15/21 23:05 Source: patient, RN notes reviewed, old records reviewed Mode of arrival: ambulatory Limitations: no limitations - History of Present Illness Initial Comments: This is a 65-year-old female to the emergency department for evaluation of upper respiratory infection cough congestion not feeling well. Patient did have family members with coronavirus a few weeks ago who she was around did have all same symptoms which did test negative once. Patient here today for continued shortness breath cough or congestion. Concern for pneumonia developing her lungs. No current chest pain or other complaint. MD Complaint: cough, sore throat, nasal congestion -: days(s) Severity: moderate Quality: burning Consistency: intermittent Improves With: nothing Worsens With: nothing Associated Symptoms: chills, myalgias, cough, shortness of breath Treatments Prior to Arrival: none - Related Data Home Medications Medication Instructions Recorded Confirmed DULoxetine HCL [Cymbalta] 30 mg PO BID 12/10/15 04/28/20 Omeprazole [PriLOSEC] 20 mg PO BID 12/10/15 04/28/20 ALPRAZolam [Xanax] 0.25 mg PO TID PRN 04/18/18 04/28/20 Ergocalciferol [Vitamin D2 50,000 unit PO WE 04/18/18 04/28/20 (DRISDOL)] guaiFENesin [Mucinex] 600 mg PO BID PRN 04/18/18 04/28/20 Dicyclomine [Bentyl] 10 mg PO Q8H PRN 05/19/18 04/28/20 Cyclobenzaprine [Flexeril] 10 mg PO TID 04/28/20 04/28/20 HYDROcodone/APAP 10-325MG [[place] 1 tab PO BID PRN 04/28/20 04/28/20 10-325] Simvastatin [Zocor] 20 mg PO HS 04/28/20 04/28/20 Previous Rx's Medication Instructions Recorded HYDROcodone/APAP 5-325MG [[place] 1 tab PO Q6HR PRN 3 Days #12 tab 04/28/20 5-325] Azithromycin [Zithromax Z-pack (6 0 mg PO DIRECTED #1 packet 03/16/21 tabs)] Dexamethasone [Decadron] 6 mg PO DAILY #7 tablet 03/16/21 Allergies Allergy/AdvReac Type Severity Reaction Status Date / Time Iodinated Contrast Media Allergy Rash/Hives Verified 03/15/21 19:29 [Iodinated Contrast Media - IV Dye] shellfish derived Allergy Rash/Hives Verified 03/15/21 19:29 venom-honey bee Allergy Anaphylaxis Verified 03/15/21 19:29 [bee venom (honey bee)] Review of Systems ROS Statement: Those systems with pertinent positive or pertinent negative responses have been documented in the HPI. ROS Other: All systems not noted in ROS Statement are negative. Past Medical History Past Medical History: Asthma, COPD, Fibromyalgia, GERD/Reflux, Hyperlipidemia, Osteoarthritis (OA), Pneumonia, Respiratory Disorder Additional Past Medical History / Comment(s): Chronic neck pain"herniated discs", arthitis, osteoporosis, fibrocystic breast disease, cataracts, "MAC" tx by dr [place]. History of Any Multi-Drug Resistant Organisms: None Reported Past Surgical History: Breast Surgery Additional Past Surgical History / Comment(s): multiple breast surgeries(needle aspiration bx), tubal ligation, right foot surgery 40 years ago to removed a foreign object, bronchosocpy, inj in neck. Past Anesthesia/Blood Transfusion Reactions: No Reported Reaction Additional Past Anesthesia/Blood Transfusion Reaction / Comment(s): clausterphobia never had blood trans Past Psychological History: Anxiety, Bipolar, Depression, Panic Disorder Smoking Status: Current every day smoker Past Alcohol Use History: None Reported Past Drug Use History: None Reported - Past Family History Mother Family Medical History: Cancer Additional Family Medical History / Comment(s): brain, breast cancer Father Family Medical History: Congestive Heart Failure (CHF), CVA/TIA, Renal Disease General Exam Limitations: no limitations General appearance: alert, in no apparent distress Head exam: Present: atraumatic, normocephalic, normal inspection Eye exam: Present: normal appearance, PERRL, EOMI. Absent: scleral icterus, conjunctival injection, periorbital swelling ENT exam: Present: normal exam, mucous membranes moist Neck exam: Present: normal inspection. Absent: tenderness, meningismus, lymphadenopathy Respiratory exam: Present: wheezes. Absent: respiratory distress, rales, rhonchi, stridor Cardiovascular Exam: Present: regular rate, normal rhythm, normal heart sounds. Absent: systolic murmur, diastolic murmur, rubs, gallop, clicks GI/Abdominal exam: Present: soft, normal bowel sounds. Absent: distended, tenderness, guarding, rebound, rigid Extremities exam: Present: normal inspection, full ROM, normal capillary refill. Absent: tenderness, pedal edema, joint swelling, calf tenderness Back exam: Present: normal inspection Neurological exam: Present: alert, oriented X3, CN II-XII intact Psychiatric exam: Present: normal affect, normal mood Skin exam: Present: warm, dry, intact, normal color. Absent: rash Course Vital Signs 03/15/21 03/15/21 03/16/21 19:30 23:30 00:16 Temperature 98.3 F Pulse Rate 93 72 95 Respiratory 20 18 Rate Blood Pressure 125/77 O2 Sat by Pulse 93 L 95 Oximetry 03/16/21 03/16/21 03/16/21 00:34 00:36 01:13 Temperature 97.7 F Pulse Rate 81 98 79 Respiratory 18 18 Rate Blood Pressure 133/81 127/88 O2 Sat by Pulse 99 93 L Oximetry - Reevaluation(s) Reevaluation #1: 03/16/21 01:17 Medical record is reviewed Reevaluation #2: 03/16/21 01:17 Patient symptoms are improved here in the ER she is in no distress Reevaluation #3: 03/16/21 01:17 Patient informed she likely is recovering from coronavirus currently Reevaluation #4: 03/16/21 01:17 For the results and questions answered Medical Decision Making - Medical Decision Making 65 female DF for evaluation of cough and congestion upper respiratory congestion and mucus. Patient states she feels that she can't clear her cough. No current fevers she does have recent coronavirus exposure negative for coronavirus here in the ER chest x-rays negative and she can be discharged home - Lab Data Lab Results 03/15/21 Range/Units 19:32 Coronavirus (PCR) Not Detected (Not Detectd) - Radiology Data Radiology results: report reviewed (Chest x-rays negative for acute disease), image reviewed Disposition Clinical Impression: Acute upper respiratory infection Disposition: HOME SELF-CARE Condition: Good Instructions (If sedation given, give patient instructions): Upper Respiratory Infection (ED) Prescriptions: Dexamethasone [Decadron] 6 mg PO DAILY #7 tablet Azithromycin [Zithromax Z-pack (6 tabs)] 0 mg PO DIRECTED #1 packet Is patient prescribed a controlled substance at d/c from ED?: No Referrals: Dionna Curran MD [Primary Care Provider] - 1-2 days
[2021-03-16 00:34] VITALS: RESP 18
[2021-03-16 01:15] VITALS: BP 127/88; PULSE 79; TEMP 97.7
== END 2021-03-16 01:17 | disposition home or self-care (01) ==
LOC: EC 18:23
DX: J06.9 Acute upper respiratory infection, unspecified (principal); Z20.822 Contact with and (suspected) exposure to COVID-19; J44.9 Chronic obstructive pulmonary disease, unspecified; K21.9 Gastro-esophageal reflux disease without esophagitis; E78.5 Hyperlipidemia, unspecified; M19.90 Unspecified osteoarthritis, unspecified site; F31.9 Bipolar disorder, unspecified; F41.9 Anxiety disorder, unspecified; F17.200 Nicotine dependence, unspecified, uncomplicated; Z79.899 Other long term (current) drug therapy
CPT/HCPCS: 71046; 87635; 94640; 99285

== ENCOUNTER 2021-05-07 16:00 | Inpatient (IN) | payer MEDICARE ==
[2021-05-07] MEDS ORDERED: SODIUM CHLORIDE 0.9% 1,000 ML IV STA (16:13)
[2021-05-07] MEDS ORDERED: ONDANSETRON 4 MG/2 ML VIAL IVP STA (16:20)
[2021-05-07] MEDS ORDERED: MORPHINE SULFATE 4 MG/ML SYRINGE IV STA (16:20)
--- NOTE | 2021-05-07 16:26 | ED ---
Abdominal Pain HPI - General Chief Complaint: Abdominal Pain Stated Complaint: Internal bleeding Time Seen by Provider: 05/07/21 16:12 Source: patient, RN notes reviewed Mode of arrival: ambulatory Limitations: no limitations - History of Present Illness Initial Comments: This is a pleasant 65-year-old female who presents with for 5 days of lower abdominal pain which she is describing as a pressure like sensation. She states is constant, radiates around both flanks to the back. There is no chest pain or shortness of breath. Patient also has associated stools with some bright red blood intermittently. Patient states she was admitted here previously for the same thing it ended up having a colonoscopy which was essentially nondiagnostic. She was on the borderlining of getting a blood transfusion. Patient also states she's had nausea associated with this. She did eat a protein shake about 30 minutes prior to arrival. Patient states the pain is quite significant. No known fevers. Patient not on blood thinners. No headache, no fever or chills, no changes in vision or hearing, no sore throat or difficulty with speech, no neck pain, no chest pain or shortness of breath, no changes in urination or bowel movements, no numbness or tingling, no extremity pain, no skin rashes or lesions. MD Complaint: abdominal pain - Related Data Home Medications Medication Instructions Recorded Confirmed DULoxetine HCL [Cymbalta] 30 mg PO BID 12/10/15 05/07/21 Omeprazole [PriLOSEC] 20 mg PO BID 12/10/15 05/07/21 Cyclobenzaprine [Flexeril] 10 mg PO BID 04/28/20 05/07/21 HYDROcodone/APAP 10-325MG [[place] 1 tab PO BID PRN 04/28/20 05/07/21 10-325] Simvastatin [Zocor] 20 mg PO DAILY 04/28/20 05/07/21 ALPRAZolam [Xanax] 0.5 mg PO BID 05/07/21 05/07/21 Ascorbic Acid [Vitamin C] 500 mg PO DAILY 05/07/21 05/07/21 Calcium Carbonate/Vitamin D3 1 tab PO BID 05/07/21 05/07/21 [Calcium 600 mg-Vit D3 10 mcg (400 Unit)] Cholecalciferol [Vitamin D3 (25 25 mcg PO DAILY 05/07/21 05/07/21 Mcg = 1000 Iu)] Coconut Oil Capsule 1 cap PO DAILY 05/07/21 05/07/21 Melatonin 10 mg PO HS 05/07/21 05/07/21 Montelukast [Singulair] 10 mg PO DAILY 05/07/21 05/07/21 Multivitamins, Thera [Multivitamin 1 tab PO DAILY 05/07/21 05/07/21 (formulary)] Nicotine 21Mg/24Hr Patch [Habitrol] 1 patch TRANSDERM DAILY 05/07/21 05/07/21 Risedronate Sodium 150 mg PO QMONTHLY 05/07/21 05/07/21 Turmeric Root Extract [Turmeric] 500 mg PO DAILY 05/07/21 05/07/21 Vitamin B Complex 1 cap PO DAILY 05/07/21 05/07/21 Zinc 50 mg PO DAILY 05/07/21 05/07/21 Allergies Allergy/AdvReac Type Severity Reaction Status Date / Time Iodinated Contrast Media Allergy Rash/Hives Verified 05/07/21 18:56 [Iodinated Contrast Media - IV Dye] shellfish derived Allergy Rash/Hives Verified 05/07/21 18:56 venom-honey bee Allergy Anaphylaxis Verified 05/07/21 18:56 [bee venom (honey bee)] Review of Systems ROS Statement: Those systems with pertinent positive or pertinent negative responses have been documented in the HPI. ROS Other: All systems not noted in ROS Statement are negative. Past Medical History Past Medical History: Asthma, COPD, Fibromyalgia, GERD/Reflux, Hyperlipidemia, Osteoarthritis (OA), Pneumonia, Respiratory Disorder Additional Past Medical History / Comment(s): Chronic neck pain"herniated discs", arthitis, osteoporosis, fibrocystic breast disease, cataracts, "MAC" tx by dr [place]. History of Any Multi-Drug Resistant Organisms: None Reported Past Surgical History: Breast Surgery Additional Past Surgical History / Comment(s): multiple breast surgeries(needle aspiration bx), tubal ligation, right foot surgery 40 years ago to removed a foreign object, bronchosocpy, inj in neck. Past Anesthesia/Blood Transfusion Reactions: No Reported Reaction Additional Past Anesthesia/Blood Transfusion Reaction / Comment(s): clauste rphobia never had blood trans Past Psychological History: Anxiety, Bipolar, Depression, Panic Disorder Smoking Status: Current every day smoker Past Alcohol Use History: None Reported Past Drug Use History: None Reported - Past Family History Mother Family Medical History: Cancer Additional Family Medical History / Comment(s): brain, breast cancer Father Family Medical History: Congestive Heart Failure (CHF), CVA/TIA, Renal Disease General Exam - General Exam Comments Initial Comments: 65-year-old female in moderate distress vital signs noted, minimally tachycardic Limitations: no limitations General appearance: alert, in distress Head exam: Present: atraumatic, normocephalic, normal inspection Eye exam: Present: normal appearance, PERRL, EOMI. Absent: scleral icterus, conjunctival injection, periorbital swelling ENT exam: Present: normal exam, mucous membranes moist Neck exam: Present: normal inspection. Absent: tenderness, meningismus, lymphadenopathy Respiratory exam: Present: normal lung sounds bilaterally. Absent: respiratory distress, wheezes, rales, rhonchi, stridor Cardiovascular Exam: Present: regular rate, normal rhythm, normal heart sounds. Absent: systolic murmur, diastolic murmur, rubs, gallop, clicks GI/Abdominal exam: Present: soft, tenderness, normal bowel sounds, other (Generalized lower abdominal tenderness to palpation. No significant guarding). Absent: distended, guarding, rebound, rigid Rectal exam: Present: normal inspection, normal rectal tone, heme (+) stool, bloody stool, tenderness. Absent: fecal impaction, hemorrhoids, mass Extremities exam: Present: normal inspection, full ROM, normal capillary refill. Absent: tenderness, pedal edema, joint swelling, calf tenderness Back exam: Present: normal inspection Neurological exam: Present: alert, oriented X3, CN II-XII intact Psychiatric exam: Present: normal affect, normal mood Skin exam: Present: warm, dry, intact, normal color. Absent: rash Course Vital Signs 05/07/21 16:02 Temperature 97.6 F Pulse Rate 107 H Respiratory 20 Rate Blood Pressure 121/70 O2 Sat by Pulse 95 Oximetry - Reevaluation(s) Reevaluation #1: 05/07/21 19:18 Medical record is reviewed Symptoms are improved pain weston, patient hemodynamically stable Patient is informed of results and questions answered Patient in no distress Medical Decision Making - Medical Decision Making Patient presents with bright red blood per rectum and generalized abdominal pain, differential is wide but does include diverticulosis, massive upper GI bleeding, bowel perforation, other causes of gastrointestinal bleeding. Less likely would be AV malformations the patient had a recent colonoscopy. However patient will require workup and likely admission Case is discussed in detail with Dr. Mariam Godoy's admission the patient. Surgical consultation placed. Patient hemodynamically stable. The case was discussed in detail with ED attending physician. Presentation, findings, treatment plan discussed in detail. - Lab Data Result diagrams: 05/07/21 16:39 05/07/21 16:39 Lab Results 05/07/21 05/07/21 05/07/21 Range/Units 16:30 16:35 16:39 WBC 17.5 H (3.8-10.6) k/uL RBC 5.01 (3.80-5.40) m/uL Hgb 14.2 (11.4-16.0) gm/dL Hct 44.4 (34.0-46.0) % MCV 88.8 (80.0-100.0) fL MCH 28.4 (25.0-35.0) pg MCHC 31.9 (31.0-37.0) g/dL RDW 14.4 (11.5-15.5) % Plt Count 217 (150-450) k/uL MPV 7.9 Neutrophils % 78 % Lymphocytes % 15 % Monocytes % 4 % Eosinophils % 2 % Basophils % 0 % Neutrophils # 13.7 H (1.3-7.7) k/uL Lymphocytes # 2.5 (1.0-4.8) k/uL Monocytes # 0.7 (0-1.0) k/uL Eosinophils # 0.3 (0-0.7) k/uL Basophils # 0.1 (0-0.2) k/uL PT (9.0-12.0) sec INR (<1.2) APTT (22.0-30.0) sec Sodium (137-145) mmol/L Potassium (3.5-5.1) mmol/L Chloride (98-107) mmol/L Carbon Dioxide (22-30) mmol/L Anion Gap mmol/L BUN (7-17) mg/dL Creatinine (0.52-1.04) mg/dL Est GFR (CKD-EPI)AfAm (>60 ml/min/1.73 sqM) Est GFR (CKD-EPI)NonAf (>60 ml/min/1.73 sqM) Glucose (74-99) mg/dL Plasma Lactic Acid Jose (0.7-2.0) mmol/L Calcium (8.4-10.2) mg/dL Total Bilirubin (0.2-1.3) mg/dL AST (14-36) U/L ALT (4-34) U/L Alkaline Phosphatase (38-126) U/L Total Protein (6.3-8.2) g/dL Albumin (3.5-5.0) g/dL Amylase (30-110) U/L Lipase (23-300) U/L Urine Color Urine Appearance (Clear) Urine pH (5.0-8.0) Ur Specific [place] (1.001-1.035) Urine Protein (Negative) Urine Glucose (UA) (Negative) Urine Ketones (Negative) Urine Blood (Negative) Urine Nitrite (Negative) Urine Bilirubin (Negative) Urine Urobilinogen (<2.0) mg/dL Ur Leukocyte Esterase (Negative) Stool Occult Blood (Negative) Coronavirus (PCR) (Not Detectd) Blood Type A Positive Blood Type Confirm A Positive Blood Type Recheck Bld Type Recheck Status Antibody Screen NEGATIVE Spec Expiration Date 05/07/21 05/07/21 05/07/21 Range/Units 16:39 16:39 16:39 WBC (3.8-10.6) k/uL RBC (3.80-5.40) m/uL Hgb (11.4-16.0) gm/dL Hct (34.0-46.0) % MCV (80.0-100.0) fL MCH (25.0-35.0) pg MCHC (31.0-37.0) g/dL RDW (11.5-15.5) % Plt Count (150-450) k/uL MPV Neutrophils % % Lymphocytes % % Monocytes % % Eosinophils % % Basophils % % Neutrophils # (1.3-7.7) k/uL Lymphocytes # (1.0-4.8) k/uL Monocytes # (0-1.0) k/uL Eosinophils # (0-0.7) k/uL Basophils # (0-0.2) k/uL PT 10.2 (9.0-12.0) sec INR 0.9 (<1.2) APTT 24.1 (22.0-30.0) sec Sodium 135 L (137-145) mmol/L Potassium 4.3 (3.5-5.1) mmol/L Chloride 105 (98-107) mmol/L Carbon Dioxide 27 (22-30) mmol/L Anion Gap 3 mmol/L BUN 12 (7-17) mg/dL Creatinine 0.88 (0.52-1.04) mg/dL Est GFR (CKD-EPI)AfAm 80 (>60 ml/min/1.73 sqM) Est GFR (CKD-EPI)NonAf 70 (>60 ml/min/1.73 sqM) Glucose 99 (74-99) mg/dL Plasma Lactic Acid Jose (0.7-2.0) mmol/L Calcium 9.1 (8.4-10.2) mg/dL Total Bilirubin 0.6 (0.2-1.3) mg/dL AST 27 (14-36) U/L ALT 17 (4-34) U/L Alkaline Phosphatase 61 (38-126) U/L Total Protein 6.0 L (6.3-8.2) g/dL Albumin 3.4 L (3.5-5.0) g/dL Amylase 45 (30-110) U/L Lipase 71 (23-300) U/L Urine Color Yellow Urine Appearance Clear (Clear) Urine pH 6.0 (5.0-8.0) Ur Specific [place] 1.006 (1.001-1.035) Urine Protein Negative (Negative) Urine Glucose (UA) Negative (Negative) Urine Ketones Negative (Negative) Urine Blood Negative (Negative) Urine Nitrite Negative (Negative) Urine Bilirubin Negative (Negative) Urine Urobilinogen <2.0 (<2.0) mg/dL Ur Leukocyte Esterase Negative (Negative) Stool Occult Blood (Negative) Coronavirus (PCR) (Not Detectd) Blood Type Blood Type Confirm Blood Type Recheck Bld Type Recheck Status Antibody Screen Spec Expiration Date 05/07/21 05/07/21 05/07/21 Range/Units 16:39 16:39 16:39 WBC (3.8-10.6) k/uL RBC (3.80-5.40) m/uL Hgb (11.4-16.0) gm/dL Hct (34.0-46.0) % MCV (80.0-100.0) fL MCH (25.0-35.0) pg MCHC (31.0-37.0) g/dL RDW (11.5-15.5) % Plt Count (150-450) k/uL MPV Neutrophils % % Lymphocytes % % Monocytes % % Eosinophils % % Basophils % % Neutrophils # (1.3-7.7) k/uL Lymphocytes # (1.0-4.8) k/uL Monocytes # (0-1.0) k/uL Eosinophils # (0-0.7) k/uL Basophils # (0-0.2) k/uL PT (9.0-12.0) sec INR (<1.2) APTT (22.0-30.0) sec Sodium (137-145) mmol/L Potassium (3.5-5.1) mmol/L Chloride (98-107) mmol/L Carbon Dioxide (22-30) mmol/L Anion Gap mmol/L BUN (7-17) mg/dL Creatinine (0.52-1.04) mg/dL Est GFR (CKD-EPI)AfAm (>60 ml/min/1.73 sqM) Est GFR (CKD-EPI)NonAf (>60 ml/min/1.73 sqM) Glucose (74-99) mg/dL Plasma Lactic Acid Jose 1.1 (0.7-2.0) mmol/L Calcium (8.4-10.2) mg/dL Total Bilirubin (0.2-1.3) mg/dL AST (14-36) U/L ALT (4-34) U/L Alkaline Phosphatase (38-126) U/L Total Protein (6.3-8.2) g/dL Albumin (3.5-5.0) g/dL Amylase (30-110) U/L Lipase (23-300) U/L Urine Color Urine Appearance (Clear) Urine pH (5.0-8.0) Ur Specific [place] (1.001-1.035) Urine Protein (Negative) Urine Glucose (UA) (Negative) Urine Ketones (Negative) Urine Blood (Negative) Urine Nitrite (Negative) Urine Bilirubin (Negative) Urine Urobilinogen (<2.0) mg/dL Ur Leukocyte Esterase (Negative) Stool Occult Blood Positive H (Negative) Coronavirus (PCR) (Not Detectd) Blood Type Blood Type Confirm Blood Type Recheck No Previous Record Bld Type Recheck Status CABO Indicated Antibody Screen Spec Expiration Date 05/10/2021 - 233805/07/21 Range/Units 16:39 WBC (3.8-10.6) k/uL RBC (3.80-5.40) m/uL Hgb (11.4-16.0) gm/dL Hct (34.0-46.0) % MCV (80.0-100.0) fL MCH (25.0-35.0) pg MCHC (31.0-37.0) g/dL RDW (11.5-15.5) % Plt Count (150-450) k/uL MPV Neutrophils % % Lymphocytes % % Monocytes % % Eosinophils % % Basophils % % Neutrophils # (1.3-7.7) k/uL Lymphocytes # (1.0-4.8) k/uL Monocytes # (0-1.0) k/uL Eosinophils # (0-0.7) k/uL Basophils # (0-0.2) k/uL PT (9.0-12.0) sec INR (<1.2) APTT (22.0-30.0) sec Sodium (137-145) mmol/L Potassium (3.5-5.1) mmol/L Chloride (98-107) mmol/L Carbon Dioxide (22-30) mmol/L Anion Gap mmol/L BUN (7-17) mg/dL Creatinine (0.52-1.04) mg/dL Est GFR (CKD-EPI)AfAm (>60 ml/min/1.73 sqM) Est GFR (CKD-EPI)NonAf (>60 ml/min/1.73 sqM) Glucose (74-99) mg/dL Plasma Lactic Acid Jose (0.7-2.0) mmol/L Calcium (8.4-10.2) mg/dL Total Bilirubin (0.2-1.3) mg/dL AST (14-36) U/L ALT (4-34) U/L Alkaline Phosphatase (38-126) U/L Total Protein (6.3-8.2) g/dL Albumin (3.5-5.0) g/dL Amylase (30-110) U/L Lipase (23-300) U/L Urine Color Urine Appearance (Clear) Urine pH (5.0-8.0) Ur Specific [place] (1.001-1.035) Urine Protein (Negative) Urine Glucose (UA) (Negative) Urine Ketones (Negative) Urine Blood (Negative) Urine Nitrite (Negative) Urine Bilirubin (Negative) Urine Urobilinogen (<2.0) mg/dL Ur Leukocyte Esterase (Negative) Stool Occult Blood (Negative) Coronavirus (PCR) Not Detected (Not Detectd) Blood Type Blood Type Confirm Blood Type Recheck Bld Type Recheck Status Antibody Screen Spec Expiration Date Disposition Clinical Impression: Colitis, Diverticulitis large intestine, Rectal bleeding Disposition: ADMITTED IP TO THIS HOSP Referrals: Dionna Curran MD [Primary Care Provider] - 1-2 days
[2021-05-07 16:51] LABS: Basophils # (A) 0.1 k/uL (0-0.2); Basophils % (A) 0 %; Eosinophils # (A) 0.3 k/uL (0-0.7); Eosinophils % (A) 2 %; HCT 44.4 % (34.0-46.0); HGB 14.2 gm/dL (11.4-16.0); Lymphocytes # (A) 2.5 k/uL (1.0-4.8); Lymphocytes % (A) 15 %; MCH 28.4 pg (25.0-35.0); MCHC 31.9 g/dL (31.0-37.0); MCV 88.8 fL (80.0-100.0); Mean Platelet Volume 7.9; Monocytes # (A) 0.7 k/uL (0-1.0); Monocytes % (A) 4 %; Neutrophils # (A) 13.7 k/uL (1.3-7.7); Neutrophils % (A) 78 %; Platelet Count 217 k/uL (150-450); RBC 5.01 m/uL (3.80-5.40); RDW 14.4 % (11.5-15.5); WBC 17.5 k/uL (3.8-10.6)
[2021-05-07 17:00] LABS: Albumin 3.4 g/dL (3.5-5.0); Calcium 9.1 mg/dL (8.4-10.2); INR 0.9 (<1.2); Partial Thromboplastin Time 24.1 sec (22.0-30.0); Potassium 4.3 mmol/L (3.5-5.1); Prothrombin Time 10.2 sec (9.0-12.0); Total Bilirubin 0.6 mg/dL (0.2-1.3)
--- NOTE | 2021-05-07 17:00 | XR ---
EXAMINATION TYPE: XR chest 1V portable DATE OF EXAM: 05/07/2021 COMPARISON: 03/15/2021 HISTORY: Abdominal pain TECHNIQUE: Single view FINDINGS: Heart is normal. There is some calcific densities in both upper lobes consistent with old g ranulomatous disease. There is no pleural effusion. There are no hilar masses. There is no heart fail ure. IMPRESSION: No active cardiopulmonary disease. No change.
--- NOTE | 2021-05-07 18:01 | CT ---
EXAMINATION TYPE: CT abdomen pelvis wo con DATE OF EXAM: 05/07/2021 COMPARISON: 07/29/2018 HISTORY: Lower abdominal pain, rectal bleeding CT DLP: 595.5 mGycm Automated exposure control for dose reduction was used. Images obtained from the diaphragm to the floor the pelvis with no contrast. Lung bases are clear of consolidation. There is minimal subsegmental atelectasis left lung base. Hear t size is normal. There is no pericardial effusion. There is no pleural effusion. Liver spleen stomac h and pancreas appear intact. Bile ducts are nondilated. Gallbladder appears normal. There is no adrenal mass. Kidneys have normal size and contour. There is no hydronephrosis. Appendix is posterior and appears normal. Bladder distends smoothly. There is no inguinal hernia. There is no free fluid in the pelvis. There are some sigmoid diverticula. There is wall thickening of the splenic flexure of the colon. There is surrounding fat stranding. Lumbar vertebrae have normal alignment. Disc spaces are fairly normal. There is no compression fractu re. The bony pelvis is intact. Proximal femurs and hip joints are intact. IMPRESSION: Wall thickening and inflammatory changes at the splenic flexure of the colon probably related to coli tis. Diverticulitis is not excluded. Abnormality appears new compared to old exam. Normal appendix.
[2021-05-07 18:30] LABS: Appearance,Urine Clear (Clear); Bilirubin,Urine Negative (Negative); Blood,Urine Negative (Negative); Color,Urine Yellow; Glucose,Urine (UA) Negative (Negative); Ketones,Urine Negative (Negative); Leukocyte Esterase,Urine Negative (Negative); Nitrite,Urine Negative (Negative); Protein,Urine Negative (Negative); Specific Gravity,Urine 1.006 (1.001-1.035); Urobilinogen,Urine <2.0 mg/dL (<2.0)
[2021-05-07] MEDS ORDERED: metroNIDAZOLE-NS PMX 500 MG in SALINE 1 100ML.BAG IVPB STA (19:12)
[2021-05-07] MEDS ORDERED: LEVOFLOXACIN 750MG-D5W PMX 750 MG in DEXTROSE/WATER 1 150ML.BAG IVPB STA (19:12)
[2021-05-07] MEDS ORDERED: NALOXONE 0.4 MG/ML 1 ML VIAL IV PRN (19:33)
[2021-05-07] MEDS: SODIUM CHLORIDE 0.9% 1,000 ML IV SCH (21:04)
[2021-05-07] MEDS: MORPHINE SULFATE 4 MG/ML SYRINGE IV PRN (21:10)
[2021-05-07] MEDS ORDERED: MELATONIN 5 MG TABLET PO SCH (23:15)
[2021-05-07] MEDS: PANTOPRAZOLE 40 MG/10 ML VIAL IV SCH (23:51)
[2021-05-07 23:56] LABS: HCT 41.3 % (34.0-46.0); HGB 13.3 gm/dL (11.4-16.0); MCH 28.7 pg (25.0-35.0); MCHC 32.3 g/dL (31.0-37.0); Platelet Count 207 k/uL (150-450); RBC 4.63 m/uL (3.80-5.40); RDW 13.7 % (11.5-15.5); WBC 16.4 k/uL (3.8-10.6)
[2021-05-08] MEDS: MORPHINE SULFATE 4 MG/ML SYRINGE IV PRN ×2 (02:22→07:50)
[2021-05-08] MEDS: ONDANSETRON 4 MG/2 ML VIAL IVP PRN (02:22)
[2021-05-08] MEDS: SODIUM CHLORIDE 0.9% 1,000 ML IV SCH ×3 (03:29→19:58)
[2021-05-08] MEDS: metroNIDAZOLE-NS PMX 500 MG in SALINE 1 100ML.BAG IVPB SCH ×4 (03:29→19:58)
[2021-05-08] MEDS: PANTOPRAZOLE 40 MG/10 ML VIAL IV SCH (07:53)
[2021-05-08 10:18] LABS: Basophils # (A) 0.06 X 10*3/uL (0.00-0.10); Basophils % (A) 0.4 %; Eosinophils % (A) 2.2 %; HCT 41.3 % (37.2-46.3); HGB 12.6 g/dL (12.0-15.0); Immature Grans, Automated 0.5 %; Lymphocytes # (A) 3.24 X 10*3/uL (0.90-5.00); Lymphocytes % (A) 23.7 %; MCH 27.4 pg (27.0-32.0); MCHC 30.5 g/dL (32.0-37.0); MCV 89.8 fL (80.0-97.0); Mean Platelet Volume 10.8 fL (9.5-12.2); Monocytes # (A) 1.05 X 10*3/uL (0.20-1.00); Monocytes % (A) 7.7 %; NRBC Per 100 WBC 0 /100 WBCS (0.0-0.0); Neutrophils # (A) 8.93 X 10*3/uL (1.80-7.70); Neutrophils % (A) 65.5 %; Platelet Count 218 X 10*3/uL (140-440); RDW 14.6 % (11.5-14.5); WBC 13.65 X 10*3/uL (4.50-10.00)
[2021-05-08 10:26] LABS: African American GFR (CKD) 72.9 (60.0-200.0); Albumin 3.4 g/dL (3.8-4.9); Albumin/Globulin Ratio 1.98 (1.60-3.17); Anion Gap 10.2 mmol/L (10.00-18.00); BUN/Creat Ratio 9.08 Ratio (12.00-20.00); Blood Urea Nitrogen 8.6 mg/dL (9.0-27.0); Calcium 8.6 mg/dL (8.7-10.3); Carbon Dioxide 26.3 mmol/L (20.0-27.5); Globulin 1.7 g/dL (1.6-3.3); Non-African American GFR(CKD) 62.9 (60.0-200.0); Potassium 4.6 mmol/L (3.5-5.5); Total Bilirubin 0.5 mg/dL (0.30-1.20); Total Protein 5.1 g/dL (6.2-8.2)
[2021-05-08] MEDS: NICOTINE 21MG/24HR PATCH TRANSDERM SCH (13:14)
--- NOTE | 2021-05-08 13:23 | P.GSCN ---
<Trisha Pedraza - Last Filed: 05/08/21 13:13> History of Present Illness Consult date: 05/08/21 History of present illness: CHIEF COMPLAINT: Abdominal pain HISTORY OF PRESENT ILLNESS: This is a 65-year-old female with a history of colitis. She presents to the hospital with complete complaints of a 5 day history of lower abdominal pain mostly on the left side upper and lower that radiates to her back. She has had nausea. Denies any vomiting. Initially when she presented to the hospital her pain was rated a 10 out of 10. Today she rates her pain about 8 out of 10. Patient had been having constipation. Then was able to have stool that was formed and transitioned to diarrhea. She was reporting bright red blood in her stools with wiping. The last bloody stool was yesterday. She had a computed tomography scan abdomen and pelvis that noted wall thickening and inflammatory changes at the splenic flexure of the colon probably related to colitis. Diverticulitis is not excluded. Patient was started on IV antibiotics. White count on admission was 17.5 with and she had evidence of fecal occult blood with a hemoglobin of 13.3. Patient's last EGD and colonoscopy was in May 2018 had revealed hiatal hernia, gastritis, diverticulosis and mild proctitis. PAST MEDICAL HISTORY: See list. PAST SURGICAL HISTORY: See list. MEDICATIONS: See list. ALLERGIES: See list. SOCIAL HISTORY: No illicit drug use. Nicotine dependence REVIEW OF SYSTEMS: CONSTITUTIONAL: Denies fever or chills. HEENT: Denies blurred vision, vision changes, or eye pain. Denies hemoptysis ENDOCRINE: Denies heat or cold intolerance. CARDIOVASCULAR: Denies chest pain or pressure. RESPIRATORY: No shortness of breath. GASTROINTESTINAL: Please refer to HPI NEURO: Denies history of seizures. PSYCH: No depression or suicidal ideation HEMATOLOGIC: Denies bleeding disorders. LYMPHATIC: The patient denies any lumps and bumps around the neck. GENITOURINARY: Denies any blood in urine or increased urinary frequency. MUSCULOSKELETAL: Denies myalgias. Denies joint swelling. Denies decreased range of motion beyond patients baseline. SKIN: Denies pruitis. Denies rash. PHYSICAL EXAM: VITAL SIGNS: Reviewed GENERAL: Well-developed in no acute distress. HEENT: No sclera icterus. Extraocular movements grossly intact. Moist buccal mucosa. Head is atraumatic, normocephalic. Hears conversational speech. No nasal drainage. NECK: Supple without lymphadenopathy. CHEST: Non-labored respirations and equal bilateral excursions. CARDIOVASCULAR: Palpable 2+ radial pulses. ABDOMEN: Soft. Nondistended. Patient is tender with palpation in the left upper abdomen and left lower quadrant of the abdomen. MUSCULOSKELETAL: No clubbing or cyanosis. NEUROLOGIC: No focal or lateralizing signs. Cranial nerves II through XII grossly intact. PSYCH: Appropriate affect. Alert and oriented to person, place and time. SKIN: Well perfused. Good skin turgor. LABORATORY DATA: WBC 17.5 down to 13.6 Hemoglobin 14.2 trending down to 12.6 platelets 218 Sodium 141 potassium 4.6 creatinine 0.9 Lactic acid 1.1 LFTs normal Lipase 71 Stool for occult blood positive COVID-19 not detected IMAGING: computed tomography scan abdomen and pelvis that noted wall thickening and inflammatory changes at the splenic flexure of the colon probably related to colitis. Diverticulitis is not excluded. Abnormality appears new compared to old exam. Normal appendix. ASSESSMENT: 1. Abdominal pain with computed tomography scan evidence of wall thickening and inflammatory changes at the splenic flexure of the colon probably related to colitis. Diverticulitis is not excluded. 2. Bright red blood per rectum likely due to patient's colitis or diverticulitis 3. Prior EGD and colonoscopy in May 2018 revealing hiatal hernia, gastritis, diverticulosis and mild proctitis 4. History of COPD 5. History of MAC lung disease 6. History of anxiety, depression and bipolar 7. History of fibromyalgia PLAN: -Keep patient nothing by mouth except for ice chips -Continue antibiotics -Continue IV fluids -Continue supportive care -Continue pain medication as needed -Further recommendations forthcoming per surgeon Physician Strategy Analyst note has been reviewed by physician. Signing provider agrees with the documented findings, assessment, and plan of care. Past Medical History Past Medical History: Asthma, COPD, Fibromyalgia, GERD/Reflux, Hyperlipidemia, Osteoarthritis (OA), Pneumonia, Respiratory Disorder Additional Past Medical History / Comment(s): Chronic neck pain"herniated discs", arthitis, osteoporosis, fibrocystic breast disease, cataracts, "MAC" tx by dr [place]. History of Any Multi-Drug Resistant Organisms: None Reported Past Surgical History: Breast Surgery Additional Past Surgical History / Comment(s): multiple breast surgeries(needle aspiration bx), tubal ligation, right foot surgery 40 years ago to removed a foreign object, bronchosocpy, inj in neck. Past Anesthesia/Blood Transfusion Reactions: No Reported Reaction Additional Past Anesthesia/Blood Transfusion Reaction / Comm: clausterphobia never had blood trans Past Psychological History: Anxiety, Bipolar, Depression, Panic Disorder Additional Psychological History / Comment(s): has depression but denies any thoughts of wanting to harm self. pt lives at home.only has i step in the home pt lives with spouse, 1 dogs, 2 cats. is independant,. pt drives. Smoking Status: Current every day smoker Past Alcohol Use History: None Reported Additional Past Alcohol Use History / Comment(s): patient has smoked since she was 16 years old. Past Drug Use History: None Reported - Past Family History Mother Family Medical History: Cancer Additional Family Medical History / Comment(s): brain, breast cancer Father Family Medical History: Congestive Heart Failure (CHF), CVA/TIA, Renal Disease Medications and Allergies Home Medications Medication Instructions Recorded Confirmed Type DULoxetine HCL [Cymbalta] 30 mg PO BID 12/10/15 05/07/21 History Omeprazole [PriLOSEC] 20 mg PO BID 12/10/15 05/07/21 History Cyclobenzaprine [Flexeril] 10 mg PO BID 04/28/20 05/07/21 History HYDROcodone/APAP 10-325MG [Niland 1 tab PO BID PRN 04/28/20 05/07/21 History 10-325] Simvastatin [Zocor] 20 mg PO DAILY 04/28/20 05/07/21 History ALPRAZolam [Xanax] 0.5 mg PO BID 05/07/21 05/07/21 History Ascorbic Acid [Vitamin C] 500 mg PO DAILY 05/07/21 05/07/21 History Calcium Carbonate/Vitamin D3 1 tab PO BID 05/07/21 05/07/21 History [Calcium 600 mg-Vit D3 10 mcg (400 Unit)] Cholecalciferol [Vitamin D3 (25 25 mcg PO DAILY 05/07/21 05/07/21 History Mcg = 1000 Iu)] Coconut Oil Capsule 1 cap PO DAILY 05/07/21 05/07/21 History Melatonin 10 mg PO HS 05/07/21 05/07/21 History Montelukast [Singulair] 10 mg PO DAILY 05/07/21 05/07/21 History Multivitamins, Thera [Multivitamin 1 tab PO DAILY 05/07/21 05/07/21 History (formulary)] Nicotine 21Mg/24Hr Patch [Habitrol] 1 patch TRANSDERM DAILY 05/07/21 05/07/21 History Risedronate Sodium 150 mg PO QMONTHLY 05/07/21 05/07/21 History Turmeric Root Extract [Turmeric] 500 mg PO DAILY 05/07/21 05/07/21 History Vitamin B Complex 1 cap PO DAILY 05/07/21 05/07/21 History Zinc 50 mg PO DAILY 05/07/21 05/07/21 History Allergies Allergy/AdvReac Type Severity Reaction Status Date / Time Iodinated Contrast Media Allergy Rash/Hives Verified 05/07/21 18:56 [Iodinated Contrast Media - IV Dye] shellfish derived Allergy Rash/Hives Verified 05/07/21 18:56 venom-honey bee Allergy Anaphylaxis Verified 05/07/21 18:56 [bee venom (honey bee)] Surgical - Exam Vital Signs Temp Pulse Resp BP Pulse Ox 97.6 F 107 H 20 121/70 95 05/07/21 16:02 05/07/21 16:02 05/07/21 16:02 05/07/21 16:02 05/07/21 16:02 Results - Labs 05/08/21 05:19 05/08/21 05:19 Abnormal Lab Results - Last 24 Hours (Table) 05/07/21 05/07/21 05/07/21 Range/Units 16:39 16:39 16:39 WBC 17.5 H (3.8-10.6) k/uL MCHC (32.0-37.0) g/dL RDW (11.5-14.5) % Immature Gran # (0.00-0.04) X 10*3/uL Neutrophils # 13.7 H (1.3-7.7) k/uL Monocytes # (0.20-1.00) X 10*3/uL Sodium 135 L (137-145) mmol/L BUN (9.0-27.0) mg/dL BUN/Creatinine Ratio (12.00-20.00) Ratio Calcium (8.7-10.3) mg/dL Total Protein 6.0 L (6.3-8.2) g/dL Albumin 3.4 L (3.5-5.0) g/dL Stool Occult Blood Positive H (Negative) 05/07/21 05/08/21 05/08/21 Range/Units 23:50 05:19 05:19 WBC 16.4 H 13.65 H (3.8-10.6) k/uL MCHC 30.5 L (32.0-37.0) g/dL RDW 14.6 H (11.5-14.5) % Immature Gran # 0.07 H (0.00-0.04) X 10*3/uL Neutrophils # 8.93 H (1.3-7.7) k/uL Monocytes # 1.05 H (0.20-1.00) X 10*3/uL Sodium (137-145) mmol/L BUN 8.6 L (9.0-27.0) mg/dL BUN/Creatinine Ratio 9.08 L (12.00-20.00) Ratio Calcium 8.6 L (8.7-10.3) mg/dL Total Protein 5.1 L (6.3-8.2) g/dL Albumin 3.4 L (3.5-5.0) g/dL Stool Occult Blood (Negative) Diabetes panel 05/07/21 05/08/21 Range/Units 16:39 05:19 Sodium 135 L 141 (137-145) mmol/L Potassium 4.3 4.6 (3.5-5.1) mmol/L Chloride 105 105 (98-107) mmol/L Carbon Dioxide 27 26.3 (22-30) mmol/L BUN 12 8.6 L (7-17) mg/dL Creatinine 0.88 0.9 (0.52-1.04) mg/dL Glucose 99 86 (74-99) mg/dL Calcium 9.1 8.6 L (8.4-10.2) mg/dL AST 27 14 (14-36) U/L ALT 17 15 (4-34) U/L Alkaline Phosphatase 61 67 (38-126) U/L Total Protein 6.0 L 5.1 L (6.3-8.2) g/dL Albumin 3.4 L 3.4 L (3.5-5.0) g/dL Calcium panel 05/07/21 05/08/21 Range/Units 16:39 05:19 Calcium 9.1 8.6 L (8.4-10.2) mg/dL Albumin 3.4 L 3.4 L (3.5-5.0) g/dL Pituitary panel 05/07/21 05/08/21 Range/Units 16:39 05:19 Sodium 135 L 141 (137-145) mmol/L Potassium 4.3 4.6 (3.5-5.1) mmol/L Chloride 105 105 (98-107) mmol/L Carbon Dioxide 27 26.3 (22-30) mmol/L BUN 12 8.6 L (7-17) mg/dL Creatinine 0.88 0.9 (0.52-1.04) mg/dL Glucose 99 86 (74-99) mg/dL Calcium 9.1 8.6 L (8.4-10.2) mg/dL Adrenal panel 05/07/21 05/08/21 Range/Units 16:39 05:19 Sodium 135 L 141 (137-145) mmol/L Potassium 4.3 4.6 (3.5-5.1) mmol/L Chloride 105 105 (98-107) mmol/L Carbon Dioxide 27 26.3 (22-30) mmol/L BUN 12 8.6 L (7-17) mg/dL Creatinine 0.88 0.9 (0.52-1.04) mg/dL Glucose 99 86 (74-99) mg/dL Calcium 9.1 8.6 L (8.4-10.2) mg/dL Total Bilirubin 0.6 0.50 (0.2-1.3) mg/dL AST 27 14 (14-36) U/L ALT 17 15 (4-34) U/L Alkaline Phosphatase 61 67 (38-126) U/L Total Protein 6.0 L 5.1 L (6.3-8.2) g/dL Albumin 3.4 L 3.4 L (3.5-5.0) g/dL <Shelby Flores - Last Filed: 05/08/21 22:47> History of Present Illness History of present illness: CHIEF COMPLAINT: Abdominal pain HISTORY OF PRESENT ILLNESS: The patient is a 65 year old female admitted secondary to abdominal pain including blood in stools. Patient reports similar episode in the past 2 years. She had prior EGD colonoscopy also in the past 3 years. Patient did have a bowel movement today and yesterday with blood. She reports primarily lower abdominal pain left greater than the right. Abdominal pain has improved. She is tolerating diet this evening. PAST MEDICAL HISTORY: See list and reviewed PAST SURGICAL HISTORY: See list and reviewed MEDICATIONS: See list and reviewed Medications and Allergies Home Medications Medication Instructions Recorded Confirmed Type DULoxetine HCL [Cymbalta] 30 mg PO BID 12/10/15 05/07/21 History Omeprazole [PriLOSEC] 20 mg PO BID 12/10/15 05/07/21 History Cyclobenzaprine [Flexeril] 10 mg PO BID 04/28/20 05/07/21 History HYDROcodone/APAP 10-325MG [Niland 1 tab PO BID PRN 04/28/20 05/07/21 History 10-325] Simvastatin [Zocor] 20 mg PO DAILY 04/28/20 05/07/21 History ALPRAZolam [Xanax] 0.5 mg PO BID 05/07/21 05/07/21 History Ascorbic Acid [Vitamin C] 500 mg PO DAILY 05/07/21 05/07/21 History Calcium Carbonate/Vitamin D3 1 tab PO BID 05/07/21 05/07/21 History [Calcium 600 mg-Vit D3 10 mcg (400 Unit)] Cholecalciferol [Vitamin D3 (25 25 mcg PO DAILY 05/07/21 05/07/21 History Mcg = 1000 Iu)] Coconut Oil Capsule 1 cap PO DAILY 05/07/21 05/07/21 History Melatonin 10 mg PO HS 05/07/21 05/07/21 History Montelukast [Singulair] 10 mg PO DAILY 05/07/21 05/07/21 History Multivitamins, Thera [Multivitamin 1 tab PO DAILY 05/07/21 05/07/21 History (formulary)] Nicotine 21Mg/24Hr Patch [Habitrol] 1 patch TRANSDERM DAILY 05/07/21 05/07/21 History Risedronate Sodium 150 mg PO QMONTHLY 05/07/21 05/07/21 History Turmeric Root Extract [Turmeric] 500 mg PO DAILY 05/07/21 05/07/21 History Vitamin B Complex 1 cap PO DAILY 05/07/21 05/07/21 History Zinc 50 mg PO DAILY 05/07/21 05/07/21 History Allergies Allergy/AdvReac Type Severity Reaction Status Date / Time Iodinated Contrast Media Allergy Rash/Hives Verified 05/07/21 18:56 [Iodinated Contrast Media - IV Dye] shellfish derived Allergy Rash/Hives Verified 05/07/21 18:56 venom-honey bee Allergy Anaphylaxis Verified 05/07/21 18:56 [bee venom (honey bee)] ALLERGIES: See list and reviewed SOCIAL HISTORY: See list and reviewed FAMILY HISTORY: See list and reviewed REVIEW OF ORGAN SYSTEMS: CONSTITUTIONAL: No fevers or chills. No recent weight loss. EYES: Denies any trouble with vision. No glasses. HEENT: No difficulties with hearing. No nosebleeds. No difficulty swallowing. RESPIRATORY: Has asthma. Has tobacco abuse disorder. Has chronic obstructive pulmonary disease. CARDIOVASCULAR: Denies any chest pain, palpitations, or recent heart attacks. Has hyperlipidemia. GASTROINTESTINAL: Denies fatty food intolerance. Denies change in bowel habits and gas bloat. Has gastroesophageal reflux disease. GENITOURINARY: Denies any blood in urine or increased urinary frequency. NEUROLOGICAL: Denies any numbness or tingling along the distal extremities. No seizure disorders or headaches. Has chronic pain syndrome. MUSCULOSKELETAL: Has back pain, stiffness or joint arthritis. Has fibromyalgia. SKIN: No current skin cancer. No rash. PSYCHIATRIC: Has depression. Has anxiety disorder. Has bipolar disorder. Has panic disorder. ENDOCRINE: Denies current thyroid disorders. Denies any blood sugar glucose intolerance. HEME/LYMPHATIC: Denies any lumps and bumps around the neck. No recent deep venous thrombosis. ALLERGY/IMMUNOLOGY: No immunoglobulin therapy. No immune deficiencies. BREAST: Has past breast lumps, pain or nipple discharge. Has fibrocystic changes. PHYSICAL EXAM: VITALS: Reviewed CONSTITUTIONAL: Well developed and in no acute distress. EYES: Conjuctivae without sclera icterus. Extraocular movements grossly intact. HEAD, EARS, NOSE, THROAT: Moist buccal mucosa. Head is atraumatic, normocephalic. Hears conversational speech. No nasal drainage. NECK: Supple. No JV distention. No thyroidomegaly. RESPIRATORY: Non-labored respirations and equal bilateral excursions. No gross wheezes. CARDIOVASCULAR: Regular rate and rhythm. Extremities without moderate edema. Palpable 2+ radial pulses. ABDOMEN: LYMPH: No neck lymphadenopathy. MUSCULOSKELETAL: Nail and fingers with good capillary refill. SKIN: Warm and well perfused with good skin turgor. NEUROLOGIC: Cranial nerves II through XII grossly intact. Sensation upper and extremities intact. No focal or lateralizing signs. PSYCH: Appropriate affect. Alert and oriented to person, place and time. Displays appropriate insight. CLINCAL LABS: Reviewed. WBC down from 17,000-13,000. LFTs within normal limits. Amylase lipase within normal limits. IMAGING: Independently reviewed CT of the abdomen and pelvis without contrast demonstrating inflammation along the splenic flexure. Moderate stool within the sigmoid colon which is redundant. No free air. This is my independent interpretation. RADIOLOGY: Report reviewed CT of the abdomen and pelvis demonstrates inflammation along one of flexure. RECORDS: COLONOSCOPY 2019 demonstrates tubular adenoma of the cecum including colitis. EGD 2019 demonstrates esophagitis including gastritis with presence of hiatal hernia ASSESSMENT: 1. Abnormal computed tomography scan for colitis 2. Left-sided abdominal pain 3. Leukocytosis 4. Hematochezia PLAN: 1. Recommend monitoring hemoglobin. 2. Supportive management this time 3. Colonoscopy advised for presence of persistent bleeding 4. Continue IV antibiotics ADVANCE DIRECTIVE: Thank you for this kind consultation. Surgical - Exam Vital Signs Temp Pulse Resp BP Pulse Ox 97.6 F 107 H 20 121/70 95 05/07/21 16:02 05/07/21 16:02 05/07/21 16:02 05/07/21 16:02 05/07/21 16:02 Results - Labs 05/08/21 05:19 05/08/21 05:19 Abnormal Lab Results - Last 24 Hours (Table) 05/07/21 05/08/21 05/08/21 Range/Units 23:50 05:19 05:19 WBC 16.4 H 13.65 H (3.8-10.6) k/uL MCHC 30.5 L (32.0-37.0) g/dL RDW 14.6 H (11.5-14.5) % Immature Gran # 0.07 H (0.00-0.04) X 10*3/uL Neutrophils # 8.93 H (1.80-7.70) X 10*3/uL Monocytes # 1.05 H (0.20-1.00) X 10*3/uL BUN 8.6 L (9.0-27.0) mg/dL BUN/Creatinine Ratio 9.08 L (12.00-20.00) Ratio Calcium 8.6 L (8.7-10.3) mg/dL Total Protein 5.1 L (6.2-8.2) g/dL Albumin 3.4 L (3.8-4.9) g/dL Microbiology - Last 24 Hours (Table) 05/07/21 19:50 Blood Culture - Preliminary Blood No Growth after 24 hours 05/07/21 19:34 Blood Culture - Preliminary Blood No Growth after 24 hours Diabetes panel 05/08/21 Range/Units 05:19 Sodium 141 (135-145) mmol/L Potassium 4.6 (3.5-5.5) mmol/L Chloride 105 (96-109) mmol/L Carbon Dioxide 26.3 (20.0-27.5) mmol/L BUN 8.6 L (9.0-27.0) mg/dL Creatinine 0.9 (0.6-1.5) mg/dL Glucose 86 (70-110) mg/dL Calcium 8.6 L (8.7-10.3) mg/dL AST 14 (13-35) U/L ALT 15 (8-44) U/L Alkaline Phosphatase 67 (41-126) U/L Total Protein 5.1 L (6.2-8.2) g/dL Albumin 3.4 L (3.8-4.9) g/dL Calcium panel 05/08/21 Range/Units 05:19 Calcium 8.6 L (8.7-10.3) mg/dL Albumin 3.4 L (3.8-4.9) g/dL Pituitary panel 05/08/21 Range/Units 05:19 Sodium 141 (135-145) mmol/L Potassium 4.6 (3.5-5.5) mmol/L Chloride 105 (96-109) mmol/L Carbon Dioxide 26.3 (20.0-27.5) mmol/L BUN 8.6 L (9.0-27.0) mg/dL Creatinine 0.9 (0.6-1.5) mg/dL Glucose 86 (70-110) mg/dL Calcium 8.6 L (8.7-10.3) mg/dL Adrenal panel 02/21/22 Range/Units 05:19 Sodium 141 (135-145) mmol/L Potassium 4.6 (3.5-5.5) mmol/L Chloride 105 (96-109) mmol/L Carbon Dioxide 26.3 (20.0-27.5) mmol/L BUN 8.6 L (9.0-27.0) mg/dL Creatinine 0.9 (0.6-1.5) mg/dL Glucose 86 (70-110) mg/dL Calcium 8.6 L (8.7-10.3) mg/dL Total Bilirubin 0.50 (0.30-1.20) mg/dL AST 14 (13-35) U/L ALT 15 (8-44) U/L Alkaline Phosphatase 67 (41-126) U/L Total Protein 5.1 L (6.2-8.2) g/dL Albumin 3.4 L (3.8-4.9) g/dL Assessment and Plan (1) Tobacco abuse disorder Current Visit: Yes Status: Acute Code(s): Z72.0 - TOBACCO USE SNOMED Code(s): 948157157 (2) Colitis Current Visit: Yes Status: Acute Code(s): K52.9 - NONINFECTIVE GASTROENTERITIS AND COLITIS, UNSPECIFIED SNOMED Code(s): 06524089 (3) Diverticulitis large intestine Current Visit: Yes Status: Acute Code(s): K57.32 - DVTRCLI OF LG INT W/O PERFORATION OR ABSCESS W/O BLEEDING SNOMED Code(s): 3691407 (4) Rectal bleeding Current Visit: Yes Status: Acute Code(s): K62.5 - HEMORRHAGE OF ANUS AND RECTUM SNOMED Code(s): 57037888 (5) Bright red blood per rectum Current Visit: No Status: Acute Code(s): K62.5 - HEMORRHAGE OF ANUS AND RECTUM SNOMED Code(s): 13211929
[2021-05-08] MEDS: ALPRAZolam 0.5 MG TAB PO SCH ×2 (13:43→19:57)
--- NOTE | 2021-05-08 14:40 | P.CONS ---
History of Present Illness - Reason for Consult Consult date: 05/08/21 Colitis Requesting physician: Dionna Curran - Chief Complaint abdominal pain - History of Present Illness This is 65-year-old female who presented to the hospital with complaints of abdominal pain with diarrhea as well as bloody diarrhea with clots that began approximately 5 days ago and had progressively gotten worse. Patient states she was having diarrhea 2-3 times a day. Last bowel movement was about 2 days ago. She continues to have some left lower quadrant abdominal pain. She denies any nausea or vomiting. She has been nothing by mouth. Patient states she has a history of colitis in the past where she had significant amount of bleeding. She had an EGD and colonoscopy on 05/20/[address] Gilmore. EGD showed hiatal hernia and mild gastritis. Colonoscopy showed sigmoid diverticulosis, mild proctitis. Biopsy pathology reported acute colitis with chronicity. On admission patient was noted to have leukocytosis with a WBC of 17.5. Repeat labs today show WBC 13.6 hemoglobin 12.6 platelet count 218,000. Patient denies being on any anticoagulation. She did have a positive stool occult blood. She is currently on Levaquin and Flagyl. She's been afebrile. She had a CT of the abdomen and pelvis that shows wall thickening and inflammatory changes at the splenic flexure of the colon probably related to colitis. Diverticulitis is not excluded. Abnormality appears new compared to old exam. Normal appendix. Review of Systems REVIEW OF SYSTEMS: CARDIOPULMONARY: No chest pain or shortness of breath. Gastrointestinal: left upper and lower abdominal pain, greatest in the lower left quadrant. No nausea or vomiting. No hematemesis, coffee-ground emesis. Diarrhea with bloody stool with blood clots. GENITOURINARY: No dysuria or hematuria. MUSCULOSKELETAL: Reports normal range of motion., Joint pain. SKIN: No rashes. No jaundice. ENDOCRINE: No chills, fevers. No excessive weight gain or loss. No polydipsia or polyuria. PSYCHIATRIC: Unremarkable. NEUROLOGY: No change in mental status. Denies dizziness, headache. ENT: Vision unremarkable. CONSTITUTIONAL: No recent weight loss. No fever, chills, night sweats. Past Medical History Past Medical History: Asthma, COPD, Fibromyalgia, GERD/Reflux, Hyperlipidemia, Osteoarthritis (OA), Pneumonia, Respiratory Disorder Additional Past Medical History / Comment(s): Chronic neck pain"herniated discs", arthitis, osteoporosis, fibrocystic breast disease, cataracts, "MAC" tx by dr [place]. History of Any Multi-Drug Resistant Organisms: None Reported Past Surgical History: Breast Surgery Additional Past Surgical History / Comment(s): multiple breast surgeries(needle aspiration bx), tubal ligation, right foot surgery 40 years ago to removed a foreign object, bronchosocpy, inj in neck. Past Anesthesia/Blood Transfusion Reactions: No Reported Reaction Additional Past Anesthesia/Blood Transfusion Reaction / Comm: clausterphobia never had blood trans Past Psychological History: Anxiety, Bipolar, Depression, Panic Disorder Additional Psychological History / Comment(s): has depression but denies any thoughts of wanting to harm self. pt lives at home.only has i step in the home pt lives with spouse, 1 dogs, 2 cats. is independant,. pt drives. Smoking Status: Current every day smoker Past Alcohol Use History: None Reported Additional Past Alcohol Use History / Comment(s): patient has smoked since she was 16 years old. Past Drug Use History: None Reported - Past Family History Mother Family Medical History: Cancer Additional Family Medical History / Comment(s): brain, breast cancer Father Family Medical History: Congestive Heart Failure (CHF), CVA/TIA, Renal Disease Medications and Allergies Home Medications Medication Instructions Recorded Confirmed Type DULoxetine HCL [Cymbalta] 30 mg PO BID 12/10/15 05/07/21 History Omeprazole [PriLOSEC] 20 mg PO BID 12/10/15 05/07/21 History Cyclobenzaprine [Flexeril] 10 mg PO BID 04/28/20 05/07/21 History HYDROcodone/APAP 10-325MG [[place] 1 tab PO BID PRN 04/28/20 05/07/21 History 10-325] Simvastatin [Zocor] 20 mg PO DAILY 04/28/20 05/07/21 History ALPRAZolam [Xanax] 0.5 mg PO BID 05/07/21 05/07/21 History Ascorbic Acid [Vitamin C] 500 mg PO DAILY 05/07/21 05/07/21 History Calcium Carbonate/Vitamin D3 1 tab PO BID 05/07/21 05/07/21 History [Calcium 600 mg-Vit D3 10 mcg (400 Unit)] Cholecalciferol [Vitamin D3 (25 25 mcg PO DAILY 05/07/21 05/07/21 History Mcg = 1000 Iu)] Coconut Oil Capsule 1 cap PO DAILY 05/07/21 05/07/21 History Melatonin 10 mg PO HS 05/07/21 05/07/21 History Montelukast [Singulair] 10 mg PO DAILY 05/07/21 05/07/21 History Multivitamins, Thera [Multivitamin 1 tab PO DAILY 05/07/21 05/07/21 History (formulary)] Nicotine 21Mg/24Hr Patch [Habitrol] 1 patch TRANSDERM DAILY 05/07/21 05/07/21 History Risedronate Sodium 150 mg PO QMONTHLY 05/07/21 05/07/21 History Turmeric Root Extract [Turmeric] 500 mg PO DAILY 05/07/21 05/07/21 History Vitamin B Complex 1 cap PO DAILY 05/07/21 05/07/21 History Zinc 50 mg PO DAILY 05/07/21 05/07/21 History Allergies Allergy/AdvReac Type Severity Reaction Status Date / Time Iodinated Contrast Media Allergy Rash/Hives Verified 05/07/21 18:56 [Iodinated Contrast Media - IV Dye] shellfish derived Allergy Rash/Hives Verified 05/07/21 18:56 venom-honey bee Allergy Anaphylaxis Verified 05/07/21 18:56 [bee venom (honey bee)] Physical Exam Vitals: Vital Signs Temp Pulse Pulse Resp BP BP Pulse Ox 05/08/21 13:24 99.5 F 80 19 119/74 96 05/08/21 04:40 98.2 F 74 18 92/60 91 L 05/08/21 04:03 16 05/08/21 03:41 98 F 88 18 121/77 93 L 05/08/21 02:13 98.0 F 78 18 104/61 99 05/08/21 00:54 92 16 05/07/21 23:10 98.1 F 92 16 114/62 92 L 05/07/21 16:02 97.6 F 107 H 20 121/70 95 Intake and Output 05/07/21 05/08/21 05/08/21 22:59 06:59 14:59 Other: Voiding Method Toilet Toilet # Voids 2 Weight 68.039 kg 68.039 kg General appearance: The patient is alert, oriented, appears in no acute distress. HET: Head is normocephalic and atraumatic. Conjunctiva pink. Sclera anicteric. Neck: Supple without lymphadenopathy. Trachea midline. Heart: S1 S2. Regular rate and rhythm. Lungs: Clear to auscultation. Abdomen: Soft, tenderness in the left upper and lower quadrant, nondistended with bowel sounds. No guarding or rigidity. Skin: No rashes. No jaundice. Extremities: Normal skin color and turgor. No pedal edema. Neurological: No focal deficits. Alert and oriented x3. Results CBC & Chem 7: 05/08/21 05:19 05/08/21 05:19 Labs: Abnormal Lab Results - Last 24 Hours (Table) 05/07/21 05/07/21 05/07/21 Range/Units 16:39 16:39 16:39 WBC 17.5 H (3.8-10.6) k/uL MCHC (32.0-37.0) g/dL RDW (11.5-14.5) % Immature Gran # (0.00-0.04) X 10*3/uL Neutrophils # 13.7 H (1.3-7.7) k/uL Monocytes # (0.20-1.00) X 10*3/uL Sodium 135 L (137-145) mmol/L BUN (9.0-27.0) mg/dL BUN/Creatinine Ratio (12.00-20.00) Ratio Calcium (8.7-10.3) mg/dL Total Protein 6.0 L (6.3-8.2) g/dL Albumin 3.4 L (3.5-5.0) g/dL Stool Occult Blood Positive H (Negative) 05/07/21 05/08/21 05/08/21 Range/Units 23:50 05:19 05:19 WBC 16.4 H 13.65 H (3.8-10.6) k/uL MCHC 30.5 L (32.0-37.0) g/dL RDW 14.6 H (11.5-14.5) % Immature Gran # 0.07 H (0.00-0.04) X 10*3/uL Neutrophils # 8.93 H (1.3-7.7) k/uL Monocytes # 1.05 H (0.20-1.00) X 10*3/uL Sodium (137-145) mmol/L BUN 8.6 L (9.0-27.0) mg/dL BUN/Creatinine Ratio 9.08 L (12.00-20.00) Ratio Calcium 8.6 L (8.7-10.3) mg/dL Total Protein 5.1 L (6.3-8.2) g/dL Albumin 3.4 L (3.5-5.0) g/dL Stool Occult Blood (Negative) CT scan - abdomen: report reviewed (CT of the abdomen and pelvis that shows wall thickening and inflammatory changes at the splenic flexure of the colon probably related to colitis. Diverticulitis is not excluded. Abnormality appears new compared to old exam. Normal appendix.) Assessment and Plan (1) Colitis Narrative/Plan: 65-year-old female who presented to the hospital with complaints of abdominal pain, diarrhea with rectal bleeding and blood mixed in her stool, which began approximately 5 days ago. Patient states she had approximately 2-3 episodes of diarrhea a day for 2-3 days. Last bowel movement was 2 days ago. States she did have blood mixed with clots in her stool with lower left quadrant abdominal cramping and pain. She states she does have a similar episode a few years back. At that time she states she had more bleeding than this episode. She did have an EGD and colonoscopy on 05/20/[address] Gilmore with findings on the EGD hiatal hernia, and mild gastritis. Colonoscopy with sigmoid diverticulosis and mild proctitis. Biopsy came back as acute colitis with chronicity. Possible etiologies include infectious versus ischemic colitis. Will continue antibiotics for now. Continue to monitor symptoms. The patient continues to have rectal bleeding will consider possible colonoscopy, otherwise would recommend outpatient colonoscopy and 6-8 weeks. Current Visit: Yes Status: Acute Code(s): K52.9 - NONINFECTIVE GASTROENTERITIS AND COLITIS, UNSPECIFIED SNOMED Code(s): 65510783 Plan: 1. Continue symptomatic and supportive care 2. Continue current IV antibiotics 3. Patient may have clear liquid diet 4. Continue to monitor signs and symptoms of GI bleed, if bleeding continues may consider colonoscopy this admission Thank you for this consultation, we will continue to follow. Dr. Mehrdad Butcher I agree with the dictator's note, documented as a scribe by Era Walsh.
[2021-05-08] MEDS: HYDROmorphone 1 MG/ML 1 ML SYRINGE IVP PRN ×2 (15:00→20:06)
--- NOTE | 2021-05-08 19:22 | P.HPIM ---
History of Present Illness H&P Date: 05/08/21 Miriam Esparza, he is a 65-year-old female who presented to [facility] emergency room with a chief complaint of abdominal pain and lower gastrointestinal bleeding She was evaluated in the emergency room vital examination on presentation revealed a temperature of 97.6 pulse 107 respiration 20 blood pressure 121/70 pulse ox 95% on room air Laboratory data revealed a white blood count of 17.5 hemoglobin 14.2 platelet count 217 sodium 135 potassium 4.3 chloride 105 CO2 27 BUN 12 creatinine 0.88 Testing in the emergency room revealed patient underwent computed tomography scan of the abdomen and pelvis in the emergency room that revealed evidence of wall thickening and inflammatory changes at the splenic flexure related to colitis with diverticulitis not excluded, patient was started on IV antibiotic in the emergency room, gastroenterology consultation was requested patient was admitted to medical floor for further evaluation and treatment. Past medical history is significant for history of asthma, history of COPD, history of hyperlipidemia, recurrent history of pneumonia, history of osteoporosis, history of chronic back pain, and history of pulmonary Mycobacterial infection Past Medical History Past Medical History: Asthma, COPD, Fibromyalgia, GERD/Reflux, Hyperlipidemia, Osteoarthritis (OA), Pneumonia, Respiratory Disorder Additional Past Medical History / Comment(s): Chronic neck pain"herniated discs", arthitis, osteoporosis, fibrocystic breast disease, cataracts, "MAC" tx by dr [place]. History of Any Multi-Drug Resistant Organisms: None Reported Past Surgical History: Breast Surgery Additional Past Surgical History / Comment(s): multiple breast surgeries(needle aspiration bx), tubal ligation, right foot surgery 40 years ago to removed a foreign object, bronchosocpy, inj in neck. Past Anesthesia/Blood Transfusion Reactions: No Reported Reaction Additional Past Anesthesia/Blood Transfusion Reaction / Comment(s): clausterphobia never had blood trans Past Psychological History: Anxiety, Bipolar, Depression, Panic Disorder Additional Psychological History / Comment(s): has depression but denies any thoughts of wanting to harm self. pt lives at home.only has i step in the home pt lives with spouse, 1 dogs, 2 cats. is independant,. pt drives. Smoking Status: Current every day smoker Past Alcohol Use History: None Reported Additional Past Alcohol Use History / Comment(s): patient has smoked since she was 16 years old. Past Drug Use History: None Reported - Past Family History Mother Family Medical History: Cancer Additional Family Medical History / Comment(s): brain, breast cancer Father Family Medical History: Congestive Heart Failure (CHF), CVA/TIA, Renal Disease Medications and Allergies Home Medications Medication Instructions Recorded Confirmed Type DULoxetine HCL [Cymbalta] 30 mg PO BID 12/10/15 05/07/21 History Omeprazole [PriLOSEC] 20 mg PO BID 12/10/15 05/07/21 History Cyclobenzaprine [Flexeril] 10 mg PO BID 04/28/20 05/07/21 History HYDROcodone/APAP 10-325MG [[place] 1 tab PO BID PRN 04/28/20 05/07/21 History 10-325] Simvastatin [Zocor] 20 mg PO DAILY 04/28/20 05/07/21 History ALPRAZolam [Xanax] 0.5 mg PO BID 05/07/21 05/07/21 History Ascorbic Acid [Vitamin C] 500 mg PO DAILY 05/07/21 05/07/21 History Calcium Carbonate/Vitamin D3 1 tab PO BID 05/07/21 05/07/21 History [Calcium 600 mg-Vit D3 10 mcg (400 Unit)] Cholecalciferol [Vitamin D3 (25 25 mcg PO DAILY 05/07/21 05/07/21 History Mcg = 1000 Iu)] Coconut Oil Capsule 1 cap PO DAILY 05/07/21 05/07/21 History Melatonin 10 mg PO HS 05/07/21 05/07/21 History Montelukast [Singulair] 10 mg PO DAILY 05/07/21 05/07/21 History Multivitamins, Thera [Multivitamin 1 tab PO DAILY 05/07/21 05/07/21 History (formulary)] Nicotine 21Mg/24Hr Patch [Habitrol] 1 patch TRANSDERM DAILY 05/07/21 05/07/21 History Risedronate Sodium 150 mg PO QMONTHLY 05/07/21 05/07/21 History Turmeric Root Extract [Turmeric] 500 mg PO DAILY 05/07/21 05/07/21 History Vitamin B Complex 1 cap PO DAILY 05/07/21 05/07/21 History Zinc 50 mg PO DAILY 05/07/21 05/07/21 History Allergies Allergy/AdvReac Type Severity Reaction Status Date / Time Iodinated Contrast Media Allergy Rash/Hives Verified 05/07/21 18:56 [Iodinated Contrast Media - IV Dye] shellfish derived Allergy Rash/Hives Verified 05/07/21 18:56 venom-honey bee Allergy Anaphylaxis Verified 05/07/21 18:56 [bee venom (honey bee)] Physical Exam Vitals: Vital Signs Temp Pulse Pulse Resp BP BP Pulse Ox 05/08/21 04:40 98.2 F 74 18 92/60 91 L 05/08/21 04:03 16 05/08/21 03:41 98 F 88 18 121/77 93 L 05/08/21 02:13 98.0 F 78 18 104/61 99 05/08/21 00:54 92 16 05/07/21 23:10 98.1 F 92 16 114/62 92 L 05/07/21 16:02 97.6 F 107 H 20 121/70 95 Intake and Output 05/07/21 05/08/21 05/08/21 22:59 06:59 14:59 Other: Voiding Method Toilet Toilet # Voids 2 Weight 68.039 kg 68.039 kg In general patient is alert and oriented ?-3 in no distress HEENT head normocephalic and atraumatic Neck is supple no JVD no goiter no lymphadenopathy no carotid bruit Chest examination is clear to auscultation no crackles no wheezing Cardiac exam reveals regular heart sounds S1 and S2 no gallops no murmurs Abdomen is soft with mild diffuse tenderness no organomegaly with normal bowel sounds Extremity exam reveals no edema no cyanosis or clubbing Neurological examination reveals no gross focal deficits Results CBC & Chem 7: 05/08/21 05:19 05/08/21 05:19 Labs: Abnormal Lab Results - Last 24 Hours (Table) 05/07/21 05/07/21 05/07/21 Range/Units 16:39 16:39 16:39 WBC 17.5 H (3.8-10.6) k/uL MCHC (32.0-37.0) g/dL RDW (11.5-14.5) % Immature Gran # (0.00-0.04) X 10*3/uL Neutrophils # 13.7 H (1.3-7.7) k/uL Monocytes # (0.20-1.00) X 10*3/uL Sodium 135 L (137-145) mmol/L Total Protein 6.0 L (6.3-8.2) g/dL Albumin 3.4 L (3.5-5.0) g/dL Stool Occult Blood Positive H (Negative) 05/07/21 05/08/21 Range/Units 23:50 05:19 WBC 16.4 H 13.65 H (3.8-10.6) k/uL MCHC 30.5 L (32.0-37.0) g/dL RDW 14.6 H (11.5-14.5) % Immature Gran # 0.07 H (0.00-0.04) X 10*3/uL Neutrophils # 8.93 H (1.3-7.7) k/uL Monocytes # 1.05 H (0.20-1.00) X 10*3/uL Sodium (137-145) mmol/L Total Protein (6.3-8.2) g/dL Albumin (3.5-5.0) g/dL Stool Occult Blood (Negative) Thrombosis Risk Factor Assmnt - Choose All That Apply Any of the Below Risk Factors Present?: Yes Each Factor Represents 1 point: Abnormal pulmonary function (COPD), Obesity (BMI >25) Each Risk Factor Represents 2 Points: Age 61-74 years Other congenital or acquired thrombophilia - If yes, enter type in comment: No Thrombosis Risk Factor Assessment Total Risk Factor Score: 4 Thrombosis Risk Factor Assessment Level: Moderate Risk Assessment and Plan Plan: Acute colitis with possible acute diverticulitis continue with IV antibiotics awaiting gastroenterology consultation Lower GI bleed will monitor hemoglobin closely Underlying history of hypertension Underlying history of hyperlipidemia Underlying history of asthma and COPD Underlying history of osteoporosis 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
[2021-05-08] MEDS: ACETAMINOPHEN TAB 500 MG TAB PO PRN (19:57)
[2021-05-08] MEDS: MELATONIN 5 MG TABLET PO SCH (19:57)
[2021-05-08] MEDS: DULoxetine HCL 30 MG CAPSULE.DR PO SCH (19:57)
[2021-05-08] MEDS ORDERED: LEVOFLOXACIN 750MG-D5W PMX 750 MG in DEXTROSE/WATER 1 150ML.BAG IVPB SCH (21:00)
[2021-05-09] MEDS: HYDROmorphone 1 MG/ML 1 ML SYRINGE IVP PRN ×5 (02:01→20:23)
[2021-05-09] MEDS: metroNIDAZOLE-NS PMX 500 MG in SALINE 1 100ML.BAG IVPB SCH ×2 (04:43→08:40)
[2021-05-09] MEDS: SODIUM CHLORIDE 0.9% 1,000 ML IV SCH ×2 (04:45→13:01)
[2021-05-09] MEDS: MULTIVITAMINS, THERA 1 EACH TAB PO SCH (08:40)
[2021-05-09] MEDS: ALPRAZolam 0.5 MG TAB PO SCH ×2 (08:40→20:06)
[2021-05-09] MEDS: DULoxetine HCL 30 MG CAPSULE.DR PO SCH ×2 (08:40→20:05)
[2021-05-09] MEDS: PANTOPRAZOLE 40 MG/10 ML VIAL IV SCH (08:40)
[2021-05-09] MEDS: ONDANSETRON 4 MG/2 ML VIAL IVP PRN (09:07)
[2021-05-09] MEDS: MONTELUKAST 10 MG TAB PO SCH (09:07)
[2021-05-09] MEDS: NICOTINE 21MG/24HR PATCH TRANSDERM SCH (09:08)
[2021-05-09 11:02] LABS: Basophils % (A) 0 %; Eosinophils # (A) 0.2 k/uL (0-0.7); Eosinophils % (A) 1 %; HCT 37.6 % (34.0-46.0); HGB 12.1 gm/dL (11.4-16.0); Hypochromasia Slight; Lymphocytes # (A) 1.4 k/uL (1.0-4.8); Lymphocytes % (A) 13 %; MCH 29.5 pg (25.0-35.0); MCHC 32.3 g/dL (31.0-37.0); MCV 91.6 fL (80.0-100.0); Monocytes # (A) 0.6 k/uL (0-1.0); Monocytes % (A) 5 %; Neutrophils % (A) 80 %; Platelet Count 193 k/uL (150-450); RBC 4.11 m/uL (3.80-5.40); RDW 13.6 % (11.5-15.5); WBC 11.3 k/uL (3.8-10.6)
[2021-05-09 11:12] LABS: African American GFR (CKD) 84 (>60 ml/min/1.73 sqM); Anion Gap 2 mmol/L; Blood Urea Nitrogen 6 mg/dL (7-17); Carbon Dioxide 29 mmol/L (22-30); Chloride 105 mmol/L (98-107); Glucose 98 mg/dL (74-99); Non-African American GFR(CKD) 73 (>60 ml/min/1.73 sqM); Potassium 4.5 mmol/L (3.5-5.1); Sodium 136 mmol/L (137-145)
[2021-05-09] MEDS: AMPICILLIN-SULBACTAM 3 GM in SODIUM CHLORIDE 0.9% 100 ML IVPB SCH ×2 (13:00→17:48)
[2021-05-09] MEDS: ACETAMINOPHEN TAB 500 MG TAB PO PRN ×2 (13:11→20:07)
--- NOTE | 2021-05-09 13:17 | P.PN ---
<AmintaprashanthTrisha pineda - Last Filed: 05/09/21 13:12> Subjective Progress Note Date: 05/09/21 CHIEF COMPLAINT: Abdominal pain HISTORY OF PRESENT ILLNESS: Patient complaining that the abdominal pain is about the same. She reports no further episodes of bleeding. She has not had a bowel movement. She has had some nausea. No vomiting. Currently on a clear liquid diet. Patient also followed by GI service. Afebrile. WBC trending down at 11.3 hemoglobin 12.1 platelets 193 creatinine 0.84 PHYSICAL EXAM: VITAL SIGNS: Reviewed GENERAL: Well-developed in no acute distress. HEENT: No sclera icterus. Extraocular movements grossly intact. Moist buccal mucosa. Head is atraumatic, normocephalic. Hears conversational speech. No nasal drainage. NECK: Supple without lymphadenopathy. CHEST: Non-labored respirations and equal bilateral excursions. CARDIOVASCULAR: Palpable 2+ radial pulses. ABDOMEN: Soft. Nondistended. Tender with palpation of the left and lower side of the abdomen MUSCULOSKELETAL: No clubbing or cyanosis. NEUROLOGIC: No focal or lateralizing signs. Cranial nerves II through XII grossly intact. PSYCH: Appropriate affect. Alert and oriented to person, place and time. SKIN: Well perfused. Good skin turgor. ASSESSMENT: 1. Abnormal computed tomography scan for colitis 2. Left-sided abdominal pain 3. Leukocytosis 4. Hematochezia PLAN: 1. Recommend monitoring hemoglobin. 2. Supportive management this time 3. Colonoscopy advised and will defer to GI service 4. Continue IV antibiotics Physician Substance Abuse Prevention Coordinator note has been reviewed by physician. Signing provider agrees with the documented findings, assessment, and plan of care. Objective - Vital Signs Vital signs: Vital Signs Temp 98.9 F 05/09/21 12:18 Pulse 97 05/09/21 12:28 Resp 16 05/09/21 12:18 BP 112/74 05/09/21 12:18 Pulse Ox 97 05/09/21 12:18 Intake & Output 05/08/21 05/09/21 05/09/21 18:59 06:59 18:59 Intake Total 850 950 Balance 850 950 Intake: Intake, IV Titration 250 950 Amount Levofloxacin 750Mg-D5w 150 100 Pmx 750 mg In Dextrose/ Water 1 150ml.bag @ 100 mls/hr IVPB Q24H [facility] Rx#: [id number] Sodium Chloride 0.9% 1, 650 000 ml @ 130 mls/hr IV . Q7H42M [facility] Rx#:[id number] metroNIDAZOLE-NS PMX 500 100 200 mg In Saline 1 100ml.bag @ 100 mls/hr IVPB Q6H [facility] Rx#:[id number] Oral 600 Other: Voiding Method Toilet Toilet Toilet - Labs CBC & Chem 7: 05/09/21 10:43 05/09/21 10:43 Labs: Abnormal Lab Results - Last 24 Hours (Table) 05/09/21 05/09/21 Range/Units 10:43 10:43 WBC 11.3 H (3.8-10.6) k/uL Neutrophils # 9.0 H (1.3-7.7) k/uL Sodium 136 L (137-145) mmol/L BUN 6 L (7-17) mg/dL Calcium 8.0 L (8.4-10.2) mg/dL Microbiology - Last 24 Hours (Table) 05/07/21 19:50 Blood Culture - Preliminary Blood No Growth after 24 hours 05/07/21 19:34 Blood Culture - Preliminary Blood No Growth after 24 hours <Shelby Flores N - Last Filed: 05/10/21 05:08> Subjective CHIEF COMPLAINT: Abdominal pain HISTORY OF PRESENT ILLNESS: The patient is a 65 year old female admitted secondary to abdominal pain including blood in stools. Patient denies any further bowel movements or blood in stools. She still reports epigastric and left upper abdominal discomfort. She is tolerating liquid diet. REVIEW OF ORGAN SYSTEMS: No fevers or chills. No shortness of breath. No acute chest pain. PHYSICAL EXAM: VITALS: Reviewed CONSTITUTIONAL: Well developed and in no acute distress. EYES: Conjuctivae without sclera icterus. Extraocular movements grossly intact. HEAD, EARS, NOSE, THROAT: Moist buccal mucosa. Head is atraumatic, normocephalic. Hears conversational speech. No nasal drainage. RESPIRATORY: Non-labored respirations and equal bilateral excursions. No gross wheezes. CARDIOVASCULAR: 2+ radial pulses. ABDOMEN: Tender left upper quadrant. No peritonitis. MUSCULOSKELETAL: No clubbing cyanosis or edema. SKIN: Warm and well perfused with good skin turgor. NEUROLOGIC: Cranial nerves II through XII grossly intact. No focal or lateralizing signs. PSYCH: Appropriate affect. Alert and oriented to person, place and time. Displays appropriate insight. CLINCAL LABS: Reviewed. WBC improving from 13.6-11.3. Hemoglobin down 12.6 at 12.1 ASSESSMENT: 1. Abnormal computed tomography scan for colitis 2. Left-sided abdominal pain 3. Leukocytosis 4. Hematochezia PLAN: 1. Continue IV antibiotics for colitis 2. Further endoscopy on hold as patient currently without acute signs of bleeding. Objective - Vital Signs Vital signs: Vital Signs Temp 99.4 F 05/09/21 20:00 Pulse 78 05/09/21 20:00 Resp 20 05/09/21 20:00 BP 113/69 05/09/21 20:00 Pulse Ox 99 05/09/21 20:00 Intake & Output 05/09/21 05/09/21 05/10/21 06:59 18:59 06:59 Intake Total 950 Balance 950 Intake: Intake, IV Titration 950 Amount Levofloxacin 750Mg-D5w 100 Pmx 750 mg In Dextrose/ Water 1 150ml.bag @ 100 mls/hr IVPB Q24H [facility] Rx#: [id number] Sodium Chloride 0.9% 1, 650 000 ml @ 130 mls/hr IV . Q7H42M [facility] Rx#:[id number] metroNIDAZOLE-NS PMX 500 200 mg In Saline 1 100ml.bag @ 100 mls/hr IVPB Q6H [facility] Rx#:[id number] Other: Voiding Method Toilet Toilet Toilet - Labs CBC & Chem 7: 05/09/21 10:43 05/09/21 10:43 Labs: Abnormal Lab Results - Last 24 Hours (Table) 05/09/21 05/09/21 Range/Units 10:43 10:43 WBC 11.3 H (3.8-10.6) k/uL Neutrophils # 9.0 H (1.3-7.7) k/uL Sodium 136 L (137-145) mmol/L BUN 6 L (7-17) mg/dL Calcium 8.0 L (8.4-10.2) mg/dL Microbiology - Last 24 Hours (Table) 05/08/21 21:04 Blood Culture - Preliminary Blood No Growth after 24 hours 05/07/21 19:50 Blood Culture - Preliminary Blood No Growth after 48 hours 05/07/21 19:34 Blood Culture - Preliminary Blood No Growth after 48 hours Assessment and Plan (1) Tobacco abuse disorder Current Visit: Yes Status: Acute Code(s): Z72.0 - TOBACCO USE SNOMED Code(s): 379005745 (2) Colitis Current Visit: Yes Status: Acute Code(s): K52.9 - NONINFECTIVE GASTROENTERITIS AND COLITIS, UNSPECIFIED SNOMED Code(s): 65832520 (3) Diverticulitis large intestine Current Visit: Yes Status: Acute Code(s): K57.32 - DVTRCLI OF LG INT W/O PERFORATION OR ABSCESS W/O BLEEDING SNOMED Code(s): 8054660 (4) Rectal bleeding Current Visit: Yes Status: Acute Code(s): K62.5 - HEMORRHAGE OF ANUS AND RECTUM SNOMED Code(s): 90861101 (5) Bright red blood per rectum Current Visit: No Status: Acute Code(s): K62.5 - HEMORRHAGE OF ANUS AND RECTUM SNOMED Code(s): 27337753
--- NOTE | 2021-05-09 16:04 | P.PN ---
Subjective Progress Note Date: 05/09/21 Principal diagnosis: Colitis patient is seen and examined today as a follow-up for abdominal pain with evidence of colitis on CT of the abdomen. Patient states abdominal pain about the same or maybe a little worse. She's had no further bowel movements and no rectal bleeding. Sh she did spike a temperature yesterday evening up to 102. She had some nausea this morning but no vomiting. WBC 11.3 hemoglobin 12.1 platelet count 193,000. Objective - Vital Signs Vital signs: Vital Signs Temp 98.3 F 05/09/21 04:57 Pulse 96 05/09/21 04:57 Resp 16 05/09/21 04:57 BP 104/70 05/09/21 04:57 Pulse Ox 92 L 05/09/21 04:57 Intake & Output 05/08/21 05/09/21 05/09/21 18:59 06:59 18:59 Intake Total 850 950 Balance 850 950 Intake: Intake, IV Titration 250 950 Amount Levofloxacin 750Mg-D5w 150 100 Pmx 750 mg In Dextrose/ Water 1 150ml.bag @ 100 mls/hr IVPB Q24H [facility] Rx#: [id number] Sodium Chloride 0.9% 1, 650 000 ml @ 130 mls/hr IV . Q7H42M [facility] Rx#:[id number] metroNIDAZOLE-NS PMX 500 100 200 mg In Saline 1 100ml.bag @ 100 mls/hr IVPB Q6H [facility] Rx#:[id number] Oral 600 Other: Voiding Method Toilet Toilet - Exam General appearance: The patient is alert, oriented, appears in no acute distress. HET: Head is normocephalic and atraumatic. Conjunctiva pink. Sclera anicteric. Neck: Supple without lymphadenopathy. Abdomen: Soft, diffuse tenderness, somewhat improved from yesterday, nondistended with bowel sounds. No guarding or rigidity. Extremities: Normal skin color and turgor. No pedal edema Skin: No rashes, no jaundice Neurological: No focal deficits. Alert and oriented -3. - Labs CBC & Chem 7: 05/09/21 10:43 05/09/21 10:43 Labs: Abnormal Lab Results - Last 24 Hours (Table) 05/08/21 05/08/21 Range/Units 05:19 05:19 WBC 13.65 H (4.50-10.00) X 10*3/uL MCHC 30.5 L (32.0-37.0) g/dL RDW 14.6 H (11.5-14.5) % Immature Gran # 0.07 H (0.00-0.04) X 10*3/uL Neutrophils # 8.93 H (1.80-7.70) X 10*3/uL Monocytes # 1.05 H (0.20-1.00) X 10*3/uL BUN 8.6 L (9.0-27.0) mg/dL BUN/Creatinine Ratio 9.08 L (12.00-20.00) Ratio Calcium 8.6 L (8.7-10.3) mg/dL Total Protein 5.1 L (6.2-8.2) g/dL Albumin 3.4 L (3.8-4.9) g/dL Microbiology - Last 24 Hours (Table) 05/07/21 19:50 Blood Culture - Preliminary Blood No Growth after 24 hours 05/07/21 19:34 Blood Culture - Preliminary Blood No Growth after 24 hours Assessment and Plan (1) Colitis Narrative/Plan: 65-year-old female who presented to the hospital with complaints of abdominal pain, diarrhea with rectal bleeding and blood mixed in her stool, which began approximately 5 days ago. Patient states she had approximately 2-3 episodes of diarrhea a day for 2-3 days. Last bowel movement was 2 days ago. States she did have blood mixed with clots in her stool with lower left quadrant abdominal cramping and pain. She states she does have a similar episode a few years back. At that time she states she had more bleeding than this episode. She did have an EGD and colonoscopy on 05/20/[address] Gilmore with findings on the EGD hiatal hernia, and mild gastritis. Colonoscopy with sigmoid diverticulosis and mild proctitis. Biopsy came back as acute colitis with chronicity. Possible etiologies include infectious versus ischemic colitis. Will continue antibiotics for now. Continue to monitor symptoms. The patient continues to have rectal bleeding will consider possible colonoscopy, otherwise would recommend outpatient colonoscopy and 6-8 weeks. Current Visit: Yes Status: Acute Code(s): K52.9 - NONINFECTIVE GASTROENTERITIS AND COLITIS, UNSPECIFIED SNOMED Code(s): 10725120 Plan: 1. Continue symptomatic and supportive care 2. Continue current IV antibiotics 3. Patient may have clear liquid diet 4. Discussed with patient possibility of proceeding with colonoscopy, at this time patient does not believe she is able to withstand the prep. We will continue to monitor and treat with IV antibiotics Thank you for this consultation, we will continue to follow. Dr. Mehrdad Butcher I agree with the dictator's note, documented as a scribe by Era Walsh.
--- NOTE | 2021-05-09 18:45 | P.PN ---
Subjective Progress Note Date: 05/09/21 Miriam Esparza, he is a 65-year-old female who presented to [facility] emergency room with a chief complaint of abdominal pain and lower gastrointestinal bleeding She was evaluated in the emergency room vital examination on presentation revealed a temperature of 97.6 pulse 107 respiration 20 blood pressure 121/70 pulse ox 95% on room air Laboratory data revealed a white blood count of 17.5 hemoglobin 14.2 platelet count 217 sodium 135 potassium 4.3 chloride 105 CO2 27 BUN 12 creatinine 0.88 Testing in the emergency room revealed patient underwent computed tomography scan of the abdomen and pelvis in the emergency room that revealed evidence of wall thickening and inflammatory changes at the splenic flexure related to colitis with diverticulitis not excluded, patient was started on IV antibiotic in the emergency room, gastroenterology consultation was requested patient was admitted to medical floor for further evaluation and treatment. Past medical history is significant for history of asthma, history of COPD, history of hyperlipidemia, recurrent history of pneumonia, history of osteoporosis, history of chronic back pain, and history of pulmonary Mycobacterial infection On 05/09/2021 patient was seen and examined on the medical floor she is alert and oriented 3 in no apparent distress there is no fever or chills no headache or dizziness no chest pain no shortness of breath no cough she is still complaining of abdominal pain no nausea or vomiting no diarrhea no burning with urination no frequency or urgency and no hematuria. Temperature today is 98.3 pulse 96 respirations 16 blood pressure 104/70 pulse ox 92% on room air Objective - Vital Signs Vital signs: Vital Signs Temp 98.3 F 05/09/21 04:57 Pulse 96 05/09/21 04:57 Resp 16 05/09/21 04:57 BP 104/70 05/09/21 04:57 Pulse Ox 92 L 05/09/21 04:57 Intake & Output 05/08/21 05/09/21 05/09/21 18:59 06:59 18:59 Intake Total 850 950 Balance 850 950 Intake: Intake, IV Titration 250 950 Amount Levofloxacin 750Mg-D5w 150 100 Pmx 750 mg In Dextrose/ Water 1 150ml.bag @ 100 mls/hr IVPB Q24H [facility] Rx#: [id number] Sodium Chloride 0.9% 1, 650 000 ml @ 130 mls/hr IV . Q7H42M [facility] Rx#:[id number] metroNIDAZOLE-NS PMX 500 100 200 mg In Saline 1 100ml.bag @ 100 mls/hr IVPB Q6H [facility] Rx#:[id number] Oral 600 Other: Voiding Method Toilet Toilet - Exam In general patient is alert and oriented x 3 in no distress HEENT head normocephalic and atraumatic Neck is supple no JVD no goiter no lymphadenopathy no carotid bruit Chest examination is clear to auscultation no crackles no wheezing Cardiac exam reveals regular heart sounds S1 and S2 no gallops no murmurs Abdomen is soft with mild diffuse tenderness no organomegaly with normal bowel sounds Extremity exam reveals no edema no cyanosis or clubbing Neurological examination reveals no gross focal deficits - Labs CBC & Chem 7: 05/09/21 10:43 05/09/21 10:43 Labs: Abnormal Lab Results - Last 24 Hours (Table) 05/08/21 05/08/21 Range/Units 05:19 05:19 WBC 13.65 H (4.50-10.00) X 10*3/uL MCHC 30.5 L (32.0-37.0) g/dL RDW 14.6 H (11.5-14.5) % Immature Gran # 0.07 H (0.00-0.04) X 10*3/uL Neutrophils # 8.93 H (1.80-7.70) X 10*3/uL Monocytes # 1.05 H (0.20-1.00) X 10*3/uL BUN 8.6 L (9.0-27.0) mg/dL BUN/Creatinine Ratio 9.08 L (12.00-20.00) Ratio Calcium 8.6 L (8.7-10.3) mg/dL Total Protein 5.1 L (6.2-8.2) g/dL Albumin 3.4 L (3.8-4.9) g/dL Microbiology - Last 24 Hours (Table) 05/07/21 19:50 Blood Culture - Preliminary Blood No Growth after 24 hours 05/07/21 19:34 Blood Culture - Preliminary Blood No Growth after 24 hours Assessment and Plan Plan: Acute colitis with possible acute diverticulitis continue with IV antibiotics awaiting gastroenterology consultation Lower GI bleed will monitor hemoglobin closely Underlying history of hypertension Underlying history of hyperlipidemia Underlying history of asthma and COPD Underlying history of osteoporosis 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
[2021-05-09] MEDS: MELATONIN 5 MG TABLET PO SCH (20:05)
[2021-05-10] MEDS: AMPICILLIN-SULBACTAM 3 GM in SODIUM CHLORIDE 0.9% 100 ML IVPB SCH ×5 (00:06→23:10)
[2021-05-10] MEDS: SODIUM CHLORIDE 0.9% 1,000 ML IV SCH ×5 (00:08→21:23)
[2021-05-10] MEDS: HYDROmorphone 1 MG/ML 1 ML SYRINGE IVP PRN ×4 (02:38→23:09)
[2021-05-10] MEDS: ACETAMINOPHEN TAB 500 MG TAB PO PRN ×3 (02:41→23:09)
[2021-05-10] MEDS: ALPRAZolam 0.5 MG TAB PO SCH ×2 (08:15→19:42)
[2021-05-10] MEDS: MULTIVITAMINS, THERA 1 EACH TAB PO SCH (08:15)
[2021-05-10] MEDS: MONTELUKAST 10 MG TAB PO SCH (08:16)
[2021-05-10] MEDS: NICOTINE 21MG/24HR PATCH TRANSDERM SCH (08:16)
[2021-05-10] MEDS: DULoxetine HCL 30 MG CAPSULE.DR PO SCH ×2 (08:16→19:42)
[2021-05-10] MEDS: PANTOPRAZOLE 40 MG/10 ML VIAL IV SCH (08:16)
[2021-05-10 11:34] LABS: Basophils % (A) 0 %; Eosinophils # (A) 0.3 k/uL (0-0.7); Eosinophils % (A) 4 %; HCT 38.7 % (34.0-46.0); HGB 12.2 gm/dL (11.4-16.0); Hypochromasia Moderate; Lymphocytes # (A) 1.6 k/uL (1.0-4.8); Lymphocytes % (A) 22 %; MCH 28.9 pg (25.0-35.0); MCHC 31.4 g/dL (31.0-37.0); MCV 91.8 fL (80.0-100.0); Monocytes # (A) 0.5 k/uL (0-1.0); Monocytes % (A) 6 %; Neutrophils # (A) 4.8 k/uL (1.3-7.7); Neutrophils % (A) 66 %; Platelet Count 189 k/uL (150-450); RBC 4.22 m/uL (3.80-5.40); RDW 13.6 % (11.5-15.5); WBC 7.2 k/uL (3.8-10.6)
--- NOTE | 2021-05-10 11:36 | P.CONS ---
History of Present Illness - Reason for Consult Consult date: 05/09/21 Colitis Requesting physician: Dionna Curran - Chief Complaint Abdominal pain and bleeding per rectum x5 days - History of Present Illness History of Present Illness : Patient is a 65-year-old female presenting to the ER on 05/07/2021 for evaluation of lower abdominal pain that has been going on for 5 days before presentation to the hospital patient was describing the pain to be pressure-like sensation constant radiates around both flanks to the back area, patient did have some nausea but no vomiting also has been complaining of intermittent bright red blood per rectum patient previously seen to have similar problem and apparently did have a colonoscopy was n ondiagnostic, will be sent with the patient has been evaluated by ER physician on arrival to the ER patient was afebrile however she did spike a fever of 102.4 F last night, patient did have white count of 17.5 with a left shift kidney function has been normal urine was negative stool for occult blood was positive blood culture obtained which are currently pending patient did have a chest x- ray no active cardiopulmonary disease patient did have a CT of abdominal pelvis with issues wall thickening and inflammatory changes at the splenic flexure of the colon probably related to colitis and diverticulitis not excluded patient is currently being treated with Levaquin and Flagyl infectious he was consulted for further management of antibiotic therapy Review of system: CONSTITUTIONAL: Positive for weakness fever. EYES: No complaint. ENT: No complaint. RESPIRATORY: No complaint. CARDIOVASCULAR: No complaint. GENITOURINARY: No complaint. GASTROINTESTINAL: As per history of present illness. MUSCULOSKELETAL: No complaint. INTEGUMENTARY : No complaint. PSYCHOLOGIC: No complaint. ENDOCRINE: No complaint. NEUROLOGIC: No complaint. Past medical history : Reviewed, documented below Past surgical history : Reviewed, documented below Social history: Reviewed, documented below Medications: Reviewed, as documented below EXAMINATION: Vital sigans= Reviewed and documented below GENERAL DESCRIPTION: Elderly female lying in bed, no distress. No tachypnea or accessory muscle of respiration use. HEENT: Shows Pallor , no scleral icterus. Oral mucous membrane is dry. NECK: Trachea central, no thyromegaly. LUNGS: Unlabored breathing. Clear to auscultation anteriorly. 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 HEART: S1, S2, regular rate and rhythm. ABDOMEN: Soft, mild left-sided tenderness , guarding or rigidity EXTREMITIES: No edema feet SKIN: No rash, no masses palpable. NEUROLOGICAL: The patient is awake, alert, oriented x3, mood and affect normal. LABS AND RADIOLOGY: Reviewed results see below Assessment : Patient with sepsis in this patient who did have a fever elevated white count patient did have predominantly abdominal symptoms of pain and did have bleeding per rectum with evidence of colitis involving the splenic flexure in this patient who did have a significant history of smoking and continues to smoke concerning for possible ischemic colitis and will need to cover for enteric gram-negative both aerobes and anaerobes Plan: 1-discontinue Levaquin and Flagyl 2-start the patient Unasyn 3 g every 6 hours 3-gentle IV fluid We will follow on clinical condition and cultures to further adjust medication if needed Thank you for this consultation we will follow the patient along with you Past Medical History Past Medical History: Asthma, COPD, Fibromyalgia, GERD/Reflux, Hyperlipidemia, Osteoarthritis (OA), Pneumonia, Respiratory Disorder Additional Past Medical History / Comment(s): Chronic neck pain"herniated discs", arthitis, osteoporosis, fibrocystic breast disease, cataracts, "MAC" tx by dr [place]. History of Any Multi-Drug Resistant Organisms: None Reported Past Surgical History: Breast Surgery Additional Past Surgical History / Comment(s): multiple breast surgeries(needle aspiration bx), tubal ligation, right foot surgery 40 years ago to removed a foreign object, bronchosocpy, inj in neck. Past Anesthesia/Blood Transfusion Reactions: No Reported Reaction Additional Past Anesthesia/Blood Transfusion Reaction / Comm: clausterphobia never had blood trans Past Psychological History: Anxiety, Bipolar, Depression, Panic Disorder Additional Psychological History / Comment(s): has depression but denies any thoughts of wanting to harm self. pt lives at home.only has i step in the home pt lives with spouse, 1 dogs, 2 cats. is independant,. pt drives. Smoking Status: Current every day smoker Past Alcohol Use History: None Reported Additional Past Alcohol Use History / Comment(s): patient has smoked since she was 16 years old. Past Drug Use History: None Reported - Past Family History Mother Family Medical History: Cancer Additional Family Medical History / Comment(s): brain, breast cancer Father Family Medical History: Congestive Heart Failure (CHF), CVA/TIA, Renal Disease Medications and Allergies Home Medications Medication Instructions Recorded Confirmed Type DULoxetine HCL [Cymbalta] 30 mg PO BID 12/10/15 05/07/21 History Omeprazole [PriLOSEC] 20 mg PO BID 12/10/15 05/07/21 History Cyclobenzaprine [Flexeril] 10 mg PO BID 04/28/20 05/07/21 History HYDROcodone/APAP 10-325MG [[place] 1 tab PO BID PRN 04/28/20 05/07/21 History 10-325] Simvastatin [Zocor] 20 mg PO DAILY 04/28/20 05/07/21 History ALPRAZolam [Xanax] 0.5 mg PO BID 05/07/21 05/07/21 History Ascorbic Acid [Vitamin C] 500 mg PO DAILY 05/07/21 05/07/21 History Calcium Carbonate/Vitamin D3 1 tab PO BID 05/07/21 05/07/21 History [Calcium 600 mg-Vit D3 10 mcg (400 Unit)] Cholecalciferol [Vitamin D3 (25 25 mcg PO DAILY 05/07/21 05/07/21 History Mcg = 1000 Iu)] Coconut Oil Capsule 1 cap PO DAILY 05/07/21 05/07/21 History Melatonin 10 mg PO HS 05/07/21 05/07/21 History Montelukast [Singulair] 10 mg PO DAILY 05/07/21 05/07/21 History Multivitamins, Thera [Multivitamin 1 tab PO DAILY 05/07/21 05/07/21 History (formulary)] Nicotine 21Mg/24Hr Patch [Habitrol] 1 patch TRANSDERM DAILY 05/07/21 05/07/21 History Risedronate Sodium 150 mg PO QMONTHLY 05/07/21 05/07/21 History Turmeric Root Extract [Turmeric] 500 mg PO DAILY 05/07/21 05/07/21 History Vitamin B Complex 1 cap PO DAILY 05/07/21 05/07/21 History Zinc 50 mg PO DAILY 05/07/21 05/07/21 History Allergies Allergy/AdvReac Type Severity Reaction Status Date / Time Iodinated Contrast Media Allergy Rash/Hives Verified 05/07/21 18:56 [Iodinated Contrast Media - IV Dye] shellfish derived Allergy Rash/Hives Verified 05/07/21 18:56 venom-honey bee Allergy Anaphylaxis Verified 05/07/21 18:56 [bee venom (honey bee)] Physical Exam Vitals: Vital Signs Temp Pulse Resp BP Pulse Ox 05/09/21 08:30 99.5 F 94 16 127/79 87 L 05/09/21 04:57 98.3 F 96 16 104/70 92 L 05/09/21 02:00 98.2 F 05/08/21 20:00 99 18 05/08/21 19:31 102.4 F H 99 18 103/68 92 L 05/08/21 13:24 99.5 F 80 19 119/74 96 Intake and Output 05/08/21 05/09/21 05/09/21 22:59 06:59 14:59 Intake Total 850 950 Balance 850 950 Intake: Intake, IV Titration 250 950 Amount Levofloxacin 750Mg-D5w 150 100 Pmx 750 mg In Dextrose/ Water 1 150ml.bag @ 100 mls/hr IVPB Q24H [facility] Rx#: [id number] Sodium Chloride 0.9% 1, 650 000 ml @ 130 mls/hr IV . Q7H42M [facility] Rx#:[id number] metroNIDAZOLE-NS PMX 500 100 200 mg In Saline 1 100ml.bag @ 100 mls/hr IVPB Q6H [facility] Rx#:[id number] Oral 600 Other: Voiding Method Toilet Results CBC & Chem 7: 05/10/21 10:56 05/09/21 10:43 Labs: Abnormal Lab Results - Last 24 Hours (Table) 05/08/21 Range/Units 05:19 BUN 8.6 L (9.0-27.0) mg/dL BUN/Creatinine Ratio 9.08 L (12.00-20.00) Ratio Calcium 8.6 L (8.7-10.3) mg/dL Total Protein 5.1 L (6.2-8.2) g/dL Albumin 3.4 L (3.8-4.9) g/dL Microbiology - Last 24 Hours (Table) 05/07/21 19:50 Blood Culture - Preliminary Blood No Growth after 24 hours 05/07/21 19:34 Blood Culture - Preliminary Blood No Growth after 24 hours
[2021-05-10 11:56] LABS: ALT 16 U/L (4-34); AST 24 U/L (14-36); African American GFR (CKD) >90 (>60 ml/min/1.73 sqM); Albumin 2.6 g/dL (3.5-5.0); Albumin/Globulin Ratio 1.3; Alkaline Phosphatase 55 U/L (38-126); Anion Gap 3 mmol/L; Blood Urea Nitrogen 5 mg/dL (7-17); Carbon Dioxide 28 mmol/L (22-30); Chloride 106 mmol/L (98-107); Glucose 145 mg/dL (74-99); Non-African American GFR(CKD) 84 (>60 ml/min/1.73 sqM); Potassium 3.6 mmol/L (3.5-5.1); Sodium 137 mmol/L (137-145); Total Bilirubin 0.4 mg/dL (0.2-1.3); Total Protein 4.6 g/dL (6.3-8.2)
--- NOTE | 2021-05-10 12:48 | P.PN ---
Subjective Progress Note Date: 05/10/21 Miriam Esparza, he is a 65-year-old female who presented to [facility] emergency room with a chief complaint of abdominal pain and lower gastrointestinal bleeding She was evaluated in the emergency room vital examination on presentation revealed a temperature of 97.6 pulse 107 respiration 20 blood pressure 121/70 pulse ox 95% on room air Laboratory data revealed a white blood count of 17.5 hemoglobin 14.2 platelet count 217 sodium 135 potassium 4.3 chloride 105 CO2 27 BUN 12 creatinine 0.88 Testing in the emergency room revealed patient underwent computed tomography scan of the abdomen and pelvis in the emergency room that revealed evidence of wall thickening and inflammatory changes at the splenic flexure related to colitis with diverticulitis not excluded, patient was started on IV antibiotic in the emergency room, gastroenterology consultation was requested patient was admitted to medical floor for further evaluation and treatment. Past medical history is significant for history of asthma, history of COPD, history of hyperlipidemia, recurrent history of pneumonia, history of osteoporosis, history of chronic back pain, and history of pulmonary Mycobacterial infection On 05/09/2021 patient was seen and examined on the medical floor she is alert and oriented 3 in no apparent distress there is no fever or chills no headache or dizziness no chest pain no shortness of breath no cough she is still complaining of abdominal pain no nausea or vomiting no diarrhea no burning with urination no frequency or urgency and no hematuria. Temperature today is 98.3 pulse 96 respirations 16 blood pressure 104/70 pulse ox 92% on room air On 05/10/2021 patient is alert and oriented 3. Patient remains on clear liquid diet. White blood cell within normal limits at 7.2 hemoglobin 12.2. Per patient tended plans for possible colonoscopy and/or EGD. Patient denies chest pain or shortness breath. Patient denies any urinary burning or frequency. Objective - Vital Signs Vital signs: Vital Signs Temp 98.1 F 05/10/21 05:52 Pulse 77 05/10/21 05:52 Resp 18 05/10/21 05:52 BP 91/58 05/10/21 05:52 Pulse Ox 96 05/10/21 05:52 Intake & Output 05/09/21 05/10/21 05/10/21 18:59 06:59 18:59 Intake Total 325 Balance 325 Intake: Oral 325 Other: Voiding Method Toilet Toilet # Voids 1 - Exam In general patient is alert and oriented x 3 in no distress HEENT head normocephalic and atraumatic Neck is supple no JVD no goiter no lymphadenopathy no carotid bruit Chest examination is clear to auscultation no crackles no wheezing Cardiac exam reveals regular heart sounds S1 and S2 no gallops no murmurs Abdomen is soft with mild diffuse tenderness no organomegaly with normal bowel sounds Extremity exam reveals no edema no cyanosis or clubbing Neurological examination reveals no gross focal deficits - Labs CBC & Chem 7: 05/10/21 10:56 05/10/21 10:56 Labs: Abnormal Lab Results - Last 24 Hours (Table) 05/10/21 Range/Units 10:56 BUN 5 L (7-17) mg/dL Glucose 145 H (74-99) mg/dL Calcium 8.0 L (8.4-10.2) mg/dL Total Protein 4.6 L (6.3-8.2) g/dL Albumin 2.6 L (3.5-5.0) g/dL Microbiology - Last 24 Hours (Table) 05/08/21 21:04 Blood Culture - Preliminary Blood No Growth after 24 hours 05/07/21 19:50 Blood Culture - Preliminary Blood No Growth after 48 hours 05/07/21 19:34 Blood Culture - Preliminary Blood No Growth after 48 hours Assessment and Plan Plan: Acute colitis with possible acute diverticulitis continue with IV antibiotics awaiting gastroenterology consultation Lower GI bleed will monitor hemoglobin closely Underlying history of hypertension Underlying history of hyperlipidemia Underlying history of asthma and COPD Underlying history of osteoporosis 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 GI prophylaxis Protonix Patient remains on IV Unasyn GI and surgical services following. Infectious disease service is following repeat labs ordered
--- NOTE | 2021-05-10 14:07 | P.PN ---
Subjective Progress Note Date: 05/10/21 CHIEF COMPLAINT: Abdominal pain HISTORY OF PRESENT ILLNESS: Patient complaining that the abdominal pain is about the same. She reports no further episodes of bleeding. She denies any nausea or vomiting. Currently on a clear liquid diet. Patient also followed by GI service for possible endoscopy. Afebrile. WBC normalized at 7.2 hemoglobin 12.2 PHYSICAL EXAM: VITAL SIGNS: Reviewed GENERAL: Well-developed in no acute distress. HEENT: No sclera icterus. Extraocular movements grossly intact. Moist buccal mucosa. Head is atraumatic, normocephalic. Hears conversational speech. No nasal drainag e. NECK: Supple without lymphadenopathy. CHEST: Non-labored respirations and equal bilateral excursions. CARDIOVASCULAR: Palpable 2+ radial pulses. ABDOMEN: Soft. Nondistended. Tender with palpation of the left and lower side of the abdomen MUSCULOSKELETAL: No clubbing or cyanosis. NEUROLOGIC: No focal or lateralizing signs. Cranial nerves II through XII grossly intact. PSYCH: Appropriate affect. Alert and oriented to person, place and time. SKIN: Well perfused. Good skin turgor. ASSESSMENT: 1. Abnormal computed tomography scan for colitis 2. Left-sided abdominal pain 3. Leukocytosis 4. Hematochezia PLAN: 1. Recommend monitoring hemoglobin. 2. Supportive management this time 3. Colonoscopy advised and will defer to GI service 4. Continue IV antibiotics 5. Surgical service will sign off. Please call with any questions or concerns Physician Awake Overnight Counselor note has been reviewed by physician. Signing provider agrees with the documented findings, assessment, and plan of care. Objective - Vital Signs Vital signs: Vital Signs Temp 98.1 F 05/10/21 05:52 Pulse 77 05/10/21 05:52 Resp 18 05/10/21 05:52 BP 91/58 05/10/21 05:52 Pulse Ox 96 05/10/21 05:52 Intake & Output 05/09/21 05/10/21 05/10/21 18:59 06:59 18:59 Intake Total 325 Balance 325 Intake: Oral 325 Other: Voiding Method Toilet Toilet # Voids 1 - Labs CBC & Chem 7: 05/10/21 10:56 05/10/21 10:56 Labs: Abnormal Lab Results - Last 24 Hours (Table) 05/10/21 Range/Units 10:56 BUN 5 L (7-17) mg/dL Glucose 145 H (74-99) mg/dL Calcium 8.0 L (8.4-10.2) mg/dL Total Protein 4.6 L (6.3-8.2) g/dL Albumin 2.6 L (3.5-5.0) g/dL Microbiology - Last 24 Hours (Table) 05/08/21 21:04 Blood Culture - Preliminary Blood No Growth after 24 hours 05/07/21 19:50 Blood Culture - Preliminary Blood No Growth after 48 hours 05/07/21 19:34 Blood Culture - Preliminary Blood No Growth after 48 hours
--- NOTE | 2021-05-10 15:30 | P.PN ---
Subjective Progress Note Date: 05/10/21 Principal diagnosis: Colitis Patient is seen and examined today as a follow-up for abdominal pain with evidence of colitis on CT of the abdomen. Patient states abdominal pain is improving some. She's had no further bowel movements and no rectal bleeding. She states she is starting to pass some gas. She has been afebrile. She is tolerating her clear liquid diet would like to advance. Objective - Vital Signs Vital signs: Vital Signs Temp 98.0 F 05/10/21 11:43 Pulse 72 05/10/21 11:43 Resp 16 05/10/21 11:43 BP 144/79 05/10/21 11:43 Pulse Ox 93 L 05/10/21 11:43 Intake & Output 05/09/21 05/10/21 05/10/21 18:59 06:59 18:59 Intake Total 325 360 Balance 325 360 Intake: Oral 325 360 Other: Voiding Method Toilet Toilet Toilet # Voids 1 - Exam General appearance: The patient is alert, oriented, appears in no acute distress. HET: Head is normocephalic and atraumatic. Conjunctiva pink. Sclera anicteric. Neck: Supple without lymphadenopathy. Abdomen: Soft, mild diffuse tenderness, nondistended with bowel sounds. No guarding or rigidity. Extremities: Normal skin color and turgor. No pedal edema Skin: No rashes, no jaundice Neurological: No focal deficits. Alert and oriented -3. - Labs CBC & Chem 7: 05/10/21 10:56 05/10/21 10:56 Labs: Abnormal Lab Results - Last 24 Hours (Table) 05/10/21 Range/Units 10:56 BUN 5 L (7-17) mg/dL Glucose 145 H (74-99) mg/dL Calcium 8.0 L (8.4-10.2) mg/dL Total Protein 4.6 L (6.3-8.2) g/dL Albumin 2.6 L (3.5-5.0) g/dL Microbiology - Last 24 Hours (Table) 05/08/21 21:04 Blood Culture - Preliminary Blood No Growth after 24 hours 05/07/21 19:50 Blood Culture - Preliminary Blood No Growth after 48 hours 05/07/21 19:34 Blood Culture - Preliminary Blood No Growth after 48 hours Assessment and Plan (1) Colitis Narrative/Plan: 65-year-old female who presented to the hospital with complaints of abdominal pain, diarrhea with rectal bleeding and blood mixed in her stool, which began approximately 5 days ago. Patient states she had approximately 2-3 episodes of diarrhea a day for 2-3 days. Last bowel movement was 2 days ago. States she did have blood mixed with clots in her stool with lower left quadrant abdominal cramping and pain. She states she does have a similar episode a few years back. At that time she states she had more bleeding than this episode. She did have an EGD and colonoscopy on 05/20/[address] Gilmore with findings on the EGD hiatal hernia, and mild gastritis. Colonoscopy with sigmoid diverticulosis and mild proctitis. Biopsy came back as acute colitis with chronicity. Possible etiologies include infectious versus ischemic colitis. Will continue antibiotics for now. Continue to monitor symptoms. The patient continues to have rectal bleeding will consider possible colonoscopy, otherwise would recommend outpatient colonoscopy and 6-8 weeks. Current Visit: Yes Status: Acute Code(s): K52.9 - NONINFECTIVE GASTROENTERITIS AND COLITIS, UNSPECIFIED SNOMED Code(s): 32875218 Plan: 1. Continue symptomatic and supportive care 2. Continue current IV antibiotics 3. Patient may have her healthy diet 4. We'll continue to treat with medical management. If symptoms continue to im prove with full hold off on inpatient colonoscopy. Thank you for this consultation, we will continue to follow. Dr. Mehrdad Butcher I agree with the dictator's note, documented as a scribe by Era Walsh.
--- NOTE | 2021-05-10 19:03 | XR ---
EXAMINATION TYPE: XR chest 2V DATE OF EXAM: 05/10/2021 COMPARISON: 05/07/2021 HISTORY: Cough TECHNIQUE: Frontal and lateral views of the chest are obtained. FINDINGS: There is interval mild bibasilar streaky opacities. Redemonstrated are bilateral scattered multiple nodules in the upper to mid lungs some of which are calcified. There are probable trace ple ural effusions. No pneumothorax seen. The cardiac silhouette size is within normal limits. The oss eous structures are intact. IMPRESSION: Interval mild bibasilar atelectasis versus infiltrates. Stable pulmonary nodules.
[2021-05-10] MEDS: MELATONIN 5 MG TABLET PO SCH (19:42)
[2021-05-11] MEDS: AMPICILLIN-SULBACTAM 3 GM in SODIUM CHLORIDE 0.9% 100 ML IVPB SCH ×3 (05:30→16:53)
[2021-05-11] MEDS: HYDROmorphone 1 MG/ML 1 ML SYRINGE IVP PRN ×2 (06:58→16:35)
[2021-05-11] MEDS: MONTELUKAST 10 MG TAB PO SCH (08:15)
[2021-05-11] MEDS: ALPRAZolam 0.5 MG TAB PO SCH ×2 (08:15→20:45)
[2021-05-11] MEDS: DULoxetine HCL 30 MG CAPSULE.DR PO SCH ×2 (08:15→20:45)
[2021-05-11] MEDS: NICOTINE 21MG/24HR PATCH TRANSDERM SCH (08:16)
[2021-05-11] MEDS: MULTIVITAMINS, THERA 1 EACH TAB PO SCH (08:16)
[2021-05-11] MEDS: PANTOPRAZOLE 40 MG/10 ML VIAL IV SCH ×2 (08:21→20:46)
[2021-05-11 09:29] LABS: Basophils # (A) 0.05 X 10*3/uL (0.00-0.10); Basophils % (A) 0.7 %; Eosinophils # (A) 0.36 X 10*3/uL (0.04-0.35); Eosinophils % (A) 5.2 %; HCT 36.9 % (37.2-46.3); HGB 11.4 g/dL (12.0-15.0); Immature Grans, Automated 0.1 %; Lymphocytes # (A) 2.27 X 10*3/uL (0.90-5.00); Lymphocytes % (A) 32.6 %; MCH 27.6 pg (27.0-32.0); MCHC 30.9 g/dL (32.0-37.0); MCV 89.3 fL (80.0-97.0); Mean Platelet Volume 10.3 fL (9.5-12.2); Monocytes # (A) 0.62 X 10*3/uL (0.20-1.00); Monocytes % (A) 8.9 %; NRBC Per 100 WBC 0 /100 WBCS (0.0-0.0); Neutrophils # (A) 3.65 X 10*3/uL (1.80-7.70); Neutrophils % (A) 52.5 %; Platelet Count 203 X 10*3/uL (140-440); RBC 4.13 X 10*6/uL (4.10-5.20); RDW 14.2 % (11.5-14.5); WBC 6.96 X 10*3/uL (4.50-10.00)
[2021-05-11 10:03] LABS: African American GFR (CKD) 105.4 (60.0-200.0); Albumin/Globulin Ratio 1.88 (1.60-3.17); Anion Gap 7.4 mmol/L (10.00-18.00); BUN/Creat Ratio 5.14 Ratio (12.00-20.00); Blood Urea Nitrogen 3.6 mg/dL (9.0-27.0); Calcium 8.7 mg/dL (8.7-10.3); Carbon Dioxide 29.6 mmol/L (20.0-27.5); Globulin 1.6 g/dL (1.6-3.3); Non-African American GFR(CKD) 90.9 (60.0-200.0); Total Bilirubin 0.2 mg/dL (0.30-1.20); Total Protein 4.6 g/dL (6.2-8.2)
[2021-05-11] MEDS: SODIUM CHLORIDE 0.9% 1,000 ML IV SCH ×2 (10:27→16:49)
--- NOTE | 2021-05-11 13:35 | P.PN ---
Subjective Progress Note Date: 05/11/21 Principal diagnosis: Colitis Patient is seen and examined today as a follow-up for abdominal pain with evidence of colitis on CT of the abdomen. Abdominal pain continues to improve. She's been afebrile. She remains on IV antibiotics. She is tolerating a regular diet. She is passing gas but has not had a bowel movement. No further diarrhea. Objective - Vital Signs Vital signs: Vital Signs Temp 97.4 F L 05/11/21 07:23 Pulse 73 05/11/21 07:23 Resp 18 05/11/21 07:23 BP 150/88 05/11/21 07:23 Pulse Ox 96 05/11/21 07:23 Intake & Output 05/10/21 05/11/21 05/11/21 18:59 06:59 18:59 Intake Total 2620 1400 Balance 2620 1400 Intake: Intake, IV Titration 1640 1400 Amount Ampicillin-Sulbactam 3 gm 200 200 In Sodium Chloride 0.9% 100 ml @ 200 mls/hr IVPB Q6HR [facility] Rx#:[id number] Sodium Chloride 0.9% 1, 1440 1200 000 ml @ 130 mls/hr IV . Q7H42M [facility] Rx#:[id number] Oral 980 Other: Voiding Method Toilet Toilet # Voids 5 - Exam General appearance: The patient is alert, oriented, appears in no acute distress. HET: Head is normocephalic and atraumatic. Conjunctiva pink. Sclera anicteric. Neck: Supple without lymphadenopathy. Abdomen: Soft, mild diffuse tenderness, nondistended with bowel sounds. No guarding or rigidity. Extremities: Normal skin color and turgor. No pedal edema Skin: No rashes, no jaundice Neurological: No focal deficits. Alert and oriented x 3. - Labs CBC & Chem 7: 05/11/21 06:30 05/11/21 06:30 Labs: Abnormal Lab Results - Last 24 Hours (Table) 05/10/21 05/11/21 05/11/21 Range/Units 10:56 06:30 06:30 Hgb 11.4 L (12.0-15.0) g/dL Hct 36.9 L (37.2-46.3) % MCHC 30.9 L (32.0-37.0) g/dL Eosinophils # 0.36 H (0.04-0.35) X 10*3/uL Carbon Dioxide 29.6 H (20.0-27.5) mmol/L Anion Gap 7.40 L (10.00-18.00) mmol/L BUN 5 L 3.6 L (7-17) mg/dL BUN/Creatinine Ratio 5.14 L (12.00-20.00) Ratio Glucose 145 H (74-99) mg/dL Calcium 8.0 L (8.4-10.2) mg/dL Total Bilirubin 0.20 L (0.30-1.20) mg/dL Total Protein 4.6 L 4.6 L (6.3-8.2) g/dL Albumin 2.6 L 3.0 L (3.5-5.0) g/dL Microbiology - Last 24 Hours (Table) 05/08/21 21:04 Blood Culture - Preliminary Blood No Growth after 48 hours 05/07/21 19:34 Blood Culture - Preliminary Blood No Growth after 72 hours 05/07/21 19:50 Blood Culture - Preliminary Blood No Growth after 72 hours Assessment and Plan (1) Colitis Narrative/Plan: 65-year-old female who presented to the hospital with complaints of abdominal pain, diarrhea with rectal bleeding and blood mixed in her stool, which began approximately 5 days ago. Patient states she had approximately 2-3 episodes of diarrhea a day for 2-3 days. Last bowel movement was 2 days ago. States she did have blood mixed with clots in her stool with lower left quadrant abdominal cramping and pain. She states she does have a similar episode a few years back. At that time she states she had more bleeding than this episode. She did have an EGD and colonoscopy on 05/20/[address] Gilmore with findings on the EGD hiatal hernia, and mild gastritis. Colonoscopy with sigmoid diverticulosis and mild proctitis. Biopsy came back as acute colitis with chronicity. Possible etiologies include infectious versus ischemic colitis. Will continue antibiotics for now. Continue to monitor symptoms. The patient continues to have rectal bleeding will consider possible colonoscopy, otherwise would recommend outpatient colonoscopy and 6-8 weeks. Current Visit: Yes Status: Acute Code(s): K52.9 - NONINFECTIVE GASTROENTERITIS AND COLITIS, UNSPECIFIED SNOMED Code(s): 41057083 Plan: 1. Continue symptomatic and supportive care 2. Continue current IV antibiotics 3. Patient may have her healthy diet 4. We'll continue to treat with medical management. 5. Encourage ambulation Thank you for this consultation, we will continue to follow. Dr. Mehrdad Butcher I agree with the dictator's note, documented as a scribe by Era Walsh.
[2021-05-11] MEDS ORDERED: polyethylene glycoL 3350 17 GM POWD.PACK PO STA (16:41)
[2021-05-11] MEDS: ONDANSETRON 4 MG/2 ML VIAL IVP PRN (16:49)
--- NOTE | 2021-05-11 18:57 | P.PN ---
Subjective Progress Note Date: 05/11/21 Miriam Esparza, he is a 65-year-old female who presented to [facility] emergency room with a chief complaint of abdominal pain and lower gastrointestinal bleeding She was evaluated in the emergency room vital examination on presentation revealed a temperature of 97.6 pulse 107 respiration 20 blood pressure 121/70 pulse ox 95% on room air Laboratory data revealed a white blood count of 17.5 hemoglobin 14.2 platelet count 217 sodium 135 potassium 4.3 chloride 105 CO2 27 BUN 12 creatinine 0.88 Testing in the emergency room revealed patient underwent computed tomography scan of the abdomen and pelvis in the emergency room that revealed evidence of wall thickening and inflammatory changes at the splenic flexure related to colitis with diverticulitis not excluded, patient was started on IV antibiotic in the emergency room, gastroenterology consultation was requested patient was admitted to medical floor for further evaluation and treatment. Past medical history is significant for history of asthma, history of COPD, history of hyperlipidemia, recurrent history of pneumonia, history of osteoporosis, history of chronic back pain, and history of pulmonary Mycobacterial infection On 05/09/2021 patient was seen and examined on the medical floor she is alert and oriented 3 in no apparent distress there is no fever or chills no headache or dizziness no chest pain no shortness of breath no cough she is still complaining of abdominal pain no nausea or vomiting no diarrhea no burning with urination no frequency or urgency and no hematuria. Temperature today is 98.3 pulse 96 respirations 16 blood pressure 104/70 pulse ox 92% on room air On 05/10/2021 patient is alert and oriented 3. Patient remains on clear liquid diet. White blood cell within normal limits at 7.2 hemoglobin 12.2. Per patient tended plans for possible colonoscopy and/or EGD. Patient denies chest pain or shortness breath. Patient denies any urinary burning or frequency. On 05/11/2021 patient was seen and examined on the medical floor she is alert and oriented 3 in no apparent distress there is no fever or chills no headache or dizziness no chest pain no shortness of breath no cough, patient is still complaining of nausea and abdominal pain no vomiting no diarrhea no blood in the stools and no urinary symptoms. Her vital exam reveals a temperature of 97.4 pulse 73 respiration 18 blood pressure 150/88 and pulse ox 96% on 2 L nasal cannula, white blood count came down to 6.96 down from 16.4 on presentation hemoglobin 11.4 platelet count 203 BUN 3.6 creatinine 0.7 Objective - Vital Signs Vital signs: Vital Signs Temp 98.2 F 05/11/21 12:16 Pulse 78 05/11/21 12:16 Resp 18 05/11/21 12:16 BP 119/78 05/11/21 12:16 Pulse Ox 95 05/11/21 12:16 Intake & Output 05/10/21 05/11/21 05/11/21 18:59 06:59 18:59 Intake Total 2620 1400 2500 Balance 2620 1400 2500 Intake: Intake, IV Titration 1640 1400 1300 Amount Ampicillin-Sulbactam 3 gm 200 200 200 In Sodium Chloride 0.9% 100 ml @ 200 mls/hr IVPB Q6HR [facility] Rx#:[id number] Sodium Chloride 0.9% 1, 1440 1200 1100 000 ml @ 130 mls/hr IV . Q7H42M [facility] Rx#:[id number] Oral 980 1200 Other: Voiding Method Toilet Toilet Toilet # Voids 5 5 - Exam In general patient is alert and oriented x 3 in no distress HEENT head normocephalic and atraumatic Neck is supple no JVD no goiter no lymphadenopathy no carotid bruit Chest examination is clear to auscultation no crackles no wheezing Cardiac exam reveals regular heart sounds S1 and S2 no gallops no murmurs Abdomen is soft with mild diffuse tenderness no organomegaly with normal bowel sounds Extremity exam reveals no edema no cyanosis or clubbing Neurological examination reveals no gross focal deficits - Labs CBC & Chem 7: 05/11/21 06:30 05/11/21 06:30 Labs: Abnormal Lab Results - Last 24 Hours (Table) 05/11/21 05/11/21 Range/Units 06:30 06:30 Hgb 11.4 L (12.0-15.0) g/dL Hct 36.9 L (37.2-46.3) % MCHC 30.9 L (32.0-37.0) g/dL Eosinophils # 0.36 H (0.04-0.35) X 10*3/uL Carbon Dioxide 29.6 H (20.0-27.5) mmol/L Anion Gap 7.40 L (10.00-18.00) mmol/L BUN 3.6 L (9.0-27.0) mg/dL BUN/Creatinine Ratio 5.14 L (12.00-20.00) Ratio Total Bilirubin 0.20 L (0.30-1.20) mg/dL Total Protein 4.6 L (6.2-8.2) g/dL Albumin 3.0 L (3.8-4.9) g/dL Microbiology - Last 24 Hours (Table) 05/08/21 21:04 Blood Culture - Preliminary Blood No Growth after 48 hours 05/07/21 19:34 Blood Culture - Preliminary Blood No Growth after 72 hours 05/07/21 19:50 Blood Culture - Preliminary Blood No Growth after 72 hours Assessment and Plan Plan: Acute colitis with possible acute diverticulitis continue with IV antibiotics awaiting gastroenterology consultation Lower GI bleed will monitor hemoglobin closely Underlying history of hypertension Underlying history of hyperlipidemia Underlying history of asthma and COPD Underlying history of osteoporosis 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 GI prophylaxis Protonix Patient remains on IV [facility] GI and surgical services following. Infectious disease service is following repeat labs ordered
[2021-05-11] MEDS: ACETAMINOPHEN TAB 500 MG TAB PO PRN (20:45)
[2021-05-11] MEDS: MELATONIN 5 MG TABLET PO SCH (20:45)
[2021-05-12] MEDS: AMPICILLIN-SULBACTAM 3 GM in SODIUM CHLORIDE 0.9% 100 ML IVPB SCH ×3 (02:09→11:10)
[2021-05-12] MEDS: HYDROmorphone 1 MG/ML 1 ML SYRINGE IVP PRN ×2 (02:09→09:42)
[2021-05-12] MEDS: SODIUM CHLORIDE 0.9% 1,000 ML IV SCH ×2 (02:14→12:09)
[2021-05-12 07:49] VITALS: PULSE 75
[2021-05-12] MEDS: DULoxetine HCL 30 MG CAPSULE.DR PO SCH (09:38)
[2021-05-12] MEDS: MULTIVITAMINS, THERA 1 EACH TAB PO SCH (09:38)
[2021-05-12] MEDS: PANTOPRAZOLE 40 MG/10 ML VIAL IV SCH (09:38)
[2021-05-12] MEDS: MONTELUKAST 10 MG TAB PO SCH (09:38)
[2021-05-12] MEDS: ALPRAZolam 0.5 MG TAB PO SCH (09:38)
[2021-05-12] MEDS: NICOTINE 21MG/24HR PATCH TRANSDERM SCH (09:38)
[2021-05-12] MEDS ORDERED: polyethylene glycoL 3350 17 GM POWD.PACK PO SCH (11:45)
--- NOTE | 2021-05-12 12:07 | P.DS ---
Providers Date of admission: 05/08/21 11:37 Expected date of discharge: 05/12/21 Attending physician: Dionna Curran Consults: 05/08/21 13:26 Consult Physician Routine Consulting Provider: Elissa Butcher Consult Reason/Comments: colitis, lower GI bleed Do you want consulting provider notified?: Yes 05/08/21 20:02 Consult Physician Routine Consulting Provider: Jose Raul Cardoso Consult Reason/Comments: colitis Do you want consulting provider notified?: Yes 05/10/21 17:04 Consult Physician Routine Consulting Provider: Paulo Tristan Consult Reason/Comments: cough, Dyspnea, patient known to him Do you want consulting provider notified?: Yes Primary care physician: Dionna Curran [place] Course: Discharge diagnosis Acute colitis with possible acute diverticulitis continue with IV antibiotics awaiting gastroenterology consultation Lower GI bleed will monitor hemoglobin closely Underlying history of hypertension Underlying history of hyperlipidemia Underlying history of asthma and COPD Underlying history of osteoporosis 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 Underlying history of depression with anxiety Chronic history of back pain Continued tobacco use Hospital course Miriam Esparza, he is a 65-year-old female who presented to [facility] emergency room with a chief complaint of abdominal pain and lower gastrointestinal bleeding She was evaluated in the emergency room vital examination on presentation revealed a temperature of 97.6 pulse 107 respiration 20 blood pressure 121/70 pulse ox 95% on room air Laboratory data revealed a white blood count of 17.5 hemoglobin 14.2 platelet count 217 sodium 135 potassium 4.3 chloride 105 CO2 27 BUN 12 creatinine 0.88 Testing in the emergency room revealed patient underwent computed tomography scan of the abdomen and pelvis in the emergency room that revealed evidence of wall thickening and inflammatory changes at the splenic flexure related to colitis with diverticulitis not excluded, patient was started on IV antibiotic in the emergency room, gastroenterology consultation was requested patient was admitted to medical floor for further evaluation and treatment. Past medical history is significant for history of asthma, history of COPD, history of hyperlipidemia, recurrent history of pneumonia, history of osteoporosis, history of chronic back pain, and history of pulmonary Mycobacterial infection On 05/09/2021 patient was seen and examined on the medical floor she is alert and oriented 3 in no apparent distress there is no fever or chills no headache or dizziness no chest pain no shortness of breath no cough she is still complaining of abdominal pain no nausea or vomiting no diarrhea no burning with urination no frequency or urgency and no hematuria. Temperature today is 98.3 pulse 96 respirations 16 blood pressure 104/70 pulse ox 92% on room air On 05/10/2021 patient is alert and oriented 3. Patient remains on clear liquid diet. White blood cell within normal limits at 7.2 hemoglobin 12.2. Per patient tended plans for possible colonoscopy and/or EGD. Patient denies chest pain or shortness breath. Patient denies any urinary burning or frequency. On 05/11/2021 patient was seen and examined on the medical floor she is alert and oriented 3 in no apparent distress there is no fever or chills no headache or dizziness no chest pain no shortness of breath no cough, patient is still complaining of nausea and abdominal pain no vomiting no diarrhea no blood in the stools and no urinary symptoms. Her vital exam reveals a temperature of 97.4 pulse 73 respiration 18 blood pressure 150/88 and pulse ox 96% on 2 L nasal cannula, white blood count came down to 6.96 down from 16.4 on presentation hemoglobin 11.4 platelet count 203 BUN 3.6 creatinine 0.7 On 05/12/2021 patient is alert and oriented. Temperature 98.2, heart rate 75, respiratory rate 16, blood pressure 133/82, pulse ox 96%. Discussed case with GI services. No plans for endoscopic study patient to follow-up patient in 4-6 weeks for possible colonoscopy. Patient has been tolerating diet. Will discharge patient on Ceftin. The blood cell has normalized. Hemoglobin remained stable. At this time patient denies chest pain or shortness breath. Patient denies nausea vomiting or diarrhea. Patient denies any urinary burning or frequency Patient Condition at Discharge: Stable Plan - Discharge Summary Discharge Rx Participant: Yes New Discharge Prescriptions: New Cefuroxime Axetil [Ceftin] 500 mg PO BID 10 Days #20 tab Continue Omeprazole [PriLOSEC] 20 mg PO BID DULoxetine HCL [Cymbalta] 30 mg PO BID Cyclobenzaprine [Flexeril] 10 mg PO BID HYDROcodone/APAP 10-325MG [Springer 10-325] 1 tab PO BID PRN PRN Reason: Pain Simvastatin [Zocor] 20 mg PO DAILY Melatonin 10 mg PO HS Zinc 50 mg PO DAILY Ascorbic Acid [Vitamin C] 500 mg PO DAILY Multivitamins, Thera [Multivitamin (formulary)] 1 tab PO DAILY Nicotine 21Mg/24Hr Patch [Habitrol] 1 patch TRANSDERM DAILY Vitamin B Complex 1 cap PO DAILY Turmeric Root Extract [Turmeric] 500 mg PO DAILY Coconut Oil Capsule 1 cap PO DAILY Cholecalciferol [Vitamin D3 (25 Mcg = 1000 Iu)] 25 mcg PO DAILY Risedronate Sodium 150 mg PO QMONTHLY Montelukast [Singulair] 10 mg PO DAILY Calcium Carbonate/Vitamin D3 [Calcium 600 mg-Vit D3 10 mcg (400 Unit)] 1 tab PO BID ALPRAZolam [Xanax] 0.5 mg PO BID Discharge Medication List DULoxetine HCL [Cymbalta] 30 mg PO BID 12/10/15 [History] Omeprazole [PriLOSEC] 20 mg PO BID 12/10/15 [History] Cyclobenzaprine [Flexeril] 10 mg PO BID 04/28/20 [History] HYDROcodone/APAP 10-325MG [Springer 10-325] 1 tab PO BID PRN 04/28/20 [History] Simvastatin [Zocor] 20 mg PO DAILY 04/28/20 [History] ALPRAZolam [Xanax] 0.5 mg PO BID 05/07/21 [History] Ascorbic Acid [Vitamin C] 500 mg PO DAILY 05/07/21 [History] Calcium Carbonate/Vitamin D3 [Calcium 600 mg-Vit D3 10 mcg (400 Unit)] 1 tab PO BID 05/07/21 [History] Cholecalciferol [Vitamin D3 (25 Mcg = 1000 Iu)] 25 mcg PO DAILY 05/07/21 [History] Coconut Oil Capsule 1 cap PO DAILY 05/07/21 [History] Melatonin 10 mg PO HS 05/07/21 [History] Montelukast [Singulair] 10 mg PO DAILY 05/07/21 [History] Multivitamins, Thera [Multivitamin (formulary)] 1 tab PO DAILY 05/07/21 [History] Nicotine 21Mg/24Hr Patch [Habitrol] 1 patch TRANSDERM DAILY 05/07/21 [History] Risedronate Sodium 150 mg PO QMONTHLY 05/07/21 [History] Turmeric Root Extract [Turmeric] 500 mg PO DAILY 05/07/21 [History] Vitamin B Complex 1 cap PO DAILY 05/07/21 [History] Zinc 50 mg PO DAILY 05/07/21 [History] Cefuroxime Axetil [Ceftin] 500 mg PO BID 10 Days #20 tab 05/12/21 [Rx] Follow up Appointment(s)/Referral(s): Elissa Butcher MD [STAFF PHYSICIAN] - 2 Weeks Dionna Curran MD [Primary Care Provider] - 1-2 days Activity/Diet/Wound Care/Special Instructions: Activity as tolerated Diet heart healthy Discharge Disposition: HOME SELF-CARE
[2021-05-12 12:12] VITALS: BP 112/75; RESP 17; TEMP 98.4
--- NOTE | 2021-05-12 12:16 | P.CNPUL ---
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 Patient is a 65-year-old female who presented emergency department with abdominal pain and lower GI bleed She was evaluated in the emergency room vital examination on presentation revealed a temperature of 97.6 pulse 107 respiration 20 blood pressure 121/70 pulse ox 95% on room air Laboratory data revealed a white blood count of 17.5 hemoglobin 14.2 platelet count 217 sodium 135 potassium 4.3 chloride 105 CO2 27 BUN 12 creatinine 0.88 Testing in the emergency room revealed patient underwent computed tomography scan of the abdomen and pelvis in the emergency room that revealed evidence of wall thickening and inflammatory changes at the splenic flexure related to colitis with diverticulitis not excluded, patient was started on IV antibiotic in the emergency room, gastroenterology consultation was requested patient was admitted to medical floor for further evaluation and treatment. Past medical history is significant for history of asthma, history of COPD, history of hyperlipidemia, recurrent history of pneumonia, history of osteoporosis, history of chronic back pain, and history of pulmonary Mycobacterial infection Review of Systems All systems: negative Past Medical History Past Medical History: Asthma, COPD, Fibromyalgia, GERD/Reflux, Hyperlipidemia, Osteoarthritis (OA), Pneumonia, Respiratory Disorder Additional Past Medical History / Comment(s): Chronic neck pain"herniated d iscs", arthitis, osteoporosis, fibrocystic breast disease, cataracts, "MAC" tx by dr [place]. History of Any Multi-Drug Resistant Organisms: None Reported Past Surgical History: Breast Surgery Additional Past Surgical History / Comment(s): multiple breast surgeries(needle aspiration bx), tubal ligation, right foot surgery 40 years ago to removed a foreign object, bronchosocpy, inj in neck. Past Anesthesia/Blood Transfusion Reactions: No Reported Reaction Additional Past Anesthesia/Blood Transfusion Reaction / Comment(s): clausterphobia never had blood trans Past Psychological History: Anxiety, Bipolar, Depression, Panic Disorder Additional Psychological History / Comment(s): has depression but denies any thoughts of wanting to harm self. pt lives at home.only has i step in the home pt lives with spouse, 1 dogs, 2 cats. is independant,. pt drives. Smoking Status: Current every day smoker Past Alcohol Use History: None Reported Additional Past Alcohol Use History / Comment(s): patient has smoked since she was 16 years old. Past Drug Use History: None Reported - Past Family History Mother Family Medical History: Cancer Additional Family Medical History / Comment(s): brain, breast cancer Father Family Medical History: Congestive Heart Failure (CHF), CVA/TIA, Renal Disease Medications and Allergies Home Medications Medication Instructions Recorded Confirmed Type DULoxetine HCL [Cymbalta] 30 mg PO BID 12/10/15 05/07/21 History Omeprazole [PriLOSEC] 20 mg PO BID 12/10/15 05/07/21 History Cyclobenzaprine [Flexeril] 10 mg PO BID 04/28/20 05/07/21 History HYDROcodone/APAP 10-325MG [[place] 1 tab PO BID PRN 04/28/20 05/07/21 History 10-325] Simvastatin [Zocor] 20 mg PO DAILY 04/28/20 05/07/21 History ALPRAZolam [Xanax] 0.5 mg PO BID 05/07/21 05/07/21 History Ascorbic Acid [Vitamin C] 500 mg PO DAILY 05/07/21 05/07/21 History Calcium Carbonate/Vitamin D3 1 tab PO BID 05/07/21 05/07/21 History [Calcium 600 mg-Vit D3 10 mcg (400 Unit)] Cholecalciferol [Vitamin D3 (25 25 mcg PO DAILY 05/07/21 05/07/21 History Mcg = 1000 Iu)] Coconut Oil Capsule 1 cap PO DAILY 05/07/21 05/07/21 History Melatonin 10 mg PO HS 05/07/21 05/07/21 History Montelukast [Singulair] 10 mg PO DAILY 05/07/21 05/07/21 History Multivitamins, Thera [Multivitamin 1 tab PO DAILY 05/07/21 05/07/21 History (formulary)] Nicotine 21Mg/24Hr Patch [Habitrol] 1 patch TRANSDERM DAILY 05/07/21 05/07/21 History Risedronate Sodium 150 mg PO QMONTHLY 05/07/21 05/07/21 History Turmeric Root Extract [Turmeric] 500 mg PO DAILY 05/07/21 05/07/21 History Vitamin B Complex 1 cap PO DAILY 05/07/21 05/07/21 History Zinc 50 mg PO DAILY 05/07/21 05/07/21 History Cefuroxime Axetil [Ceftin] 500 mg PO BID 10 Days #20 tab 05/12/21 Rx Allergies Allergy/AdvReac Type Severity Reaction Status Date / Time Iodinated Contrast Media Allergy Rash/Hives Verified 05/07/21 18:56 [Iodinated Contrast Media - IV Dye] shellfish derived Allergy Rash/Hives Verified 05/07/21 18:56 venom-honey bee Allergy Anaphylaxis Verified 05/07/21 18:56 [bee venom (honey bee)] Physical Exam Vitals: Vital Signs Temp Pulse Resp BP Pulse Ox 05/12/21 09:25 75 16 05/12/21 07:48 98.2 F 75 16 133/82 96 05/12/21 04:02 93 L 05/12/21 04:01 97.6 F 73 16 124/77 85 L 05/11/21 20:07 98.4 F 77 16 135/80 92 L 05/11/21 20:00 77 16 05/11/21 12:16 98.2 F 78 18 119/78 95 Intake and Output 05/11/21 05/12/21 05/12/21 22:59 06:59 14:59 Intake Total 2019 Balance 2019 Intake: Intake, IV Titration 1300 800 Amount Ampicillin-Sulbactam 3 gm 200 In Sodium Chloride 0.9% 100 ml @ 200 mls/hr IVPB Q6HR [facility] Rx#:[id number] Sodium Chloride 0.9% 1, 1100 800 000 ml @ 130 mls/hr IV . Q7H42M [facility] Rx#:[id number] Oral 720 Other: Voiding Method Toilet Toilet # Voids 5 - Constitutional General appearance: cooperative, disheveled - EENT Eyes: EOMI, PERRLA ENT: normal oropharynx Ears: bilateral: normal - Neck Neck: normal ROM Carotids: bilateral: upstroke normal Thyroid: bilateral: normal size - Respiratory Respiratory: bilateral: CTA - Cardiovascular Rhythm: regular Heart sounds: normal: S1, S2 - Gastrointestinal General gastrointestinal: distended, hyperactive bowel sounds - Integumentary Integumentary: normal turgor - Neurologic Neurologic: CNII-XII intact - Musculoskeletal Musculoskeletal: gait normal, generalized weakness, strength equal bilaterally - Psychiatric Psychiatric: A&O x's 3, appropriate affect, intact judgment & insight Results - Laboratory Findings CBC and BMP: 05/11/21 06:30 05/11/21 06:30 PT/INR, D-dimer PT 10.2 sec (9.0-12.0) 05/07/21 16:39 INR 0.9 (<1.2) 05/07/21 16:39 Abnormal lab findings: Abnormal Labs 05/07/21 05/07/21 05/07/21 16:39 16:39 16:39 WBC 17.5 H Hgb Hct MCHC RDW Immature Gran # Neutrophils # 13.7 H Monocytes # Eosinophils # Sodium 135 L Carbon Dioxide Anion Gap BUN BUN/Creatinine Ratio Glucose Calcium Total Bilirubin Total Protein 6.0 L Albumin 3.4 L Stool Occult Blood Positive H 05/07/21 05/08/21 05/08/21 23:50 05:19 05:19 WBC 16.4 H 13.65 H Hgb Hct MCHC 30.5 L RDW 14.6 H Immature Gran # 0.07 H Neutrophils # 8.93 H Monocytes # 1.05 H Eosinophils # Sodium Carbon Dioxide Anion Gap BUN 8.6 L BUN/Creatinine Ratio 9.08 L Glucose Calcium 8.6 L Total Bilirubin Total Protein 5.1 L Albumin 3.4 L Stool Occult Blood 05/09/21 05/09/21 05/10/21 10:43 10:43 10:56 WBC 11.3 H Hgb Hct MCHC RDW Immature Gran # Neutrophils # 9.0 H Monocytes # Eosinophils # Sodium 136 L Carbon Dioxide Anion Gap BUN 6 L 5 L BUN/Creatinine Ratio Glucose 145 H Calcium 8.0 L 8.0 L Total Bilirubin Total Protein 4.6 L Albumin 2.6 L Stool Occult Blood 05/11/21 05/11/21 06:30 06:30 WBC Hgb 11.4 L Hct 36.9 L MCHC 30.9 L RDW Immature Gran # Neutrophils # Monocytes # Eosinophils # 0.36 H Sodium Carbon Dioxide 29.6 H Anion Gap 7.40 L BUN 3.6 L BUN/Creatinine Ratio 5.14 L Glucose Calcium Total Bilirubin 0.20 L Total Protein 4.6 L Albumin 3.0 L Stool Occult Blood - Diagnostic Findings Chest x-ray: report reviewed, image reviewed (X-ray noted to have bibasilar subsegmental atelectasis which was streaked like along with scattered multiple nodules small in size which are calcified) Assessment and Plan Assessment: Calcified pulmonary nodule Basal atelectasis Lower GI bleed Chronic stable asthma Acute colitis/diverticulitis Prior history of Mycobacterium avium complex infection status post therapy Osteoporosis Continued nicotine use and smoking Plan: At this point of time no active intervention is recommended from pulmonary standpoint, however recommend to follow up on outpatient basis so that repeat computed tomography scan and PFTs can be performed will schedule her Time with Patient: Greater than 30
--- NOTE | 2021-05-12 13:26 | P.PN ---
Subjective Progress Note Date: 05/12/21 Principal diagnosis: Colitis Patient is seen and examined today as a follow-up for abdominal pain with evidence of colitis on CT of the abdomen. Abdominal pain continues to improve. He remains afebrile. She is tolerating a regular diet. She's not had any further bowel movements or blood per rectum. Hemoglobin has remained stable. Objective - Vital Signs Vital signs: Vital Signs Temp 98.2 F 05/12/21 07:48 Pulse 75 05/12/21 09:25 Resp 16 05/12/21 09:25 BP 133/82 05/12/21 07:48 Pulse Ox 96 05/12/21 07:48 Intake & Output 05/11/21 05/12/21 05/12/21 18:59 06:59 18:59 Intake Total 2500 800 Balance 2500 800 Intake: Intake, IV Titration 1300 800 Amount Ampicillin-Sulbactam 3 gm 200 In Sodium Chloride 0.9% 100 ml @ 200 mls/hr IVPB Q6HR [facility] Rx#:[id number] Sodium Chloride 0.9% 1, 1100 800 000 ml @ 130 mls/hr IV . Q7H42M [facility] Rx#:[id number] Oral 1200 Other: Voiding Method Toilet Toilet Toilet # Voids 5 - Exam General appearance: The patient is alert, oriented, appears in no acute distress. HET: Head is normocephalic and atraumatic. Conjunctiva pink. Sclera anicteric. Neck: Supple without lymphadenopathy. Abdomen: Soft, mild diffuse tenderness, nondistended with bowel sounds. No guarding or rigidity. Extremities: Normal skin color and turgor. No pedal edema Skin: No rashes, no jaundice Neurological: No focal deficits. Alert and oriented x 3. - Labs CBC & Chem 7: 05/11/21 06:30 05/11/21 06:30 Labs: Microbiology - Last 24 Hours (Table) 05/08/21 21:04 Blood Culture - Preliminary Blood No Growth after 72 hours 05/07/21 19:34 Blood Culture - Preliminary Blood No Growth after 96 hours 05/07/21 19:50 Blood Culture - Preliminary Blood No Growth after 96 hours Assessment and Plan (1) Colitis Narrative/Plan: 65-year-old female who presented to the hospital with complaints of abdominal pain, diarrhea with rectal bleeding and blood mixed in her stool, which began approximately 5 days ago. Patient states she had approximately 2-3 episodes of diarrhea a day for 2-3 days. Last bowel movement was 2 days ago. States she did have blood mixed with clots in her stool with lower left quadrant abdominal cramping and pain. She states she does have a similar episode a few years back. At that time she states she had more bleeding than this episode. She did have an EGD and colonoscopy on 05/20/[address] Gilmore with findings on the EGD hiatal hernia, and mild gastritis. Colonoscopy with sigmoid diverticulosis and mild proctitis. Biopsy came back as acute colitis with chronicity. Possible etiologies include infectious versus ischemic colitis. Will continue antibiotics for now. Continue to monitor symptoms. The patient continues to have rectal bleeding will consider possible colonoscopy, otherwise would recommend outpatient colonoscopy and 6-8 weeks. Current Visit: Yes Status: Acute Code(s): K52.9 - NONINFECTIVE GASTROENTERITIS AND COLITIS, UNSPECIFIED SNOMED Code(s): 77263116 Plan: 1. Continue symptomatic and supportive care 2. Continue diet as tolerated 3. Encourage ambulation 4. Patient is cleared from gastroenterology for discharge, recommend follow-up with Dr. Butcher in 2-3 weeks with possible outpatient colonoscopy to follow Thank you for allowing us to participate in the care of the patient, the GI service will sign off, gastroenterology will not be available at the hospital this weekend. If further evaluation by gastroenterology is required the patient will need transfer as per the primary team's discretion. Dr. Mehrdad Butcher I agree with the dictator's note, documented as a scribe by Era Walsh.
== END 2021-05-12 14:40 | disposition home or self-care (01) | DRG 391 ==
LOC: EC 16:00 → 5NMEDONC 19:28 → 4SSUR 21:29 → 5NMEDONC 05-08 02:07 → OBSVTOIN 05-08 11:37
PROVIDERS: ADMIT Internal Medicine; ATTEND Internal Medicine
DX: K52.9 Noninfective gastroenteritis and colitis, unspecified (principal); K57.33 Diverticulitis of large intestine without perforation or abscess with bleeding; J98.11 Atelectasis; K92.1 Melena; J44.9 Chronic obstructive pulmonary disease, unspecified; F31.9 Bipolar disorder, unspecified; Z20.822 Contact with and (suspected) exposure to COVID-19; I10 Essential (primary) hypertension; M79.7 Fibromyalgia; E78.5 Hyperlipidemia, unspecified; M81.0 Age-related osteoporosis without current pathological fracture; K44.9 Diaphragmatic hernia without obstruction or gangrene; G89.29 Other chronic pain; M54.9 Dorsalgia, unspecified; M54.2 Cervicalgia; M19.90 Unspecified osteoarthritis, unspecified site; N60.19 Diffuse cystic mastopathy of unspecified breast; H26.9 Unspecified cataract; R91.1 Solitary pulmonary nodule; F41.8 Other specified anxiety disorders; F41.0 Panic disorder [episodic paroxysmal anxiety]; K59.00 Constipation, unspecified; K21.9 Gastro-esophageal reflux disease without esophagitis; F17.210 Nicotine dependence, cigarettes, uncomplicated; Z71.6 Tobacco abuse counseling; Z79.899 Other long term (current) drug therapy; Z98.51 Tubal ligation status; Z87.2 Personal history of diseases of the skin and subcutaneous tissue; Z87.19 Personal history of other diseases of the digestive system; Z86.19 Personal history of other infectious and parasitic diseases; Z98.890 Other specified postprocedural states; Z87.01 Personal history of pneumonia (recurrent); Z91.030 Bee allergy status; Z91.041 Radiographic dye allergy status; Z91.013 Allergy to seafood; Z80.3 Family history of malignant neoplasm of breast; Z80.8 Family history of malignant neoplasm of other organs or systems; Z82.3 Family history of stroke; Z82.49 Family history of ischemic heart disease and other diseases of the circulatory system; Z84.1 Family history of disorders of kidney and ureter
CPT/HCPCS: 36415; 71045; 71046; 74176; 80048; 80053; 81003; 82150; 82272; 83605; 83690; 85025; 85027; 85610; 85730; 86850; 86900; 86901; 87040; 87635; 96361; 96374; 96375; 99285

== ENCOUNTER 2021-07-18 13:52 | Emergency (ER) | payer MEDICARE ==
[2021-07-18 14:47] VITALS: RESP 18
[2021-07-18] MEDS ORDERED: BEBTELOVIMAB (EUA) 175 MG/2 ML VIAL IV ONE (15:30)
[2021-07-18 16:02] VITALS: TEMP 98.7
--- NOTE | 2021-07-18 17:11 | ED ---
General Adult HPI - General Chief complaint: Upper Respiratory Infection Stated complaint: Covid+, Wants Infusion, Shortness of Breath, Cough Time Seen by Provider: 07/18/21 14:47 Source: patient Mode of arrival: ambulatory Limitations: no limitations - History of Present Illness Initial comments: This 66-year-old female presents emergency department requesting COVID-19 antibody infusion. Patient states over the last 4 days she has had increased nasal congestion, sore throat, dull headache, body aches and cough. Patient states she saw her primary care physician yesterday who tested her for COVID-19. Patient states they called her today and told her that she had COVID-19 antibody presents to the emergency department if she would like antibody infusion. Patient states she is here to get the antibody infusion. Patient states she was vaccinated for COVID-19 and had both of her vaccinations along with her booster. Patient states she is also currently taking Ida for disc herniation and states she does feel a little bit constipated at this time. Patient states her last bowel movement was a couple days ago and was harder than usual. Patient states her cough is mostly dry but she does once in a while get a little bit of clear mucus production. Patient states she has COPD and does generally have wheezing, she states she does use nebulizer daily. Patient states she does take some sort of stool softener and does take MiraLAX daily. She denies any vomiting or abdominal pain. Patient denies any fever, chest pain, shortness of breath, abdominal pain, vomiting, nausea, change in bladder, lightheadedness, dizziness, change in vision, rash. - Related Data Home Medications Medication Instructions Recorded Confirmed DULoxetine HCL [Cymbalta] 30 mg PO BID 12/10/15 07/18/21 Omeprazole [PriLOSEC] 20 mg PO BID 12/10/15 07/18/21 Cyclobenzaprine [Flexeril] 10 mg PO BID 04/28/20 07/18/21 HYDROcodone/APAP 10-325MG [[place] 1 tab PO BID PRN 04/28/20 07/18/21 10-325] Simvastatin [Zocor] 20 mg PO DAILY 04/28/20 07/18/21 ALPRAZolam [Xanax] 0.5 mg PO BID 05/07/21 07/18/21 Ascorbic Acid [Vitamin C] 1,000 mg PO DAILY 05/07/21 07/18/21 Calcium Carbonate/Vitamin D3 1 tab PO BID 05/07/21 07/18/21 [Calcium 600 mg-Vit D3 10 mcg (400 Unit)] Cholecalciferol [Vitamin D3 (25 25 mcg PO DAILY 05/07/21 07/18/21 Mcg = 1000 Iu)] Coconut Oil Capsule 1 cap PO DAILY 05/07/21 07/18/21 Melatonin 10 mg PO HS 05/07/21 07/18/21 Montelukast [Singulair] 10 mg PO DAILY 05/07/21 07/18/21 Multivitamins, Thera [Multivitamin 1 tab PO DAILY 05/07/21 07/18/21 (formulary)] Nicotine 21Mg/24Hr Patch [Habitrol] 1 patch TRANSDERM DAILY 05/07/21 07/18/21 Risedronate Sodium 150 mg PO QMONTHLY 05/07/21 07/18/21 Turmeric Root Extract [Turmeric] 500 mg PO DAILY 05/07/21 07/18/21 Vitamin B Complex 1 cap PO DAILY 05/07/21 07/18/21 Zinc 50 mg PO DAILY 05/07/21 07/18/21 EPINEPHrine (Auto Inject) [Epipen] 0.3 mg IM ONCE PRN 07/18/21 07/18/21 Yupelri 175 Mcg/3 Ml Solution 175 mg IN RT-DAILY 07/18/21 07/18/21 Previous Rx's Medication Instructions Recorded Dexamethasone [Decadron] 6 mg PO DAILY #5 tablet 07/18/21 Allergies Allergy/AdvReac Type Severity Reaction Status Date / Time Iodinated Contrast Media Allergy Rash/Hives Verified 07/18/21 16:33 [Iodinated Contrast Media - IV Dye] shellfish derived Allergy Rash/Hives Verified 07/18/21 16:33 venom-honey bee Allergy Anaphylaxis Verified 07/18/21 16:33 [bee venom (honey bee)] Review of Systems ROS Statement: Those systems with pertinent positive or pertinent negative responses have been documented in the HPI. ROS Other: All systems not noted in ROS Statement are negative. Past Medical History Past Medical History: Asthma, COPD, Fibromyalgia, GERD/Reflux, Hyperlipidemia, Osteoarthritis (OA), Pneumonia, Respiratory Disorder Additional Past Medical History / Comment(s): Chronic neck pain"herniated discs", arthitis, osteoporosis, fibrocystic breast disease, cataracts, "MAC" tx by dr [place]. History of Any Multi-Drug Resistant Organisms: None Reported Past Surgical History: Breast Surgery Additional Past Surgical History / Comment(s): multiple breast surgeries(needle aspiration bx), tubal ligation, right foot surgery 40 years ago to removed a foreign object, bronchosocpy, inj in neck. Past Anesthesia/Blood Transfusion Reactions: No Reported Reaction Additional Past Anesthesia/Blood Transfusion Reaction / Comment(s): clausterphobia never had blood trans Past Psychological History: Anxiety, Bipolar, Depression, Panic Disorder Smoking Status: Current every day smoker Past Alcohol Use History: None Reported Past Drug Use History: None Reported - Past Family History Mother Family Medical History: Cancer Additional Family Medical History / Comment(s): brain, breast cancer Father Family Medical History: Congestive Heart Failure (CHF), CVA/TIA, Renal Disease General Exam Limitations: no limitations General appearance: alert, in no apparent distress Head exam: Present: atraumatic, normocephalic, normal inspection Eye exam: Present: normal appearance, PERRL, EOMI. Absent: scleral icterus, conjunctival injection, periorbital swelling ENT exam: Present: normal exam, normal oropharynx (Uvula midline. No posterior oropharynx erythema or exudates. No tonsillar abscesses visualized.), mucous membranes moist Neck exam: Present: normal inspection, full ROM. Absent: tenderness, meningismus, lymphadenopathy Respiratory exam: Present: normal lung sounds bilaterally, wheezes (Slight wheezing bilateral lungs the patient states is usually there is she does have COPD). Absent: respiratory distress, rales, rhonchi, stridor, chest wall tenderness, decreased breath sounds, prolonged expiratory Cardiovascular Exam: Present: regular rate, normal rhythm, normal heart sounds. Absent: systolic murmur, diastolic murmur, rubs, gallop, clicks GI/Abdominal exam: Present: soft, normal bowel sounds. Absent: distended, tenderness, guarding, rebound, rigid Extremities exam: Present: normal inspection, full ROM, normal capillary refill. Absent: tenderness, pedal edema, joint swelling, calf tenderness Back exam: Present: normal inspection, full ROM. Absent: CVA tenderness (R), CVA tenderness (L), paraspinal tenderness, vertebral tenderness Neurological exam: Present: alert, oriented X3, CN II-XII intact Psychiatric exam: Present: normal affect, normal mood Skin exam: Present: warm, dry, intact, normal color. Absent: rash Course Vital Signs 07/18/21 07/18/21 07/18/21 14:44 16:00 17:11 Temperature 98.2 F 98.7 F 98.7 F Pulse Rate 90 84 88 Respiratory 18 18 18 Rate Blood Pressure 121/82 134/64 133/69 O2 Sat by Pulse 96 98 96 Oximetry Medical Decision Making - Medical Decision Making This 66-year-old female presents emergency department with COVID-19. Patient is requesting COVID-19 antibody infusion. Patient also complaining of feeling constipated and having a harder bowel movement 2 days ago. KUB x-ray impression: Nonspecific bowel gas pattern without radiographic evidence for acute process. Moderate to large stool burden. Chest x-ray impression: No acute cardiopulmonary disease/process or significant change from prior. Pulmonary nodules as seen on prior CT C-spine from 04/28/2020. Consider outpatient complete evaluation of the chest pulmonary nodules with CT chest with IV contrast if not recently completed. COPD changes. 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 Patient states she is aware of her pulmonary nodules and agreed to follow up with her broach setter. Patient given magnesium citrate as she stated she would like something for her constipation. I instructed patient to drink half bottle and if she does not have a bowel movement within 6 hours to drink the second half of bottle. Instructed if she is unable to have bowel movement after this or if any symptoms worsen or any new symptoms occur to present back to the emergency department. Decadron 6 mg given for 5 days. Strict return precautions were discussed. Patient verbally agree to plan. Patient sent home in stable condition. Case discussed in detail with my attending, Dr. Reynolds. Disposition Clinical Impression: COVID-19 Disposition: HOME SELF-CARE Condition: Stable Instructions (If sedation given, give patient instructions): Coronavirus Disease 2019 (COVID-19) Additional Instructions: Please follow-up with primary care provider next 1-2 days. Take Decadron as directed. Use magnesium citrate as directed. Return to the emergency department with any new, worsening, or concerning symptoms. Follow-up with your broach setter in next 5-7 days. Prescriptions: Dexamethasone [Decadron] 6 mg PO DAILY #5 tablet Is patient prescribed a controlled substance at d/c from ED?: No Referrals: Dionna Curran MD [Primary Care Provider] - 1-2 days Time of Disposition: 17:45
[2021-07-18 17:13] VITALS: BP 133/69; PULSE 88
--- NOTE | 2021-07-18 17:25 | XR ---
EXAMINATION TYPE: XR KUB portable DATE OF EXAM: 07/18/2021 4:57 PM INDICATION: Patient age:Female; 66 years old; Reason for study: constipation. COMPARISON: None. TECHNIQUE: One radiographic view of the abdomen was obtained. FINDINGS: The bowel gas pattern is nonspecific without dilated loops of small or large bowel. There i s a moderate to large stool burden. There is no evidence for organomegaly or pneumoperitoneum. The o sseous structures are intact. Pelvic phleboliths are present. Fecal material and gas are demonstrat ed throughout the colon and rectum. Multilevel disc degeneration changes throughout the spine. Mild degeneration changes of the hips. IMPRESSION: Nonspecific bowel gas pattern without radiographic evidence for acute process. Moderate to large stoo l burden.
--- NOTE | 2021-07-18 17:29 | XR ---
EXAMINATION TYPE: XR chest 1V portable DATE OF EXAM: 07/18/2021 4:57 PM COMPARISON: Chest radiographs from 06/07/2021 TECHNIQUE: XR chest 1V portable Frontal view of the chest. CLINICAL INDICATION:Female, 66 years old with history of cough; FINDINGS: Lungs/Pleura: There is no evidence of pleural effusion, focal consolidation, or pneumothorax. Redemo nstration of pulmonary nodules within the lung apices better appreciated on prior CT measuring up to 50 mm on the left and 11 mm on the right. There is flattening of the diaphragm with increased apical lucency. Pulmonary vascularity: Unremarkable. Heart/mediastinum: Cardiomediastinal silhouette is unremarkable. Musculoskeletal: No acute osseous pathology. IMPRESSION: 1. No acute cardiopulmonary disease/process or significant change from prior. 2. Pulmonary nodules as seen on prior CT C-spine from 04/28/2020. Consider outpatient complete evalua tion of the chest pulmonary nodules with CT chest without IV contrast if not recently completed. 3. COPD changes.
[2021-07-18] MEDS ORDERED: MAGNESIUM CITRATE 296 ML BOTTLE PO ONE (17:42)
== END 2021-07-18 18:11 | disposition home or self-care (01) ==
LOC: EC 13:52
DX: U07.1 COVID-19 (principal); F17.200 Nicotine dependence, unspecified, uncomplicated; J44.9 Chronic obstructive pulmonary disease, unspecified; K21.9 Gastro-esophageal reflux disease without esophagitis; E78.5 Hyperlipidemia, unspecified; Z91.041 Radiographic dye allergy status; Z91.013 Allergy to seafood; Z91.030 Bee allergy status; Z79.899 Other long term (current) drug therapy
CPT/HCPCS: 99285; 71045; 74018; Q0222

== ENCOUNTER → 2022-04-05 | Outpatient (CLI) | payer OTHER, MEDICARE ==
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
== END | disposition home or self-care (01) ==
LOC: RADMRIMAIN 16:54
PROVIDERS: ATTEND Internal Medicine
DX: M47.812 Spondylosis without myelopathy or radiculopathy, cervical region (principal); M48.02 Spinal stenosis, cervical region; M50.221 Other cervical disc displacement at C4-C5 level
CPT/HCPCS: 72141

== ENCOUNTER → 2022-11-20 | Outpatient (CLI) | payer MEDICARE ==
--- NOTE | 2022-11-21 16:40 | MM ---
Reason for Exam: Screening (asymptomatic). Last mammogram was performed 1 year(s) and 11 month(s) ago. Patient History: Menarche at age 13. First Full-Term at age 19. Postmenopausal. Excisional Biopsy on the Right side. Excisional Biopsy on the Right side. Excisional Biopsy on the Left side. Excisional Biopsy on the Left side. Mother had breast cancer. Risk Values: Lucía 5 year model risk: 4.7%. NCI Lifetime model risk: 15.4%. Prior Study Comparison: 07/23/2017 Bilateral Diagnostic Mammogram, [facility]. 12/11/2019 Bilateral Screening Mammogram, [facility]. 12/27/2020 Bilateral Screening Mammogram, [facility]. Tissue Density: The breast tissue is heterogeneously dense. This may lower the sensitivity of mammography. Findings: Analyzed By CAD. Pattern appears symmetrical and stable. There is a rounded density within the 6:00 middle position left breast craniocaudal projection, tomographic image 24 of 76. Additional workup of this finding is recommended. Benign calcifications are scattered within the bilateral breasts. Right breast: No suspicious groups of microcalcifications, spiculated or lobular masses, architectural distortion or other secondary signs of malignancy are mammographically apparent. Overall Assessment: Incomplete: need additional imaging evaluation, BI-RAD 0 Management: Diagnostic Mammogram of the left breast. Diagnostic Breast Ultrasound of the left breast. A negative mammogram report should not preclude additional follow up of suspicious palpable abnormalities. Patient should continue monthly self breast exam. A clinical breast exam by your physician is recommended on an annual basis and results should be correlated with mammographic findings. Electronically signed and approved by: Waqas Ladd D.O. Radiologis
== END | disposition home or self-care (01) ==
LOC: RADMAMWWP 14:57
PROVIDERS: ATTEND Family Medicine
DX: Z12.31 Encounter for screening mammogram for malignant neoplasm of breast (principal); Z78.0 Asymptomatic menopausal state; Z80.3 Family history of malignant neoplasm of breast
CPT/HCPCS: 77063; 77067

== ENCOUNTER → 2023-04-24 | Outpatient (CLI) | payer MEDICARE ==
--- NOTE | 2023-04-25 12:15 | BD ---
EXAMINATION TYPE: Axial Bone Density DATE OF EXAM: 04/24/2023 CLINICAL HISTORY: 67 years old Female. ICD-10 CODE: M81.0 AGE-RELATED OSTEOPOROSIS W/O CURRENT PATHO LO Height: 63 in Weight: 155 lbs FRAX RISK QUESTIONS: History of Fracture in Adulthood: tailbone fx age 37 Secondary Osteoporosis: Current Tobacco Use: yes EXAM MEASUREMENTS: Bone mineral densitometry was performed using the [employer] System. Bone mineral density as measured about the Lumbar spine is: ----- L1-L4(G/cm2): 1.068 T Score Values are as follows: ----- L1: -1.7 ----- L2: -2.6 ----- L3: -1.1 ----- L4: 0.6 ----- L1-L4: -0.9 Z Score Values are as follows: ----- L1: -0.3 ----- L2: -1.2 ----- L3: 0.4 ----- L4: 2.0 ----- L1-L4: 0.5 Bone mineral density has: Increased 9.3% since study of: 12/27/2020 Bone mineral density about the R hip (g/cm2): 0.711 Bone mineral density about the L hip (g/cm2): 0.720 T Score values are as follows: -----R Neck: -2.5 -----L Neck: -2.9 -----R Total: -2.4 -----L Total: -2.3 Z Score values are as follows: -----R Neck: -1.0 -----L Neck: -1.4 -----R Total: -1.1 -----L Total: -1.1 Bone mineral density has: Decreased -1.2% since study of: 12/27/2020 FRAX%s: The graph provided illustrates a 29.1% chance for a major osteoporotic fx and a 12.6% chance for the hips probability for fx in 10 years time. IMPRESSION: Osteopenia (T Score between -2.5 and -1). There is slightly increased risk of fracture and the patient may be considered for treatment. Re-Screen 2-5 years. NOTE: T-SCORE=SD OF THE YOUNG ADULT MEAN.
== END | disposition home or self-care (01) ==
LOC: RADBDWWP 15:26
PROVIDERS: ATTEND Family Medicine
DX: M81.0 Age-related osteoporosis without current pathological fracture (principal); M85.89 Other specified disorders of bone density and structure, multiple sites
CPT/HCPCS: 77080

== ENCOUNTER → 2023-05-03 | Outpatient (CLI) | payer MEDICARE ==
--- NOTE | 2023-05-03 18:45 | CT ---
EXAMINATION TYPE: CT brain wo con CT DLP: 1043.6 mGycm, Automated exposure control for dose reduction was used. DATE OF EXAM: 05/03/2023 4:38 PM COMPARISON: 04/28/2020. CLINICAL INDICATION:Female, 67 years old with history of R41.0 DISORIENTATION, UNSPECIFIED, DISORIENT ATION, PRIOR ON PACS TECHNIQUE: Brain: Axial CT images of the brain were obtained with coronal and sagittal reformats created and rev iewed. Contrast used: None. Oral contrast used: None. FINDINGS: Brain: Extra-axial spaces: No abnormal extra-axial fluid collections. Ventricular system: Within normal limits Cerebral parenchyma: No acute intraparenchymal hemorrhage or mass effect. The morocho-white junction is well differentiated. Cerebellum: Unremarkable. Mass effect: No evidence of midline shift. Intracranial vasculature: unremarkable Soft tissues: Normal. Calvarium/osseous structures: No depressed skull fracture. Paranasal sinuses and mastoid air cells: Mild scattered paranasal sinus disease. Visualized orbits: Orbital contents are intact. IMPRESSION: No acute intracranial process.
== END | disposition home or self-care (01) ==
LOC: RADCTMAIN 16:09
PROVIDERS: ATTEND Family Medicine
DX: R41.0 Disorientation, unspecified (principal); W19.XXXA Unspecified fall, initial encounter
CPT/HCPCS: 70450

== ENCOUNTER → 2024-01-02 | Outpatient (CLI) | payer MEDICARE ==
--- NOTE | 2024-01-02 15:09 | MM ---
Reason for Exam: Screening (asymptomatic). Last mammogram was performed 1 year(s) and 1 month(s) ago. Patient History: Menarche at age 13. First Full-Term at age 19. Postmenopausal. Excisional Biopsy on the Right side. Excisional Biopsy on the Right side. Excisional Biopsy on the Left side. Excisional Biopsy on the Left side. Mother had breast cancer, age 70. Risk Values: Lucía 5 year model risk: 4.7%. NCI Lifetime model risk: 14.8%. Prior Study Comparison: 12/27/2020 Bilateral Screening Mammogram, [facility]. 11/20/2022 Bilateral MG 3D screening mammo w/cad, [facility]. 12/10/2022 Left MG 3D work up w/cad , [facility]. Tissue Density: There are scattered areas of fibroglandular density. Findings: Analyzed By CAD. Right breast: There is no suspicious group of microcalcifications or new suspicious mass. Left breast: There is no suspicious group of microcalcifications or new suspicious mass. Cyst in the left breast posterior nipple and slightly lateral and CC view is minimally larger now measuring 9 mm. Overall Assessment: Benign, BI-RAD 2 Management: Screening Mammogram of both breasts in [address] [facility] will attempt to contact patient to return for supplemental views and ultrasound if indicated. Patient should continue monthly self-breast exams. A clinical breast exam by your physician is recommended on an annual basis. This exam should not preclude additional follow-up of suspicious palpable abnormalities. Note on Lucía scores and lifetime risk: 1. A Lucía score greater than 3% is considered moderate risk. If this is the case, consider specialist referral to assess eligibility for a risk reducing agent. 2. If overall lifetime risk for the development of breast cancer is 20% or higher, the patient may qualify for future screening with alternating mammogram and breast MRI. [facility], , 01/02/2024 2:50 PM. Electronically signed and approved by: Wicho Kuhn DO
--- NOTE | 2024-01-02 15:11 | CT ---
EXAMINATION TYPE: CT chest wo con CT DLP: 270 mGycm, Automated exposure control for dose reduction was used. DATE OF EXAM: 01/02/2024 2:48 PM COMPARISON: CT chest 12/10/2015 CLINICAL INDICATION:Female, 68 years old with history of [id number] ABN XRAY - R911 LUNG NODULE; [facility], Lung Nodule TECHNIQUE: Multiple axial images were obtained through the chest without IV contrast. Lack of IV or o ral contrast limits evaluation of solid and hollow organ viscera. . Coronal and sagittal reformats re viewed. FINDINGS: LUNGS/ PLEURA: No pleural effusion or pneumothorax. Similar right middle lobe scar with traction bron chiectasis dating back to 2016. Several scattered pulmonary nodular densities with examples including a right apical 7 mm density (series 4, image 9) and a left lower lobe peripheral 7 mm density (serie s 4, image 34). Right lower lobe 4 mm nodule (series 4, image 31). Redemonstration of multiple calcif ied granulomas. Biapical pleural-parenchymal scarring. Mild to moderate centrilobular emphysema burden es. AIRWAY: Patent and unremarkable.. HEART: Size within normal limits. No pericardial effusion. MEDIASTINUM: No gross evidence of adenopathy. Mediastinal calcified lymph nodes. VASCULATURE: Conventional aortic arch branching anatomy . Ectasia of the ascending thoracic aorta me asures 3.9 cm. Ectasia of the aortic root measuring 3.8 cm. Descending thoracic aorta measures 3.1 cm . MUSCULOSKELETAL: No acute osseous abnormalities. Mild multilevel degenerative disc disease. SOFT TISSUES/LYMPH NODES: Unremarkable. LOWER NECK: No significant findings. UPPER ABDOMEN: No significant findings. IMPRESSION: 1. Few scattered pulmonary nodular densities which are new from 2016 exam. Previously seen pulmonary nodules have calcified consistent with granulomas. These new densities may become calcified granulom as also. Follow-up CT chest in 6 months is recommended. 2. Mild to moderate COPD changes with stable scarring within the right middle lobe with bronchiectas is. 3. Ectasia of the ascending thoracic aorta and aortic root. 4. Sequelae of prior granulomatous disease. [facility], , 01/02/2024 3:09 PM
== END | disposition home or self-care (01) ==
LOC: RADMAMWWP 14:06
PROVIDERS: ATTEND Family Medicine
CPT/HCPCS: 71250; 77063; 77067

== ENCOUNTER → 2024-03-23 | Outpatient (CLI) | payer MEDICARE ==
--- NOTE | 2024-03-23 14:47 | CT ---
EXAMINATION TYPE: CT abdomen wo con CT DLP: 261.1 mGycm, Automated exposure control for dose reduction was used. DATE OF EXAM: 03/23/2024 2:31 PM COMPARISON: CT of the pelvis 05/07/2021, CT chest 01/02/2024 CLINICAL INDICATION:Female, 68 years old with history of R31.9 HEMATURIA; Hematuria. TECHNIQUE: Standard CT of the abdomen without IV or oral contrast. Lack of IV or oral contrast limi ts evaluation of solid and hollow organ viscera. Coronal and sagittal reformats were performed. FINDINGS: LOWER CHEST: Similar scarring with bronchiectasis within the visualized portions of the right middle lobe with adjacent calcified granulomas. Minimal peripheral subsegmental bilateral lower lobe atelect asis. Mildly prominent heart. ABDOMEN LIVER: Unremarkable noncontrast appearance. GALLBLADDER AND BILE DUCTS: Unremarkable noncontrast appearance. PANCREAS: Unremarkable noncontrast appearance. SPLEEN: Unremarkable noncontrast appearance. ADRENAL GLANDS: Unremarkable noncontrast appearance.. KIDNEYS AND URETERS: No evidence of hydronephrosis or renal calculus. No definitive calculus within the visualized portions of the ureters. STOMACH AND BOWEL: Stomach and duodenum are unremarkable. No focal bowel wall thickening or surroundi ng inflammatory changes. No evidence of bowel obstruction. PERITONEUM: No evidence of pneumoperitoneum or free fluid. VASCULATURE: No evidence of aortic aneurysm. MUSCULOSKELETAL: No acute osseous abnormalities LYMPH NODES: No gross evidence for lymphadenopathy. SOFT TISSUE/ABDOMINAL WALL: Unremarkable IMPRESSION: No acute abdominal process within limitations of a noncontrast exam. No evidence for obstructive urop athy or renal calculi. [facility], , 03/23/2024 2:44 PM
== END | disposition home or self-care (01) ==
LOC: RADCTMAIN 14:06
PROVIDERS: ATTEND Family Medicine
DX: R31.9 Hematuria, unspecified (principal); J47.9 Bronchiectasis, uncomplicated; J98.11 Atelectasis
CPT/HCPCS: 74150

== ENCOUNTER → 2024-07-02 | Outpatient (CLI) | payer MEDICARE ==
--- NOTE | 2024-07-02 13:58 | CT ---
EXAMINATION TYPE: CT chest wo con DATE OF EXAM: 07/02/2024 COMPARISON: 01/02/2024 CLINICAL INDICATION: Female, 69 years old with history of pulmonary nodules; [facility], PULMONARY NODULES TECHNIQUE: CT scan of the thorax is performed without IV contrast. CT DLP: [address] CTDI: mGy Automated exposure control for dose reduction was used. FINDINGS: There are marked emphysematous changes with an upper lobe predominance. There is evidence for prior granulomatous disease exposure with calcified mediastinal and hilar lymph nodes and multiple calcified nodules. Nodules are stable compared to the prior study. The largest no dule is a 13 mm nodule in the left upper lobe. There is no new or suspicious nodule. There is no airspace consolidation There is chronic atelectasis and bronchiectasis in the right middle lobe. There is no pleural effusion or pneumothorax. The great vessels and chest are normal. Heart size normal. Limited scanning through the upper and reveals no gross abnormality. No focal osseous lesions are seen. IMPRESSION: 1. Marked emphysematous changes. 2. Multiple stable bilateral pulmonary nodules. No new or suspicious nodules. 3. findings consistent with prior granulomatous disease exposure. 4. Chronic atelectasis and bronchiectasis in the right middle lobe. 5. no acute cardiopulmonary disease. [facility], , 07/02/2024 1:56 PM
== END | disposition home or self-care (01) ==
LOC: RADCTMAIN 13:12
PROVIDERS: ATTEND Family Medicine
DX: J98.11 Atelectasis (principal); J47.9 Bronchiectasis, uncomplicated; R91.8 Other nonspecific abnormal finding of lung field
CPT/HCPCS: 71250